=== PATIENT | female | born 1950 | race Caucasian/White ===

== ENCOUNTER → 2019-06-14 15:43 | Outpatient (CLI) | payer MEDICARE, BC, OTHER, SELFPAY ==
--- NOTE | ~2019-06-14 | XR_ITS ---
EXAMINATION: XR knee RT min 4V DATE: 06/14/2019 16:21 INDICATION: Right knee pain. TECHNIQUE: 4 views of right knee were obtained. COMPARISON: None. FINDINGS: There is a total right knee arthroplasty with patellar resurfacing in near-anatomic alignme nt. No fracture. No periprosthetic lucency to suggest loosening or infection. No knee joint effusion. IMPRESSION: 1. Total right knee arthroplasty in near-anatomic alignment. Reviewed, dictated and finalized at location A. [employer]
== END ==
PROVIDERS: Visit Provider Nurse Practitioner Adult Health
DX: M25.561 Pain in right knee (principal)
CPT/HCPCS: 73564

== ENCOUNTER 2019-11-12 13:52 | Inpatient (IN) | payer MEDICARE, OTHER, MEDICAID, SELFPAY ==
--- NOTE | ~2019-11-12 | CT_ITS ---
EXAMINATION: CT abdomen pelvis w con DATE: 11/12/2019 18:14 INDICATION: Abdominal pain. Diarrhea. TECHNIQUE: Computed tomography (CT) of the abdomen and pelvis was performed with 100 mL Omnipaque 350 intravenous contrast. Automated exposure control and iterative reconstruction technique were employe d. The dose-length product was 1204.32 mGy-cm. COMPARISON: CT abdomen and pelvis 04/30/2019 FINDINGS: The visualized portions of the lung bases demonstrate mild atelectasis. No pleural effusion . The heart size is normal. No pericardial effusion. There are calcifications of aortic valve. The li ethel is normal. There are gallstones in the gallbladder, which is normal in size. The spleen, pancreas , and adrenal glands are normal. There is cortical thinning of the kidneys. There is diverticulosis o f the colon without evidence of diverticulitis. There are no dilated loops of bowel. The appendix is normal. There is a 3.5 x 1.7 x 4.8 cm mass abutting the anterior aspect of the aortic bifurcation. Th ere are no pathologically enlarged lymph nodes. There is no free intraperitoneal fluid. There is emmanuel re right hip osteoarthritis. There is moderate lumbar spondylosis. IMPRESSION: 1. New mass at the anterior aspect of the aortic bifurcation, which may be retroperitoneal fibrosis o r lymphoma. Reviewed, dictated and finalized at location A. IMPRESSION: 1. New mass at the anterior aspect of the aortic bifurcation, which may be retr operitoneal fibrosis or lymphoma.
--- NOTE | ~2019-11-12 | XR_ITS ---
XR knee RT min 4V 11/12/2019 16:08 Indication: Right chronic knee pain Procedure: 4 views right knee Comparison: 06/14/2019 Findings: There is a right total knee arthroplasty. Prosthesis appears well seated. The lateral views nonstandard. No significant joint effusion. No acute fracture or traumatic malalignment. Impression: 1: No acute bone or joint abnormality. Reviewed, dictated and finalized at location B. Impression: 1: No acute bone or joint abnormality.
--- NOTE | ~2019-11-12 | US_ITS ---
EXAMINATION: US venous doppler LE RT DATE: 11/12/2019 16:23 INDICATION: Right lower limb pain. TECHNIQUE: Grayscale ultrasound images without and with compression and Doppler ultrasound images of the right lower extremity veins were obtained. COMPARISON: None. FINDINGS: The visualized portions of right common femoral vein, profunda (deep) femoral vein, femoral vein, per [place] veins, posterior tibial veins, and greater saphenous vein outflow are patent. There is thrombus in right popliteal vein. IMPRESSION: 1. Deep vein thrombosis involving right popliteal vein. I called this result to Flores Gan on 11/11 at 16:26. Reviewed, dictated and finalized at location A. IMPRESSION: 1. Deep vein thrombosis involving right popliteal vein. I called this result t o Flores Gan on 11/12/19 at 16:26.
[2019-11-12 13:53] VITALS: BP 132/66; PULSE 66; RESP 20; TEMP 36.8; O2SAT 96
--- NOTE | 2019-11-12 15:45 | ED.LOWEXIN ---
HPI - Extremity Injury (Lower) General Chief Complaint: Extremity Injury, Lower Stated Complaint: R SIDE KNEE PAIN Time Seen by Provider: 11/12/19 15:26 Source: patient Mode of arrival: EMS Limitations: other (Poor historian) History of Present Illness HPI Narrative: Patient presents to the emergency department for acute on chronic right knee pain. Reports she has had problems with his knee for years. Reports is been worse over the last couple weeks. Worse with movement and relieved with rest. Denies any new injury or trauma. Also reports she has been having diarrhea over the last couple of days. Reports intermittent crampy abdominal pain. Reports she has had darker stools for the last couple of months. Has had a colonoscopy and seen a GI doctor in the past. Reports this has been several years ago though. Denies fever, erythema, or edema. Related Data Home Medications Medication Instructions Recorded Confirmed acetaminophen 500 mg PO Q6H PRN 04/30/19 amlodipine [Norvasc] 10 mg PO DAILY 04/30/19 aripiprazole 20 mg PO DAILY 04/30/19 ascorbic acid (vitamin C) mg PO 04/30/19 aspirin DAILY 04/30/19 bismuth subsalicylate 524 mg PO Q1H PRN 04/30/19 [Pepto-Bismol] buspirone 10 mg PO TID 04/30/19 chlorthalidone 25 mg PO DAILY 04/30/19 diclofenac sodium [Voltaren] 2 g TOPICAL QID 04/30/19 divalproex [Depakote ER] 500 mg PO DAILY 04/30/19 divalproex [Depakote ER] 750 mg PO HS 04/30/19 haloperidol 2 mg PO BID 04/30/19 hydrochlorothiazide 12.5 mg PO DAILY 04/30/19 hydrocodone-acetaminophen [[place]] 1 tablet PO Q4H PRN 04/30/19 hydroxyzine HCl 25 mg PO TID PRN 04/30/19 ibuprofen 400 mg PO Q6H PRN 04/30/19 lisinopril 40 mg PO DAILY 04/30/19 lorazepam 0.5 mg PO HS PRN 04/30/19 meloxicam 15 mg PO DAILY 04/30/19 metoprolol tartrate 100 mg PO Q12H 04/30/19 vxoenxiaitlw-lrt-chho-FA-vit K tablet PO 04/30/19 [Adults Multivitamin] omeprazole 20 mg PO DAILY 04/30/19 potassium chloride 10 meq PO DAILY 04/30/19 pravastatin 80 mg PO DAILY 04/30/19 psyllium husk (aspartame) 3 g PO DAILY 04/30/19 [Reguloid (aspartame)] sennosides [senna] 8.6 mg PO BID PRN 04/30/19 sertraline [Zoloft] 200 mg PO DAILY 04/30/19 simethicone 80 mg PO DAILY 04/30/19 trazodone 100 mg PO HS 04/30/19 Allergies Allergy/AdvReac Type Severity Reaction Status Date / Time adhesive tape Allergy Unknown Verified 11/12/19 13:57 latex Allergy Unknown Verified 11/12/19 13:57 quetiapine [From Seroquel] Allergy Unknown Verified 11/12/19 13:57 simvastatin Allergy Unknown Verified 11/12/19 13:57 tizanidine Allergy Unknown Verified 11/12/19 13:57 Review of Systems Review of Systems: Narrative: CONSTITUTIONAL: Denies fever SKIN: Denies rash MUSCULOSKELETAL: Reports joint pain, and myalgia. NEUROLOGIC: Denies numbness All systems reviewed & are unremarkable except as noted in HPI and below PMFSH Past Medical History Medical History (Updated 11/12/19 @ 18:48 by Flores Gan PA-C) COPD (chronic obstructive pulmonary disease) CVA (cerebral vascular accident) Diabetes mellitus Hypertension Obesity Schizophrenia Exam Narrative: Exam Narrative: GENERAL: Well-appearing, obese, and in no acute distress. HEAD: Normocephalic, atraumatic. EYES: EOMI. CHEST: Clear to auscultation. No respiratory distress. No wheezes rales or rhonchi HEART: Regular rate and rhythm. No murmur heard. Normal peripheral pulses. ABDOMEN: Soft, nondistended, normal active bowel sounds. Mild tenderness palpation throughout the lower abdomen, without guarding EXTREMITIES: Normal range of motion. Pain with active ROM of the right knee. No edema or erythema. Normal DP pulses. Normal sensation SKIN: Warm, dry, no rash. NEURO: No focal deficits. Alert and oriented x2. PSYCH: Normal mood and affect RECTAL: Hemoccult positive Course Consultations Consultation #1: Spoke with GI, Dr. Sweeney who will consult Date: 11/12/19 Time: 18:51 Consultation #2:
--- NOTE | 2019-11-12 16:05 | PC.NURSE ---
pt to ultrasound prior to labs being obtained.
[2019-11-12 16:32] LABS: Basophils Percent Auto 0.1 % (0.2-1.2); Hematocrit 25.5 % (37.0-47.0); Hemoglobin 8.5 g/dL (12.0-15.0); Immature Granulocyte Absolute 0.06 K/mm3 (0.00-0.031); Immature Granulocyte Percent A 0.7 % (0-0.5); Lymphocytes Absolute Auto 1.87 K/mm3 (0.9-3.2); Lymphocytes Percent Auto 21.3 % (18.3-44.2); Mean Corpuscular HGB Conc 33.3 g/dl (32-36); Mean Corpuscular Hemoglobin 32.1 pg (26-34); Mean Corpuscular Volume 96.2 fl (80-100); Mean Platelet Volume 9.9 fl (7.4-10.4); Monocytes Absolute Auto 0.8 K/mm3 (0.1-0.6); Monocytes Percent Auto 8.5 % (2.6-8.5); Neutrophils Absolute Auto 6.1 K/mm3 (1.3-6.7); Neutrophils Percent Auto 69.4 % (45.5-73.1); Nucleated Red Blood Cells Perc 0.3 % (0.0-0.2); Platelet Count Result 159 k/mm3 (150-375); Red Blood Count 2.65 M/mm3 (4.2-5.4); White Blood Count 8.8 K/mm3 (4.5-10.0)
[2019-11-12 16:42] LABS: INR 1.1; Partial Thromboplastin Time 22.1 SECONDS (22.3-36.8); Prothrombin Time 13.4 Seconds (11.1-14.7)
[2019-11-12 16:43] LABS: Blood Urea Nitrogen 68 mg/dL (7-17); Calcium 8.8 mg/dL (8.4-10.2); Carbon Dioxide 26 mmol/L (22-30); Chloride 100 mmol/L (98-107); Estimated Glomerular Filt Rate 55; Glucose 112 mg/dL (65-105); Potassium 4.6 mmol/L (3.4-5.0); Sodium 136 mmol/L (137-145)
[2019-11-12 17:30] VITALS: BP 142/77; PULSE 78; RESP 20; TEMP 36.6; O2SAT 99
[2019-11-12] MEDS: SODIUM CHLORIDE 0.9% IV 1,000 ML 999 ML IV CONT (17:45)
[2019-11-12] MEDS: PANTOPRAZOLE SODIUM IV 40 MG VIAL IV PUSH ×2 (18:45→18:46)
[2019-11-12 18:47] VITALS: BP 138/74; PULSE 74; RESP 18; O2SAT 98
[2019-11-12 19:52] VITALS: BP 132/43; PULSE 60; RESP 18; TEMP 36.8; O2SAT 96
[2019-11-12 20:08] LABS: Hematocrit 22.9 % (37.0-47.0); Hemoglobin 7.6 g/dL (12.0-15.0)
[2019-11-12 20:25] VITALS: BP 128/51; PULSE 59; RESP 18; TEMP 36.5; O2SAT 98; BMI 31.3
--- NOTE | 2019-11-12 21:01 | PC.NURSE ---
This patient, Jolie Thompson, was admitted to [facility] Surg Room 314-01. Patient/family oriented to hospital policies and general routines including ID bracelet, bed and alarms, visiting hours, pain management, procedures, bathroom and other care routines, personal items, smoking policy, room service/diet, and visiting hours. Valuables list has been completed. Information on how to activate the Rapid Response Team has been discussed. Patient/Family are encouraged to report perceived risks to care and to ask questions if they do not understand what they are told or what they should do.
[2019-11-12 22:00] VITALS: BP 100/75; PULSE 59; RESP 18; TEMP 36.6; O2SAT 99
[2019-11-12] MEDS: SODIUM CHLORIDE 0.9% IV 1,000 ML 125 ML IV CONT (22:35)
[2019-11-13] VITALS (23 sets, daily range): BP systolic 119–183; BP diastolic 39–73; PULSE 50–76; RESP 16–61; TEMP 36.3–37.1; O2SAT 93–100
[2019-11-13 02:21] LABS: Hematocrit 22.8 % (37.0-47.0); Hemoglobin 7.4 g/dL (12.0-15.0)
[2019-11-13] MEDS: SODIUM CHLORIDE 0.9% IV 1,000 ML 125 ML IV CONT ×2 (05:04→23:47)
[2019-11-13 07:30] LABS: Hematocrit 21.2 % (37.0-47.0)
[2019-11-13 07:34] LABS: Hemoglobin 6.9 g/dL (12.0-15.0)
--- NOTE | 2019-11-13 08:35 | PM.IMHP ---
H&P: HPI History of Present Illness Chief complaint: GI bleed, RLE DVT Narrative: Date of visit 11/12 809. Jolie Thompson is a 69 year old female with hypertension, schizophrenia, bioprosthetic aortic valve and chronic right knee pain status post right total knee who presented to the emergency room with complaints of ongoing knee pain. No recent trauma. She did relate that she had had some loose stools in the had been darker than usual and hemoglobin was decreased to 8.5 with BUN elevated at 68 and guaiac-positive stool. She was admitted for evaluation treatment of the same. She admits to being weak and dizzy but denied any fall or syncope but essentially wheelchair bound anyway. States she is always hungry and denies any abdominal pain, vomiting, dysphagia, or weight loss. On review of her medications she lists diclofenac and meloxicam both as well as Pepto-Bismol tablets. No previous history of peptic disease. Review of Systems Review of Systems: Narrative: General weight has been steady appetite good no change in bowel habits till the present illness Eye no double vision [place] Mouth no pharyngitis laryngitis Pulmonary no shortness breath wheezing or cough CV no chest pain palpitations status post aortic valve replacement GI as per present illness has had colonoscope was for benign polyps in the past last being she thinks 2 years ago at the [facility] has urgency of urination for some time with difficulty controlling Muscle skeletal the right need chronic problem no other significant joint discomfort Integument lots of bruising Neuropsych no seizures no syncope chronic schizophrenia PMFSH Past Medical History Medical History (Updated 11/13/19 @ 08:43 by Ang Kwon MD) COPD (chronic obstructive pulmonary disease) CVA (cerebral vascular accident) Diabetes mellitus Hypertension Obesity Schizophrenia Surgical History Surgical History (Updated 11/13/19 @ 08:43 by Ang Kwon MD) History of aortic valve replacement with bioprosthetic valve History of total knee arthroplasty Family History Family History (Updated 11/13/19 @ 08:44 by Ang Kwon MD) Father , Age 70 with cardiac and multiple other problems that patient cannot elaborate on Heart disease Mother , 71 heart disease Heart disease Other Unknown family medical history Social History Social History (Updated 11/13/19 @ 08:46 by Ang Kwon MD) Social History: Never no children, currently senior living resident due to inability to care for herself due to arthritis and schizophrenia. Had lived in an apartment assisted living until she fell over year ago Smoking packs per day: 1 Smoking cigarettes per day: 20.0 Smoking status: Former smoker Tobacco type: cigarettes Second hand tobacco smoke exposure: No Alcohol intake: former Substance use: never Substance use type: does not use Gender identity (if verbalized by the patient): Female Spiritual care concerns: No Meds Home Medications and Allergies Home Medications Medication Instructions Recorded Confirmed Type aripiprazole 20 mg PO DAILY 04/30/19 11/12/19 History aspirin 81 mg PO DAILY 04/30/19 11/12/19 History diclofenac sodium [Voltaren] 2 g TOPICAL QID 04/30/19 11/12/19 History lisinopril 40 mg PO DAILY 04/30/19 11/12/19 History meloxicam 15 mg PO DAILY 04/30/19 11/12/19 History jwbrlyeiyoyx-byd-ngbw-FA-vit K 1 tablet PO DAILY 04/30/19 11/12/19 History [Adults Multivitamin] pravastatin 80 mg PO DAILY 04/30/19 11/12/19 History sertraline [Zoloft] 200 mg PO DAILY 04/30/19 11/12/19 History bismuth subsalicylate 262 mg PO QID 11/12/19 11/12/19 History [Pepto-Bismol] cholecalciferol (vitamin D3) 1,000 unit PO DAILY 11/12/19 11/13/19 History divalproex [Depakote] 500 mg PO TID 11/12/19 11/12/19 History haloperidol 5 mg PO BID 11/12/19 11/13/19 History hydrochlorothiazide 25 mg PO DAILY 11/12/19 11/12/19 History
[2019-11-13] MEDS: DIVALPROEX SODIUM 250 MG TABEC 500 MG PO ×2 (09:05→17:49)
[2019-11-13] MEDS: SERTRALINE HCL 50 MG TABLET 200 MG PO (09:05)
[2019-11-13] MEDS: MULTIVITAMINS /C LUTEIN (CENTRUM SILVER) TABLET *BKC 1 TAB PO (09:06)
[2019-11-13] MEDS: HALOPERIDOL 5 MG TABLET PO ×2 (09:06→17:50)
[2019-11-13] MEDS: ARIPiprazole 10 MG TABLET 20 MG PO (09:07)
[2019-11-13] MEDS: CHOLECALCIFEROL 1,000 UNIT TABLET 1000 UNITS PO (09:07)
[2019-11-13] MEDS: METOPROLOL TARTRATE 25 MG TABLET PO ×2 (09:08→20:01)
[2019-11-13] MEDS: PANTOPRAZOLE SODIUM IV 40 MG VIAL IV PUSH ×2 (09:10→17:51)
--- NOTE | 2019-11-13 14:32 | PC.NURSE ---
Patient down to GI lab at 1425.
[2019-11-13] MEDS: SODIUM CHLORIDE 0.9% IV 250 ML 30 ML IV CONT (14:45)
[2019-11-13] MEDS: LACTATED RINGERS 1,000 ML 150 ML IV CONT (14:48)
[2019-11-13 14:49] LABS: Glucose Point of Care 79 (65-105)
--- NOTE | 2019-11-13 14:53 | P.PNAN_ITS ---
Anes - Eval Final PreProcedure Day of Procedure 11/13/19 14:53 Patient weight: obese Heart: regular rate and rhythm Lungs: clear to auscultation Airway: Mallampati scale class II Neurological: alert and oriented Last oral intake: >/= 8 hours ASA classification: III Emergent: no Anesthetic plan: proceed Anesthesia type and monitoring: general GIVS and standard monitoring Informed Consent: The patient's anesthetic plan and its attendant risks and b enefits were discussed with the patient/family/POA. Questions were solicited and answers provided to the satisfaction of the patient/family/POA.
--- NOTE | 2019-11-13 15:08 | WPDGICN ---
Assessment and Plan Assessment and plan (1) Melena: Code(s): K92.1 - Melena Status: Acute Assessment and Plan: will proceed with urgent EGD, continue with ppi iv more recommendations after EGD already getting blood transfusion keep hb >7 complicated history because new diagnosis of DVT- if we find ongoing bleeding probably will need ivc filter instead of blood thinners (2) Acute blood loss anemia: Code(s): D62 - Acute posthemorrhagic anemia Status: Acute Assessment and Plan: monitor and transfuse to keep hb>7 (3) Acute GI bleeding: Code(s): K92.2 - Gastrointestinal hemorrhage, unspecified Status: Acute (4) Acute deep vein thrombosis of right popliteal vein: Code(s): I82.431 - Acute embolism and thrombosis of right popliteal vein Status: Acute Assessment and Plan: new diagnosis, possible IVC filter (5) Abdominal mass: Code(s): R19.00 - Intra-abdominal and pelvic swelling, mass and lump, unspecified site Status: Acute Assessment and Plan: new finding- ? lymphoma vs retroperitoneal fibrosis, may need bx- consider oncology consult she says that had colonoscopy 2 years ago get ldh (6) History of total knee arthroplasty: Code(s): Z96.659 - Presence of unspecified artificial knee joint Status: Acute (7) BARRON (acute kidney injury): Code(s): N17.9 - Acute kidney failure, unspecified Status: Acute Assessment and Plan: mild elevated creatinine, improved with fluids GI Consult Note Consult date/time: 11/13/19 15:08 Reason for consult: melena and acute blood loss anemia HPI: Jolie Thompson is a 69 year old female with history of hypertension, schizophrenia, bioprosthetic aortic valve and chronic right knee pain status post right total knee and chronic pain here with new onset of pain in right knee and also diarrhea with dark stool since yesterday consistent with melena, also lightheadedness and feeling weak. Hb on admission 8.5 dropped to 6.9 with elevated BUN (baseline hb 12.5 on April). CT scan also showed new mass at the anterior aspect of the aortic bifurcation, which may be retroperitoneal fibrosis or lymphoma. Doppler ultrasound right leg showed Deep vein thrombosis involving right popliteal vein. She is npo now. Her last colonoscopy about 2 years ago. Review of Systems Constitutional: Constitutional: Reports fatigue and Denies headache(s) Eyes: Eyes: Denies blurry vision ENT: Reports Normal hearing present, Denies headache(s) and Denies neck pain Cardiovascular: Cardiovascular: Denies chest pain, Reports lightheadedness and Denies dyspnea Respiratory: Respiratory: Reports dyspnea on exertion Gastrointestinal: Gastrointestinal: Reports melena Genitourinary: Genitourinary: Denies dysuria Musculoskeletal: Musculoskeletal: Reports arthralgias Integumentary/Breasts: Skin/Breast: Denies dry skin Neurologic: Reports Normal hearing present Psychiatric: Psychiatric: Denies anxiety Endocrine: Endocrine: Denies change in body appearance Hematologic/Lymphatic: Hematologic/Lymphatic: Denies easy bleeding Allergic/Immunologic: Allergic/Immunologic: Denies urticaria PMFSH Past Medical History Medical History (Updated 11/13/19 @ 15:13 by Maynor Bray MD) BARRON (acute kidney injury) COPD (chronic obstructive pulmonary disease) CVA (cerebral vascular accident) Diabetes mellitus Hypertension Melena Obesity Schizophrenia Surgical History Surgical History (Updated 11/13/19 @ 08:43 by Ang Kwon MD) History of aortic valve replacement with bioprosthetic valve History of total knee arthroplasty Family History Family History (Updated 11/13/19 @ 08:44 by Ang Kwon MD) Father , Age 70 with cardiac and multiple other problems that patient cannot elaborate on Heart disease Mother , 71 heart disease Heart disease Other Unknown family medical
[2019-11-13 15:57] LABS: Glucose Point of Care 70 (65-105)
[2019-11-13] MEDS: TUBING, BLOOD PLUM PUMP TUBING 1 EACH XX (17:05)
[2019-11-13 19:31] LABS: Hematocrit 27.8 % (37.0-47.0); Hemoglobin 9.1 g/dL (12.0-15.0)
[2019-11-13 20:24] LABS: Iron 89 ug/dL (37-170)
[2019-11-13 20:33] LABS: Percent Iron Saturation 27 % (20-50)
[2019-11-13 23:56] LABS: Glucose Point of Care 83 (65-105)
[2019-11-14] VITALS (12 sets, daily range): BP systolic 138–151; BP diastolic 53–71; PULSE 47–62; RESP 16–18; TEMP 36.1–36.6; O2SAT 95–99
--- NOTE | 2019-11-14 | ECHO_ITS ---
Patient Info Name: Jolie Thompson Age: 69 years : 1950 Gender: Female Ht: 66 in Wt: 194 lbs BSA: 2.05 m2 HR: 51 bpm BP: 151 / 71 mmHg Heart Rhythm: Sinus Rhythm Technical Quality: Good Exam Date: 11/14/2019 2:23 PM Exam Location: [facility] Exam Room: 314 Patient Status: Inpatient Admit Date: 11/12/2019 Staff Ordering Physician: Ang Kwon MD Comprehensive Ophthalmologist: Liliana Fragoso RDCS Attending Provider: Heather Holland MD Exam Type: CA echo doppler color flow Study Info Complete two-dimensional, color flow and Doppler transthoracic echocardiogram is performed. Summary 1. Normal left ventricular size with moderate concentric hypertrophy. Hyperdynamic left ventricular systolic function with a visual EF of greater than 70% and measured of 72%. Grade 2 diastolic dysfunction is present. 2. Left atrial chamber dimension is moderately enlarged. 3. Right atrial chamber dimension is mildly enlarged. 4. There is mild tricuspid valve regurgitation. 5. Normal appearing bioprosthetic aortic valve prosthesis. Peak velocity 2.9 m/sec, peak gradient 33 mmHg, mean gradient 18 mmHg, aortic valve area 1.2 cm2. 6. Mild pulmonary hypertension, estimated pulmonary arterial systolic pressure is 46 mmHg. 7. Normal sinus rhythm. Left Ventricle Left ventricular chamber dimension is normal. Left ventricular systolic function is normal, estimated at >70%. There is moderately increased left ventricular wall thickness. Left ventricular septal wall motion is normal. The left ventricular diastolic function is grade II diastolic dysfunction. Right Ventricle Right ventricular chamber dimension is normal. Right ventricular systolic function is normal. Left Atria Left atrial chamber dimension is moderately enlarged. Right Atria Right atrial chamber dimension is mildly enlarged. Aortic Valve The porcine aortic valve is trileaflet. There is no sclerosis of the porcine aortic valve leaflets. There is no porcine aortic valve stenosis. There is no regurgitation of the porcine aortic valve. Pulmonic Valve The pulmonic valve is normal. There is no pulmonic valve stenosis. There is no pulmonic regurgitation. Mitral Valve The mitral valve has thickened leaflets. There is no mitral valve stenosis. There is trace mitral valve regurgitation. Tricuspid Valve The tricuspid valve leaflets are normal. There is no significant tricuspid valve stenosis. There is mild tricuspid valve regurgitation. Mild pulmonary hypertension, estimated pulmonary arterial systolic pressure is 46 mmHg. Pericardium/Pleural The pericardium appears normal. There is no pericardial effusion. Inferior Vena Cava Normal inferior vena cava with >50% collapse upon inspiration consistent with Empty right atrial pressure, 10 mmHg. Aorta The aortic root size at the sinus of Valsalva is normal. The prox ascending aorta size is normal. Left Ventricular Outflow Tract Name Value Normal LVOT 2D LVOT Diameter 2.0 cm LVOT Doppler LVOT Peak Gradient 5 mmHg LVOT Mean Gradient 3 mmHg
[2019-11-14 06:43] LABS: Lactate Dehydrogenase 395 U/L (313-618)
--- NOTE | 2019-11-14 07:59 | WPDANESPN ---
Anes - Prog Note Post-Op Date/Time: 11/14/19 07:59 Cardiovascular status: normal Respiratory status: normal Airway patency: baseline Mental status: baseline Post-Op hydration status: normal Vital Signs: Last Vital Signs Temp 36.4 C 11/14/19 06:00 Pulse 60 11/14/19 06:00 Resp 18 11/14/19 06:00 BP 151/71 H 11/14/19 06:00 Pulse Ox 98 11/14/19 06:00 I/O: Intake & Output 11/13/19 11/13/19 11/14/19 15:59 23:59 07:59 Intake Total 1550 590 870 Balance 1550 590 870 Laboratory Tests 11/13/19 19:20 11/12/19 16:27 11/12/19 11/13/19 11/13/19 19:29 14:45 15:56 Hgb Hct POC Capillary Glucose 79 70 Iron TIBC % Saturation Ferritin Lactate Dehydrogenase Vitamin B12 TSH (Reflex) Blood Type A Positive Antibody Screen Negative Crossmatch See Detail 11/13/19 11/13/19 11/13/19 19:20 19:20 19:20 Hgb 9.1 L Hct 27.8 L POC Capillary Glucose Iron 89 TIBC 331 % Saturation 27 Ferritin 55.10 Lactate Dehydrogenase Vitamin B12 668.0 TSH (Reflex) Blood Type Antibody Screen Crossmatch 11/13/19 11/14/19 11/14/19 22:51 06:13 06:13 Hgb Hct POC Capillary Glucose 83 Iron TIBC % Saturation Ferritin Lactate Dehydrogenase 395 Vitamin B12 TSH (Reflex) Pending Blood Type Antibody Screen Crossmatch Post-procedural complaints: none Patient Feedback: Patient satisfied with anesthetic care.
[2019-11-14] MEDS: PANTOPRAZOLE SODIUM IV 40 MG VIAL IV PUSH ×2 (08:27→17:42)
[2019-11-14] MEDS: CHOLECALCIFEROL 1,000 UNIT TABLET 1000 UNITS PO (08:27)
[2019-11-14] MEDS: ARIPiprazole 10 MG TABLET 20 MG PO (08:27)
[2019-11-14] MEDS: HALOPERIDOL 5 MG TABLET PO ×2 (08:28→17:42)
[2019-11-14] MEDS: DIVALPROEX SODIUM 250 MG TABEC 500 MG PO ×3 (08:28→17:42)
[2019-11-14] MEDS: SERTRALINE HCL 50 MG TABLET 200 MG PO (08:33)
[2019-11-14] MEDS: SODIUM CHLORIDE 0.9% IV 1,000 ML 125 ML IV CONT (08:34)
[2019-11-14] MEDS: MULTIVITAMINS /C LUTEIN (CENTRUM SILVER) TABLET *BKC 1 TAB PO (08:36)
[2019-11-14] MEDS: ONDANSETRON INJ 4 MG/2 ML VIAL IV PUSH (09:11)
[2019-11-14 12:02] LABS: Basophils Percent Auto 0.3 % (0.2-1.2); Eosinophils Absolute Auto 0.1 K/mm3 (0-0.3); Hematocrit 26.2 % (37.0-47.0); Hemoglobin 8.6 g/dL (12.0-15.0); Immature Granulocyte Absolute 0.03 K/mm3 (0.00-0.031); Immature Granulocyte Percent A 0.5 % (0-0.5); Lymphocytes Absolute Auto 1.41 K/mm3 (0.9-3.2); Lymphocytes Percent Auto 23.6 % (18.3-44.2); Mean Corpuscular HGB Conc 32.8 g/dl (32-36); Mean Corpuscular Hemoglobin 31.4 pg (26-34); Mean Corpuscular Volume 95.6 fl (80-100); Mean Platelet Volume 10.1 fl (7.4-10.4); Monocytes Absolute Auto 0.8 K/mm3 (0.1-0.6); Monocytes Percent Auto 13.4 % (2.6-8.5); Neutrophils Absolute Auto 3.7 K/mm3 (1.3-6.7); Neutrophils Percent Auto 61.2 % (45.5-73.1); Platelet Count Result 106 k/mm3 (150-375); Red Blood Count 2.74 M/mm3 (4.2-5.4)
[2019-11-14 12:16] LABS: Blood Urea Nitrogen 16 mg/dL (7-17); Calcium 8.3 mg/dL (8.4-10.2); Carbon Dioxide 27 mmol/L (22-30); Chloride 106 mmol/L (98-107); Estimated CRCL calculation 86 ml/min; Estimated Glomerular Filt Rate > 60; Glucose 104 mg/dL (65-105); Potassium 4.2 mmol/L (3.4-5.0); Sodium 139 mmol/L (137-145)
[2019-11-14] MEDS: HEPARIN SODIUM 5,000 UNITS/ML VIAL 5500 UNITS IV PUSH (13:00)
[2019-11-14 13:11] LABS: INR 1.1; Prothrombin Time 13.5 Seconds (11.1-14.7)
[2019-11-14] MEDS: HEPARIN SOD/D5W 100 UNITS/ML 25,000 UNITS/250 ML BAG 13 UNITS IV CONT (13:11)
[2019-11-14 13:12] LABS: Partial Thromboplastin Time 23.8 SECONDS (22.3-36.8)
--- NOTE | 2019-11-14 15:58 | WPDGIPROGNO ---
Progress Note: A&P Assessment and Plan (1) Gastric ulcer: Code(s): K25.9 - Gastric ulcer, unspecified as acute or chronic, without hemorrhage or perforation Status: Acute Assessment and Plan: no high risk features ulcers for rebleeding but need to monitor closely because she was started on heparin gtt given new diagnosis of DVT patient is feeling better avoid nsaid's (discussed with patient) (2) NSAID induced gastritis: Code(s): K29.60 - Other gastritis without bleeding; T39.395A - Adverse effect of other nonsteroidal anti-inflammatory drugs [NSAID], initial encounter Status: Acute Assessment and Plan: probably reason of several ulcers in stomach we can repeat egd in 3-4 months to assess for healing continue with ppi bid (3) Melena: Code(s): K92.1 - Melena Status: Acute (4) Acute blood loss anemia: Code(s): D62 - Acute posthemorrhagic anemia Status: Acute (5) Acute deep vein thrombosis of right popliteal vein: Code(s): I82.431 - Acute embolism and thrombosis of right popliteal vein Status: Acute Subjective Date/time seen: 11/14/19 15:58 Interval history: yesterday EGD showed several gastric ulcers with clean base and no high risk features of bleeding. She is feeling much better today. She says that was taking voltaren and meloxicam daily at home. Tolerating diet, no more bleeding. She was started on heparin gtt Review of Systems Review of Systems: All systems reviewed & are unremarkable except as noted in HPI and below Exam Const: General: no acute distress Other: pale HENMT: General nose exam: Normal nares present Eyes: General: appearance normal, both eyes and all related structures Neck: Neck: no JVD Resp: Auscultation: clear to auscultation bilaterally Cardio: Rate: regular rate Rhythm: regular rhythm GI: Inspection: non-distended GI Palp: Yes Soft to palpation, No Tenderness to palpation present (GI) and No Guarding due to palpation present (GI) Auscultation: normal bowel sounds Skin: General skin exam: pallor Neuro: Speech: normal speech Extrem: Right lower extremity: edema Other: Rt knee scar from previous surgery Psych: Mental Status: mental status grossly normal Objective Data Vital Signs Vital Signs: Vital Signs - 24 hr 11/13/19 16:00 11/13/19 16:10 11/13/19 16:30 Temperature 98.2 F Pulse Rate 56 L 56 L 55 L Respiratory Rate 61 H 61 H 16 Blood Pressure 183/73 H 160/67 H 163/65 H Pulse Oximetry 100 100 97 11/13/19 17:30 11/13/19 20:00 11/13/19 20:01 Temperature 97.6 F Pulse Rate 56 L 58 L 59 L Respiratory Rate 19 Blood Pressure 155/73 H Pulse Oximetry 99 11/13/19 22:00 11/14/19 00:00 11/14/19 04:00 Temperature 97.4 F L Pulse Rate 55 L 60 57 L Respiratory Rate 18 Blood Pressure 146/61 H Pulse Oximetry 95 11/14/19 04:03 11/14/19 06:00 11/14/19 08:00 Temperature 97.6 F Pulse Rate 57 L 60 47 L Respiratory Rate 18 Blood Pressure 138/61 151/71 H Pulse Oximetry 98 11/14/19 08:48 11/14/19 12:00 11/14/19 14:00 Temperature 97.0 F L Pulse Rate 47 L 50 L 53 L Respiratory Rate 18 Blood Pressure 140/53 L Pulse Oximetry 99 Intake/Output Intake/Output: Intake & Output 11/11/19 11/12/19 11/13/19 11/14/19 23:59 23:59 23:59 23:59 Intake Total 1000 3140 1560 Balance 1000 3140 1560 Meds/Results Medications: Active Medications Generic Name Dose Route Start Last Admin Trade Name Freq PRN Reason Stop Dose Admin Hydrocodone Bitart/Acetaminophen 1 tab 11/14/19 04:10 11/14/19 05:03 [place] 5-325 Mg PO 1 tab Q4H PRN Administration Pain Rated 4 or greater Aripiprazole 20 mg 11/13/19 09:00 11/14/19 08:27 Abilify PO 20 mg DAILY MAGUE Administration Divalproex Sodium 500 mg 11/13/19 09:00 11/14/19 13:23 Depakote Ec Tab PO 500 mg TID MAGUE Administration Haloperidol 5 mg 11/13/19 09:00 11/14/19 08:28 Titi Kenny
--- NOTE | 2019-11-14 16:34 | PM.IMPN ---
Progress Note: A&P Assessment and Plan (1) Acute GI bleeding: Code(s): K92.2 - Gastrointestinal hemorrhage, unspecified Status: Acute Assessment and Plan: From upper GI bleed with elevated BUN falling hemoglobin. With two nonsteroidals listed EGD revealed peptic ulcers with no active bleeding or high risk of same (2) Acute blood loss anemia: Code(s): D62 - Acute posthemorrhagic anemia Status: Acute Assessment and Plan: Hemoglobin had dropped below 7 and in April with the above 12. MCV is normal suggesting acute blood loss. iron studies normal and transfused 2 units of packed cells since has dropped rapidly, hgb 8.6 today., follow (3) Acute deep vein thrombosis of right popliteal vein: Code(s): I82.431 - Acute embolism and thrombosis of right popliteal vein Status: Acute Assessment and Plan: Popliteal DVT seen on Doppler. start IV heparin today (4) History of total knee arthroplasty: Code(s): Z96.659 - Presence of unspecified artificial knee joint Status: Acute Assessment and Plan: Knee pain is chronic and no change in x-ray from 6 months ago and exam is benign. (5) History of aortic valve replacement with bioprosthetic valve: Code(s): Z95.3 - Presence of xenogenic heart valve Status: Acute Assessment and Plan: Patient initially told me she was on warfarin but not listed in her medications and her INR is normal and no mechanical valve seen on echo of 2018. Will proceed with repeat echocardiogram since was degree of aortic stenosis at that time (6) Hypertension: Code(s): I10 - Essential (primary) hypertension Status: Acute Assessment and Plan: Blood pressure adequate hold diuretic and HEIDY-inhibitor and continue beta-dorothy and decrease to 12.5 bid with the bradycardia (7) Schizophrenia: Code(s): F20.9 - Schizophrenia, unspecified Status: Acute Assessment and Plan: Continue her antipsychotics and antidepressants (8) Abdominal mass: Code(s): R19.00 - Intra-abdominal and pelvic swelling, mass and lump, unspecified site Status: Acute Assessment and Plan: 3.5 x 4.8 abdominal mass anterior the to the aortic bifurcation not present on CT dated 04/19. Incidental finding. Will need further evaluation and/or follow-up with serial CTs or percutaneous biopsy. Will be complicated with anticoagulation. Subjective Date/time seen: 11/14/19 16:34 Interval history: Date of visit 11/13. yesterday EGD showed several gastric ulcers with clean base and no high risk features of bleeding per GI. . She is feeling much better today. She says that was taking NSAIDS at [place]. . Tolerating diet, no more bleeding. . With DVt will start heparin drip and follow closely Exam Narrative: Exam Narrative: Blood pressure 140/52 pulse is 52 and regular sat 96% on room air afebrile Pupils equal and reactive to light sclera anicteri Neck is supple Lungs clear CV systolic ejection murmur lower left sternal border to the 2nd right intercostal space and to the carotids radiating Abdomen obese soft nontender bowel sounds normal active Extremities without edema dorsalis pedis posterior tibial 1 to 2+ symmetrical, no calf tenderness or edema on R Right knee surgical scar from arthroplasty. No warmth erythema full range of motion but complains of pain with any movement and she cannot actively raise her leg due to pain. No real calf tenderness Integument bruising both arms throughout. No open areas Neuro flat affect cranial nerves 2-12 are intact Bradykinesia Objective Data Vital Signs Vital Signs: Vital Signs - 24 hr 11/13/19 17:30 11/13/19 20:00 11/13/19 20:01 Temperature 36.4 C Pulse Rate 56 L 58 L 59 L Respiratory Rate 19 Blood Pressure 155/73 H Pulse Oximetry 99 11/13/19 22:00 11/14/19 00:00 11/14/19 04:00 Temperature 36.3 C L Pulse Rate 55 L 60 57 L Respiratory Rate 18 [place]oo
[2019-11-14 20:04] LABS: Partial Thromboplastin Time 130.6 SECONDS (22.3-36.8)
[2019-11-14] MEDS: METOPROLOL TARTRATE 12.5 MG TABLET PO (20:21)
[2019-11-15] VITALS (8 sets, daily range): BP systolic 140–164; BP diastolic 52–76; PULSE 50–97; RESP 16–18; TEMP 36.1–36.7; O2SAT 94–98
[2019-11-15 02:20] LABS: Basophils Percent Auto 0.4 % (0.2-1.2); Eosinophils Absolute Auto 0.2 K/mm3 (0-0.3); Eosinophils Percent Auto 3.1 % (0-4.4); Hematocrit 25.1 % (37.0-47.0); Hemoglobin 8.3 g/dL (12.0-15.0); Immature Granulocyte Absolute 0.02 K/mm3 (0.00-0.031); Immature Granulocyte Percent A 0.3 % (0-0.5); Lymphocytes Percent Auto 32.2 % (18.3-44.2); Mean Corpuscular HGB Conc 33.1 g/dl (32-36); Mean Corpuscular Hemoglobin 31.4 pg (26-34); Mean Corpuscular Volume 95.1 fl (80-100); Mean Platelet Volume 10.2 fl (7.4-10.4); Monocytes Absolute Auto 0.9 K/mm3 (0.1-0.6); Monocytes Percent Auto 13.3 % (2.6-8.5); Neutrophils Absolute Auto 3.5 K/mm3 (1.3-6.7); Neutrophils Percent Auto 50.7 % (45.5-73.1); Platelet Count Result 108 k/mm3 (150-375); Red Blood Count 2.64 M/mm3 (4.2-5.4); Red Cell Distribution Width 14.6 % (11.5-14.5); White Blood Count 6.8 K/mm3 (4.5-10.0)
[2019-11-15 02:36] LABS: Blood Urea Nitrogen 9 mg/dL (7-17); Calcium 8.4 mg/dL (8.4-10.2); Carbon Dioxide 28 mmol/L (22-30); Chloride 107 mmol/L (98-107); Estimated CRCL calculation 75 ml/min; Estimated Glomerular Filt Rate > 60; Glucose 96 mg/dL (65-105); Potassium 4.1 mmol/L (3.4-5.0); Sodium 139 mmol/L (137-145)
[2019-11-15 02:39] LABS: Partial Thromboplastin Time 174.9 SECONDS (22.3-36.8)
[2019-11-15] MEDS: MULTIVITAMINS /C LUTEIN (CENTRUM SILVER) TABLET *BKC 1 TAB PO (09:41)
[2019-11-15] MEDS: ARIPiprazole 10 MG TABLET 20 MG PO (09:41)
[2019-11-15] MEDS: HALOPERIDOL 5 MG TABLET PO ×2 (09:41→16:40)
[2019-11-15] MEDS: PANTOPRAZOLE SODIUM IV 40 MG VIAL IV PUSH ×2 (09:41→16:41)
[2019-11-15] MEDS: DIVALPROEX SODIUM 250 MG TABEC 500 MG PO ×3 (09:41→16:40)
[2019-11-15] MEDS: SERTRALINE HCL 50 MG TABLET 200 MG PO (09:41)
[2019-11-15] MEDS: CHOLECALCIFEROL 1,000 UNIT TABLET 1000 UNITS PO (09:41)
[2019-11-15] MEDS: METOPROLOL TARTRATE 12.5 MG TABLET PO ×2 (09:42→20:47)
[2019-11-15] MEDS: HEPARIN SOD/D5W 100 UNITS/ML 25,000 UNITS/250 ML BAG 9 UNITS IV CONT (12:02)
--- NOTE | 2019-11-15 16:12 | WPDGIPROGNO ---
Progress Note: A&P Assessment and Plan (1) Gastric ulcer: Code(s): K25.9 - Gastric ulcer, unspecified as acute or chronic, without hemorrhage or perforation Status: Acute Assessment and Plan: no high risk features ulcers for rebleeding but need to monitor closely because she was started on heparin gtt given new diagnosis of DVT patient is feeling better, hb stable since last blood transfusion and normal BUN now avoid nsaid's (discussed with patient) (2) NSAID induced gastritis: Code(s): K29.60 - Other gastritis without bleeding; T39.395A - Adverse effect of other nonsteroidal anti-inflammatory drugs [NSAID], initial encounter Status: Acute Assessment and Plan: probably reason of several ulcers in stomach we can repeat egd in 3-4 months to assess for healing continue with ppi bid (3) Melena: Code(s): K92.1 - Melena Status: Acute (4) Acute blood loss anemia: Code(s): D62 - Acute posthemorrhagic anemia Status: Acute (5) Acute deep vein thrombosis of right popliteal vein: Code(s): I82.431 - Acute embolism and thrombosis of right popliteal vein Status: Acute Assessment and Plan: on iv heparin by primary team, monitor h/h Subjective Date/time seen: 11/15/19 16:12 Interval history: no bleeding, no pain, denies bleeding. Review of Systems Review of Systems: All systems reviewed & are unremarkable except as noted in HPI and below Exam Const: General: comfortable and no acute distress Other: pale HENMT: General nose exam: Normal nares present Eyes: General: appearance normal, both eyes and all related structures Neck: Neck: no JVD Resp: Auscultation: clear to auscultation bilaterally Cardio: Rate: regular rate Rhythm: regular rhythm GI: Inspection: non-distended GI Palp: Yes Soft to palpation, No Tenderness to palpation present (GI) and No Guarding due to palpation present (GI) Auscultation: normal bowel sounds Skin: General skin exam: pallor Neuro: Speech: normal speech Extrem: Right lower extremity: edema Other: Rt knee scar from previous surgery Psych: Mental Status: mental status grossly normal Affect: normal affect Objective Data Vital Signs Vital Signs: Vital Signs - 24 hr 11/14/19 20:00 11/14/19 20:21 11/14/19 22:00 Temperature 97.9 F Pulse Rate 54 L 62 53 L Respiratory Rate 16 Blood Pressure 149/56 H Pulse Oximetry 95 11/15/19 00:00 11/15/19 04:00 11/15/19 06:00 Temperature 97 F L Pulse Rate 50 L 53 L 60 Respiratory Rate 16 Blood Pressure 152/76 H Pulse Oximetry 94 11/15/19 08:00 11/15/19 09:42 11/15/19 14:00 Temperature 97.4 F L Pulse Rate 53 L 56 L 51 L Respiratory Rate 16 Blood Pressure 140/52 L Pulse Oximetry 98 Intake/Output Intake/Output: Intake & Output 11/12/19 11/13/19 11/14/19 11/15/19 23:59 23:59 23:59 23:59 Intake Total 1000 3140 3050 1045 Balance 1000 3140 3050 1045 Meds/Results Medications: Active Medications Generic Name Dose Route Start Last Admin Trade Name Freq PRN Reason Stop Dose Admin Hydrocodone Bitart/Acetaminophen 1 tab 11/14/19 04:10 11/15/19 09:49 [place] 5-325 Mg PO 1 tab Q4H PRN Administration Pain Rated 4 or greater Aripiprazole 20 mg 11/13/19 09:00 11/15/19 09:41 Abilify PO 20 mg DAILY MAGUE Administration Divalproex Sodium 500 mg 11/13/19 09:00 11/15/19 13:22 Depakote Ec Tab PO 500 mg TID MAGUE Administration Haloperidol 5 mg 11/13/19 09:00 11/15/19 09:41 Haldol Tablet PO 5 mg BID MAGUE Administration Heparin Sodium (Porcine) 5,500 units 11/14/19 12:27 Heparin Sodium IV PUSH PRN PRN aPTT less than 55 seconds Heparin Sodium (Porcine) 3,000 units 11/14/19 12:27 Heparin Sodium IV PUSH PRN PRN aPTT 55 - 70 seconds Heparin Sodium/Dextrose 25,000 units in 250 mls @ 9 mls/hr 11/14/19 12:30 11/15/19 12:02 Heparin Sodium/D5w 100 Units/Ml
[2019-11-15 16:31] LABS: Partial Thromboplastin Time 82.6 SECONDS (22.3-36.8)
--- NOTE | 2019-11-15 16:40 | PM.IMPN ---
Progress Note: A&P Assessment and Plan (1) Acute GI bleeding: Code(s): K92.2 - Gastrointestinal hemorrhage, unspecified Status: Acute Assessment and Plan: From upper GI bleed with elevated BUN falling hemoglobin. With two nonsteroidals listed EGD revealed peptic ulcers with no active bleeding or high risk of same (2) Acute blood loss anemia: Code(s): D62 - Acute posthemorrhagic anemia Status: Acute Assessment and Plan: Hemoglobin had dropped below 7 and in April with the above 12. MCV is normal suggesting acute blood loss. iron studies normal and transfused 2 units of packed cells since has dropped rapidly, hgb 8.3 today., follow (3) Acute deep vein thrombosis of right popliteal vein: Code(s): I82.431 - Acute embolism and thrombosis of right popliteal vein Status: Acute Assessment and Plan: Popliteal DVT seen on Doppler. start IV heparin 11/13 and tolerating so far (4) History of total knee arthroplasty: Code(s): Z96.659 - Presence of unspecified artificial knee joint Status: Acute Assessment and Plan: Knee pain is chronic and no change in x-ray from 6 months ago and exam is benign. (5) History of aortic valve replacement with bioprosthetic valve: Code(s): Z95.3 - Presence of xenogenic heart valve Status: Acute Assessment and Plan: Patient initially told me she was on warfarin but not listed in her medications and her INR is normal and no mechanical valve seen on echo of 2017. repeat echocardiogram normal bioprosthetic aortic valve. EF 70% with grade 2 diastolic dysfunction. [id number] hyper tension pulmonary r[place]ie with the 46 mm pressure estimated (6) Hypertension: Code(s): I10 - Essential (primary) hypertension Status: Acute Assessment and Plan: Blood pressure adequate hold diuretic and HEIDY-inhibitor and continue beta-dorothy and decreased to 12.5 bid with the bradycardia (7) Schizophrenia: Code(s): F20.9 - Schizophrenia, unspecified Status: Acute Assessment and Plan: Continue her antipsychotics and antidepressants (8) Abdominal mass: Code(s): R19.00 - Intra-abdominal and pelvic swelling, mass and lump, unspecified site Status: Acute Assessment and Plan: 3.5 x 4.8 abdominal mass anterior the to the aortic bifurcation not present on CT dated 04/19. Incidental finding. Will need further evaluation and/or follow-up with serial CTs or percutaneous biopsy. Will be complicated with anticoagulation. Subjective Date/time seen: 11/15/19 16:40 Interval history: Date of visit 11/14. EGD 11/12 showed several gastric ulcers with clean base and no high risk features of bleeding per GI. . She is feeling much better each day. She says that was taking NSAIDS at [place]. . Tolerating diet, no more bleeding. . With DVt started heparin drip 11/13 Exam Narrative: Exam Narrative: Blood pressure 140/50 pulse is 50 and regular sat 96% on room air afebrile Pupils equal and reactive to light sclera anicteri Neck is supple Lungs clear CV systolic ejection murmur lower left sternal border to the 2nd right intercostal space and to the carotids radiating Abdomen obese soft nontender bowel sounds normal active Extremities without edema dorsalis pedis posterior tibial 1 to 2+ symmetrical, no calf tenderness or edema on R Right knee surgical scar from arthroplasty. No warmth erythema full range of motion but complains of pain with any movement and she cannot actively raise her leg due to pain. No real calf tenderness Integument bruising both arms throughout. No open areas Neuro flat affect cranial nerves 2-12 are intact Bradykinesia Objective Data Vital Signs Vital Signs: Vital Signs - 24 hr 11/14/19 20:00 11/14/19 20:21 11/14/19 22:00 Temperature 36.6 C Pulse Rate 54 L 62 53 L Respiratory Rate 16 Blood Pressure 149/56 H Pulse Oximetry 95 11/15/19 00:00 11/15/19 04
[2019-11-15 22:57] LABS: Partial Thromboplastin Time 83.5 SECONDS (22.3-36.8)
[2019-11-16 06:00] VITALS: BP 154/71; PULSE 54; RESP 18; TEMP 36.3; O2SAT 96
[2019-11-16 06:17] LABS: Partial Thromboplastin Time 74.6 SECONDS (22.3-36.8)
[2019-11-16 07:52] LABS: Hemoglobin 8.7 g/dL (12.0-15.0); Mean Corpuscular HGB Conc 32.2 g/dl (32-36); Mean Corpuscular Hemoglobin 31.2 pg (26-34); Mean Corpuscular Volume 96.8 fl (80-100); Mean Platelet Volume 9.9 fl (7.4-10.4); Platelet Count Result 125 k/mm3 (150-375); Red Blood Count 2.79 M/mm3 (4.2-5.4); Red Cell Distribution Width 14.5 % (11.5-14.5); White Blood Count 5.9 K/mm3 (4.5-10.0)
[2019-11-16] MEDS: PANTOPRAZOLE SODIUM IV 40 MG VIAL IV PUSH ×2 (10:25→17:32)
[2019-11-16] MEDS: DIVALPROEX SODIUM 250 MG TABEC 500 MG PO ×3 (10:26→17:31)
[2019-11-16] MEDS: SERTRALINE HCL 50 MG TABLET 200 MG PO (10:26)
[2019-11-16] MEDS: ARIPiprazole 10 MG TABLET 20 MG PO (10:26)
[2019-11-16 10:27] VITALS: PULSE 80
[2019-11-16] MEDS: MULTIVITAMINS /C LUTEIN (CENTRUM SILVER) TABLET *BKC 1 TAB PO (10:27)
[2019-11-16] MEDS: HALOPERIDOL 5 MG TABLET PO ×2 (10:27→17:32)
[2019-11-16] MEDS: METOPROLOL TARTRATE 12.5 MG TABLET PO ×2 (10:27→20:37)
[2019-11-16] MEDS: CHOLECALCIFEROL 1,000 UNIT TABLET 1000 UNITS PO (10:29)
--- NOTE | 2019-11-16 15:16 | PM.IMPN ---
Progress Note: A&P Assessment and Plan (1) Acute GI bleeding: Code(s): K92.2 - Gastrointestinal hemorrhage, unspecified Status: Acute Assessment and Plan: From upper GI bleed with elevated BUN falling hemoglobin. With two nonsteroidals listed EGD revealed peptic ulcers with no active bleeding or high risk of same (2) Acute blood loss anemia: Code(s): D62 - Acute posthemorrhagic anemia Status: Acute Assessment and Plan: Hemoglobin had dropped below 7 and in April above 12. MCV is normal suggesting acute blood loss. iron studies normal and transfused 2 units of packed cells since dropped rapidly, hgb 8.7 today., follow (3) Acute deep vein thrombosis of right popliteal vein: Code(s): I82.431 - Acute embolism and thrombosis of right popliteal vein Status: Acute Assessment and Plan: Popliteal DVT seen on Doppler. started IV heparin 11/13 and transition to Eliquis this pm (4) History of total knee arthroplasty: Code(s): Z96.659 - Presence of unspecified artificial knee joint Status: Acute Assessment and Plan: Knee pain is chronic and no change in x-ray from 6 months ago and exam is benign. (5) History of aortic valve replacement with bioprosthetic valve: Code(s): Z95.3 - Presence of xenogenic heart valve Status: Acute Assessment and Plan: Patient initially told me she was on warfarin but not listed in her medications and her INR is normal and no mechanical valve seen on echo of 2018. repeat echocardiogram normal bioprosthetic aortic valve. EF 70% with grade 2 diastolic dysfunction. [id number] hyper tension pulmonary ritchie with the 46 mm pressure estimated (6) Hypertension: Code(s): I10 - Essential (primary) hypertension Status: Acute Assessment and Plan: Blood pressure adequate and rising so will add HEIDY back to betablocker (7) Schizophrenia: Code(s): F20.9 - Schizophrenia, unspecified Status: Acute Assessment and Plan: Continue her antipsychotics and antidepressants (8) Abdominal mass: Code(s): R19.00 - Intra-abdominal and pelvic swelling, mass and lump, unspecified site Status: Acute Assessment and Plan: 3.5 x 4.8 abdominal mass anterior the to the aortic bifurcation not present on CT dated 04/19. Incidental finding. Will need further evaluation and/or follow-up with serial CTs or percutaneous biopsy. Will be complicated with anticoagulation. Subjective Date/time seen: 11/16/19 15:16 Interval history: Date of visit 11/15. EGD 11/12 showed several gastric ulcers with clean base and no high risk features of bleeding per GI. . She is feeling much better each day though nauseated this am after eating. was taking NSAIDS at [place]. . Tolerating diet, no more bleeding. . With DVt started heparin drip 11/13 Exam Narrative: Exam Narrative: Blood pressure 152/72 pulse is 56 and regular sat 96% on room air afebrile Pupils equal and reactive to light sclera anicteri Neck is supple Lungs clear CV systolic ejection murmur lower left sternal border to the 2nd right intercostal space and to the carotids radiating Abdomen obese soft nontender bowel sounds normal active Extremities without edema dorsalis pedis posterior tibial 1 to 2+ symmetrical, no calf tenderness or edema on R Right knee surgical scar from arthroplasty. . No real calf tenderness Integument bruising both arms throughout. No open areas Neuro flat affect cranial nerves 2-12 are intact Bradykinesia Objective Data Vital Signs Vital Signs: Vital Signs - 24 hr 11/15/19 20:47 11/15/19 22:00 11/16/19 06:00 Temperature 36.7 C 36.3 C L Pulse Rate 60 97 54 L Respiratory Rate 18 18 Blood Pressure 164/66 H 154/71 H Pulse Oximetry 95 96 11/16/19 10:27 Temperature Pulse Rate 80 Respiratory Rate Blood Pressure Pulse Oximetry Intake/Output Intake/Output: Intake & Output 11/13/19
[2019-11-16] MEDS: APIXABAN 5 MG TABLET 10 MG PO (17:30)
--- NOTE | 2019-11-16 17:33 | WPDGIPROGNO ---
Progress Note: A&P Assessment and Plan (1) Gastric ulcer: Code(s): K25.9 - Gastric ulcer, unspecified as acute or chronic, without hemorrhage or perforation Status: Acute Assessment and Plan: no high risk features ulcers for rebleeding and she has not had any more melena since started on heparin gtt patient is feeling better, hb stable since last blood transfusion and normal BUN now she should not longer take nsaid's (discussed with patient) (2) NSAID induced gastritis: Code(s): K29.60 - Other gastritis without bleeding; T39.395A - Adverse effect of other nonsteroidal anti-inflammatory drugs [NSAID], initial encounter Status: Acute Assessment and Plan: probably reason of several ulcers in stomach we can repeat egd in 3-4 months to assess for healing continue with ppi bid H pylori was negative (3) Melena: Code(s): K92.1 - Melena Status: Acute (4) Acute blood loss anemia: Code(s): D62 - Acute posthemorrhagic anemia Status: Acute (5) Acute deep vein thrombosis of right popliteal vein: Code(s): I82.431 - Acute embolism and thrombosis of right popliteal vein Status: Acute Assessment and Plan: on iv heparin by primary team, monitor h/h probably tomorrow will start oral anticoagulation Subjective Date/time seen: 11/16/19 17:33 Interval history: no bleeding, no abdominal pain. She is complaining today of leg pain Review of Systems Review of Systems: All systems reviewed & are unremarkable except as noted in HPI and below Exam Const: General: comfortable and no acute distress Other: pale HENMT: General nose exam: Normal nares present Eyes: General: appearance normal, both eyes and all related structures Neck: Neck: no JVD Resp: Auscultation: clear to auscultation bilaterally Cardio: Rate: regular rate Rhythm: regular rhythm GI: Inspection: non-distended GI Palp: Yes Soft to palpation, No Tenderness to palpation present (GI) and No Guarding due to palpation present (GI) Auscultation: normal bowel sounds Skin: General skin exam: pallor Neuro: Speech: normal speech Extrem: Right lower extremity: edema Other: Rt knee scar from previous surgery Psych: Mental Status: mental status grossly normal Affect: normal affect Objective Data Vital Signs Vital Signs: Vital Signs - 24 hr 11/15/19 20:47 11/15/19 22:00 11/16/19 06:00 Temperature 98.1 F 97.3 F L Pulse Rate 60 97 54 L Respiratory Rate 18 18 Blood Pressure 164/66 H 154/71 H Pulse Oximetry 95 96 11/16/19 10:27 Temperature Pulse Rate 80 Respiratory Rate Blood Pressure Pulse Oximetry Intake/Output Intake/Output: Intake & Output 11/13/19 11/14/19 11/15/19 11/16/19 23:59 23:59 23:59 23:59 Intake Total 3140 3050 1535 630 Output Total 500 Balance 3140 3050 1035 630 Meds/Results Medications: Active Medications Generic Name Dose Route Start Last Admin Trade Name Freq PRN Reason Stop Dose Admin Acetaminophen 650 mg 11/16/19 15:07 Tylenol Tablet PO Q6H PRN Mild Pain (1-3) or Fever Hydrocodone Bitart/Acetaminophen 1 tab 11/14/19 04:10 11/15/19 09:49 [place] 5-325 Mg PO 1 tab Q4H PRN Administration Pain Rated 4 or greater Apixaban 10 mg 11/16/19 17:00 Eliquis PO Q12HR MAGUE Aripiprazole 20 mg 11/13/19 09:00 11/16/19 10:26 Abilify PO 20 mg DAILY MAGUE Administration Divalproex Sodium 500 mg 11/13/19 09:00 11/16/19 14:49 Depakote Ec Tab PO 500 mg TID MAGUE Administration Haloperidol 5 mg 11/13/19 09:00 11/16/19 10:27 Haldol Tablet PO 5 mg BID MAGUE Administration Lisinopril 20 mg 11/17/19 09:00 Prinivil PO QAM MAGUE Metoprolol Tartrate 12.5 mg 11/14/19 21:00 11/16/19 10:27 Lopressor PO 12.5 mg Q12HR MAGUE Administration Multivitamins/Minerals 1 tab 11/13/19 09:00 11/16/19 10:27 Centrum Silver PO 1 tab DAILY MAGUE Administration Ondansetro
[2019-11-16] MEDS: lisinopriL 10 MG TABLET PO (17:35)
[2019-11-16 18:34] VITALS: BP 152/68; PULSE 72; RESP 14; TEMP 36.6; O2SAT 97
[2019-11-16 20:37] VITALS: PULSE 60
[2019-11-16 21:53] VITALS: BP 138/65; PULSE 60; RESP 18; TEMP 36.7; O2SAT 98
[2019-11-17 05:52] VITALS: BP 147/68; PULSE 94; RESP 16; TEMP 36.8; O2SAT 94
[2019-11-17 06:39] LABS: Basophils Percent Auto 0.3 % (0.2-1.2); Eosinophils Absolute Auto 0.1 K/mm3 (0-0.3); Eosinophils Percent Auto 1.5 % (0-4.4); Hematocrit 24.3 % (37.0-47.0); Hemoglobin 7.8 g/dL (12.0-15.0); Immature Granulocyte Absolute 0.02 K/mm3 (0.00-0.031); Immature Granulocyte Percent A 0.3 % (0-0.5); Lymphocytes Absolute Auto 1.76 K/mm3 (0.9-3.2); Lymphocytes Percent Auto 30.2 % (18.3-44.2); Mean Corpuscular HGB Conc 32.1 g/dl (32-36); Mean Corpuscular Hemoglobin 30.8 pg (26-34); Mean Platelet Volume 10.2 fl (7.4-10.4); Monocytes Absolute Auto 0.8 K/mm3 (0.1-0.6); Monocytes Percent Auto 14.2 % (2.6-8.5); Neutrophils Absolute Auto 3.1 K/mm3 (1.3-6.7); Neutrophils Percent Auto 53.5 % (45.5-73.1); Platelet Count Result 126 k/mm3 (150-375); Red Blood Count 2.53 M/mm3 (4.2-5.4); Red Cell Distribution Width 14.6 % (11.5-14.5); White Blood Count 5.8 K/mm3 (4.5-10.0)
--- NOTE | 2019-11-17 08:18 | WPDGIPROGNO ---
Progress Note: A&P Additional Plan Patient alert in appears comfortable this morning. Offers no specific complaints. She has seen no recent bleeding. Physical exam reveals her to be alert. Abdomen is soft bowel sounds are present nontender with no hepatosplenomegaly. Extremities with only mild edema in the leg Impression 1. Gastric ulcer. Status post GI bleeding. No longer bleeding at this time. Plan is to continue proton pump inhibitors. Avoid nonsteroidal anti-inflammatory agents. Follow-up EGD in several months is advised as an outpatient. 2. DVT. At this time patient has been restarted on Eliquis anticoagulation. Plan to continue monitor hemoglobin on occasion. Watch for signs of rebleeding. Plan to advance diet discharge when all feel she is stable.. Subjective Date/time seen: 11/17/19 08:18 Objective Data Vital Signs Vital Signs: Vital Signs - 24 hr 11/16/19 10:27 11/16/19 18:34 11/16/19 20:37 Temperature 97.8 F Pulse Rate 80 72 60 Respiratory Rate 14 Blood Pressure 152/68 H Pulse Oximetry 97 11/16/19 21:53 11/17/19 05:52 Temperature 98.0 F 98.2 F Pulse Rate 60 94 Respiratory Rate 18 16 Blood Pressure 138/65 147/68 H Pulse Oximetry 98 94 Intake/Output Intake/Output: Intake & Output 11/14/19 11/15/19 11/16/19 11/17/19 23:59 23:59 23:59 23:59 Intake Total 3050 1535 1760 300 Output Total 500 Balance 3050 1035 1760 300 Meds/Results Medications: Active Medications Generic Name Dose Route Start Last Admin Trade Name Freq PRN Reason Stop Dose Admin Acetaminophen 650 mg 11/16/19 15:07 Tylenol Tablet PO Q6H PRN Mild Pain (1-3) or Fever Hydrocodone Bitart/Acetaminophen 1 tab 11/14/19 04:10 11/15/19 09:49 [place] 5-325 Mg PO 1 tab Q4H PRN Administration Pain Rated 4 or greater Apixaban 10 mg 11/16/19 17:00 11/16/19 17:30 Eliquis PO 10 mg Q12HR MAGUE Administration Aripiprazole 20 mg 11/13/19 09:00 11/16/19 10:26 Abilify PO 20 mg DAILY MAGUE Administration Divalproex Sodium 500 mg 11/13/19 09:00 11/16/19 17:31 Depakote Ec Tab PO 500 mg TID MAGUE Administration Haloperidol 5 mg 11/13/19 09:00 11/16/19 17:32 Haldol Tablet PO 5 mg BID MAGUE Administration Lisinopril 20 mg 11/17/19 09:00 Prinivil PO QAM MAGUE Metoprolol Tartrate 12.5 mg 11/14/19 21:00 11/16/19 20:37 Lopressor PO 12.5 mg Q12HR MAGUE Administration Multivitamins/Minerals 1 tab 11/13/19 09:00 11/16/19 10:27 Centrum Silver PO 1 tab DAILY MAGUE Administration Ondansetron HCl 4 mg 11/13/19 09:44 11/14/19 09:11 Zofran Inj IV PUSH 4 mg Q6H PRN Administration Nausea And Vomiting Pantoprazole Sodium 40 mg 11/13/19 09:00 11/16/19 17:32 Protonix Iv IV PUSH 40 mg BID MAGUE Administration Sertraline HCl 200 mg 11/13/19 09:00 11/16/19 10:26 Zoloft PO 200 mg DAILY MAGUE Administration Vitamin D 1,000 unit 11/13/19 09:00 11/16/19 10:29 Vitamin D PO 1,000 unit DAILY MAGUE Administration Radiology Results: ITS Impressions Knee X-Ray 11/12/19 16:10 Impression: 1: No acute bone or joint abnormality. Venous Doppler Study 11/12/19 16:24 IMPRESSION: 1. Deep vein thrombosis involving right popliteal vein. I called this result to Flores Gan on 11/12/19 at 16:26. Abdomen/Pelvis CT 11/12/19 18:14 IMPRESSION: 1. New mass at the anterior aspect of the aortic bifurcation, which may be retroperitoneal fibrosis or lymphoma. Labs Labs: Laboratory Results - last 24 hr 11/17/19 05:51 WBC 5.8 RBC 2.53 L Hgb 7.8 L Hct 24.3 L MCV 96.0 MCH 30.8 MCHC 32.1 RDW 14.6 H Plt Count 126 L MPV 10.2 Immature Gran % (Auto) 0.3 Neut % (Auto) 53.5 Lymph % (Auto) 30.2 Sutter % (Auto) 14.2 H Eos % (Auto) 1.5 Baso % (Auto) 0.3 Lymph # (Auto) 1.76 [place]utter # (Auto) 0.8 H Eos # (Auto) 0.1 Baso # (Auto) 0.0 Abs Immat Gran (auto) 0.02 Absolute Neuts
[2019-11-17] MEDS: APIXABAN 5 MG TABLET 10 MG PO ×2 (09:13→21:08)
[2019-11-17] MEDS: MULTIVITAMINS /C LUTEIN (CENTRUM SILVER) TABLET *BKC 1 TAB PO (09:13)
[2019-11-17] MEDS: HALOPERIDOL 5 MG TABLET PO ×2 (09:13→18:08)
[2019-11-17] MEDS: PANTOPRAZOLE SODIUM IV 40 MG VIAL IV PUSH ×2 (09:13→18:08)
[2019-11-17] MEDS: SERTRALINE HCL 50 MG TABLET 200 MG PO (09:13)
[2019-11-17] MEDS: DIVALPROEX SODIUM 250 MG TABEC 500 MG PO ×3 (09:13→18:08)
[2019-11-17] MEDS: ARIPiprazole 10 MG TABLET 20 MG PO (09:14)
[2019-11-17] MEDS: CHOLECALCIFEROL 1,000 UNIT TABLET 1000 UNITS PO (09:14)
[2019-11-17] MEDS: lisinopriL 20 MG TABLET PO (09:14)
[2019-11-17 10:38] VITALS: PULSE 56
[2019-11-17] MEDS: METOPROLOL TARTRATE 12.5 MG TABLET PO ×2 (10:38→21:08)
[2019-11-17 14:00] VITALS: BP 136/50; PULSE 53; RESP 16; TEMP 36.8; O2SAT 94
--- NOTE | 2019-11-17 14:22 | PM.IMPN ---
Progress Note: A&P Assessment and Plan (1) Acute GI bleeding: Code(s): K92.2 - Gastrointestinal hemorrhage, unspecified Status: Acute Assessment and Plan: From upper GI bleed with elevated BUN falling hemoglobin. With two nonsteroidals listed EGD revealed peptic ulcers with no active bleeding or high risk of same bid PPI (2) Acute blood loss anemia: Code(s): D62 - Acute posthemorrhagic anemia Status: Acute Assessment and Plan: Hemoglobin had dropped below 7 and in April above 12. MCV is normal suggesting acute blood loss. iron studies normal and transfused 2 units of packed cells since dropped rapidly, hgb 7.8 today., follow (3) Acute deep vein thrombosis of right popliteal vein: Code(s): I82.431 - Acute embolism and thrombosis of right popliteal vein Status: Acute Assessment and Plan: Popliteal DVT seen on Doppler. started IV heparin 11/13 and transition to Eliquis 11/15 pm (4) History of total knee arthroplasty: Code(s): Z96.659 - Presence of unspecified artificial knee joint Status: Acute Assessment and Plan: Knee pain is chronic and no change in x-ray from 6 months ago and exam is benign. (5) History of aortic valve replacement with bioprosthetic valve: Code(s): Z95.3 - Presence of xenogenic heart valve Status: Acute Assessment and Plan: Patient initially told me she was on warfarin but not listed in her medications and her INR is normal and no mechanical valve seen on echo of 2018 repeat echocardiogram normal bioprosthetic aortic valve. EF 70% with grade 2 diastolic dysfunction. Cupv-[id number] hyper tension pulmonary ritchie with the 46 mm pressure estimated (6) Hypertension: Code(s): I10 - Essential (primary) hypertension Status: Acute Assessment and Plan: Blood pressure adequate and rising so will add HEIDY back at 20mg qd to betablocker (7) Schizophrenia: Code(s): F20.9 - Schizophrenia, unspecified Status: Acute Assessment and Plan: Continue her antipsychotics and antidepressants (8) Abdominal mass: Code(s): R19.00 - Intra-abdominal and pelvic swelling, mass and lump, unspecified site Status: Acute Assessment and Plan: 3.5 x 4.8 abdominal mass anterior the to the aortic bifurcation not present on CT dated 04/19. Incidental finding. Will need further evaluation and/or follow-up with serial CTs or percutaneous biopsy. Will be complicated with anticoagulation. Subjective Date/time seen: 11/17/19 14:22 Interval history: Date of visit 11/16. EGD 11/12 showed several gastric ulcers with clean base and no high risk features of bleeding per GI. . She is feeling much better each day and hoping to go home. was taking NSAIDS at [place]. . Tolerating diet, no more bleeding. . With DVt started heparin drip 11/13 and transitioned to apixaban pm 11/15 Exam Narrative: Exam Narrative: Blood pressure 146/78 pulse is 60 and afebrile Pupils equal and reactive to light sclera anicteri Neck is supple Lungs clear CV systolic ejection murmur lower left sternal border to the 2nd right intercostal space and to the carotids radiating Abdomen obese soft nontender bowel sounds normal active Extremities without edema dorsalis pedis posterior tibial 1 to 2+ symmetrical, no calf tenderness or edema on R Right knee surgical scar from arthroplasty. . No real calf tenderness Integument bruising both arms throughout. No open areas Neuro flat affect cranial nerves 2-12 are intact Bradykinesia Objective Data Vital Signs Vital Signs: Vital Signs - 24 hr 11/16/19 18:34 11/16/19 20:37 11/16/19 21:53 Temperature 36.6 C 36.7 C Pulse Rate 72 60 60 Respiratory Rate 14 18 Blood Pressure 152/68 H 138/65 Pulse Oximetry 97 98 11/17/19 05:52 11/17/19 10:38 Temperature 36.8 C Pulse Rate 94 56 L Respiratory Rate 16 Blood Pressure 147/68 H Pulse Oximetry 94 Intake/Output I
[2019-11-17 21:08] VITALS: PULSE 63
[2019-11-17 22:00] VITALS: BP 145/62; PULSE 57; RESP 22; TEMP 36.1; O2SAT 91
[2019-11-18] VITALS (12 sets, daily range): BP systolic 138–158; BP diastolic 51–71; PULSE 47–60; RESP 16–18; TEMP 36.1–36.9; O2SAT 92–98
[2019-11-18 06:31] LABS: Basophils Percent Auto 0.4 % (0.2-1.2); Eosinophils Absolute Auto 0.1 K/mm3 (0-0.3); Eosinophils Percent Auto 2.3 % (0-4.4); Hematocrit 23.9 % (37.0-47.0); Hemoglobin 7.7 g/dL (12.0-15.0); Immature Granulocyte Absolute 0.03 K/mm3 (0.00-0.031); Immature Granulocyte Percent A 0.5 % (0-0.5); Lymphocytes Absolute Auto 1.67 K/mm3 (0.9-3.2); Lymphocytes Percent Auto 29.7 % (18.3-44.2); Mean Corpuscular HGB Conc 32.2 g/dl (32-36); Mean Corpuscular Hemoglobin 30.9 pg (26-34); Mean Platelet Volume 10.2 fl (7.4-10.4); Monocytes Absolute Auto 0.7 K/mm3 (0.1-0.6); Monocytes Percent Auto 12.6 % (2.6-8.5); Neutrophils Absolute Auto 3.1 K/mm3 (1.3-6.7); Neutrophils Percent Auto 54.5 % (45.5-73.1); Platelet Count Result 124 k/mm3 (150-375); Red Blood Count 2.49 M/mm3 (4.2-5.4); Red Cell Distribution Width 14.3 % (11.5-14.5); White Blood Count 5.6 K/mm3 (4.5-10.0)
[2019-11-18 06:47] LABS: Blood Urea Nitrogen 15 mg/dL (7-17); Calcium 8.3 mg/dL (8.4-10.2); Carbon Dioxide 31 mmol/L (22-30); Chloride 103 mmol/L (98-107); Estimated CRCL calculation 60 ml/min; Estimated Glomerular Filt Rate > 60; Glucose 84 mg/dL (65-105); Potassium 3.7 mmol/L (3.4-5.0); Sodium 137 mmol/L (137-145)
[2019-11-18] MEDS: lisinopriL 20 MG TABLET PO (08:40)
[2019-11-18] MEDS: CHOLECALCIFEROL 1,000 UNIT TABLET 1000 UNITS PO (08:40)
[2019-11-18] MEDS: METOPROLOL TARTRATE 12.5 MG TABLET PO ×2 (08:41→20:04)
[2019-11-18] MEDS: MULTIVITAMINS /C LUTEIN (CENTRUM SILVER) TABLET *BKC 1 TAB PO (08:41)
[2019-11-18] MEDS: ARIPiprazole 10 MG TABLET 20 MG PO (08:41)
[2019-11-18] MEDS: HALOPERIDOL 5 MG TABLET PO ×2 (08:41→18:18)
[2019-11-18] MEDS: DIVALPROEX SODIUM 250 MG TABEC 500 MG PO ×3 (08:42→18:17)
[2019-11-18] MEDS: APIXABAN 5 MG TABLET 10 MG PO ×2 (08:42→20:04)
[2019-11-18] MEDS: PANTOPRAZOLE SODIUM IV 40 MG VIAL IV PUSH ×2 (08:42→18:18)
--- NOTE | 2019-11-18 08:42 | WPDGIPROGNO ---
Progress Note: A&P Additional Plan Patient comfortable this morning. She denies abdominal pain. Reports no obvious bleeding. She has now resumed anticoagulation. Physical exam reveals her to be alert comfortable at rest she is anicteric. HEENT exam unremarkable. Lungs are clear. Heart without murmur. Abdomen bowel sounds are present soft nontender. Labs reveal hemoglobin 7.7, this is stable. Impression 1. Gastric ulcer. Status post bleeding. Melena has now resolved. Continue proton pump inhibitors. Avoid nonsteroidal anti-inflammatory agents. 2. DVT. Patient has resumed anticoagulation. Plan is to continue monitor hemoglobin closely as she is anticoagulated. Follow-up CBC on an outpatient basis advised. 3. History of total knee arthroplasty. 4. History of heart valve disease. 5. Schizophrenia. 6. New abdominal mass. At the bifurcation of the aorta. Not evident on CT scan from April 2019. This is may be retroperitoneal. Likely should have follow-up. Follow-up CT scan. Consider biopsying this mass if at all possible. Perhaps this can be done with a CT scan. She will need to hold anticoagulation. Subjective Date/time seen: 11/18/19 08:42 Objective Data Vital Signs Vital Signs: Vital Signs - 24 hr 11/17/19 10:38 11/17/19 14:00 11/17/19 21:08 Temperature 98.2 F Pulse Rate 56 L 53 L 63 Respiratory Rate 16 Blood Pressure 136/50 L Pulse Oximetry 94 11/17/19 22:00 11/18/19 06:00 Temperature 97 F L 97.3 F L Pulse Rate 57 L 54 L Respiratory Rate 22 H 18 Blood Pressure 145/62 H 149/64 H Pulse Oximetry 91 93 Intake/Output Intake/Output: Intake & Output 11/15/19 11/16/19 11/17/19 11/18/19 23:59 23:59 23:59 23:59 Intake Total 1535 1760 1000 100 Output Total 500 Balance 1035 1760 1000 100 Meds/Results Medications: Active Medications Generic Name Dose Route Start Last Admin Trade Name Freq PRN Reason Stop Dose Admin Acetaminophen 650 mg 11/16/19 15:07 Tylenol Tablet PO Q6H PRN Mild Pain (1-3) or Fever Hydrocodone Bitart/Acetaminophen 1 tab 11/14/19 04:10 11/15/19 09:49 [place] 5-325 Mg PO 1 tab Q4H PRN Administration Pain Rated 4 or greater Apixaban 10 mg 11/16/19 17:00 11/17/19 21:08 Eliquis PO 10 mg Q12HR MAGUE Administration Aripiprazole 20 mg 11/13/19 09:00 11/17/19 09:14 Abilify PO 20 mg DAILY MAGUE Administration Divalproex Sodium 500 mg 11/13/19 09:00 11/17/19 18:08 Depakote Ec Tab PO 500 mg TID MAGUE Administration Haloperidol 5 mg 11/13/19 09:00 11/17/19 18:08 Haldol Tablet PO 5 mg BID MAGUE Administration Lisinopril 20 mg 11/17/19 09:00 11/17/19 09:14 Prinivil PO 20 mg QAM MAGUE Administration Metoprolol Tartrate 12.5 mg 11/14/19 21:00 11/17/19 21:08 Lopressor PO 12.5 mg Q12HR MAGUE Administration Multivitamins/Minerals 1 tab 11/13/19 09:00 11/17/19 09:13 Centrum Silver PO 1 tab DAILY MAGUE Administration Ondansetron HCl 4 mg 11/13/19 09:44 11/14/19 09:11 Zofran Inj IV PUSH 4 mg Q6H PRN Administration Nausea And Vomiting Pantoprazole Sodium 40 mg 11/13/19 09:00 11/17/19 18:08 Protonix Iv IV PUSH 40 mg BID MAGUE Administration Sertraline HCl 200 mg 11/13/19 09:00 11/17/19 09:13 Zoloft PO 200 mg DAILY MAGUE Administration Vitamin D 1,000 unit 11/13/19 09:00 11/17/19 09:14 Vitamin D PO 1,000 unit DAILY MAGUE Administration Radiology Results: ITS Impressions Knee X-Ray 11/12/19 16:10 Impression: 1: No acute bone or joint abnormality. Venous Doppler Study 11/12/19 16:24 IMPRESSION: 1. Deep vein thrombosis involving right popliteal vein. I called this result to Flores Gan on 11/12/19 at 16:26. Abdomen/Pelvis CT 11/12/19 18:14 IMPRESSION: 1. New mass at the anterior aspect of the aortic bifurcation, which may be retroperitoneal fibrosis or lymphoma. Labs Labs: Laboratory Resu
[2019-11-18] MEDS: ACETAMINOPHEN 325 MG TABLET 650 MG PO (08:54)
[2019-11-18] MEDS: SODIUM CHLORIDE 0.9% IV 250 ML 30 ML IV CONT (09:09)
[2019-11-18] MEDS: SERTRALINE HCL 50 MG TABLET 200 MG PO (13:11)
--- NOTE | 2019-11-18 16:27 | PM.IMPN ---
Progress Note: A&P Assessment and Plan (1) Acute GI bleeding: Code(s): K92.2 - Gastrointestinal hemorrhage, unspecified Status: Acute Assessment and Plan: From upper GI bleed with elevated BUN falling hemoglobin. With two nonsteroidals listed on home meds, EGD revealed peptic ulcers with no active bleeding or high risk of same bid PPI (2) Acute blood loss anemia: Code(s): D62 - Acute posthemorrhagic anemia Status: Acute Assessment and Plan: Hemoglobin had dropped below 7 and in April above 12. MCV is normal suggesting acute blood loss. iron studies normal and transfused 2 units of packed cells since dropped rapidly, hgb 7.7 today and will give one more unit of Prbcs since NOAC with the ulcers (3) Acute deep vein thrombosis of right popliteal vein: Code(s): I82.431 - Acute embolism and thrombosis of right popliteal vein Status: Acute Assessment and Plan: Popliteal DVT seen on Doppler. started IV heparin 11/13 and transition to Eliquis 11/15 pm (4) History of total knee arthroplasty: Code(s): Z96.659 - Presence of unspecified artificial knee joint Status: Acute Assessment and Plan: Knee pain is chronic and no change in x-ray from 6 months ago and exam is benign. (5) History of aortic valve replacement with bioprosthetic valve: Code(s): Z95.3 - Presence of xenogenic heart valve Status: Acute Assessment and Plan: Patient initially told me she was on warfarin but not listed in her medications and her INR is normal and no mechanical valve seen on echo of 2018 repeat echocardiogram normal bioprosthetic aortic valve. EF 70% with grade 2 diastolic dysfunction. Ukvj-su-[id number] hyper tension pulmonary ritchie with the 46 mm pressure estimated (6) Hypertension: Code(s): I10 - Essential (primary) hypertension Status: Acute Assessment and Plan: Blood pressure adequate and rising so will added HEIDY back initially at 20 mg qd and now 40 qd her usual dose with beta dorothy (7) Schizophrenia: Code(s): F20.9 - Schizophrenia, unspecified Status: Acute Assessment and Plan: Continue her antipsychotics and antidepressants (8) Abdominal mass: Code(s): R19.00 - Intra-abdominal and pelvic swelling, mass and lump, unspecified site Status: Acute Assessment and Plan: 3.5 x 4.8 abdominal mass anterior the to the aortic bifurcation not present on CT dated 04/19. Incidental finding. Will need further evaluation and/or follow-up with serial CTs or percutaneous biopsy. Subjective Date/time seen: 11/18/19 16:27 Interval history: Date of visit 11/17. EGD 11/12 showed several gastric ulcers with clean base and no high risk features of bleeding per GI. . She is feeling much better each day and hoping to go home. was taking NSAIDS at [place]. . Tolerating diet, no more bleeding.noted . With DVt started heparin drip 11/13 and transitioned to apixaban pm 11/15 Exam Narrative: Exam Narrative: Blood pressure 154/72 pulse is 54 and afebrile Pupils equal and reactive to light sclera anicteri Neck is supple Lungs clear CV systolic ejection murmur lower left sternal border to the 2nd right intercostal space and to the carotids radiating Abdomen obese soft nontender bowel sounds normal active Extremities without edema dorsalis pedis posterior tibial 1 to 2+ symmetrical, no calf tenderness or edema on R Right knee surgical scar from arthroplasty. . No real calf tenderness Integument bruising both arms throughout. No open areas Neuro flat affect cranial nerves 2-12 are intact Bradykinesia Objective Data Vital Signs Vital Signs: Vital Signs - 24 hr 11/17/19 21:08 11/17/19 22:00 11/18/19 06:00 Temperature 36.1 C L 36.3 C L Pulse Rate 63 57 L 54 L Respiratory Rate 22 H 18 Blood Pressure 145/62 H 149/64 H Pulse Oximetry 91 93 11/18/19 08:41 11/18/19 12:02 11/18/19 12:09 Temperature 36.1 C
[2019-11-19 04:00] VITALS: BP 169/70; PULSE 77; RESP 18; TEMP 36.2; O2SAT 93
[2019-11-19 06:00] VITALS: TEMP 36.2
[2019-11-19 08:00] LABS: Hematocrit 30.9 % (37.0-47.0); Hemoglobin 10.1 g/dL (12.0-15.0); Mean Corpuscular HGB Conc 32.7 g/dl (32-36); Mean Corpuscular Hemoglobin 30.7 pg (26-34); Mean Corpuscular Volume 93.9 fl (80-100); Mean Platelet Volume 9.7 fl (7.4-10.4); Platelet Count Result 128 k/mm3 (150-375); Red Blood Count 3.29 M/mm3 (4.2-5.4); Red Cell Distribution Width 14.5 % (11.5-14.5); White Blood Count 5.9 K/mm3 (4.5-10.0)
[2019-11-19] MEDS: PANTOPRAZOLE SODIUM IV 40 MG VIAL IV PUSH (08:26)
[2019-11-19] MEDS: ACETAMINOPHEN 325 MG TABLET 650 MG PO (08:26)
[2019-11-19 08:27] VITALS: PULSE 56
[2019-11-19] MEDS: DIVALPROEX SODIUM 250 MG TABEC 500 MG PO ×2 (08:27→13:05)
[2019-11-19] MEDS: lisinopriL 20 MG TABLET 40 MG PO (08:27)
[2019-11-19] MEDS: METOPROLOL TARTRATE 12.5 MG TABLET PO (08:27)
[2019-11-19] MEDS: HALOPERIDOL 5 MG TABLET PO (08:27)
[2019-11-19] MEDS: CHOLECALCIFEROL 1,000 UNIT TABLET 1000 UNITS PO (08:29)
[2019-11-19] MEDS: MULTIVITAMINS /C LUTEIN (CENTRUM SILVER) TABLET *BKC 1 TAB PO (08:29)
[2019-11-19] MEDS: ARIPiprazole 10 MG TABLET 20 MG PO (08:29)
[2019-11-19] MEDS: APIXABAN 5 MG TABLET 10 MG PO (08:29)
[2019-11-19] MEDS: SERTRALINE HCL 50 MG TABLET 200 MG PO (08:29)
--- NOTE | 2019-11-19 10:07 | PCNWS ---
Weekly nutritional screen. Patient is tolerating current diet with adequate intake. No weight loss reported. No nutritional needs at this time.
--- NOTE | 2019-11-19 10:28 | WPDGIPROGNO ---
Progress Note: A&P Assessment and Plan (1) Gastric ulcer: Code(s): K25.9 - Gastric ulcer, unspecified as acute or chronic, without hemorrhage or perforation Status: Acute Assessment and Plan: no high risk features ulcers for rebleeding and she has not had any more melena egd in 3-4 months to assess for healing continue with blood thinner as outpatient and pcp will need to monitor cbc (2) NSAID induced gastritis: Code(s): K29.60 - Other gastritis without bleeding; T39.395A - Adverse effect of other nonsteroidal anti-inflammatory drugs [NSAID], initial encounter Status: Acute Assessment and Plan: probably reason of several ulcers in stomach we can repeat egd in 3-4 months to assess for healing continue with ppi bid H pylori was negative (3) Melena: Code(s): K92.1 - Melena Status: Acute Assessment and Plan: resolved (4) Acute blood loss anemia: Code(s): D62 - Acute posthemorrhagic anemia Status: Acute (5) Acute deep vein thrombosis of right popliteal vein: Code(s): I82.431 - Acute embolism and thrombosis of right popliteal vein Status: Acute Assessment and Plan: on iv heparin by primary team, monitor h/h probably tomorrow will start oral anticoagulation (6) Abdominal mass: Code(s): R19.00 - Intra-abdominal and pelvic swelling, mass and lump, unspecified site Status: Acute Assessment and Plan: will need follow up as outpatient for definitive diagnosis, ? lymphoma Subjective Date/time seen: 11/19/19 10:28 Interval history: no more report of gib, she received another blood transfusion and now hb up to 10 Review of Systems Review of Systems: All systems reviewed & are unremarkable except as noted in HPI and below Exam Const: General: comfortable and no acute distress HENMT: General nose exam: Normal nares present Eyes: General: appearance normal, both eyes and all related structures Neck: Neck: no JVD Resp: Auscultation: clear to auscultation bilaterally Cardio: Rate: regular rate Rhythm: regular rhythm GI: Inspection: non-distended GI Palp: Yes Soft to palpation Auscultation: normal bowel sounds Skin: General skin exam: normal color Neuro: General: gait normal Speech: normal speech Extrem: Other: Rt knee scar Psych: Mental Status: mental status grossly normal Objective Data Vital Signs Vital Signs: Vital Signs - 24 hr 11/18/19 12:02 11/18/19 12:09 11/18/19 12:20 Temperature 96.9 F L 97.0 F L 97.0 F L Pulse Rate 47 L 48 L 49 L Respiratory Rate 16 16 16 Blood Pressure 141/52 H 145/54 H 138/51 L Pulse Oximetry 95 94 94 11/18/19 13:20 11/18/19 14:00 11/18/19 14:20 Temperature 98.1 F 97.6 F 98.4 F Pulse Rate 49 L 54 L 49 L Respiratory Rate 16 16 16 Blood Pressure 158/60 H 155/71 H 146/58 H Pulse Oximetry 95 98 95 11/18/19 15:20 11/18/19 20:00 11/18/19 20:04 Temperature 97.6 F Pulse Rate 54 L 54 L 54 L Respiratory Rate 16 16 Blood Pressure 155/71 H Pulse Oximetry 98 92 11/18/19 22:00 11/19/19 04:00 11/19/19 06:00 Temperature 97.4 F L 97.1 F L 97.1 F L Pulse Rate 60 77 Respiratory Rate 18 18 Blood Pressure 154/60 H 169/70 H Pulse Oximetry 96 93 11/19/19 08:27 Temperature Pulse Rate 56 L Respiratory Rate Blood Pressure Pulse Oximetry Intake/Output Intake/Output: Intake & Output 11/16/19 11/17/19 11/18/19 11/19/19 23:59 23:59 23:59 23:59 Intake Total 1760 1000 1285 100 Balance 1760 1000 1285 100 Meds/Results Medications: Active Medications Generic Name Dose Route Start Last Admin Trade Name Freq PRN Reason Stop Dose Admin Acetaminophen 650 mg 11/16/19 15:07 11/19/19 08:26 Tylenol Tablet PO 650 mg Q6H PRN Administration Mild Pain (1-3) or Fever Hydrocodone Bitart/Acetaminophen 1 tab 11/14/19 04:10 11/15/19 09:49 [place] 5-325 Mg PO 1 tab Q4H PRN Administration Pain Rated 4 or greater Apixaban
--- NOTE | 2019-11-19 12:39 | PCNSR ---
On 11/19/19, the student, Leroy Donis, provided care and completed [facility] documentation on this patient. I have reviewed the student's documentation and agree with the findings.
--- NOTE | 2019-11-19 13:17 | PC.NURSE ---
Report called to Masha SCHWAB at [facility] [place].
--- NOTE | 2019-11-22 13:00 | PM.DS ---
DS: Admitting Diagnosis Admitting Diagnosis Admitting Diagnosis: Acute embolism and thrombosis of right popliteal vein DS: Discharge Diagnosis Discharge Diagnosis (1) Acute GI bleeding: Code(s): K92.2 - Gastrointestinal hemorrhage, unspecified Status: Acute Assessment and Plan: From upper GI bleed with elevated BUN and falling hemoglobin. With two nonsteroidals listed on home meds, EGD revealed peptic ulcers with no active bleeding or high risk of same bid PPI continued on d/c (2) Acute blood loss anemia: Code(s): D62 - Acute posthemorrhagic anemia Status: Acute Assessment and Plan: Hemoglobin had dropped below 7 and in April was above 12. MCV is normal suggesting acute blood loss. iron studies normal and transfused 2 units of packed cells since dropped rapidly, hgb 7.7 11/17 and gave one more unit of Prbcs since treating DVT with NOAC with the ulcers repeat cbd 11/25 (3) Acute deep vein thrombosis of right popliteal vein: Code(s): I82.431 - Acute embolism and thrombosis of right popliteal vein Status: Acute Assessment and Plan: Popliteal DVT seen on Doppler. started IV heparin 11/13 and transition to Eliquis 11/15 pm, 10 bid for 4 more days at d/c followed by 5mg bid (4) History of total knee arthroplasty: Code(s): Z96.659 - Presence of unspecified artificial knee joint Status: Acute Assessment and Plan: Knee pain is chronic and no change in x-ray from 6 months ago and exam is benign. (5) History of aortic valve replacement with bioprosthetic valve: Code(s): Z95.3 - Presence of xenogenic heart valve Status: Acute Assessment and Plan: Patient initially told me she was on warfarin but not listed in her medications and her INR is normal and no mechanical valve seen on echo of 2018 repeat echocardiogram normal bioprosthetic aortic valve. EF 70% with grade 2 diastolic dysfunction. Mvmp-vi-ucvlmmuf hyper tension pulmonary ritchie with the 46 mm pressure estimated (6) Hypertension: Code(s): I10 - Essential (primary) hypertension Status: Acute Assessment and Plan: Blood pressure adequate and rising so will added HEIDY back initially at 20 mg qd and now 40 qd at d/c her usual dose with beta dorothy (7) Schizophrenia: Code(s): F20.9 - Schizophrenia, unspecified Status: Acute Assessment and Plan: Continue her antipsychotics and antidepressants (8) Abdominal mass: Code(s): R19.00 - Intra-abdominal and pelvic swelling, mass and lump, unspecified site Status: Acute Assessment and Plan: 3.5 x 4.8 abdominal mass anterior the to the aortic bifurcation not present on CT dated 04/19. Incidental finding. Will need further evaluation and/or follow-up with serial CTs or percutaneous biopsy. in 1-2 months after dvt rx DS: Summary Hospital Course Hospital Course: 69-year-old hypertensive female admitted with anemia and GI bleed and right leg pain. Found to have right popliteal DVT and EGD revealed gastric ulcers without active bleeding or visible vessels. After transfusion and no evidence of further bleeding patient was started on IV heparin and transition to oral apixaban . Hemoglobin remains stable and she received a total of 3 units of packed cells while here and at discharge hemoglobin was 10.1 she will have a repeat CBC and BMP 11/25. GI will request repeat EGD within the next 8-12 weeks incidental finding was a 3.5 x 4.8 abdominal mass anterior to the aortic bifurcation. This will need serial CT scans and possible percutaneous biopsy in the future. Time Spent with Patient Time attestation: Total time spent providing and/or coordinating discharge services:35 minutes Exam Narrative: Exam Narrative: condition on discharge blood pressure 160/76 pulse 56 saturating 93% on room air afebrile lungs clear CV regular rate rhythm abdomen soft nontender no masses obese extremities
== END 2019-11-19 15:00 | DRG 378 ==
LOC: ANHED 18:50 → ANH3MEDSUR 11-13 09:15
PROVIDERS: Internal Medicine Gastroenterology; Physician Assistant; Admitting Provider Family Medicine; Emergency Provider Emergency Medicine; PCP Family Medicine; Visit Provider Internal Medicine
PROC: 0DJ08ZZ Inspection of Upper Intestinal Tract, Via Natural or Artificial Opening Endoscopic (ICD-10-PCS; CPT 43235; principal; 2019-11-13 14:45)
DX: K92.2 Gastrointestinal hemorrhage, unspecified (principal); I82.431 Acute embolism and thrombosis of right popliteal vein; D62 Acute posthemorrhagic anemia; I10 Essential (primary) hypertension; F20.9 Schizophrenia, unspecified; Z96.659 Presence of unspecified artificial knee joint; K25.9 Gastric ulcer, unspecified as acute or chronic, without hemorrhage or perforation; K29.70 Gastritis, unspecified, without bleeding; T39.395A Adverse effect of other nonsteroidal anti-inflammatory drugs [NSAID], initial encounter; Z95.3 Presence of xenogenic heart valve
CPT/HCPCS: 36415; 36430; 73564; 74177; 80048; 82607; 82728; 83540; 83550; 83615; 84443; 85014; 85018; 85025; 85027; 85610; 85730; 86850; 86900; 86901; 86923; 87081; 88305; 88342; 93306; 93971; 96361; 96374; 99285; A9270; C9113; J1644; J2405; J2704; J7030; J7040; J7050; J7120; P9016; Q9967

== ENCOUNTER 2020-01-02 19:49 | Emergency (ER) | payer MEDICARE, OTHER, MEDICAID, SELFPAY ==
--- NOTE | ~2020-01-02 | CT_ITS ---
EXAMINATION: CT brain wo con DATE: 01/02/2020 20:28 INDICATION: Fall. Altered mental status. TECHNIQUE: Computed tomography (CT) of the head was performed without intravenous contrast. The mA wa s adjusted according to patient size. Iterative reconstruction technique was employed. Exam dose: 60 5.33 mGy-cm total exam DLP. COMPARISON: None FINDINGS: Prominent right vertebral artery and lesser basilar artery calcification. Bilateral carotid siphon internal carotid artery calcifications. There is nonspecific diminished attenuation of the subcortical and periventricular cerebral white mat ter, likely due to chronic small vessel ischemic changes. Left thalamic subacute or chronic lacunar infarct. No intracranial mass lesion or hemorrhage or cerebrovascular accident is noted otherwise. No subdural or epidural hematoma. No fracture or bone destruction of the cranial vault. Included paranasal sinuses are unremarkable other than mild focal soft tissue thickening at the later al wall of the left sphenoid sinus. There are bilateral mastoid effusions, particularly on the left. IMPRESSION: Cerebral atherosclerosis and chronic small vessel ischemic changes of the cerebral white matter Subacute or chronic left thalamic lacunar infarct Reviewed, dictated and finalized at [facility]. Reviewed, dictated and finalized at [facility].
--- NOTE | ~2020-01-02 | CT_ITS ---
EXAMINATION: CT cervical spine wo con DATE: 01/02/2020 20:27 INDICATION: Fall. Neck pain. TECHNIQUE: Computed tomography (CT) of the cervical spine was performed without intravenous contrast. Automated exposure control and iterative reconstruction technique were employed. Exam dose: 490.96 mGy-cm total exam DLP. COMPARISON: None FINDINGS: Bilateral mastoid effusions, particularly extensive on the left. Mild mucoperiosteal thicke yancy along bladder left sphenoid sinus wall. C1 and C2 are normally aligned and the odontoid process is intact. No fracture or dislocation or locked facet or prevertebral soft tissue swelling. There is degenerative disc disease, primarily at C5-6. There are degenerative changes at the apophyse al joints. Uncovertebral joint spurring is noted in the mid and lower cervical spine, particularly at C5-6 Emphysematous changes are noted in the included upper lung zones. IMPRESSION: Degenerative changes of cervical spine; no fracture or dislocation Emphysema Reviewed, dictated and finalized at [facility]. Reviewed, dictated and finalized at [facility].
--- NOTE | ~2020-01-02 | XR_ITS ---
XR knee RT 3V DATE: 01/02/2020 20:50 INDICATION: Fall. Right hip and knee pain TECHNIQUE: 3 views including crosstable lateral COMPARISON: None FINDINGS: Status post right total knee arthroplasty with patellar resurfacing. Diffuse osteopenia. No fracture or dislocation or joint effusion. No periosteal reaction or bone destruction. IMPRESSION: Right total knee arthroplasty Osteopenia No fracture or dislocation or joint effusion Reviewed, dictated and finalized at [facility].
--- NOTE | ~2020-01-02 | XR_ITS ---
XR hip RT 2V w AP pelvis DATE: 01/02/2020 20:50 INDICATION: Fall. Right hip pain. TECHNIQUE: AP pelvis. AP and lateral views of right hip COMPARISON: 11/12/2019 CT abdomen pelvis FINDINGS: The pubic symphysis and sacroiliac joints are intact. No pelvic fracture or bone destructio n is evident. The left hip joint space is relatively preserved. There is severe right hip joint space narrowing and very prominent osteoarthritic spurring of the right hip. No fracture or dislocation of the right hip. IMPRESSION: Severe right hip osteoarthritis Reviewed, dictated and finalized at [facility].
[2020-01-02 19:48] VITALS: BP 156/51; PULSE 55; RESP 19; TEMP 36.8; O2SAT 98
--- NOTE | 2020-01-02 19:53 | ED.FALL ---
HPI - Fall General Chief Complaint: Fall Stated Complaint: fall History of Present Illness HPI Narrative: She had a fall this evening while attemping to transfer from the wheelchair to the bed. She landed on her right side. She has pain in the knee, hip and neck. She believes that she did strike her head as well. No LOC, dizziness, syncope. She is on Eliquis. Related Data Home Medications Medication Instructions Recorded Confirmed Adults Multivitamin 1 tablet PO DAILY 04/30/19 11/12/19 aripiprazole 20 mg PO DAILY 04/30/19 11/12/19 lisinopril 40 mg PO DAILY 04/30/19 11/12/19 pravastatin 80 mg PO DAILY 04/30/19 11/12/19 sertraline [Zoloft] 200 mg PO DAILY 04/30/19 11/12/19 cholecalciferol (vitamin D3) 1,000 unit PO DAILY 11/12/19 11/13/19 divalproex [Depakote] 500 mg PO TID 11/12/19 11/12/19 haloperidol 5 mg PO BID 11/12/19 11/13/19 polyethylene glycol 3350 [Miralax] 17 g PO DAILY 11/12/19 11/12/19 Allergies Allergy/AdvReac Type Severity Reaction Status Date / Time adhesive tape Allergy Unknown Verified 11/13/19 14:35 latex Allergy Unknown Verified 11/13/19 14:35 quetiapine [From Seroquel] Allergy Unknown Verified 11/13/19 14:35 simvastatin Allergy Unknown Verified 11/13/19 14:35 tizanidine Allergy Unknown Verified 11/13/19 14:35 Review of Systems Review of Systems: All systems reviewed & are unremarkable except as noted in HPI and below Constitutional: Constitutional: Denies fever(s) and Denies weakness ENT: Denies dizziness Cardiovascular: Cardiovascular: Denies chest pain Respiratory: Respiratory: Denies dyspnea Gastrointestinal: Gastrointestinal: Denies nausea Musculoskeletal: Musculoskeletal: Denies back pain Neurologic: Denies confusion and Denies weakness [facility] Past Medical History Medical History BARRON (acute kidney injury) COPD (chronic obstructive pulmonary disease) CVA (cerebral vascular accident) Diabetes mellitus Gastric ulcer Hypertension Melena NSAID induced gastritis Obesity Schizophrenia Surgical History Surgical History History of aortic valve replacement with bioprosthetic valve History of total knee arthroplasty Family History Family History Father , Age 70 with cardiac and multiple other problems that patient cannot elaborate on Heart disease Mother , 71 heart disease Heart disease Other Unknown family medical history Social History Social History Social History: Never no children, currently penit[facility]iary resident due to inability to care for herself due to arthritis and schizophrenia. Had lived in an apartment assisted living until she fell over year ago Smoking packs per day: 1 Smoking cigarettes per day: 20.0 Smoking status: Former smoker Tobacco type: cigarettes Second hand tobacco smoke exposure: No Alcohol intake: former Substance use: never Substance use type: does not use Gender identity (if verbalized by the patient): Female Spiritual care concerns: No Exam Const: General: no acute distress and alert Orientation/consciousness: patient oriented x3 HENMT: Head: normal to inspection Eyes: Pupils: Equal, round and reactive pupils present Neck: Neck: normal visual inspection Chest: Chest palpation & inspection: no tenderness Resp: Effort & Inspection: normal respiratory effort Auscultation: clear to auscultation bilaterally Cardio: Rate: regular rate Rhythm: regular rhythm Skin: General skin exam: normal color Rashes: no rashes Wounds: no wounds Neuro: General: patient oriented x3, moves all extremities, no focal motor deficits and CN's II-XI intact bilaterally Speech: normal speech Extrem: Other: Tenderness of right hip and knee without obvious deformity or injury
[2020-01-02 21:00] VITALS: BP 149/55; PULSE 55; RESP 19; O2SAT 98
--- NOTE | 2020-01-02 21:26 | PC.NURSE ---
called [facility] for transport. ETA [phone]
[2020-01-02 22:16] VITALS: BP 164/79; PULSE 59; RESP 98; O2SAT 100
--- NOTE | 2020-01-02 22:43 | PC.NURSE ---
[facility] called with update ETA of midnight
[2020-01-02 23:17] VITALS: BP 185/75; PULSE 66; RESP 18; TEMP 36.3; O2SAT 98
== END 2020-01-02 23:18 ==
PROVIDERS: Emergency Provider Emergency Medicine; PCP Family Medicine
DX: M25.551 Pain in right hip (principal); S09.90XA Unspecified injury of head, initial encounter; J44.9 Chronic obstructive pulmonary disease, unspecified; Z86.73 Personal history of transient ischemic attack (TIA), and cerebral infarction without residual deficits; E11.9 Type 2 diabetes mellitus without complications; I10 Essential (primary) hypertension; F20.9 Schizophrenia, unspecified; E66.9 Obesity, unspecified; Z95.2 Presence of prosthetic heart valve; Z87.891 Personal history of nicotine dependence; Z96.651 Presence of right artificial knee joint; W05.0XXA Fall from non-moving wheelchair, initial encounter
CPT/HCPCS: 70450; 72125; 73502; 73562; 99284; L0140

== ENCOUNTER 2020-02-29 10:54 | Emergency (ER) | payer MEDICARE, OTHER, MEDICAID, SELFPAY ==
--- NOTE | ~2020-02-29 | CT_ITS ---
EXAMINATION: CT brain wo con DATE: 02/29/2020 11:54 INDICATION: Head injury. TECHNIQUE: Computed tomography (CT) of the head was performed without intravenous contrast. The mA wa s adjusted according to patient size. Iterative reconstruction technique was employed. The dose-lengt h product was 605.33 mGy-cm. COMPARISON: Head CT 01/02/2020 FINDINGS: There is an old lacunar infarct in left caudate nucleus. There is an old lacunar infarct in left thalamus. There are scattered areas of low attenuation in the cerebral white matter. There is n o intracranial hemorrhage, acute infarction, or abnormal intracranial mass lesion. The ventricles are normal in size. The orbits are normal. There is mild mucosal thickening in right maxillary sinus. Ag ain seen is a left otomastoid effusion. Again seen is a small right mastoid effusion. IMPRESSION: 1. Old lacunar infarcts in the left caudate nucleus and left thalamus. 2. Stable moderate nonspecific cerebral white matter disease, which likely represents chronic small v essel ischemic disease. Reviewed, dictated and finalized at [facility]. IMPRESSION: 1. Old lacunar infarcts in the left caudate nucleus and left thalamus. 2. Stable moderate nonspecific cerebral white matter disease, which likely repr esents chronic small vessel ischemic disease.
--- NOTE | ~2020-02-29 | XR_ITS ---
EXAMINATION: XR knee RT 3V DATE: 02/29/2020 14:58 INDICATION: Right knee pain and swelling post fall TECHNIQUE: Anteroposterior, oblique and crosstable lateral views of the right knee were obtained COMPARISON: None. FINDINGS: Right total knee arthroplasty with patellar resurfacing which appears well seated in near-anatomic al ignment. No periprosthetic lucency to suggest loosening. No fracture. Minimal right knee joint effusi on. Chronic heterotopic ossicle in the patellar tendon. IMPRESSION: 1. Minimal right knee joint effusion. No evident acute osseous abnormality. Reviewed, dictated and finalized at [facility].
--- NOTE | ~2020-02-29 | CT_ITS ---
EXAMINATION: CT cervical spine wo con DATE: 02/29/2020 11:54 INDICATION: Fall with head injury TECHNIQUE: Computed tomography (CT) of the cervical spine was performed without intravenous contrast. Automated exposure control and iterative reconstruction technique were employed. The dose-length pro duct was 320.43 mGy-cm. COMPARISON: 01/02/2020 FINDINGS: Alignment is normal. Vertebral body heights are normal. No acute fracture. Moderate disc height loss at C5-C6. Mild disc height loss at the remaining cervical levels. There are disc bulges resulting in mild central canal stenosis at C2-C3 through C5-C6. Severe bilateral uncovertebral osteoarthritis and moderate bilateral facet osteoarthritis at C5-C6 resulting in mild bilateral neural foraminal stenos is. Mild to moderate uncovertebral and facet osteoarthritis at several additional levels in the cervi sofi spine with minimal neural foraminal stenosis on the left at C4-C5. Atherosclerotic calcific a cys t at the bilateral carotid bulbs. Left otomastoiditis effusion. Smaller right mastoid effusion. Mild emphysema at the apices of the lungs. IMPRESSION: 1. Mild to moderate cervical spondylosis. No acute osseous abnormality. 2. Left otomastoiditis and smaller right mastoid effusion. 3. Mild emphysema. Reviewed, dictated and finalized at [facility].
--- NOTE | ~2020-02-29 | XR_ITS ---
XR chest 1V DATE: 02/29/2020 12:27 INDICATION: Fall. TECHNIQUE: AP chest COMPARISON: 04/30/2019 AP and lateral chest FINDINGS: Status post sternotomy/coronary artery bypass graft surgery. Heart size appears within norm al range. There is aortic calcification and mild tortuosity. No hilar or mediastinal enlargement. No pulmonary infiltrate or consolidation, pleural effusion or pulmonary vascular congestion or pneumo thorax is detected. Diffuse osteopenia. IMPRESSION: Status post sternotomy/CABG; no active pulmonary disease Reviewed, dictated and finalized at [facility].
--- NOTE | ~2020-02-29 | XR_ITS ---
EXAMINATION: XR hip RT min 3V w AP pelvis DATE: 02/29/2020 12:27 INDICATION: Right hip pain post fall TECHNIQUE: Anteroposterior view of the pelvis and anteroposterior, frog leg and cross-table lateral v iews of the right hip were obtained. COMPARISON: Radiographs dated 01/02/[address] dated 11/12/2019 FINDINGS: Alignment is normal. No fracture. Advanced osteoarthritis at the right hip with joint space narrowing resulting in extensive essentially [id number] apposition with prominent subarticular sclerosis and cystic change and large marginal osteophytes. Mild left hip osteoarthritis. Moderate lumbar spondylo sis. IMPRESSION: 1. Advanced right hip osteoarthritis. No acute osseous abnormality. Reviewed, dictated and finalized at location [facility].
[2020-02-29 11:27] VITALS: BP 165/65; PULSE 48; RESP 14; TEMP 36.1; O2SAT 97
--- NOTE | 2020-02-29 12:09 | ED.GENADULT ---
HPI - General Adult General Chief complaint: Extremity Injury, Lower Stated complaint: FALL Time Seen by Provider: 02/29/20 11:11 Source: patient Mode of arrival: ambulatory Limitations: no limitations History of Present Illness HPI narrative: Patient is a 69-year-old female who presents from custodial for evaluation of right hip pain after rolling out of her bed this morning patient presents from custodial notes pain to the right hip only notes that she may have hit her head denies loss of consciousness patient presents per EMS in no distress has not had anything for pain denies any other complaints and otherwise is in no distress and does not appear to be uncomfortable upon arrival Related Data Home Medications Medication Instructions Recorded Confirmed Adults Multivitamin 1 tablet PO DAILY 04/30/19 11/12/19 aripiprazole 20 mg PO DAILY 04/30/19 11/12/19 lisinopril 40 mg PO DAILY 04/30/19 11/12/19 pravastatin 80 mg PO DAILY 04/30/19 11/12/19 sertraline [Zoloft] 200 mg PO DAILY 04/30/19 11/12/19 cholecalciferol (vitamin D3) 1,000 unit PO DAILY 11/12/19 11/13/19 divalproex [Depakote] 500 mg PO TID 11/12/19 11/12/19 haloperidol 5 mg PO BID 11/12/19 11/13/19 polyethylene glycol 3350 [Miralax] 17 g PO DAILY 11/12/19 11/12/19 Allergies Allergy/AdvReac Type Severity Reaction Status Date / Time adhesive tape Allergy Unknown Verified 11/13/19 14:35 latex Allergy Unknown Verified 11/13/19 14:35 quetiapine [From Seroquel] Allergy Unknown Verified 11/13/19 14:35 simvastatin Allergy Unknown Verified 11/13/19 14:35 tizanidine Allergy Unknown Verified 11/13/19 14:35 Review of Systems Review of Systems: All systems reviewed & are unremarkable except as noted in HPI and below PMFSH Past Medical History Medical History (Updated 02/29/20 @ 15:17 by Michael Olea PA-C) BARRON (acute kidney injury) COPD (chronic obstructive pulmonary disease) CVA (cerebral vascular accident) Diabetes mellitus Gastric ulcer Hypertension Melena NSAID induced gastritis Obesity Schizophrenia Surgical History Surgical History History of aortic valve replacement with bioprosthetic valve History of total knee arthroplasty Family History Family History Father , Age 70 with cardiac and multiple other problems that patient cannot elaborate on Heart disease Mother , 71 heart disease Heart disease Other Unknown family medical history Social History Social History Social History: Never no children, currently custodial resident due to inability to care for herself due to arthritis and schizophrenia. Had lived in an apartment assisted living until she fell over year ago Smoking packs per day: 1 Smoking cigarettes per day: 20.0 Smoking status: Former smoker Tobacco type: cigarettes Second hand tobacco smoke exposure: No Alcohol intake: former Substance use: never Substance use type: does not use Gender identity (if verbalized by the patient): Female Spiritual care concerns: No Exam Narrative: Exam Narrative: GENERAL: Well-appearing, well-nourished, and in no acute distress. HEAD: Normocephalic, atraumatic. EYES: PERRLA and EOMI. ENT: Nares clear, no rhinorrhea or epistaxis. Mucous membranes moist. Oropharynx without tonsillar hypertrophy exudate or other lesions. NECK: Supple. No adenopathy or masses. CHEST: Clear to auscultation. No respiratory distress. No wheezes rales or rhonchi HEART: Regular rate and rhythm. No murmur heard. Normal peripheral pulses. ABDOMEN: Soft, nontender, nondistended EXTREMITIES: Normal range of motion. No edema. Tenderness of the right hip. Midline cervical tenderness no thoracic or lumbar tenderness. SKIN: Warm, dry, no rash. NEURO: No focal deficits. Alert and oriented x3.
[2020-02-29] MEDS: SODIUM CHLORIDE 0.9% IV 500 ML 999 ML IV CONT (12:41)
[2020-02-29 14:05] LABS: Basophils Percent Auto 0.2 % (0.2-1.2); Eosinophils Percent Auto 0.9 % (0-4.4); Hematocrit 36.9 % (37.0-47.0); Hemoglobin 12.5 g/dL (12.0-15.0); Immature Granulocyte Absolute 0.01 K/mm3 (0.00-0.031); Immature Granulocyte Percent A 0.2 % (0-0.5); Immature Platelet Fraction Pct 2.8 % (0.9-11.2); Lymphocytes Absolute Auto 1.12 K/mm3 (0.9-3.2); Lymphocytes Percent Auto 24.9 % (18.3-44.2); Mean Corpuscular HGB Conc 33.9 g/dl (32-36); Mean Corpuscular Hemoglobin 30.8 pg (26-34); Mean Corpuscular Volume 90.9 fl (80-100); Mean Platelet Volume 10.3 fl (7.4-10.4); Monocytes Absolute Auto 0.6 K/mm3 (0.1-0.6); Monocytes Percent Auto 12.4 % (2.6-8.5); Neutrophils Absolute Auto 2.8 K/mm3 (1.3-6.7); Neutrophils Percent Auto 61.4 % (45.5-73.1); Platelet Count Result 105 k/mm3 (150-375); Red Blood Count 4.06 M/mm3 (4.2-5.4); Red Cell Distribution Width 14.8 % (11.5-14.5); White Blood Count 4.5 K/mm3 (4.5-10.0)
[2020-02-29 14:16] LABS: INR 1.3; Prothrombin Time 15.4 Seconds (11.1-14.7)
[2020-02-29 14:17] LABS: Alanine Aminotransferase 12 U/L (4-35); Albumin Level 3.3 g/dL (3.5-5.1); Alkaline Phosphatase 80 U/L (38-126); Anion Gap 4 mmol/L (8-16); Aspartate Amino Transferase 33 U/L (14-36); Bilirubin,Total 0.4 mg/dL (0.2-1.3); Blood Urea Nitrogen 15 mg/dL (7-17); Calcium 8.6 mg/dL (8.4-10.2); Carbon Dioxide 31 mmol/L (22-30); Chloride 103 mmol/L (98-107); Estimated CRCL calculation 73 ml/min; Estimated Glomerular Filt Rate > 60; Glucose 71 mg/dL (65-105); Partial Thromboplastin Time 30.1 SECONDS (22.3-36.8); Potassium 3.7 mmol/L (3.4-5.0); Sodium 138 mmol/L (137-145)
[2020-02-29 14:54] LABS: Add Urine Microscopic? YES; Appearance Urine Clear (Clear); Bacteria Urine Trace /hpf; Bilirubin Urine Negative (Negative); Blood Urine 2+ (Negative); Color Urine Yellow (Yellow); Glucose Urine UA Negative (Negative); Ketones Urine 1+ mg/dL (Negative); Leukocyte Esterase Ur Negative LEU/UL (Negative); Mucus Urine Rare /lpf; Nitrate Urine Negative (Negative); Protein Urine 2+ mg/dL (Negative); RBC Urine 51-75 /hpf (0-2); Specific Grav Ur 1.019 (1.001-1.035); Squamous Epithelial Cell Urine Rare /hpf (Few); Urobilinogen Urine Negative mg/dL (<2.0); WBC Urine 0-3 /hpf
[2020-02-29 17:09] VITALS: BP 133/66; PULSE 50; RESP 18; O2SAT 97
--- NOTE | 2020-02-29 17:11 | PC.NURSE ---
[facility] accepted return to residential
[2020-02-29 18:08] VITALS: BP 135/68; PULSE 47; RESP 14; O2SAT 97
[2020-02-29 19:19] VITALS: BP 146/59; PULSE 48; RESP 16; O2SAT 96
== END 2020-02-29 18:30 ==
PROVIDERS: Emergency Medicine Emergency Medical Services; Emergency Provider Emergency Medicine; PCP Family Medicine
DX: M79.604 Pain in right leg (principal); J44.9 Chronic obstructive pulmonary disease, unspecified; Z86.73 Personal history of transient ischemic attack (TIA), and cerebral infarction without residual deficits; E11.9 Type 2 diabetes mellitus without complications; I10 Essential (primary) hypertension; E66.9 Obesity, unspecified; Z68.29 Body mass index [BMI] 29.0-29.9, adult; F20.9 Schizophrenia, unspecified; Z95.2 Presence of prosthetic heart valve; Z96.659 Presence of unspecified artificial knee joint; Z87.891 Personal history of nicotine dependence
CPT/HCPCS: 36415; 51701; 70450; 71045; 72125; 73502; 73562; 80053; 81001; 85025; 85055; 85610; 85730; 96361; 96365; 99284; J0131; J7040

== ENCOUNTER 2020-04-11 13:11 | Inpatient (IN) | payer MEDICARE, OTHER, MEDICAID, SELFPAY ==
[2020-04-11] VITALS (10 sets, daily range): BP systolic 126–161; BP diastolic 56–76; PULSE 61–112; RESP 13–21; TEMP 35.8–36.4; O2SAT 91–98; BMI 27.8
--- NOTE | ~2020-04-11 | XR_ITS ---
XR chest 1V portable DATE: 04/11/2020 13:58 INDICATION: Cough TECHNIQUE: Portable AP chest on 04/11/2020 at 1349 hours COMPARISON: 02/29/2020 AP chest FINDINGS: Status post sternotomy/coronary artery bypass graft surgery. Heart size is likely within no rmal range considering magnification associated with a . Is aortic calcification. There is mild infiltrate or atelectasis at the left lung base, left lower lobe. The lungs otherwise a ppear clear. Diffuse osteopenia. IMPRESSION: Mild infiltrate or atelectasis at the left lung base, left lower lobe Reviewed, dictated and finalized at location A. NT PARALEGAL IMPRESSION: Mild infiltrate or atelectasis at the left lung base, left lower lo be
--- NOTE | ~2020-04-11 | CT_ITS ---
EXAMINATION: CTA chest PE protocol DATE: 04/11/2020 15:01 INDICATION: Dyspnea. Elevated d-dimer. TECHNIQUE: Computed tomography angiography (CTA) of the chest was performed with 100 mL Omnipaque-350 intravenous contrast timed to evaluate the pulmonary arteries. Coronal maximum intensity projection 3D-reconstructions were created by the technologist. Automated exposure control and iterative reconst ruction technique were employed. Exam dose: 603.95 mGy-cm total exam DLP. COMPARISON: 04/11/2020 portable AP chest FINDINGS: There is optimal contrast opacification of the central and lobar or proximal segmental pulm onary arteries. The peripheral pulmonary arteries are not optimally evaluated due to motion. No centr al pulmonary embolism is evident. Mild emphysematous changes. There is mild bilateral lower lobe dependent atelectasis. No pulmonary in filtrate or consolidation or pulmonary mass lesion is noted otherwise. Status post sternotomy and coronary artery bypass graft surgery. There is atherosclerotic calcification of the thoracic aorta and great vessels. There is mild aneurys m at the posterior thoracic and aortic arch and descending thoracic aorta, measuring up to approximat paula 3.2 cm diameter. No thoracic aortic dissection is evident. Heart size is within normal range. No pericardial or pleural effusion. Multiple small stones are noted in the dependent gallbladder lumen. No gallbladder wall thickening or pericholecystic fluid or fat stranding is noted. No bile duct or pancreatic duct dilatation. No hepa tic mass lesion or pancreatic mass lesion or calcification. Normal splenic size. Normal morphology of the adrenal glands. No suspicious osteolytic or osteoblastic lesions are noted. Diffuse osteopenia. Degenerative changes of the thoracic and lumbar spine. IMPRESSION: No pulmonary embolism is demonstrated Mild emphysema Mild bibasilar dependent lower lobe atelectasis Reviewed, dictated and finalized at Location [facility]. Reviewed, dictated and finalized at location A. 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
--- NOTE | 2020-04-11 13:27 | ECG_ITS ---
Measurements Intervals [place] Rate: 60 P: 14 ND: 109 QRS: 70 QRSD: 130 T: 195 QT: 532 QTc: 533 Interpretive Statements SINUS RHYTHM WITH SHORT ND INTERVAL INTRAVENTRICULAR CONDUCTION DELAY DELAYED PRECORDIAL R/S TRANSITION T WAVE ABNORMALITY IN DIFFUSE LEADS- CONSIDER ISCHEMIA BASELINE ARTIFACT- I, III, AVR, AVL ABNORMAL ECG Electronically Signed On 04-11-2020 13:33:02 [employer]TER by Gerard Ram D.O.
[2020-04-11 13:56] LABS: Eosinophils Percent Auto 0.2 % (0-4.4); Hematocrit 36.9 % (37.0-47.0); Hemoglobin 12.1 g/dL (12.0-15.0); Immature Granulocyte Absolute 0.02 K/mm3 (0.00-0.031); Immature Granulocyte Percent A 0.5 % (0-0.5); Lymphocytes Absolute Auto 1.06 K/mm3 (0.9-3.2); Lymphocytes Percent Auto 24.5 % (18.3-44.2); Mean Corpuscular HGB Conc 32.8 g/dl (32-36); Mean Corpuscular Hemoglobin 30.8 pg (26-34); Mean Corpuscular Volume 93.9 fl (80-100); Mean Platelet Volume 10.4 fl (7.4-10.4); Monocytes Absolute Auto 0.5 K/mm3 (0.1-0.6); Monocytes Percent Auto 11.3 % (2.6-8.5); Neutrophils Absolute Auto 2.8 K/mm3 (1.3-6.7); Neutrophils Percent Auto 63.5 % (45.5-73.1); Platelet Count Result 145 k/mm3 (150-375); Red Blood Count 3.93 M/mm3 (4.2-5.4); Red Cell Distribution Width 14.8 % (11.5-14.5); White Blood Count 4.3 K/mm3 (4.5-10.0)
[2020-04-11 14:05] LABS: INR 1.3; Prothrombin Time 16.7 Seconds (11.1-14.7)
[2020-04-11 14:06] LABS: Partial Thromboplastin Time 30.3 SECONDS (22.3-36.8)
[2020-04-11 14:07] LABS: Anion Gap 1 mmol/L (8-16); Blood Urea Nitrogen 16 mg/dL (7-17); Calcium 8.7 mg/dL (8.4-10.2); Carbon Dioxide 34 mmol/L (22-30); Chloride 106 mmol/L (98-107); Estimated CRCL calculation 67 ml/min; Estimated Glomerular Filt Rate > 60; Glucose 103 mg/dL (65-105); Lactic Acid Reflex 1.1 mmol/L (0.7-2.1); Potassium 3.8 mmol/L (3.4-5.0); Sodium 141 mmol/L (137-145)
[2020-04-11 14:08] LABS: D Dimer 1.05 ug/mL (<0.48)
[2020-04-11 14:42] LABS: Troponin I 0.091 ng/mL (0.000-0.034)
--- NOTE | 2020-04-11 14:56 | ED.SOB ---
HPI - SOB/Dyspnea General Chief Complaint: Shortness of Breath/Dyspnea Stated Complaint: DIFFICULTY BREATHING COVID+ Time Seen by Provider: 04/11/20 13:29 Source: RN notes reviewed History of Present Illness HPI Narrative: Patient presents emergency department from [facility] for shortness of breath. Patient tested positive for COVID-19 2 days ago. She is been having increasing shortness of breath over the past 2 days as well as decreased appetite and weakness. Patient was noted to be hypoxic on room air and started on 2 L nasal cannula. Patient currently denies having any chest pain denies any fevers or chills abdominal pain nausea vomiting or any other symptoms at this time Related Data Home Medications Medication Instructions Recorded Confirmed Adults Multivitamin 1 tablet PO DAILY 04/30/19 11/12/19 lisinopril 40 mg PO DAILY 04/30/19 11/12/19 cholecalciferol (vitamin D3) 1,000 unit PO DAILY 11/12/19 11/13/19 haloperidol 5 mg PO BID 11/12/19 11/13/19 polyethylene glycol 3350 [Miralax] 17 g PO DAILY 11/12/19 11/12/19 acetaminophen-codeine tablet 04/11/20 atorvastatin 04/11/20 famotidine [Pepcid] 20 mg PO BID 04/11/20 valproic acid (as sodium salt) 04/11/20 Allergies Allergy/AdvReac Type Severity Reaction Status Date / Time adhesive tape Allergy Unknown Verified 04/11/20 14:11 latex Allergy Unknown Verified 04/11/20 14:11 quetiapine [From Seroquel] Allergy Unknown Verified 04/11/20 14:11 simvastatin Allergy Unknown Verified 04/11/20 14:11 tizanidine Allergy Unknown Verified 04/11/20 14:11 Review of Systems Review of Systems: Narrative: Gen.: Denies fevers or chills Eyes: Denies eye pain or visual change ENT: Denies congestion Respiratory: See HPI CV: Denies chest pain or palpitations GI: Denies abdominal pain nausea, emesis or diarrhea Musculoskeletal: Denies back pain or muscle pain Neuro: Denies numbness, tingling, reports weakness Skin: Denies rash Except as documented, all other systems reviewed and negative [facility] Past Medical History Medical History (Updated 04/11/20 @ 15:41 by Chepe Douglas DO) BARRON (acute kidney injury) COPD (chronic obstructive pulmonary disease) CVA (cerebral vascular accident) Diabetes mellitus Gastric ulcer Hypertension Melena NSAID induced gastritis Obesity Schizophrenia Surgical History Surgical History History of aortic valve replacement with bioprosthetic valve History of total knee arthroplasty Family History Family History Father , Age 70 with cardiac and multiple other problems that patient cannot elaborate on Heart disease Mother , 71 heart disease Heart disease Other Unknown family medical history Social History Social History Social History: Never no children, currently halfway resident due to inability to care for herself due to arthritis and schizophrenia. Had lived in an apartment assisted living until she fell over year ago Smoking packs per day: 1 Smoking cigarettes per day: 20.0 Smoking status: Former smoker Tobacco type: cigarettes Second hand tobacco smoke exposure: No Alcohol intake: former Substance use: never Substance use type: does not use Gender identity (if verbalized by the patient): Female Spiritual care concerns: No Exam Narrative: Exam Narrative: APPEARANCE: No acute distress, nontoxic, resting in bed EYES: EOMI HEENT: Normocephalic, atraumatic, OMM RESPIRATORY: No respiratory distress fine crackles in bilateral bases no wheezing CARDIOVASCULAR: Regular rate and rhythm without murmurs rubs or gallops. ABDOMINAL: Soft, nontender, nondistended, no rebound or guarding MUSCULOSKELETAl: Moves all extremities. No clubbing, cyanosis or edema. NEURO: Awake and alert. Following commands, speech normal, no focal
[2020-04-11] MEDS: ASPIRIN 81 MG CHEWABLE TABLET 324 MG PO (15:45)
[2020-04-11] MEDS: DEXAMETHASONE SOD PHOS INJ 4 MG/ML VIAL 6 MG IV PUSH (16:10)
[2020-04-11 19:05] LABS: Troponin I 0.105 ng/mL (0.000-0.034)
--- NOTE | 2020-04-11 20:00 | PM.IMHP ---
H&P: HPI History of Present Illness Date/Time: 04/11/20 20:00 Chief complaint: Shortness of breath and lethargy. Narrative: Jolie Thompson is a 69-year-old female with schizophrenia, GERD, peptic ulcer with history of GI bleed, COPD, diabetes, and several other comorbidities who presented to the emergency department earlier today via EMS from a local intermediate for evaluation of lethargy and shortness of breath. She is not the best historian but from what I can gather she tested positive for COVID-19 sometime earlier this week, with symptoms to include generalized malaise, nausea, decreased appetite, and weakness. Today she was apparently ?lethargic? and was complaining of shortness of breath and thus was brought in for evaluation. She was hypoxic in the emergency department and was placed on nasal cannula however that has since been weaned. An EKG was taken and troponins were drawn in the emergency department although the patient had no chest pain whatsoever. Her troponin did come back elevated and her EKG was abnormal, with new and diffuse inverted T-waves. At the time my evaluation she is just tired and has no significant complaints. she does not believe she has had a fever. She denies headache, sinus congestion, otalgia, odynophagia, sinus congestion, chest pain, pleuritic pain, cough, vomiting, and diarrhea. Review of Systems Review of Systems: Narrative: Twelve systems were reviewed with pertinent positives and negatives as per HPI. No abdominal pain or significant GERD symptoms. She denies melena. Except as documented, all other systems were reviewed and are negative. FORMERLY [facility] Past Medical History Medical History (Updated 04/11/20 @ 23:35 by Priscila Pino PA-C) Abdominal mass 3.5 x 4.8 cm abdominal mass noted anterior to the aortic bifurcation on imaging in October 2019. Patient is uncertain whether not she has had follow-up for this or not. Anxiety Aortic valve stenosis Chronic anticoagulation Chronic obstructive pulmonary disease Deep venous thrombosis of right popliteal vein (~10/2019) Diastolic dysfunction Grade 2 diastolic dysfunction noted on echocardiogram in October 2019 with an ejection fraction of 70%. GI bleed (~10/2019) Secondary to peptic ulcers attributed to the patient taking to NSAIDs at the same time. Hypertension NSAID induced gastritis (~10/2019) Osteoarthritis Pulmonary hypertension Mild to moderate pulmonary hypertension noted on prior echocardiogram with an estimated peak RVSP of 46 mmHg. Schizophrenia Type 2 diabetes mellitus Urinary incontinence Surgical History Surgical History History of aortic valve replacement with bioprosthetic valve History of total knee arthroplasty Family History Family History Father , Age 70 with cardiac and multiple other problems that patient cannot elaborate on Heart disease Mother , 71 heart disease Heart disease Other Unknown family medical history Social History Social History (Updated 04/11/20 @ 23:32 by Priscila Pino PA-C) Social History: Never . No children. Currently intermediate resident due to inability to care for herself due to arthritis and schizophrenia. Had lived in an apartment in assisted living until she fell over year ago. Former smoker. Yaniv Hickeyrubysusan is her power of employment attorney. She is listed as a full code. Smoking packs per day: 1 Smoking cigarettes per day: 20.0 Smoking status: Former smoker Tobacco type: cigarettes Second hand tobacco smoke exposure: No Alcohol intake: former Substance use: never Substance use type: does not use Gender identity (if verbalized by the patient): Female Spiritual care concerns: No Meds Home Medications and Allergies Home Medications Medication Instructions Recorded Confirmed Type Adults Multivitamin 1 tablet PO DAILY
--- NOTE | 2020-04-11 21:38 | PC.NURSE ---
Spoke with pt's sister/POA, Celia Pemberton ([phone]). Updated to pt's condition. Clarified with Celia that pt is actually a DNR. Paperwork was [facility] with [facility] from [facility] stating such. Celia states she does not wish to change code status from DNR because she signed it and that is what she wanted. Pt's code status updated to DNR.
[2020-04-11 23:24] LABS: Troponin I 0.079 ng/mL (0.000-0.034)
[2020-04-12] VITALS (16 sets, daily range): BP systolic 107–152; BP diastolic 51–79; PULSE 47–97; RESP 16–20; TEMP 36.2–37; O2SAT 93–100
[2020-04-12] MEDS: FAMOTIDINE 10 MG TABLET PO ×3 (01:10→17:06)
[2020-04-12] MEDS: HALOPERIDOL 5 MG TABLET PO ×3 (01:10→17:06)
[2020-04-12] MEDS: DOCUSATE SODIUM 100 MG CAPSULE PO ×3 (01:10→17:05)
[2020-04-12] MEDS: APIXABAN 5 MG TABLET PO ×3 (01:10→17:05)
[2020-04-12] MEDS: METOPROLOL TARTRATE 12.5 MG TABLET PO ×3 (01:10→20:14)
[2020-04-12 05:54] LABS: Basophils Percent Auto 0.3 % (0.2-1.2); Hematocrit 34.8 % (37.0-47.0); Hemoglobin 11.4 g/dL (12.0-15.0); Immature Granulocyte Absolute 0.01 K/mm3 (0.00-0.031); Immature Granulocyte Percent A 0.3 % (0-0.5); Immature Platelet Fraction Pct 3.1 % (0.9-11.2); Lymphocytes Absolute Auto 0.94 K/mm3 (0.9-3.2); Lymphocytes Percent Auto 26.6 % (18.3-44.2); Mean Corpuscular HGB Conc 32.8 g/dl (32-36); Mean Corpuscular Hemoglobin 30.2 pg (26-34); Mean Corpuscular Volume 92.3 fl (80-100); Mean Platelet Volume 10.3 fl (7.4-10.4); Monocytes Absolute Auto 0.4 K/mm3 (0.1-0.6); Monocytes Percent Auto 10.8 % (2.6-8.5); Neutrophils Absolute Auto 2.2 K/mm3 (1.3-6.7); Platelet Count Result 133 k/mm3 (150-375); Red Blood Count 3.77 M/mm3 (4.2-5.4); Red Cell Distribution Width 14.6 % (11.5-14.5); White Blood Count 3.5 K/mm3 (4.5-10.0)
--- NOTE | 2020-04-12 06:00 | ECHO_ITS ---
Patient Info Name: Jolie Thompson Age: 69 years : 1950 Gender: Female Ht: 64 in Wt: 161 lbs BSA: 1.83 m2 HR: 54 bpm BP: 152 / 79 mmHg Heart Rhythm: Sinus Rhythm Technical Quality: Fair Exam Date: 04/12/2020 9:48 AM Exam Location: [facility] Pulmonary Patient Status: Outpatient Admit Date: 04/11/2020 Staff Ordering Physician: Chepe Douglas DO Electric Blasting Cap Assembler: Lucita Morris RDCS Attending Provider: Chacho Landa MD Referring Physician: Stella GUZMAN; Exam Type: CA echo dop color flow w con Study Info Complete two-dimensional, color flow and Doppler transthoracic echocardiogram is performed. Summary 1. Complete two-dimensional, color flow and Doppler transthoracic echocardiogram is performed. 2. There is moderate concentric increased left ventricular wall thickness. 3. The left ventricular diastolic function is grade I diastolic dysfunction. 4. Overall contractility is normal with ejection fraction visually estimated to be 65%. 5. LV apex appears to be akinetic. 6. Right ventricular chamber dimension is normal. 7. Aortic valve is sclerotic but not stenotic. 8. Compared with examination from October of this year the apex of the LV appears to be akinetic. Left Ventricle Left ventricular chamber dimension is normal. There is moderate concentric increased left ventricular wall thickness. Left ventricular septal wall motion is normal. The left ventricular diastolic function is grade I diastolic dysfunction. Overall contractility is normal with ejection fraction visually estimated to be 65%. LV apex appears to be akinetic. Right Ventricle Right ventricular chamber dimension is normal. Right ventricular systolic function is normal. Left Atria Left atrial chamber dimension is normal. Right Atria Right atrial chamber dimension is normal. Aortic Valve The aortic valve is trileaflet. There is mild aortic valve sclerosis. There is no aortic valve stenosis. There is no aortic valve regurgitation. Aortic valve is sclerotic but not stenotic. Pulmonic Valve The pulmonic valve is normal. There is no pulmonic valve stenosis. There is no pulmonic regurgitation. Mitral Valve The mitral valve has normal leaflets. There is no mitral valve stenosis. There is no mitral valve regurgitation. Tricuspid Valve The tricuspid valve leaflets are normal. There is no significant tricuspid valve stenosis. There is no tricuspid valve regurgitation. No pulmonary hypertension, estimated pulmonary arterial systolic pressure is Empty. Pericardium/Pleural The pericardium appears normal. There is no pericardial effusion. Inferior Vena Cava Normal inferior vena cava with >50% collapse upon inspiration consistent with Empty right atrial pressure, Empty. Aorta The aortic root size at the sinus of Valsalva is normal. The prox ascending aorta size is normal. Left Ventricular Outflow Tract Name Value Normal LVOT 2D LVOT Diameter 1.97 cm LVOT Doppler LVOT Peak Gradient 4 mmHg LVOT Mean Gradient 1 mmHg LVOT VTI
[2020-04-12 06:15] LABS: Anion Gap 4 mmol/L (8-16); Blood Urea Nitrogen 19 mg/dL (7-17); Calcium 8.7 mg/dL (8.4-10.2); Carbon Dioxide 32 mmol/L (22-30); Chloride 105 mmol/L (98-107); Estimated CRCL calculation 109 ml/min; Estimated Glomerular Filt Rate > 60; Glucose 93 mg/dL (65-105); Potassium 3.8 mmol/L (3.4-5.0); Sodium 141 mmol/L (137-145)
[2020-04-12 06:19] LABS: Magnesium 1.9 mg/dL (1.6-2.3)
[2020-04-12 08:14] LABS: Atypical Lymphocytes Present; Burr Cells 1+ (NORMAL); Platelet Estimate Adequate (Adequate)
[2020-04-12] MEDS: MULTIVITAMINS /C LUTEIN (CENTRUM SILVER) TABLET *BKC 1 TAB PO (09:09)
[2020-04-12] MEDS: CHOLECALCIFEROL 1,000 UNITS TABLET 1000 UNITS PO (09:09)
[2020-04-12] MEDS: lisinopriL 20 MG TABLET 40 MG PO (09:09)
[2020-04-12] MEDS: polyethylene glycoL 3350 17 GM POWD.PACK PO (09:09)
[2020-04-12] MEDS: ATORVASTATIN 20 MG TABLET PO (09:10)
--- NOTE | 2020-04-12 11:29 | PM.IMPN ---
Progress Note: A&P Assessment and Plan (1) Acute respiratory failure with hypoxia: Code(s): J96.01 - Acute respiratory failure with hypoxia Status: Acute Assessment and Plan: Will monitor closely (2) COVID-19: Code(s): U07.1 - COVID-19 Status: Acute Assessment and Plan: will monitor oxygen (3) Elevated troponin: Code(s): R77.8 - Other specified abnormalities of plasma proteins Status: Acute Assessment and Plan: Cardio eval (4) Abnormal ECG: Code(s): R94.31 - Abnormal electrocardiogram [ECG] [EKG] Status: Acute Assessment and Plan: cardio eval (5) Hypertension: Code(s): I10 - Essential (primary) hypertension Status: Acute Assessment and Plan: Stable on meds (6) Schizophrenia: Code(s): F20.9 - Schizophrenia, unspecified Status: Acute Assessment and Plan: Stable on meds (7) Chronic anticoagulation: Code(s): Z79.01 - [facility]CI (current) use of anticoagulants Status: Acute Assessment and Plan: Stable on meds Additional Plan The patient has been admitted to the hospitalist service with acute respiratory failure. She reportedly tested positive for COVID-19 earlier this week although chest imaging does not demonstrate any findings of pneumonia. She has since been weaned off of oxygen and is comfortable at the time my evaluation. Will consult cardio for abnormal troponin. Subjective Date/time seen: 04/12/20 11:29 Interval history: Patient was seen during the morning rounds today. No sob or chest pain,.mood stable. Review of Systems Review of Systems: All systems reviewed & are unremarkable except as noted in HPI and below Exam Narrative: Exam Narrative: General: Mildly ill-appearing female supine in bed in no distress. Weight: 73.4 kg. BMI: 27.8. HEENT: Normocephalic, atraumatic. She is wearing corrective lenses. PERRL, EOMI. Sclerae anicteric. Oral mucosa moist. Edentulous. Oropharynx poorly visualized. Neck: Supple. No JVD. Respiratory: Respirations are even and nonlabored. Lungs are clear to auscultation. Cardiovascular: Regular rate and rhythm with S1-S2. Gastrointestinal: Abdomen is soft, nontender, and nondistended with positive bowel sounds. Skin: Warm and dry. Slightly pale. Scattered, old bruises on the lower legs. Surgical scar from prior right knee replacement. Extremities: No cyanosis, clubbing, or significant edema. Radial and pedal pulses intact. Neurological: Alert. Cranial nerves 2-12 are grossly intact. No gross focal deficits to casual conversation. Psychiatric: Poor eye contact and not the greatest historian. Flat mood and affect. Objective Data Vital Signs Vital Signs: Vital Signs - 24 hr 04/11/20 13:21 04/11/20 13:27 04/11/20 15:10 Temperature 36.4 C L Pulse Rate 64 64 61 Respiratory Rate 21 H 18 Blood Pressure 126/64 158/56 H Pulse Oximetry 98 94 04/11/20 15:46 04/11/20 16:03 04/11/20 17:31 Temperature Pulse Rate 63 78 112 H Respiratory Rate 16 18 13 Blood Pressure 129/62 129/72 135/68 Pulse Oximetry 93 96 91 04/11/20 18:01 04/11/20 18:55 04/11/20 20:00 Temperature 35.8 C L Pulse Rate 62 73 68 Respiratory Rate 18 18 Blood Pressure 161/76 H 141/73 H Pulse Oximetry 97 93 04/11/20 22:00 04/12/20 00:00 04/12/20 01:10 Temperature 36.2 C L Pulse Rate 104 H 48 L 97 Respiratory Rate 16 Blood Pressure 107/56 L Pulse Oximetry 96 04/12/20 02:00 04/12/20 04:00 04/12/20 06:00 Temperature 36.2 C L Pulse Rate 47 L 78 55 L Respiratory Rate 16 Blood Pressure 152/79 H Pulse Oximetry 100 04/12/20 08:00 04/12/20 09:10 04/12/20 09:23 Temperature 36.7 C Pulse Rate 54 L 55 L Respiratory Rate 16 Blood Pressure 137/51 L Pulse Oximetry 99 99 Meds/Results Medications: Active Medications Generic Name Dose Route Start Last Admin Trade Name Freq PRN Reason Stop Dose A
[2020-04-12 13:20] LABS: Troponin I 0.085 ng/mL (0.000-0.034)
--- NOTE | 2020-04-12 14:19 | PM.CNCAR ---
Assessment and Plan Additional Plan 69-year-old patient appears to be hospitalized because of avendaño virus. She came in with shortness of breath is no longer coherent as far as her mental status is concerned. For reasons that are not entirely clear troponins were done and an EKG demonstrates impressive symmetrical precordial T-wave inversions. Echocardiogram demonstrates a small region of akinesis at the apex I suppose consistent with an infarction that appears to have happened sometime between October when the previous exam was done and today. Given the fact that she is incoherent is DNR per and is hospitalized with avendaño virus I do not believe I am going to recommend any specific cardiac workup for treatment. She is already on appropriate therapy which includes systemic anticoagulation with apixaban, lisinopril and metoprolol. I have no problem with transferring her to any other floor particularly a given the fact that she is DNR status. Prognosis appears to be poor in my opinion Tenzin Crook MD [facility] History of Present Illness History of Present Illness Consult date/time: 04/12/20 14:19 Reason For Visit: Shortness of breath and lethargy. Narrative: this is a 69-year-old woman that I am seeing at the request of the hospitalist this afternoon because of ECG abnormalities, troponin elevation. The patient is incapable providing any meaningful history to me at this time she is arousable and alert but is incoherent. None of her questions I post to her elicit any meaningful response. According to the records she was sent here from her our residence yesterday because of shortness of breath and weakness. Apparently a couple of days earlier this week she tested positive for the avendaño virus. The patient has a history of aortic valve disease with an aortic valve replacement in the past. I have no records regarding the details of this operation or when it occurred. According to the record while she was being evaluated in the emergency room an electrocardiogram was done which demonstrated impressive deep symmetrical T-wave inversion across the precordium. Her troponin levels are barely out of normal range and are flat without a significant rise or fall. An echocardiogram was requested because of these findings and the study was read a short time ago by myself. She has relatively impressive left ventricular hypertrophy with very good overall systolic contractility. She does have apical akinesis which was not seen on echocardiogram done in October of this year. The region of akinesis is quite small. Overall ejection fraction is still normal. She is incapable of providing any direct history as I mentioned above according to the Orders on the chart she is DNR. in this setting I am asked to see her in consultation. The staff if call me a couple of times today before I saw the patient asking me if she can get transferred to the medical floor. Review of Systems Review of Systems: ROS unobtainable: Yes unobtainable due to mental status ON LICENSE OF [facility] Past Medical History Medical History (Updated 04/11/20 @ 23:35 by Priscila Pino PA-C) Abdominal mass 3.5 x 4.8 cm abdominal mass noted anterior to the aortic bifurcation on imaging in October 2019. Patient is uncertain whether not she has had follow-up for this or not. Anxiety Aortic valve stenosis Chronic anticoagulation Chronic obstructive pulmonary disease Deep venous thrombosis of right popliteal vein (~10/2019) Diastolic dysfunction Grade 2 diastolic dysfunction noted on echocardiogram in October 2019 with an ejection fraction of 70%. GI bleed (~10/2019) Secondary to peptic ulcers attributed to the patient taking to NSAIDs at the same time. Hypertension NSAID induced gastritis (~10/2019) Osteoarthritis Pulmonary hypertension Mild to moderate pulmonary hypertension noted on prior echocardiogram with an estimated peak RVSP of 46 mmHg. Schizophrenia Type 2 diabetes mellitus Urinary incontinence Wen
--- NOTE | 2020-04-12 18:48 | PC.NURSE ---
This patient, Jolie Thompson, was received from IMU on 04/12/20 at 1848. Patient/family oriented to unit policies and routines
--- NOTE | 2020-04-12 19:02 | PC.NURSE ---
This patient, Jolie Thompson, was transferred to [[id number]] on 04/12/20 at 1902. Personal belongings sent with patient. Report given to [ISABELLA Faulkner @ [phone]]. Appropriate documentation sent with patient.
[2020-04-13] VITALS (8 sets, daily range): BP systolic 109–150; BP diastolic 59–89; PULSE 52–65; RESP 16–20; TEMP 36.4–37.1; O2SAT 95–98
[2020-04-13 07:54] LABS: Troponin I 0.074 ng/mL (0.000-0.034)
--- NOTE | 2020-04-13 09:05 | PM.IMPN ---
Progress Note: A&P Assessment and Plan (1) Acute respiratory failure with hypoxia: Code(s): J96.01 - Acute respiratory failure with hypoxia Status: Acute Assessment and Plan: Will monitor closely (2) COVID-19: Code(s): U07.1 - COVID-19 Status: Acute Assessment and Plan: will monitor oxygen (3) Elevated troponin: Code(s): R77.8 - Other specified abnormalities of plasma proteins Status: Acute Assessment and Plan: Cardio eval (4) Abnormal ECG: Code(s): R94.31 - Abnormal electrocardiogram [ECG] [EKG] Status: Acute Assessment and Plan: cardio eval (5) Hypertension: Code(s): I10 - Essential (primary) hypertension Status: Acute Assessment and Plan: Stable on meds (6) Schizophrenia: Code(s): F20.9 - Schizophrenia, unspecified Status: Acute Assessment and Plan: Stable on meds (7) Chronic anticoagulation: Code(s): Z79.01 - longterm (current) use of anticoagulants Status: Acute Assessment and Plan: Stable on meds Additional Plan The patient has been admitted to the hospitalist service with acute respiratory failure. She reportedly tested positive for COVID-19 earlier this week although chest imaging does not demonstrate any findings of pneumonia. She has since been weaned off of oxygen and is comfortable at the time my evaluation. Will consult cardio for abnormal troponin. Troponin trend down, will continue current treatment and monitor. Subjective Date/time seen: 04/13/20 09:05 Interval history: Patient was seen during the morning rounds today. No sob or chest pain,.mood stable. No new complaints. Review of Systems Review of Systems: All systems reviewed & are unremarkable except as noted in HPI and below Exam Narrative: Exam Narrative: General: Mildly ill-appearing female supine in bed in no distress. Weight: 73.4 kg. BMI: 27.8. HEENT: Normocephalic, atraumatic. She is wearing corrective lenses. PERRL, EOMI. Sclerae anicteric. Oral mucosa moist. Edentulous. Oropharynx poorly visualized. Neck: Supple. No JVD. Respiratory: Respirations are even and nonlabored. Lungs are clear to auscultation. Cardiovascular: Regular rate and rhythm with S1-S2. Gastrointestinal: Abdomen is soft, nontender, and nondistended with positive bowel sounds. Skin: Warm and dry. Slightly pale. Scattered, old bruises on the lower legs. Surgical scar from prior right knee replacement. Extremities: No cyanosis, clubbing, or significant edema. Radial and pedal pulses intact. Neurological: Alert. Cranial nerves 2-12 are grossly intact. No gross focal deficits to casual conversation. Psychiatric: Poor eye contact and not the greatest historian. Flat mood and affect. Objective Data Vital Signs Vital Signs: Vital Signs - 24 hr 04/12/20 09:10 04/12/20 09:23 04/12/20 10:00 Temperature Pulse Rate 55 L 56 L Respiratory Rate Blood Pressure Pulse Oximetry 99 04/12/20 11:39 04/12/20 12:00 04/12/20 14:00 Temperature 36.5 C Pulse Rate 60 60 58 L Respiratory Rate 16 16 Blood Pressure 144/63 H Pulse Oximetry 96 96 04/12/20 16:00 04/12/20 18:55 04/12/20 20:00 Temperature 36.9 C 37.0 C 36.4 C L Pulse Rate 55 L 55 L 53 L Respiratory Rate 16 18 20 Blood Pressure 136/60 134/68 127/62 Pulse Oximetry 93 95 96 04/12/20 20:14 04/13/20 00:00 04/13/20 04:00 Temperature 36.8 C 36.7 C Pulse Rate 53 L 52 L 54 L Respiratory Rate 20 20 Blood Pressure 130/89 141/65 H Pulse Oximetry 95 97 04/13/20 08:00 Temperature 36.6 C Pulse Rate 55 L Respiratory Rate 16 Blood Pressure 148/83 H Pulse Oximetry 95 Intake/Output Intake/Output: Intake & Output 04/10/20 04/11/20 04/12/20 04/13/20 23:59 23:59 23:59 23:59 Intake Total 360 100 Balance 360 100 Meds/Results Medications: Active Medications Generic Name Dose Route Start Last Admin Trade Name
[2020-04-13] MEDS: FAMOTIDINE 10 MG TABLET PO ×2 (09:56→17:36)
[2020-04-13] MEDS: CHOLECALCIFEROL 1,000 UNITS TABLET 1000 UNITS PO (09:56)
[2020-04-13] MEDS: ATORVASTATIN 20 MG TABLET PO (09:56)
[2020-04-13] MEDS: DOCUSATE SODIUM 100 MG CAPSULE PO ×2 (09:56→17:36)
[2020-04-13] MEDS: APIXABAN 5 MG TABLET PO ×2 (09:56→17:36)
[2020-04-13] MEDS: HALOPERIDOL 5 MG TABLET PO ×2 (09:58→17:36)
[2020-04-13] MEDS: lisinopriL 20 MG TABLET 40 MG PO (09:58)
[2020-04-13] MEDS: METOPROLOL TARTRATE 12.5 MG TABLET PO ×2 (09:58→21:34)
[2020-04-13] MEDS: MULTIVITAMINS /C LUTEIN (CENTRUM SILVER) TABLET *BKC 1 TAB PO (09:59)
[2020-04-13] MEDS: polyethylene glycoL 3350 17 GM POWD.PACK PO (09:59)
--- NOTE | 2020-04-13 12:05 | PM.PNCARD ---
Progress Note: A&P Additional Plan 69-year-old woman with: Coronavirus and shortness of breath as a result of this ECG and echocardiographic evidence of a apical infarction that occurred sometime between the previous echocardiogram in the summer and the 1 done during this admission. Given her lack of symptoms and DNR status as I mentioned in my initial consult note I do not believe we would recommend specific ischemia workup in this setting. Tenzin Crook MD [facility] Subjective Date/time seen: Date of service: 04/13/20 12:05 Interval history: 69-year-old patient seen yesterday in consultation because of ECG abnormalities, elevated troponin. Echocardiogram demonstrates small apical area of akinesis suggestive of a region of apical infarction since her previous study that was done in October of this year. Patient is hospitalized with avendaño virus had some shortness of breath. No cardiovascular symptoms or complaints. She is DNR status. Note in the hospitalist chart today to consult me about the troponin. Apparently my consult note from yesterday was not seen because this is all addressed in that previous note. As I mentioned a given this situation and with DNR status I do not anticipate conducting an ischemia workup. Again patient is comfortable today and has no cardiovascular complaints Objective Data Vital Signs Vital Signs: Vital Signs - 24 hr 04/12/20 14:00 04/12/20 16:00 04/12/20 18:55 Temperature 36.9 C 37.0 C Pulse Rate 58 L 55 L 55 L Respiratory Rate 16 18 Blood Pressure 136/60 134/68 Pulse Oximetry 93 95 04/12/20 20:00 04/12/20 20:14 04/13/20 00:00 Temperature 36.4 C L 36.8 C Pulse Rate 53 L 53 L 52 L Respiratory Rate 20 20 Blood Pressure 127/62 130/89 Pulse Oximetry 96 95 04/13/20 04:00 04/13/20 08:00 04/13/20 09:58 Temperature 36.7 C 36.6 C Pulse Rate 54 L 55 L 55 L Respiratory Rate 20 16 Blood Pressure 141/65 H 148/83 H Pulse Oximetry 97 95 Intake/Output Intake/Output: Intake & Output 04/10/20 04/11/20 04/12/20 04/13/20 23:59 23:59 23:59 23:59 Intake Total 360 100 Balance 360 100 Meds/Results Medications: Active Medications Generic Name Dose Route Start Last Admin Trade Name Kay PRN Reason Stop Dose Admin Acetaminophen/Codeine Phosphate 1 tab 04/11/20 23:55 04/13/20 06:05 Acetaminophen/Codeine (*Crx) 300/30 Mg Tablet PO Not Given Q8HR [facility] Apixaban 5 mg 04/12/20 00:05 04/13/20 09:56 Apixaban 5 Mg Tablet PO 5 mg BID MAGUE Administration Atorvastatin Calcium 20 mg 04/12/20 09:00 04/13/20 09:56 Atorvastatin 20 Mg Tablet PO 20 mg DAILY MAGUE Administration Docusate Sodium 100 mg 04/12/20 00:05 04/13/20 09:56 Docusate Sodium 100 Mg Capsule PO 100 mg BID MAGUE Administration Famotidine 10 mg 04/12/20 00:05 04/13/20 09:56 Famotidine 10 Mg Tablet PO 10 mg BID MAGUE Administration Haloperidol 5 mg 04/12/20 00:05 04/13/20 09:58 Haloperidol 5 Mg Tablet PO 5 mg BID MAGUE Administration Lisinopril 40 mg 04/12/20 09:00 04/13/20 09:58 Lisinopril 20 Mg Tablet PO 40 mg DAILY MAGUE Administration Metoprolol Tartrate 12.5 mg 04/12/20 00:05 04/13/20 09:58 Metoprolol Tartrate 12.5 Mg Tablet PO 12.5 mg Q12HR MAGUE Administration Multivitamins/Minerals 1 tab 04/12/20 09:00 04/13/20 09:59 Multivitamins /C Lutein (Centrum Silver) Tablet *Bkc PO 1 tab DAILY MAGUE Administration Polyethylene Glycol 17 gm 04/12/20 09:00 04/13/20 09:59 Polyethylene Glycol 3350 17 Gm Powd.Pack PO 17 gm DAILY MAGUE Administration Valproate Sodium 500 mg 04/12/20 00:05 04/13/20 09:59 Valproic Acid Liq 250 Mg/5 Ml Udc PO 500 mg TID MAGUE Administration Vitamin D 1,000 units 04/12/20 09:00 04/13/20 09:56 Cholecalciferol 1,000 Units Tablet PO 1,000 units DAILY MAGUE Administration Radiology Results: ITS Impressions Chest X-Ray 04/11/20 14:07 IMPRESSION: Mild infiltrate or atelec
[2020-04-13] MEDS: ACETAMINOPHEN/CODEINE (*CRX) 300/30 MG TABLET 1 TAB PO ×2 (14:08→21:35)
--- NOTE | 2020-04-13 15:49 | PC.NURSE ---
Jaime took call from lab and reported value to myself and I attempted to call Dr. Crook just to FYI him of value which is trending downward.
[2020-04-14] VITALS (8 sets, daily range): BP systolic 110–133; BP diastolic 54–70; PULSE 52–63; RESP 16–20; TEMP 36.4–37.1; O2SAT 94–100
[2020-04-14 07:04] LABS: Troponin I 0.076 ng/mL (0.000-0.034)
--- NOTE | 2020-04-14 09:20 | PM.PNCARD ---
Progress Note: A&P Additional Plan 69-year-old female with: Echocardiographic and electrocardiographic evidence indicating evidence of an apical myocardial infarction. It is possible that she has subclinical coronary artery disease it is also possible this represents an episode of takotsubo stress cardiomyopathy. In any event because of her lack of symptoms and DNR status as I mentioned in my consult note I do not believe there is any value in proceeding with the coronary evaluation in this setting. That being the case I am going to sign off of her case if my services are needed in that while she is in the hospital please call me back and thank you for the consult. Tenzin Crook MD [facility] Subjective Date/time seen: Date of service: 04/14/20 09:20 Interval history: Follow-up visit in this 69-year-old female with: Hdz virus infection ECG, echocardiographic evidence of apical myocardial infarction which appears to have occurred sometime between October and this admission. Patient seen and examined in room 326. She is comfortable but barely arousable. Offers no cardiovascular complaints. Specifically denies any chest pain Exam Const: General: comfortable and no acute distress Other: Well-developed well-nourished white female with no distress very somnolent arousable but falls back to sleep very quickly HENMT: Mouth: Yes moist mucous membranes Eyes: Sclera: sclerae normal Pupils: Equal, round and reactive pupils present Neck: Neck: supple and no JVD Resp: Effort & Inspection: normal respiratory effort Auscultation: clear to auscultation bilaterally Cardio: Rate: regular rate Rhythm: regular rhythm GI: GI Palp: Yes Soft to palpation Auscultation: normal bowel sounds Skin: General skin exam: normal color Neuro: Cognition (Neuro): abnormal cognition Other: Very lethargic Objective Data Vital Signs Vital Signs: Vital Signs - 24 hr 04/13/20 09:58 04/13/20 12:00 04/13/20 16:00 Temperature 37.1 C 36.4 C Pulse Rate 55 L 65 59 L Respiratory Rate 16 18 Blood Pressure 148/71 H 150/71 H Pulse Oximetry 97 98 04/13/20 20:00 04/13/20 21:34 04/14/20 00:00 Temperature 36.9 C 36.4 C Pulse Rate 62 62 52 L Respiratory Rate 20 16 Blood Pressure 109/59 L 110/67 Pulse Oximetry 97 94 04/14/20 05:00 Temperature 36.6 C Pulse Rate 60 Respiratory Rate 20 Blood Pressure 121/54 L Pulse Oximetry 94 Intake/Output Intake/Output: Intake & Output 04/11/20 04/12/20 04/13/20 04/14/20 23:59 23:59 23:59 23:59 Intake Total 360 1070 400 Balance 360 1070 400 Meds/Results Medications: Active Medications Generic Name Dose Route Start Last Admin Trade Name Kay PRN Reason Stop Dose Admin Acetaminophen/Codeine Phosphate 1 tab 04/11/20 23:55 04/14/20 05:05 Acetaminophen/Codeine (*Crx) 300/30 Mg Tablet PO Not Given Q8HR MAGUE Apixaban 5 mg 04/12/20 00:05 04/13/20 17:36 Apixaban 5 Mg Tablet PO 5 mg BID MAGUE Administration Atorvastatin Calcium 20 mg 04/12/20 09:00 04/13/20 09:56 Atorvastatin 20 Mg Tablet PO 20 mg DAILY MAGUE Administration Docusate Sodium 100 mg 04/12/20 00:05 04/13/20 17:36 Docusate Sodium 100 Mg Capsule PO 100 mg BID MAGUE Administration Famotidine 10 mg 04/12/20 00:05 04/13/20 17:36 Famotidine 10 Mg Tablet PO 10 mg BID MAGUE Administration Haloperidol 5 mg 04/12/20 00:05 04/13/20 17:36 Haloperidol 5 Mg Tablet PO 5 mg BID MAGUE Administration Lisinopril 40 mg 04/12/20 09:00 04/13/20 09:58 Lisinopril 20 Mg Tablet PO 40 mg DAILY MAGUE Administration Metoprolol Tartrate 12.5 mg 04/12/20 00:05 04/13/20 21:34 Metoprolol Tartrate 12.5 Mg Tablet PO 12.5 mg Q12HR MAGUE Administration Multivitamins/Minerals 1 tab 04/12/20 09:00 04/13/20 09:59 Multivitamins /C Lutein (Centrum Silver) Tablet *Bkc PO 1 tab DAILY MAGUE Administration Polyethylene Glycol 17 gm 04/12/20 09:00 04/13/20 09:59 Polye
[2020-04-14] MEDS: lisinopriL 20 MG TABLET 40 MG PO (10:34)
[2020-04-14] MEDS: MULTIVITAMINS /C LUTEIN (CENTRUM SILVER) TABLET *BKC 1 TAB PO (10:34)
[2020-04-14] MEDS: FAMOTIDINE 10 MG TABLET PO ×2 (10:34→17:02)
[2020-04-14] MEDS: HALOPERIDOL 5 MG TABLET PO ×2 (10:34→17:02)
[2020-04-14] MEDS: APIXABAN 5 MG TABLET PO ×2 (10:34→17:02)
[2020-04-14] MEDS: CHOLECALCIFEROL 1,000 UNITS TABLET 1000 UNITS PO (10:35)
[2020-04-14] MEDS: polyethylene glycoL 3350 17 GM POWD.PACK PO (10:35)
[2020-04-14] MEDS: DOCUSATE SODIUM 100 MG CAPSULE PO ×2 (10:35→17:02)
[2020-04-14] MEDS: ATORVASTATIN 20 MG TABLET PO (10:35)
[2020-04-14] MEDS: METOPROLOL TARTRATE 12.5 MG TABLET PO ×2 (11:54→22:19)
[2020-04-14] MEDS: ACETAMINOPHEN/CODEINE (*CRX) 300/30 MG TABLET 1 TAB PO (13:56)
--- NOTE | 2020-04-14 17:30 | PM.IMPN ---
Progress Note: A&P Assessment and Plan (1) Acute respiratory failure with hypoxia: Code(s): J96.01 - Acute respiratory failure with hypoxia Status: Acute Assessment and Plan: Will monitor closely (2) COVID-19: Code(s): U07.1 - COVID-19 Status: Acute Assessment and Plan: will monitor oxygen (3) Elevated troponin: Code(s): R77.8 - Other specified abnormalities of plasma proteins Status: Acute Assessment and Plan: Cardio eval (4) Abnormal ECG: Code(s): R94.31 - Abnormal electrocardiogram [ECG] [EKG] Status: Acute Assessment and Plan: cardio eval (5) Hypertension: Code(s): I10 - Essential (primary) hypertension Status: Acute Assessment and Plan: Stable on meds (6) Schizophrenia: Code(s): F20.9 - Schizophrenia, unspecified Status: Acute Assessment and Plan: Stable on meds (7) Chronic anticoagulation: Code(s): Z79.01 - [facility] (current) use of anticoagulants Status: Acute Assessment and Plan: Stable on meds Subjective Date/time seen: 04/14/20 17:30 Interval history: 69-year-old female with schizophrenia, GERD, peptic ulcer with history of GI bleed, COPD, diabetes, and several other comorbidities who presented to the emergency department earlier today [facility] for evaluation of lethargy and shortness of breath. Seen by cardiology trop slight raise to 0.076 Review of Systems Review of Systems: All systems reviewed & are unremarkable except as noted in HPI and below Exam Narrative: Exam Narrative: General: chronically ill appearing lady Neck: Supple. No JVD. Respiratory: Respirations are even and nonlabored. Cardiovascular: Regular rate and rhythm with S1-S2. Gastrointestinal: Abdomen is soft, nontender, and nondistended with positive bowel sounds. Skin: Surgical scar from prior right knee replacement. Extremities: No cyanosis, clubbing, or significant edema. Radial and pedal pulses intact. Neurological: Alert. Cranial nerves 2-12 are grossly intact. No gross focal deficits to casual conversation. Objective Data Vital Signs Vital Signs: Vital Signs - 24 hr 04/13/20 20:00 04/13/20 21:34 04/14/20 00:00 Temperature 36.9 C 36.4 C Pulse Rate 62 62 52 L Respiratory Rate 20 16 Blood Pressure 109/59 L 110/67 Pulse Oximetry 97 94 04/14/20 05:00 04/14/20 08:00 04/14/20 11:54 Temperature 36.6 C 36.9 C Pulse Rate 60 53 L 53 L Respiratory Rate 20 16 Blood Pressure 121/54 L 132/70 Pulse Oximetry 94 99 04/14/20 12:00 Temperature 37.1 C Pulse Rate 63 Respiratory Rate 16 Blood Pressure 121/57 L Pulse Oximetry 97 Intake/Output Intake/Output: Intake & Output 04/11/20 04/12/20 04/13/20 04/14/20 23:59 23:59 23:59 23:59 Intake Total 360 1070 760 Balance 360 1070 760 Meds/Results Medications: Active Medications Generic Name Dose Route Start Last Admin Trade Name Freq PRN Reason Stop Dose Admin Acetaminophen/Codeine Phosphate 1 tab 04/11/20 23:55 04/14/20 13:56 Acetaminophen/Codeine (*Crx) 300/30 Mg Tablet PO 1 tab Q8HR MAGUE Administration Apixaban 5 mg 04/12/20 00:05 04/14/20 17:02 Apixaban 5 Mg Tablet PO 5 mg BID MAGUE Administration Atorvastatin Calcium 20 mg 04/12/20 09:00 04/14/20 10:35 Atorvastatin 20 Mg Tablet PO 20 mg DAILY MAGUE Administration Docusate Sodium 100 mg 04/12/20 00:05 04/14/20 17:02 Docusate Sodium 100 Mg Capsule PO 100 mg BID MAGUE Administration Famotidine 10 mg 04/12/20 00:05 04/14/20 17:02 Famotidine 10 Mg Tablet PO 10 mg BID MAGUE Administration Haloperidol 5 mg 04/12/20 00:05 04/14/20 17:02 Haloperidol 5 Mg Tablet PO 5 mg BID MAGUE Administration Lisinopril 40 mg 04/12/20 09:00 04/14/20 10:34 Lisinopril 20 Mg Tablet PO 40 mg DAILY MAGEU Administration Metoprolol Tartrate 12.5 mg 04/12/20 00:05 04/14/20 11:54
[2020-04-15] VITALS (9 sets, daily range): BP systolic 121–164; BP diastolic 54–82; PULSE 56–76; RESP 12–20; TEMP 35.8–37.1; O2SAT 95–100
[2020-04-15] MEDS: APIXABAN 5 MG TABLET PO ×2 (08:35→16:35)
[2020-04-15] MEDS: FAMOTIDINE 10 MG TABLET PO ×2 (08:35→16:35)
[2020-04-15] MEDS: ATORVASTATIN 20 MG TABLET PO (08:35)
[2020-04-15] MEDS: HALOPERIDOL 5 MG TABLET PO ×2 (08:35→16:35)
[2020-04-15] MEDS: CHOLECALCIFEROL 1,000 UNITS TABLET 1000 UNITS PO (08:35)
[2020-04-15] MEDS: polyethylene glycoL 3350 17 GM POWD.PACK PO (08:36)
[2020-04-15] MEDS: lisinopriL 20 MG TABLET 40 MG PO (08:36)
[2020-04-15] MEDS: MULTIVITAMINS /C LUTEIN (CENTRUM SILVER) TABLET *BKC 1 TAB PO (08:36)
[2020-04-15] MEDS: METOPROLOL TARTRATE 12.5 MG TABLET PO ×2 (08:36→21:36)
[2020-04-15] MEDS: DOCUSATE SODIUM 100 MG CAPSULE PO ×2 (08:41→16:35)
--- NOTE | 2020-04-15 11:06 | PCSTNOTE ---
Please refer to the Bedside Swallow Evaluation in the EMR. Please note, silent aspiration cannot be ruled out at bedside.
[2020-04-15] MEDS: ACETAMINOPHEN/CODEINE (*CRX) 300/30 MG TABLET 1 TAB PO ×2 (14:20→21:38)
--- NOTE | 2020-04-15 17:58 | PM.IMPN ---
Progress Note: A&P Assessment and Plan (1) Acute respiratory failure with hypoxia: Code(s): J96.01 - Acute respiratory failure with hypoxia Status: Acute Assessment and Plan: Will monitor closely (2) COVID-19: Code(s): U07.1 - COVID-19 Status: Acute Assessment and Plan: will monitor oxygen (3) Elevated troponin: Code(s): R77.8 - Other specified abnormalities of plasma proteins Status: Acute Assessment and Plan: Cardio eval, pt is signed off from cardiology (4) Abnormal ECG: Code(s): R94.31 - Abnormal electrocardiogram [ECG] [EKG] Status: Acute Assessment and Plan: cardio eval (5) Hypertension: Code(s): I10 - Essential (primary) hypertension Status: Acute Assessment and Plan: Stable on meds (6) Schizophrenia: Code(s): F20.9 - Schizophrenia, unspecified Status: Acute Assessment and Plan: Stable on meds (7) Chronic anticoagulation: Code(s): Z79.01 - jail (current) use of anticoagulants Status: Acute Assessment and Plan: Stable on meds Subjective Date/time seen: 04/15/20 17:58 Interval history: 69-year-old female with schizophrenia, GERD, peptic ulcer with history of GI bleed, COPD, diabetes, and several other comorbidities who presented to the emergency department earlier today via EMS from a local assisted for evaluation of lethargy and shortness of breath. Review of Systems Review of Systems: All systems reviewed & are unremarkable except as noted in HPI and below Exam Narrative: Exam Narrative: General: chronically ill appearing lady Neck: Supple. No JVD. Respiratory: Respirations are even and nonlabored. Cardiovascular: Regular rate and rhythm with S1-S2. Gastrointestinal: Abdomen is soft, nontender, and nondistended with positive bowel sounds. Skin: Surgical scar from prior right knee replacement. Extremities: No cyanosis, clubbing, or significant edema. Radial and pedal pulses intact. Neurological: Alert. Cranial nerves 2-12 are grossly intact. No gross focal deficits to casual conversation. Objective Data Vital Signs Vital Signs: Vital Signs - 24 hr 04/14/20 20:00 04/14/20 22:19 04/15/20 00:00 Temperature 36.9 C 36.8 C Pulse Rate 57 L 60 72 Respiratory Rate 20 20 Blood Pressure 123/62 124/54 L Pulse Oximetry 95 100 04/15/20 04:00 04/15/20 08:00 04/15/20 08:36 Temperature 37.1 C 36.6 C Pulse Rate 58 L 67 66 Respiratory Rate 20 12 Blood Pressure 156/69 H 164/78 H Pulse Oximetry 100 100 04/15/20 12:00 04/15/20 16:00 Temperature 35.8 C L 35.9 C L Pulse Rate 61 56 L Respiratory Rate 12 12 Blood Pressure 151/72 H 121/76 Pulse Oximetry 100 99 Intake/Output Intake/Output: Intake & Output 04/12/20 04/13/20 04/14/20 04/15/20 23:59 23:59 23:59 23:59 Intake Total 360 1070 880 890 Balance 360 1070 880 890 Meds/Results Medications: Active Medications Generic Name Dose Route Start Last Admin Trade Name Freq PRN Reason Stop Dose Admin Acetaminophen/Codeine Phosphate 1 tab 04/11/20 23:55 04/15/20 14:20 Acetaminophen/Codeine (*Crx) 300/30 Mg Tablet PO 1 tab Q8HR MAGUE Administration Apixaban 5 mg 04/12/20 00:05 04/15/20 16:35 Apixaban 5 Mg Tablet PO 5 mg BID MAGUE Administration Atorvastatin Calcium 20 mg 04/12/20 09:00 04/15/20 08:35 Atorvastatin 20 Mg Tablet PO 20 mg DAILY MAGUE Administration Docusate Sodium 100 mg 04/12/20 00:05 04/15/20 16:35 Docusate Sodium 100 Mg Capsule PO 100 mg BID MAGUE Administration Famotidine 10 mg 04/12/20 00:05 04/15/20 16:35 Famotidine 10 Mg Tablet PO 10 mg BID MAGUE Administration Haloperidol 5 mg 04/12/20 00:05 04/15/20 16:35 Haloperidol 5 Mg Tablet PO 5 mg BID MAGUE Administration Lisinopril 40 mg 04/12/20 09:00 04/15/20 08:36 Lisinopril 20 Mg Tablet PO 40 mg DAILY MAGUE Administration Metoprolol Tartr
[2020-04-16] VITALS (8 sets, daily range): BP systolic 118–163; BP diastolic 65–76; PULSE 50–65; RESP 16–20; TEMP 36.1–37.1; O2SAT 94–100
[2020-04-16] MEDS: ACETAMINOPHEN/CODEINE (*CRX) 300/30 MG TABLET 1 TAB PO ×3 (06:05→21:32)
[2020-04-16] MEDS: METOPROLOL TARTRATE 12.5 MG TABLET PO ×2 (10:26→21:31)
[2020-04-16] MEDS: DOCUSATE SODIUM 100 MG CAPSULE PO ×2 (10:26→18:42)
[2020-04-16] MEDS: CHOLECALCIFEROL 1,000 UNITS TABLET 1000 UNITS PO (10:26)
[2020-04-16] MEDS: lisinopriL 20 MG TABLET 40 MG PO (10:26)
[2020-04-16] MEDS: FAMOTIDINE 10 MG TABLET PO ×2 (10:27→18:42)
[2020-04-16] MEDS: MULTIVITAMINS /C LUTEIN (CENTRUM SILVER) TABLET *BKC 1 TAB PO (10:27)
[2020-04-16] MEDS: HALOPERIDOL 5 MG TABLET PO ×2 (10:27→18:42)
[2020-04-16] MEDS: ATORVASTATIN 20 MG TABLET PO (10:27)
[2020-04-16] MEDS: APIXABAN 5 MG TABLET PO ×2 (10:27→18:42)
[2020-04-16] MEDS: polyethylene glycoL 3350 17 GM POWD.PACK PO (10:28)
--- NOTE | 2020-04-16 16:12 | PM.DS ---
DS: Admitting Diagnosis Admitting Diagnosis Admitting Diagnosis: SOB and lethargy DS: Discharge Diagnosis Discharge Diagnosis (1) Acute respiratory failure with hypoxia: Code(s): J96.01 - Acute respiratory failure with hypoxia Status: Resolved (2) COVID-19: Code(s): U07.1 - COVID-19 Status: Resolved Assessment and Plan: With oxygen (3) Elevated troponin: Code(s): R77.8 - Other specified abnormalities of plasma proteins Status: Acute Assessment and Plan: Cardio eval, pt is signed off from cardiology (4) Abnormal ECG: Code(s): R94.31 - Abnormal electrocardiogram [ECG] [EKG] Status: Acute Assessment and Plan: cardio eval (5) Hypertension: Code(s): I10 - Essential (primary) hypertension Status: Acute Assessment and Plan: Stable on meds (6) Schizophrenia: Code(s): F20.9 - Schizophrenia, unspecified Status: Acute Assessment and Plan: Stable on meds (7) Chronic anticoagulation: Code(s): Z79.01 - care home (current) use of anticoagulants Status: Acute Assessment and Plan: Stable on meds DS: Summary Hospital Course Hospital Course: Pt admitted for lethargy and weakness. found to have covid pt had troponins were done and an EKG demonstrates impressive symmetrical precordial T-wave inversions. Echocardiogram demonstrates a small region of akinesis at the apex pt evaluated by cardiology and signed off. pt to continue apixaban, lisinopril and metoprolol. Pt discharged when she was stable for respiratory side. Time Spent with Patient Time attestation: Total time spent providing and/or coordinating discharge services:40 minutes on day of discharge Exam Narrative: Exam Narrative: General: chronically ill appearing lady Neck: Supple. No JVD. Respiratory: Respirations are even and nonlabored. Cardiovascular: Regular rate and rhythm with S1-S2. Gastrointestinal: Abdomen is soft, nontender, and nondistended with positive bowel sounds. Skin: Surgical scar from prior right knee replacement. Extremities: No cyanosis, clubbing, or significant edema. Radial and pedal pulses intact. Neurological: Alert. Cranial nerves 2-12 are grossly intact. No gross focal deficits to casual conversation. DS: Data Data Completed and Pending Labs on day of discharge: Preliminary micro results at discharge 04/11/20 13:43 Blood Culture - Preliminary Blood 04/11/20 13:42 Blood Culture - Preliminary Blood Discharge Plan Discharge Attending physician on discharge: Jewels Najera Consulting providers: Tenzin Crook Discharging Clinician: Jewels Najera Anticipated Discharge Date/Time: 04/16/20 16:09 Patient Disposition: NH Group Home/Asst Living Activity: as tolerated Diet: heart healthy Discharge Instructions: social distancing, wear face mask, wash hands, quarantine for 14 days Patient Instructions: Antibiotic Form, Apixaban (By mouth), Pain Management (GEN), COVID-19 (Coronavirus Disease 2019) (GEN), COVID-19 and Chronic Health Conditions (GEN), COVID-19: Slow the Coronavirus Spread (GEN) Stand Alone Forms: General Discharge Information Follow-up/Referrals: Albert Merritt MD [Primary Care Provider] - Discharge Medications: Continued lisinopril 40 mg Tablet 40 mg PO DAILY RF: 0 Adults Multivitamin 18 mg iron-400 mcg-25 mcg Tablet 1 tablet PO DAILY RF: 0 haloperidol 5 mg Tablet 5 mg PO BID RF: 0 polyethylene glycol 3350 [Miralax] 17 gram/dose Powder 17 g PO DAILY RF: 0 cholecalciferol (vitamin D3) 25 mcg (1,000 unit) Tablet 1,000 unit PO DAILY RF: 0 metoprolol tartrate 25 mg tablet 12.5 mg PO Q12HR Qty: 0 RF: 0 atorvastatin 20 mg tablet 20 mg PO DAILY RF: 0 acetaminophen-codeine 300-30 mg tablet 1 tablet PO Q8H RF: 0 famotidine [Pepcid] 20 mg Tablet 10 mg PO BID RF: 0 valproic acid (as
--- NOTE | 2020-04-16 17:59 | PC.NURSE ---
called [facility]. Spoke with Abdullahi and gave report.
[2020-04-17] VITALS: BP 121/65; PULSE 62; RESP 20; TEMP 36.4; O2SAT 96
[2020-04-17 04:00] VITALS: BP 126/50; PULSE 47; RESP 20; TEMP 36.4; O2SAT 96
[2020-04-17 04:54] LABS: Glucose Point of Care 126 (65-105)
[2020-04-17] MEDS: ACETAMINOPHEN/CODEINE (*CRX) 300/30 MG TABLET 1 TAB PO (06:02)
--- NOTE | 2020-04-17 07:35 | PC.NURSE ---
Ambulance her to transport pt to [facility]. [id number]
== END 2020-04-17 07:45 | DRG 177 ==
LOC: ANHED 15:41 → ANHIMU 16:26 → ANH3MEDSUR 04-13 04:58 → ANHIMU 04-21 14:58
PROVIDERS: Internal Medicine; Physician Assistant; Admitting Provider Internal Medicine; Emergency Provider Emergency Medicine; PCP Family Medicine; Visit Provider Family Medicine
DX: U07.1 COVID-19 (principal); J96.01 Acute respiratory failure with hypoxia; R79.89 Other specified abnormal findings of blood chemistry; F20.9 Schizophrenia, unspecified; I10 Essential (primary) hypertension; R94.31 Abnormal electrocardiogram [ECG] [EKG]; J44.9 Chronic obstructive pulmonary disease, unspecified; M19.90 Unspecified osteoarthritis, unspecified site; F41.9 Anxiety disorder, unspecified; K21.9 Gastro-esophageal reflux disease without esophagitis; Z66 Do not resuscitate; Z96.659 Presence of unspecified artificial knee joint; Z79.01 Long term (current) use of anticoagulants; Z86.73 Personal history of transient ischemic attack (TIA), and cerebral infarction without residual deficits; Z95.2 Presence of prosthetic heart valve; Z87.891 Personal history of nicotine dependence; Z86.718 Personal history of other venous thrombosis and embolism; Z87.11 Personal history of peptic ulcer disease
CPT/HCPCS: 36415; 71045; 71275; 80048; 83605; 83735; 84443; 84484; 85025; 85055; 85380; 85610; 85730; 87040; 92610; 93005; 93306; 96374; 99291; A9270; C8929; G0378; J1100; Q9967

== ENCOUNTER 2021-01-30 14:12 | Inpatient (IN) | payer MEDICARE, OTHER, MEDICAID, SELFPAY ==
--- NOTE | ~2021-01-30 | CT_ITS ---
EXAMINATION: CT brain wo con EXAM DATE: 01/30/2021 16:46 INDICATION: Found unresponsive. Altered mental status. TECHNIQUE: Spiral CT of the head was performed without contrast. Axial, coronal and sagittal images were reviewed. The dose-length product (DLP) for this examination was 681.00 mGy-cm. The exposure w as tailored according to patient size, and iterative reconstruction (ASIR) was used as additional dos e reduction technique. Comparison is made to prior examination from 02/28/02/29/2020. FINDINGS: There is no acute intraparenchymal hemorrhage. No evidence of intraparenchymal brain mass lesion. No evidence of acute infarction. Please note that initial head CT has limited sensitivity f or small or acute infarctions. There is left thalamic hypodensity, an old lacunar infarction. Old bi lateral caudate head lacunar infarctions. There is moderate periventricular and subcortical hypodens ity, nonspecific but probably related to small vessel ischemic disease. There is moderate prominenc e of the sulci and ventricles related to cerebral atrophy. There is intracranial carotid arterioscl erosis. There are no extra-axial collections. There is no mass effect or midline shift. The orbits are unremarkable. Soft tissue is unremarkable. Sinuses are well aerated. There is small left masto id effusion. IMPRESSION: 1. No acute intracranial findings. 2. Chronic age related findings. 3. Old small infarctions. Reviewed, dictated and finalized at location A.
--- NOTE | ~2021-01-30 | CT_ITS ---
EXAMINATION: CT abdomen pelvis wo con DATE: 01/31/2021 16:57 INDICATION: Right lower quadrant pain TECHNIQUE: Computed tomography (CT) of the abdomen and pelvis was performed without intravenous contr ast. The dose-length product (DLP) was 900.91 mGy-cm. Automated exposure control and iterative recons truction technique were employed. COMPARISON: 11/12/2019 FINDINGS: Focal airspace opacities are present in the left lower lobe. There are small pleural effusi ons. Cardiomegaly is noted. There are partially imaged changes of prior cardiac surgery. Stones are p resent in the nondistended gallbladder. The liver, spleen, pancreas, and adrenal glands are normal. T he kidneys are unremarkable. There is calcified atherosclerosis of the aorta and many of the other ar teries. The previously described mass at the bifurcation of the aorta is no longer evident. No pathol ogically enlarged abdominal or pelvic lymph nodes are identified. There is no free intraperitoneal ga s or evidence of bowel obstruction. The appendix is normal. There is advanced osteoarthritis of the r ight hip. There is mild lumbar spondylosis. IMPRESSION: 1. No CT correlate for the patient's symptoms. 2. Focal airspace opacities of the left lower lobe, consistent with pneumonia. 3. Cardiomegaly. 4. Cholelithiasis without evidence of cholecystitis. 5. Advanced osteoarthritis of the right hip. Reviewed, dictated and finalized at location A.
--- NOTE | 2021-01-30 14:16 | ECG_ITS ---
Measurements Intervals [place] Rate: 58 P: 32 ND: 140 QRS: 13 QRSD: 114 T: 115 QT: 405 QTc: 401 Interpretive Statements SINUS BRADYCARDIA CONSIDER INFERIOR INFARCT, AGE INDETERMINATE BORDERLINE ST-T WAVE ABNORMALITY- ANTEROLAT/HIGH LAT LEADS ABNORMAL ECG Electronically Signed On 01-30-2021 14:53:22 CDT by Gerard Ram D.O.
[2021-01-30 14:34] VITALS: BP 90/49; PULSE 59; RESP 15; TEMP 36.8; O2SAT 100
[2021-01-30 14:39] LABS: Basophils Percent Auto 0.2 % (0.2-1.2); Eosinophils Percent Auto 0.2 % (0-4.4); Hematocrit 32.5 % (37.0-47.0); Hemoglobin 10.7 g/dL (12.0-15.0); Immature Granulocyte Absolute 0.05 K/mm3 (0.00-0.031); Immature Granulocyte Percent A 0.4 % (0-0.5); Lymphocytes Percent Auto 9.8 % (18.3-44.2); Mean Corpuscular HGB Conc 32.9 g/dl (32-36); Mean Corpuscular Hemoglobin 32.5 pg (26-34); Mean Corpuscular Volume 98.8 fl (80-100); Mean Platelet Volume 9.8 fl (7.4-10.4); Monocytes Absolute Auto 1.3 K/mm3 (0.1-0.6); Monocytes Percent Auto 11.4 % (2.6-8.5); Neutrophils Absolute Auto 8.7 K/mm3 (1.3-6.7); Platelet Count Result 96 k/mm3 (150-375); Red Blood Count 3.29 M/mm3 (4.2-5.4); Red Cell Distribution Width 13.2 % (11.5-14.5); White Blood Count 11.2 K/mm3 (4.5-10.0)
[2021-01-30 14:45] LABS: Add Urine Microscopic? YES; Appearance Urine Cloudy (Clear); Bacteria Urine 2+ /hpf; Bilirubin Urine Negative (Negative); Blood Urine 2+ (Negative); Color Urine Yellow (Yellow); Glucose Urine UA Negative (Negative); Ketones Urine Negative (Negative); Leukocyte Esterase Ur 2+ LEU/UL (Negative); Mucus Urine Rare /lpf; Nitrate Urine Positive (Negative); Protein Urine Negative (Negative); Specific Grav Ur 1.013 (1.001-1.035); Squamous Epithelial Cell Urine Many /hpf (Few); WBC Urine >75 /hpf
[2021-01-30 14:49] LABS: Alanine Aminotransferase 11 U/L (4-35); Albumin Level 3.3 g/dL (3.5-5.1); Alkaline Phosphatase 80 U/L (38-126); Anion Gap 5 mmol/L (8-16); Aspartate Amino Transferase 27 U/L (14-36); Bilirubin,Total 0.7 mg/dL (0.2-1.3); Blood Urea Nitrogen 37 mg/dL (7-17); Calcium 8.9 mg/dL (8.4-10.2); Carbon Dioxide 33 mmol/L (22-30); Chloride 98 mmol/L (98-107); Estimated CRCL calculation 43 ml/min; Estimated Glomerular Filt Rate 41; Glucose 108 mg/dL (65-110); Potassium 4.1 mmol/L (3.4-5.0); Sodium 136 mmol/L (137-145)
--- NOTE | 2021-01-30 15:06 | PC.NURSE ---
Per EMS pt is normally on room air but upon arrival was at 85%, EMS placed pt on 2L and was at 99-100%.
--- NOTE | 2021-01-30 15:19 | PC.NURSE ---
This RN into pts room. Pt is removing wires and her blanket stating i need to get out of here . This RN and tech applied bed alarm. ED charge made aware.
[2021-01-30] MEDS: LACTATED RINGERS 1,000 ML 999 ML IV CONT (15:57)
[2021-01-30 16:00] VITALS: BP 111/51; PULSE 61; RESP 14; O2SAT 100
--- NOTE | 2021-01-30 16:13 | PC.NURSE ---
Called pharmacy and spoke with Hailey, she will send up medication.
[2021-01-30 16:16] LABS: Lactic Acid Reflex 0.9 mmol/L (0.7-2.1)
[2021-01-30] MEDS: PHENYLEPHRINE 1,000 MCG/10 ML SYRINGE 100 MCG IV PUSH (16:26)
--- NOTE | 2021-01-30 16:30 | PM.IMHP ---
H&P: HPI History of Present Illness Date/Time: 01/30/21 16:30 Chief Complaint: Altered mental status. Narrative: This is a 70-year-old female with schizophrenia, diastolic congestive heart failure, COPD, hypertension, and DVT on Eliquis who presented to the emergency department earlier today via EMS from [facility] for evaluation of altered mental status. She is able answer some of my questions however does not remember what happened this morning and thus a majority of the following is obtained via a review of her electronic medical records as well as discussions with staff. It is my understanding that she was briefly unresponsive this afternoon and when she came to it sounds as though she was combative and was ?swinging at? EMS on their arrival. In the emergency department her blood pressures were a bit soft though have improved significantly with rehydration. She was found to have urinary tract infection and she is being admitted in this setting. At the time my evaluation she is alert and oriented x2 which seems to be her baseline and she does complain of dysuria, incontinence, and suprapubic discomfort. She has had mild nausea and loose stools for the past day or so. She does not think that she has had a fever. She denies vomiting. Review of Systems Review of Systems: Twelve systems were reviewed with pertinent positives and negatives as per HPI. Somewhat limited given her confusion for events earlier today. She denies sinus congestion, rhinorrhea, otalgia, or odynophagia. No cough or shortness of breath. Except as documented, all other systems were reviewed and are negative. [facility] Past Medical History Medical History (Updated 01/30/21 @ 20:08 by Priscila Pino PA-C) Abdominal mass 3.5 x 4.8 cm abdominal mass noted anterior to the aortic bifurcation on imaging in October 2019. Patient is uncertain whether not she has had follow-up for this or not. Anxiety Chronic anemia Chronic anticoagulation Chronic obstructive pulmonary disease Deep venous thrombosis of right popliteal vein (~10/2019) Diastolic dysfunction Echocardiogram on 04/12/2020 showed normal LV systolic function with an EF 65% and grade 1 diastolic dysfunction. GI bleed (10/2019) Secondary to peptic ulcers attributed to the patient taking to NSAIDs at the same time. Hypertension NSAID induced gastritis (10/2019) Osteoarthritis Pulmonary hypertension Mild to moderate pulmonary hypertension noted on prior echocardiogram with an estimated peak RVSP of 46 mmHg. Schizophrenia Type 2 diabetes mellitus Diet-controlled. Urinary incontinence Surgical History Surgical History History of aortic valve replacement with bioprosthetic valve History of total knee arthroplasty Family History Family History Father , Age 70 with cardiac and multiple other problems that patient cannot elaborate on Heart disease Mother , 71 heart disease Heart disease Other Unknown family medical history Social History Social History (Updated 01/30/21 @ 20:01 by Priscila Pino PA-C) Social History: Never . No children. Resident at [facility] in [place]. Former smoker. Yaniv Parnell is her power of immigration attorney. Code status: Do not resuscitate. Meds Home Medications and Allergies Home Medications Medication Instructions Recorded Confirmed Type Adults Multivitamin 1 tablet PO DAILY 04/30/19 04/11/20 History lisinopril 40 mg PO DAILY 04/30/19 04/11/20 History cholecalciferol (vitamin D3) 1,000 unit PO DAILY 11/12/19 04/11/20 History haloperidol 5 mg PO BID 11/12/19 04/11/20 History polyethylene glycol 3350 [Miralax] 17 g PO DAILY 11/12/19 04/11/20 History metoprolol tartrate 12.5 mg PO Q12HR #0 tablet 11/19/19 04/11/20 Rx Eliquis 5 mg PO BID 04/11/20 04/11/20 History atorvastatin 20 mg PO DAILY 04/11/20 04/11/20
--- NOTE | 2021-01-30 17:18 | ED.AMS ---
HPI - Altered Mental Status General Chief Complaint: Altered Mental Status Stated Complaint: AMS Time Seen by Provider: 01/30/21 14:41 Source: patient Mode of arrival: EMS Limitations: altered mental status, clinical condition and dementia History of Present Illness HPI narrative: 70-year-old female Arrives from SNF for evaluation of altered mental status Patient cannot contribute any history Indication from the [facility] was that there was a episode of brief unresponsiveness which resolved Here she is oriented x1 which appears to be her approximate baseline She does not complain of any shortness of breath or any GI symptoms, she does indicate some pain across the lower abdomen to ca Related Data Home Medications Medication Instructions Recorded Confirmed Adults Multivitamin 1 tablet PO DAILY 04/30/19 04/11/20 lisinopril 40 mg PO DAILY 04/30/19 04/11/20 cholecalciferol (vitamin D3) 1,000 unit PO DAILY 11/12/19 04/11/20 haloperidol 5 mg PO BID 11/12/19 04/11/20 polyethylene glycol 3350 [Miralax] 17 g PO DAILY 11/12/19 04/11/20 Eliquis 5 mg PO BID 04/11/20 04/11/20 atorvastatin 20 mg PO DAILY 04/11/20 04/11/20 docusate sodium 100 mg PO BID 04/11/20 04/11/20 famotidine [Pepcid] 10 mg PO BID 04/11/20 04/11/20 valproic acid (as sodium salt) 500 mg PO TID 04/11/20 04/11/20 Allergies Allergy/AdvReac Type Severity Reaction Status Date / Time adhesive tape Allergy Unknown Verified 04/11/20 14:11 latex Allergy Unknown Verified 04/11/20 14:11 quetiapine [From Seroquel] Allergy Unknown Verified 04/11/20 14:11 simvastatin Allergy Unknown Verified 04/11/20 14:11 tizanidine Allergy Unknown Verified 04/11/20 14:11 Review of Systems Review of Systems: ROS unobtainable: Yes unobtainable due to medical condition and unobtainable due to mental status Cardiovascular: Cardiovascular: Denies chest pain Respiratory: Respiratory: Denies dyspnea Gastrointestinal: Gastrointestinal: Reports abdominal pain and Denies vomiting Neurologic: Reports weakness PMFSH Past Medical History Medical History (Updated 01/30/21 @ 17:25 by Lauri Garcia MD) Abdominal mass 3.5 x 4.8 cm abdominal mass noted anterior to the aortic bifurcation on imaging in October 2019. Patient is uncertain whether not she has had follow-up for this or not. Anxiety Aortic valve stenosis Chronic anticoagulation Chronic obstructive pulmonary disease Deep venous thrombosis of right popliteal vein (~10/2019) Diastolic dysfunction Grade 2 diastolic dysfunction noted on echocardiogram in October 2019 with an ejection fraction of 70%. GI bleed (~10/2019) Secondary to peptic ulcers attributed to the patient taking to NSAIDs at the same time. Hypertension NSAID induced gastritis (~10/2019) Osteoarthritis Pulmonary hypertension Mild to moderate pulmonary hypertension noted on prior echocardiogram with an estimated peak RVSP of 46 mmHg. Schizophrenia Type 2 diabetes mellitus Urinary incontinence Surgical History Surgical History History of aortic valve replacement with bioprosthetic valve History of total knee arthroplasty Family History Family History Father , Age 70 with cardiac and multiple other problems that patient cannot elaborate on Heart disease Mother , 71 heart disease Heart disease Other Unknown family medical history Social History Social History (Updated 04/11/20 @ 23:32 by Priscila Pino PA-C) Social History: Never . No children. Currently [facility] resident due to inability to care for herself due to arthritis and schizophrenia. Had lived in an apartment in assisted living until she fell over year ago. Former smoker. Yaniv Parnell is her power of employee benefits attorney. She is listed as a full code. Smoking packs per day: 1 Smoking cigarettes per day: 20.0 Smoking status: Former smok
[2021-01-30 18:16] VITALS: BP 137/76; PULSE 58; RESP 18; O2SAT 100
[2021-01-30] MEDS: LACTATED RINGERS 1,000 ML 125 ML IV CONT ×2 (18:41→20:04)
--- NOTE | 2021-01-30 19:45 | ADMGEN ---
This patient, Jolie Thompson, was admitted to Medical Room 246-01. Patient/family oriented to hospital policies and general routines including ID bracelet, bed and alarms, visiting hours, pain management, procedures, bathroom and other care routines, personal items, smoking policy, room service/diet, and visiting hours. Information on how to activate the Rapid Response Team has been discussed. Patient/Family are encouraged to report perceived risks to care and to ask questions if they do not understand what they are told or what they should do.
[2021-01-30] MEDS: HALOPERIDOL LACTATE 5 MG/ML VIAL IV PUSH (19:53)
--- NOTE | 2021-01-30 20:15 | PC.NURSE ---
pt unable to answer any admission questions due to AMS. History obtained from long term records, and previous visits.
[2021-01-30 21:07] VITALS: BP 163/67; PULSE 80; RESP 20; TEMP 36.3; O2SAT 100
[2021-01-31] VITALS (7 sets, daily range): BP systolic 101–151; BP diastolic 50–65; PULSE 51–80; RESP 18–20; TEMP 36.1–36.8; O2SAT 93–95; BMI 28.9
[2021-01-31] MEDS: VALPROIC ACID LIQ 250 MG/5 ML ORAL SOLUTION UDC PO ×4 (00:32→21:13)
[2021-01-31] MEDS: GABAPENTIN 100 MG CAPSULE PO ×3 (00:33→21:13)
[2021-01-31] MEDS: risperiDONE 1 MG TABLET PO ×3 (00:33→21:13)
[2021-01-31] MEDS: FAMOTIDINE 20 MG TABLET PO ×3 (00:33→16:11)
[2021-01-31] MEDS: MELATONIN 5 MG TABLET PO ×2 (00:33→21:13)
[2021-01-31] MEDS: METOPROLOL TARTRATE 12.5 MG TABLET PO ×3 (00:33→21:13)
[2021-01-31] MEDS: APIXABAN 5 MG TABLET PO ×3 (00:33→16:12)
[2021-01-31 05:27] LABS: Hematocrit 29.3 % (37.0-47.0); Hemoglobin 9.8 g/dL (12.0-15.0); Mean Corpuscular HGB Conc 33.4 g/dl (32-36); Mean Corpuscular Hemoglobin 32.1 pg (26-34); Mean Corpuscular Volume 96.1 fl (80-100); Mean Platelet Volume 10.2 fl (7.4-10.4); Platelet Count Result 95 k/mm3 (150-375); Red Blood Count 3.05 M/mm3 (4.2-5.4); Red Cell Distribution Width 13.3 % (11.5-14.5); White Blood Count 9.4 K/mm3 (4.5-10.0)
[2021-01-31 05:43] LABS: Alanine Aminotransferase 11 U/L (4-35); Albumin Level 3.1 g/dL (3.5-5.1); Alkaline Phosphatase 75 U/L (38-126); Anion Gap 6 mmol/L (8-16); Aspartate Amino Transferase 25 U/L (14-36); Bilirubin,Total 0.4 mg/dL (0.2-1.3); Blood Urea Nitrogen 31 mg/dL (7-17); Calcium 8.8 mg/dL (8.4-10.2); Carbon Dioxide 31 mmol/L (22-30); Chloride 101 mmol/L (98-107); Estimated CRCL calculation 50 ml/min; Estimated Glomerular Filt Rate 49; Glucose 103 mg/dL (65-110); Sodium 138 mmol/L (137-145)
--- NOTE | 2021-01-31 08:20 | PM.IMPN ---
Progress Note: A&P Assessment and Plan (1) Sepsis: Code(s): A41.9 - Sepsis, unspecified organism Status: Acute Assessment and Plan: The patient is a 70-year-old female with schizophrenia, diastolic congestive heart failure, COPD, hypertension, and DVT on Eliquis who presented to the emergency department via EMS from her [facility] for evaluation of altered mental status. The patients nurse said she found her diaphoretic, unresponsive, with a low blood pressure 70 systolic and O2 88% on RA. She was placed in bed with feet elevated and 2L via NC and became more responsive. She then became agitated when EMS arrived to take her to the ER which is very unlike her. She was just on Keflex 500 mg TID for COPD exacerbation from 01/11 until just a few days ago. Also, recently her medications changed a few days ago from Haldol 1 mg PO TID to now Risperidone 1 mg BID. At her [place], was found to be combative and EMS was called. Initial labs showed blood pressure low normal at 90/49, heart rate 59, afebrile, normal oxygenation on room air. Initial labs showed leukocytosis at 11,000 with elevated neutrophils at 78%, normocytic anemia with a hemoglobin of 10, thrombopenia at 96,000, creatinine elevated at 1.3, BUN 37. Serum bicarb slightly elevated at 33. Normal LFTs. Urinalysis show signs of UTI with positive nitrites, 2+ leukocyte esterase, greater than 75 WBCs and 2+ bacteria. Patient was admitted to the hospital with sepsis and treatment for UTI with IV antibiotics. Sepsis supported by leukocytosis and hypotension in the setting of urinary tract infection. Blood pressures have improved with IV fluid rehydration. Lactic acid levels within normal limits. Blood and urine cultures pending. Continue monitoring vital signs (2) Urinary tract infection: Code(s): N39.0 - Urinary tract infection, site not specified Status: Acute Assessment and Plan: Empiric ceftriaxone, pending urine culture. (3) Metabolic encephalopathy: Code(s): G93.41 - Metabolic encephalopathy Status: Acute Assessment and Plan: Will continue her home psychiatric medications as prescribed. She did receive Haldol last night with temporary improvement of her combativeness. She began becoming combative again around noon and she was prescribed IV Ativan 0.5 mg and the patient is resting comfortably at this time. Will decrease p.r.n. Ativan to 0.25 mg as needed for agitation. Hopefully metabolic encephalopathy improves with acute sepsis and UTI treatment over the next few days. (4) Acute kidney injury: Code(s): N17.9 - Acute kidney failure, unspecified Status: Acute Assessment and Plan: Patient appears quite dehydrated which is likely the cause of her worsening creatinine though cannot rule out component of ATN from sepsis. Continue IV fluid rehydration overnight with repeat renal function in a.m.. Avoid nephrotoxic agents. (5) Chronic anemia: Code(s): D64.9 - Anemia, unspecified Status: Acute Assessment and Plan: Hemoglobin and hematocrit are stable on review of previous labs. (6) Hypertension: Code(s): I10 - Essential (primary) hypertension Status: Acute Assessment and Plan: Blood pressures have been soft thus antihypertensives are currently on hold. (7) Schizophrenia: Code(s): F20.9 - Schizophrenia, unspecified Status: Acute Assessment and Plan: No acute issues. Continue home medication. (8) Chronic anticoagulation: Code(s): Z79.01 - [facility] (current) use of anticoagulants Statu
[2021-01-31] MEDS: CHOLECALCIFEROL 1,000 UNITS TABLET 1000 UNITS PO (09:06)
[2021-01-31] MEDS: MULTIVITAMINS /C LUTEIN (CENTRUM SILVER) TABLET *BKC 1 TAB PO (09:07)
[2021-01-31] MEDS: DOCUSATE SODIUM 100 MG CAPSULE PO ×2 (09:07→16:11)
[2021-01-31] MEDS: ATORVASTATIN 20 MG TABLET PO (09:07)
[2021-01-31] MEDS: ONDANSETRON INJ 4 MG/2 ML VIAL IV PUSH (12:53)
[2021-01-31] MEDS: LORazepam INJ (*CRX) 2 MG/ML VIAL 0.5 MG IV PUSH (12:53)
[2021-02-01] VITALS (7 sets, daily range): BP systolic 138–158; BP diastolic 47–63; PULSE 56–64; RESP 16–18; TEMP 36.1–37; O2SAT 94–100
[2021-02-01 05:11] LABS: Basophils Percent Auto 0.3 % (0.2-1.2); Eosinophils Absolute Auto 0.1 K/mm3 (0-0.3); Eosinophils Percent Auto 0.7 % (0-4.4); Hematocrit 29.5 % (37.0-47.0); Hemoglobin 9.6 g/dL (12.0-15.0); Immature Granulocyte Absolute 0.01 K/mm3 (0.00-0.031); Immature Granulocyte Percent A 0.1 % (0-0.5); Lymphocytes Absolute Auto 1.71 K/mm3 (0.9-3.2); Lymphocytes Percent Auto 23.9 % (18.3-44.2); Mean Corpuscular HGB Conc 32.5 g/dl (32-36); Mean Corpuscular Volume 98.3 fl (80-100); Mean Platelet Volume 9.9 fl (7.4-10.4); Monocytes Absolute Auto 1.2 K/mm3 (0.1-0.6); Monocytes Percent Auto 16.5 % (2.6-8.5); Neutrophils Absolute Auto 4.2 K/mm3 (1.3-6.7); Neutrophils Percent Auto 58.5 % (45.5-73.1); Platelet Count Result 93 k/mm3 (150-375); Red Cell Distribution Width 13.3 % (11.5-14.5); White Blood Count 7.1 K/mm3 (4.5-10.0)
[2021-02-01 05:39] LABS: Anion Gap 6 mmol/L (8-16); Blood Urea Nitrogen 26 mg/dL (7-17); Calcium 9.1 mg/dL (8.4-10.2); Carbon Dioxide 32 mmol/L (22-30); Chloride 102 mmol/L (98-107); Estimated CRCL calculation 55 ml/min; Estimated Glomerular Filt Rate 55; Glucose 83 mg/dL (65-110); Potassium 4.1 mmol/L (3.4-5.0); Sodium 140 mmol/L (137-145)
[2021-02-01] MEDS: MULTIVITAMINS /C LUTEIN (CENTRUM SILVER) TABLET *BKC 1 TAB PO (09:11)
[2021-02-01] MEDS: VALPROIC ACID LIQ 250 MG/5 ML ORAL SOLUTION UDC PO ×3 (09:11→19:46)
[2021-02-01] MEDS: risperiDONE 1 MG TABLET PO ×2 (09:11→19:44)
[2021-02-01] MEDS: DOCUSATE SODIUM 100 MG CAPSULE PO (09:11)
[2021-02-01] MEDS: ATORVASTATIN 20 MG TABLET PO (09:11)
[2021-02-01] MEDS: FAMOTIDINE 20 MG TABLET PO ×2 (09:11→16:47)
[2021-02-01] MEDS: GABAPENTIN 100 MG CAPSULE PO ×2 (09:11→19:44)
[2021-02-01] MEDS: APIXABAN 5 MG TABLET PO ×2 (09:11→16:44)
[2021-02-01] MEDS: CHOLECALCIFEROL 1,000 UNITS TABLET 1000 UNITS PO (09:11)
[2021-02-01] MEDS: METOPROLOL TARTRATE 12.5 MG TABLET PO ×2 (09:12→19:44)
--- NOTE | 2021-02-01 09:28 | PM.IMPN ---
Progress Note: A&P Assessment and Plan (1) Sepsis: Code(s): A41.9 - Sepsis, unspecified organism Status: Acute Assessment and Plan: The patient is a 70-year-old female with schizophrenia, diastolic congestive heart failure, COPD, hypertension, and DVT on Eliquis who presented to the emergency department via EMS from her [facility] for evaluation of altered mental status. The patients nurse said she found her diaphoretic, unresponsive, with a low blood pressure 70 systolic and O2 88% on RA. She was placed in bed with feet elevated and 2L via NC and became more responsive. She then became agitated when EMS arrived to take her to the ER which is very unlike her. She was just on Keflex 500 mg TID for COPD exacerbation from 01/11 until just a few days ago. Also, recently her medications changed a few days ago from Haldol 1 mg PO TID to now Risperidone 1 mg BID. At her [place], was found to be combative and EMS was called. Initial labs showed blood pressure low normal at 90/49, heart rate 59, afebrile, normal oxygenation on room air. Initial labs showed leukocytosis at 11,000 with elevated neutrophils at 78%, normocytic anemia with a hemoglobin of 10, thrombopenia at 96,000, creatinine elevated at 1.3, BUN 37. Serum bicarb slightly elevated at 33. Normal LFTs. Urinalysis show signs of UTI with positive nitrites, 2+ leukocyte esterase, greater than 75 WBCs and 2+ bacteria. Patient was admitted to the hospital with sepsis and treatment for UTI with IV antibiotics. Sepsis supported by leukocytosis and hypotension in the setting of urinary tract infection and pneumonia found on CT scan. Blood pressures have improved with IV fluid rehydration. Lactic acid levels within normal limits. Blood culture showing no growth at this time UTI with greater than 100,000 E coli. Pending sensitivity reports at this time. Continue monitoring vital signs (2) Pneumonia: Code(s): J18.9 - Pneumonia, unspecified organism Status: Acute Assessment and Plan: Per nursing staff her oxygen was slightly hypoxic when she was unresponsive. CT abdomen was completed yesterday due to abdominal symptoms and found to have left lower lobe pneumonia. I added IV azithromycin today for community-acquired pneumonia. Continue IV Rocephin. She is otherwise resting comfortably 94% on room air. (3) Urinary tract infection: Code(s): N39.0 - Urinary tract infection, site not specified Status: Acute Assessment and Plan: Urine culture showing greater than 100,000 E coli. Empiric ceftriaxone, pending urine sensitivity. (4) Metabolic encephalopathy: Code(s): G93.41 - Metabolic encephalopathy Status: Acute Assessment and Plan: Seems to be back to her baseline at this time. Pleasantly confused. Continue IV antibiotics for underlying infection and cause of metabolic encephalopathy. (5) Acute kidney injury: Code(s): N17.9 - Acute kidney failure, unspecified Status: Acute Assessment and Plan: Patient appears quite dehydrated which is likely the cause of her worsening creatinine though cannot rule out component of ATN from sepsis. Creatinine stable 1.0. Well hydrated at this time. (6) Chronic anemia: Code(s): D64.9 - Anemia, unspecified Status: Acute Assessment and Plan: Hemoglobin and hematocrit are stable on review of previous labs. (7) Hypertension: Code(s): I10 - Essential (primary) hypertension Status: Acute Assessment and Plan: Blood pressures stable 158/63. Will start home medications at this time.
[2021-02-01] MEDS: DICLOFENAC SODIUM 1% 100 GM GEL (*BKC) 1 APPLIC TOPICAL (09:29)
[2021-02-01] MEDS: lisinopriL 20 MG TABLET 40 MG PO (16:44)
[2021-02-01] MEDS: hydrOXYzine HCL 25 MG TABLET PO (19:44)
[2021-02-01] MEDS: ACETAMINOPHEN 325 MG TABLET 650 MG PO (19:44)
[2021-02-01] MEDS: MELATONIN 5 MG TABLET PO (19:44)
[2021-02-02 06:00] VITALS: BP 108/55; PULSE 70; RESP 20; TEMP 36.2; O2SAT 93
[2021-02-02 06:03] LABS: Anion Gap 3 mmol/L (8-16); Blood Urea Nitrogen 23 mg/dL (7-17); Calcium 8.9 mg/dL (8.4-10.2); Carbon Dioxide 34 mmol/L (22-30); Chloride 103 mmol/L (98-107); Estimated CRCL calculation 55 ml/min; Estimated Glomerular Filt Rate 55; Glucose 89 mg/dL (65-110); Magnesium 2.1 mg/dL (1.6-2.3); Potassium 3.8 mmol/L (3.4-5.0); Sodium 140 mmol/L (137-145)
[2021-02-02 08:13] VITALS: PULSE 70
[2021-02-02] MEDS: GABAPENTIN 100 MG CAPSULE PO (08:13)
[2021-02-02] MEDS: FAMOTIDINE 20 MG TABLET PO ×2 (08:13→16:17)
[2021-02-02] MEDS: DICLOFENAC SODIUM 1% 100 GM GEL (*BKC) 1 APPLIC TOPICAL ×2 (08:13→16:17)
[2021-02-02] MEDS: ATORVASTATIN 20 MG TABLET PO (08:13)
[2021-02-02] MEDS: DOCUSATE SODIUM 100 MG CAPSULE PO ×2 (08:13→16:17)
[2021-02-02] MEDS: lisinopriL 20 MG TABLET 40 MG PO (08:13)
[2021-02-02] MEDS: CHOLECALCIFEROL 1,000 UNITS TABLET 1000 UNITS PO (08:13)
[2021-02-02] MEDS: APIXABAN 5 MG TABLET PO ×2 (08:13→16:16)
[2021-02-02] MEDS: METOPROLOL TARTRATE 12.5 MG TABLET PO (08:13)
[2021-02-02] MEDS: risperiDONE 1 MG TABLET PO (08:13)
[2021-02-02] MEDS: MULTIVITAMINS /C LUTEIN (CENTRUM SILVER) TABLET *BKC 1 TAB PO (08:14)
[2021-02-02] MEDS: VALPROIC ACID LIQ 250 MG/5 ML ORAL SOLUTION UDC PO ×3 (09:10→16:16)
--- NOTE | 2021-02-02 10:29 | PM.DS ---
DS: Admitting Diagnosis Discharge Date 02/02/21 Admitting Diagnosis AMS DS: Discharge Diagnosis Discharge Diagnosis (1) Sepsis: Code(s): A41.9 - Sepsis, unspecified organism Status: Acute Assessment and Plan: The patient is a 70-year-old female with schizophrenia, diastolic congestive heart failure, COPD, hypertension, and DVT on Eliquis who presented to the emergency department via EMS from her [facility] for evaluation of altered mental status. The patients nurse said she found her diaphoretic, unresponsive, with a low blood pressure 70 systolic and O2 88% on RA. She was placed in bed with feet elevated and 2L via NC and became more responsive. She then became agitated when EMS arrived to take her to the ER which is very unlike her. She was just on Keflex 500 mg TID for COPD exacerbation from 01/11 until just a few days ago. Also, recently her medications changed a few days ago from Haldol 1 mg PO TID to now Risperidone 1 mg BID. At her [place], was found to be combative and EMS was called. Initial labs showed blood pressure low normal at 90/49, heart rate 59, afebrile, normal oxygenation on room air. Initial labs showed leukocytosis at 11,000 with elevated neutrophils at 78%, normocytic anemia with a hemoglobin of 10, thrombopenia at 96,000, creatinine elevated at 1.3, BUN 37. Serum bicarb slightly elevated at 33. Normal LFTs. Urinalysis show signs of UTI with positive nitrites, 2+ leukocyte esterase, greater than 75 WBCs and 2+ bacteria. Patient was admitted to the hospital with sepsis and treatment for UTI with IV antibiotics. Sepsis supported by leukocytosis and hypotension in the setting of urinary tract infection and pneumonia found on CT scan. Blood pressures have improved with IV fluid rehydration. Lactic acid levels within normal limits. Blood culture showing no growth at this time UTI with greater than 100,000 E coli with sensitivity to IV ceftriaxone. Patient had been complaining of abdominal pains I got a CT abdomen pelvis which showed focal airspace opacity of the left lower lobe consistent with pneumonia. I added IV azithromycin for coverage of community-acquired pneumonia. Patient is back to her baseline at this time, pleasantly confused. Eating drinking without any issues. Labs improving. She is stable for discharge back to her skilled nursing facility to continue oral antibiotics for few more days and probiotics Return to ER warnings given. Follow-up instructions given. The patient understands agrees the plan all questions answered. (2) Pneumonia: Code(s): J18.9 - Pneumonia, unspecified organism Status: Acute Assessment and Plan: (3) Urinary tract infection: Code(s): N39.0 - Urinary tract infection, site not specified Status: Acute Assessment and Plan: (4) Metabolic encephalopathy: Code(s): G93.41 - Metabolic encephalopathy Status: Acute Assessment and Plan: (5) Acute kidney injury: Code(s): N17.9 - Acute kidney failure, unspecified Status: Acute Assessment and Plan: (6) Chronic anemia: Code(s): D64.9 - Anemia, unspecified Status: Acute Assessment and Plan: (7) Hypertension: Code(s): I10 - Essential (primary) hypertension Status: Acute Assessment and Plan: (8) Schizophrenia: Code(s): F20.9 - Schizophrenia, unspecified Status: Acute Assessment and Plan: (9) Chronic anticoagulation: Code(s): Z79.01 - [facility] (current) use of anticoa
[2021-02-02] MEDS: ACETAMINOPHEN/CODEINE (*CRX) 300/30 MG TABLET 2 TAB PO (12:21)
[2021-02-02] MEDS: ACETAMINOPHEN 325 MG TABLET 650 MG PO (16:19)
== END 2021-02-02 16:40 | DRG 871 ==
LOC: ANHED 17:25 → ANH2MED 19:26
PROVIDERS: Physician Assistant; Admitting Provider Family Medicine; Emergency Provider Emergency Medicine; PCP General Practice; Visit Provider Family Medicine
DX: A41.9 Sepsis, unspecified organism (principal); G93.41 Metabolic encephalopathy; J18.9 Pneumonia, unspecified organism; N39.0 Urinary tract infection, site not specified; N17.9 Acute kidney failure, unspecified; I50.30 Unspecified diastolic (congestive) heart failure; J44.0 Chronic obstructive pulmonary disease with (acute) lower respiratory infection; I27.20 Pulmonary hypertension, unspecified; I11.0 Hypertensive heart disease with heart failure; D69.6 Thrombocytopenia, unspecified; E11.9 Type 2 diabetes mellitus without complications; D64.9 Anemia, unspecified; F20.9 Schizophrenia, unspecified; Z66 Do not resuscitate; Z79.01 Long term (current) use of anticoagulants; Z86.718 Personal history of other venous thrombosis and embolism; Z87.891 Personal history of nicotine dependence; Z95.2 Presence of prosthetic heart valve
CPT/HCPCS: 36415; 51701; 70450; 74176; 80048; 80053; 80165; 81001; 83605; 83735; 85025; 85027; 87040; 87077; 87086; 87088; 87186; 93005; 96361; 96365; 96375; 99285; A9270; G0378; J0456; J0696; J1630; J2060; J2370; J2405; J7120

== ENCOUNTER 2024-06-25 09:33 | Inpatient (IN) | payer MEDICARE, OTHER, SELFPAY ==
[2024-06-25] VITALS (71 sets, daily range): BP systolic 81–125; BP diastolic 50–100; PULSE 60–100; RESP 8–31; TEMP 36.4–36.6; O2SAT 89–100
--- NOTE | ~2024-06-25 | XR_ITS ---
EXAMINATION: XR chest 1V portable DATE: 06/25/2024 10:33 INDICATION: Hypoxia. TECHNIQUE: A single frontal view of the chest was obtained. COMPARISON: Chest single view 04/11/2020, CT abdomen and pelvis 01/31/2021 FINDINGS: Domi B-lines are noted, consistent with mild pulmonary edema. No pleural effusion or pneu mothorax. Cardiomegaly is noted. There are changes of aortic valve replacement. IMPRESSION: 1. Mild pulmonary edema. 2. Cardiomegaly. Reviewed, dictated and finalized at location A. ST CONSULTANT
--- NOTE | ~2024-06-25 | XR_ITS ---
Portable chest x-ray Comparison: 06/25/2024 Clinical History: Shortness of breath Findings: Lungs are clear, without focal consolidation or pleural effusion. Cardiomediastinal silho uette is stable. Bones and soft tissues are unremarkable. Impression: Clear lungs. Status post CABG. Reviewed, dictated and finalized at location . 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 Status post CABG.
--- NOTE | 2024-06-25 09:45 | ECG_ITS ---
Test Date: 2024-06-25 10:53:36 Measurements Intervals [place] Rate: 70 P: -22 HI: 131 QRS: 51 QRSD: 113 T: 82 QT: 384 QTc: 416 Interpretive Statements SINUS RHYTHM INTRAVENTRICULAR CONDUCTION DELAY BORDERLINE R WAVE PROGRESSION, ANTERIOR LEADS MINIMAL Q WAVES- INFERIOR LEADS BORDERLINE ST-T WAVE ABNORMALITY- HIGH LATERAL LEADS BASELINE ARTIFACT- I, V1-V6 BORDERLINE ECG No previous ECG available for comparison Electronically Signed On 06-25-2024 10:59:16 ENVIRONMENTAL HEALTH AND SAF[employer]Y LEADER by Gerard Ram D.O.
--- NOTE | 2024-06-25 09:46 | ED_ITS ---
HPI - SOB/Dyspnea General Chief Complaint: Shortness of Breath/Dyspnea <Amy Tamez PA-C - Last Filed: 06/25/24 11:44> Stated Complaint: SOB <Amy Tamez PA-C - Last Filed: 06/25/24 11:44> History of Present Illness HPI Narrative: 73-year-old female with history of hypertension, schizophrenia, diastolic dysfunction, COPD, s/p aortic valve replacement with bioprosthetic valve, DVT on Eliquis presents to the emergency department via EMS from [facility] [place] [facility] for reported lethargy and hypoxia. Per [place] [facility] staff the patient was found to be saturating 70s on room air was placed on 2 L nasal cannula, saturations increased to 95%. EMS provided the patient with Solu-Medrol and DuoNeb prior to arrival. Upon my evaluation patient is satting 95% on 3 L nasal cannula with no increased work of breathing. She is reporting some shortness of breath and cough. Denies chest pain. Unable to provide much further history. Patient does not normally wear O2. <Amy Tamez PA-C - Last Filed: 06/25/24 11:44> Related Data Home Medications: Home Medications ?Medication ?Instructions ?Recorded ?Confirmed ?Last Taken ?Type lisinopril 40 mg tablet 40 mg PO DAILY 04/30/19 06/25/24 11/11/19 08:00 History 40 mg multivit with minerals-iron 18 1 tablet PO DAILY 04/30/19 06/25/24 06/25/24 History mg-folic ac 400 mcg-vit K 25 mcg tablet (Adults Multivitamin) cholecalciferol (vitamin D3) 25 1,000 unit PO DAILY 11/12/19 06/25/24 11/11/19 08:00 History mcg (1,000 unit) tablet 1 tab polyethylene glycol 3350 17 17 g PO DAILY PRN Constipation 11/12/19 06/25/24 11/11/19 20:00 History gram/dose oral powder (Miralax) 1 pk apixaban 5 mg tablet (Eliquis) 5 mg PO BID 04/11/20 06/25/24 06/25/24 History atorvastatin 20 mg tablet 20 mg PO DAILY 04/11/20 06/25/24 06/25/24 History docusate sodium 100 mg tablet 100 mg PO BID 04/11/20 06/25/24 Unknown History famotidine 20 mg tablet (Pepcid) 20 mg PO BID 04/11/20 06/25/24 Unknown History valproic acid (as sodium salt) 250 250 mg PO QID 04/11/20 06/25/24 Unknown History mg/5 mL oral solution acetaminophen 300 mg-codeine 30 mg 2 tablet PO Q6H PRN Pain 01/30/21 06/25/24 Unknown History tablet albuterol sulfate 90 mcg/actuation 2 inh inhalation Q6H PRN Shortness 01/30/21 06/25/24 Unknown History breath activated powder inhaler Of Breath bisacodyl 10 mg rectal suppository 10 mg RECTAL DAILY PRN Constipation 01/30/21 06/25/24 Unknown History diclofenac sodium 1 % topical gel 2 g topical BID 01/30/21 08/23/22 Unknown History furosemide 40 mg tablet 40 mg PO DAILY 01/30/21 06/25/24 06/25/24 History gabapentin 100 mg capsule 100 mg PO BID 01/30/21 06/25/24 Unknown History hydroxyzine HCl 25 mg tablet 25 mg PO Q8H PRN Pain 01/30/21 06/25/24 Unknown History ibuprofen 200 mg tablet 200 mg PO BID PRN Pain 01/30/21 06/25/24 Unknown History magnesium citrate (Citroma oral 300 ml PO DAILY PRN Constipation 01/30/21 06/25/24 Unknown History solution) melatonin 5 mg tablet 5 mg PO HS 01/30/21 06/25/24 Unknown History risperidone 1 mg tablet 1 mg PO TID 01/30/21 06/25/24 06/25/24 History acetaminophen 325 mg capsule 650 mg PO Q6H PRN general 06/25/24 06/25/24 06/24/24 History discomfort baclofen 5 mg tablet 5 mg PO BID 06/25/24 06/25/24 06/25/24 History budesonide-formoterol HFA 160 2 puff inhalation BID 06/25/24 06/25/24 06/25/24 History mcg-4.5 mcg/actuation aerosol inhaler carvedilol 6.25 mg tablet 6.25 mg PO BID 06/25/24 06/25/24 06/25/24 History divalproex 500 mg tablet,extended 500 mg PO BID 06/25/24 06/25/24 06/25/24 History release 24 hr (Depakote ER) escitalopram oxalate 20 mg tablet 20 mg PO DAILY 06/25/24 06/25/24 06/25/24 History hydralazine 10 mg tablet 10 mg PO BID 06/25/24 06/25/24 06/25/24 History hydrocodone 5 mg-acetaminophen 300 1 tablet PO Q8H PRN pain 06/25/24 06/25/24 06/24/24 History mg tablet ipratropium 0.5 mg-albuterol 3 mg 3 ml inhalation BID PRN shortness 06/25/24 06/25/24 06/25/24 History (2.5 mg base)/3 mL nebulization of breath soln ondansetron HCl 4 mg tablet 4 mg PO Q6H PRN nausea and vomiting 06/25/24 06/25/24 Unknown History quetiapine 50 mg tablet,extended 100 mg PO QPM 06/25/24 06/25/24 06/24/24 History release 24 hr spironolactone 25 mg tablet 25 mg PO DAILY 06/25/24 06/25/24 06/25/24 History <Amy Tamez PA-C - Last Filed: 06/25/24 11:44> Allergies/Adverse Reactions: Allergies Allergy/AdvReac Type Severity Reaction Status Date / Time adhesive tape Allergy Unknown Verified 03/22/22 13:19 latex Allergy Unknown Verified 03/22/22 13:19 quetiapine (From Seroquel) Allergy Unknown Verified 03/22/22 13:19 simvastatin Allergy Unknown Verified 03/22/22 13:19 tizanidine Allergy Unknown Verified 03/22/22 13:19 <Amy Tamez PA-C - Last Filed: 06/25/24 11:44> Review of Systems 2 Review of Systems: All systems reviewed & are unremarkable except as noted in HPI and below <Amy Tamez PA-C - Last Filed: 06/25/24 11:44> PMFSH Past Medical History Medical History: Medical History Depression Skin tear Urinary frequency Wears glasses Left knee DJD Chronic anemia Chronic anticoagulation Anxiety Urinary incontinence Diastolic dysfunction Echocardiogram on 04/12/2020 showed normal LV systolic function with an EF 65% and grade 1 diastolic dysfunction. Pulmonary hypertension Mild to moderate pulmonary hypertension noted on prior echocardiogram with an estimated peak RVSP of 46 mmHg. Chronic obstructive pulmonary disease Osteoarthritis Type 2 diabetes mellitus Diet-controlled. Deep venous thrombosis of right popliteal vein (~10/2019) GI bleed (10/2019) Secondary to peptic ulcers attributed to the patient taking to NSAIDs at the same time. NSAID induced gastritis (10/2019) Abdominal mass 3.5 x 4.8 cm abdominal mass noted anterior to the aortic bifurcation on imaging in October 2019. Patient is uncertain whether not she has had follow-up for this or not. Hypertension Schizophrenia <Amy Tamez PA-C - Last Filed: 06/25/24 11:44> Surgical History Surgical History: Surgical History History of total knee arthroplasty History of aortic valve replacement with bioprosthetic valve <Amy Tamez PA-C - Last Filed: 06/25/24 11:44> Family History Family History: Family History Father , Age 70 with cardiac and multiple other problems that patient cannot elaborate on Heart disease Mother , 71 heart disease Heart disease Other Hypertension Throat cancer Unknown family medical history <Amy Tamez PA-C - Last Filed: 06/25/24 11:44> Social History Social History: Social History Social History: Never . No children. Resident at [facility] in [place]. Former smoker. Yaniv Parmjit is her power of patent attorney. Code status: Do not resuscitate. Smoking packs per day: 1 Smoking cigarettes per day: 20.0 Years smoked: 30 Smoking pack-years: 30.00 Smoking status: Former smoker Alcohol intake: unknown Substance use: never Substance use type: does not use Living [place] [facility] Gender identity (if verbalized by the patient): Female Spiritual care concerns: No <Amy Tamez PA-C - Last Filed: 06/25/24 11:44> Exam 2 Narrative: GENERAL: Chronically ill-appearing, NAD HEAD: Normocephalic, atraumatic. EYES: PERRLA ENT: Nares clear, no rhinorrhea or epistaxis. Mucous membranes moist. NECK: Supple. CHEST: Rhonchi with minimal expiratory wheeze in the right upper lung field. Satting 95% on 3 L nasal cannula without increased work of breathing HEART: Regular rate and rhythm. No murmur heard. Normal peripheral pulses. ABDOMEN: Soft, nontender, nondistended, normal active bowel sounds. EXTREMITIES: Edema to bilateral lower extremities SKIN: Warm, dry, no rash. NEURO: No focal deficits. Alert and oriented x3 <Amy Tamez PA-C - Last Filed: 06/25/24 11:44> Course MOUNTAIN SERVICES MANAGER/PA Physician Supervision For this patient encounter, I reviewed the MOUNTAIN SERVICES MANAGER or PA documentation, treatment plan, and medical decision making; and I had [id number] time with this patient. <Zackary Keys MD - Last Filed: 06/25/24 18:20> Vital Signs Vital signs: Vital Signs Temperature 98 F 06/25/24 09:39 Pulse Rate 70 06/25/24 09:39 Respiratory Rate 16 06/25/24 09:39 Blood Pressure 108/50 L 06/25/24 09:39 Pulse Oximetry 95 06/25/24 09:39 Oxygen Delivery Nasal Cannula 06/25/24 09:39 Oxygen Flow Rate 2 06/25/24 09:39 Temperature 97.8 F 06/25/24 10:32 Pulse Rate 71 06/25/24 14:57 Respiratory Rate 20 06/25/24 14:57 Blood Pressure 116/65 06/25/24 14:01 Pulse Oximetry 95 06/25/24 14:50 Oxygen Delivery Nasal Cannula 06/25/24 14:50 Oxygen Flow Rate 3 06/25/24 14:50 Fraction of Inspired Oxygen 32 06/25/24 14:50 <Amy Tamez PA-C - Last Filed: 06/25/24 11:44> Vital Signs Temperature 98 F 06/25/24 09:39 Pulse Rate 70 06/25/24 09:39 Respiratory Rate 16 06/25/24 09:39 Blood Pressure 108/50 L 06/25/24 09:39 Pulse Oximetry 95 06/25/24 09:39 Oxygen Delivery Nasal Cannula 06/25/24 09:39 Oxygen Flow Rate 2 06/25/24 09:39 Temperature 97.8 F 06/25/24 10:32 Pulse Rate 71 06/25/24 14:57 Respiratory Rate 20 06/25/24 14:57 Blood Pressure 116/65 06/25/24 14:01 Pulse Oximetry 95 06/25/24 14:50 Oxygen Delivery Nasal Cannula 06/25/24 14:50 Oxygen Flow Rate 3 06/25/24 14:50 Fraction of Inspired Oxygen 32 06/25/24 14:50 <Zackary Keys MD - Last Filed: 06/25/24 18:20> MDM - SOB/Dyspnea MDM Narrative Medical decision making narrative: 73-year-old female presents to the emergency department from [facility] [place] [facility] for lethargy and hypoxia. Patient found to be in the 70 percentile on room air and was placed on 2 L nasal cannula. Vitals with soft blood pressure, otherwise unremarkable. Patient is afebrile and nontoxic appearing. Exam significant for the above. She has no increased work of breathing upon my evaluation is satting 95% on 3 L nasal cannula. Lung sounds remarkable for expiratory wheezing in the right upper lung field with rhonchi. Will provide DuoNeb, obtain lab work, chest x-ray and re-evaluate. Lab work remarkable for no leukocytosis or anemia. ABG with a pH is 7.399, pCO2 52.3, PO2 67.4, bicarb of 31.6. BNP elevated to 1200. Chest x-ray shows pulmonary edema and cardiomegaly. EKG shows normal sinus rhythm with rate of 70 ppm, normal SC interval, normal QRS duration, normal QTC, Q-waves in lead 3, ST elevations or depressions. Troponin is elevated to 0.039 which is less than her baseline, she denies chest pain, will trend these. Viral swabs negative. Suspect her acute hypoxic respiratory failure secondary to CHF exacerbation with overlying COPD. Patient given 40 mg of Lasix, Solu-Medrol provided in route, 2nd DuoNeb provided in the ED. plan to admit to the hospitalist for further management. Discussed with Dr. Mccormick who agrees to admission. <Amy Tamez PA-C - Last Filed: 06/25/24 11:44> Lab Data Result diagrams: 06/25/24 09:56 06/25/24 09:56 <Amy Tamez PA-C - Last Filed: 06/25/24 11:44> Labs: Lab Results 06/25/24 06/25/24 Range/Units 09:56 10:01 WBC 5.8 (4.5-10.0) K/mm3 RBC 3.90 L (4.2-5.4) M/mm3 Hgb 12.2 (12.0-15.0) g/dL Hct 37.6 (37.0-47.0) % MCV 96.4 (80-100) fl MCH 31.3 (26-34) pg MCHC 32.4 (32-36) g/dl RDW 14.6 H (11.5-14.5) % Plt Count 109 L (150-375) k/mm3 MPV 9.6 (7.4-10.4) fl Immature Gran % (Auto) 0.5 (0-0.5) % Neut % (Auto) 70.3 (45.5-73.1) % Lymph % (Auto) 16.9 L (18.3-44.2) % [place] % (Auto) 11.2 H (2.6-8.5) % Eos % (Auto) 0.9 (0-4.4) % Baso % (Auto) 0.2 (0.2-1.2) % Lymph # (Auto) 0.98 (0.9-3.2) K/mm3 [place] # (Auto) 0.7 H (0.1-0.6) K/mm3 Eos # (Auto) 0.1 (0-0.3) K/mm3 Baso # (Auto) 0.0 (0.0-0.1) K/mm3 Abs Immat Gran (auto) 0.03 (0.00-0.031) K/mm3 Absolute Neuts (auto) 4.1 (1.3-6.7) K/mm3 Absolute Nucleated RBC 0.000 (0.0-0.012) K/mm3 Nucleated RBC % 0.0 (0.0-0.2) % % Immature Plt Fraction 1.6 (0.9-11.2) % PT 17.3 H (11.1-14.7) Seconds INR 1.4 APTT 29.8 (22.3-36.8) Seconds Sodium 135 L (137-145) mmol/L Potassium 4.2 (3.4-5.0) mmol/L Chloride 99 (98-107) mmol/L Carbon Dioxide 33 H (22-30) mmol/L Anion Gap 3 L (4-12) mmol/L BUN 28 H (7-17) mg/dL Creatinine 0.96 (0.7-1.0) mg/dL Estim Creat Clear Calc 58 ml/min Estimated GFR 57 L (59 - ) Glucose 113 H (65-110) mg/dL Calcium 8.2 L (8.4-10.2) mg/dL Magnesium 1.9 (1.6-2.3) mg/dL Total Bilirubin 0.7 (0.2-1.3) mg/dL AST 20 (14-36) U/L ALT 14 (6-35) U/L Alkaline Phosphatase 86 (38-126) U/L Troponin I 0.039 H* (0.000-0.034) ng/mL NT-Pro-B Natriuret Pep 1200 H (19.9-100) pg/mL Total Protein 7.0 (6.3-8.2) g/dL Albumin 3.4 L (3.5-5.1) g/dL Urine Color Yellow (Yellow) Urine Appearance Clear (Clear) Urine pH 5.0 (5.0-9.0) Ur Specific [place] 1.016 (1.001-1.035) Urine Protein Negative (Negative) mg/dL Urine Glucose (UA) Negative (Negative) mg/dL Urine Ketones Negative (Negative) mg/dL Ur Blood (Man) Negative (Negative) Urine Nitrate Positive H (Negative) Urine Bilirubin Negative (Negative) Urine Urobilinogen 0.2 (<2.0) mg/dL Leukocyte Esterase Rfl 1+ H (Negative) AGUILAR/UL Urine RBC 0-2 (0-2) /hpf Urine WBC 6-10 H (0-3) /hpf Ur Squamous Epith Cells None seen (Few) /hpf Urine Bacteria 4+ H /hpf Urine Casts 3-5 Influenza A (RT-PCR) Negative (Negative) Influenza B (RT-PCR) Negative (Negative) RSV (RT-PCR) Negative (Negative) SARS-CoV-2 RNA (RT-PCR) Negative (Negative) <Amy Tamez PA-C - Last Filed: 06/25/24 11:44> Lab Results 06/25/24 06/25/24 Range/Units 09:56 10:01 WBC 5.8 (4.5-10.0) K/mm3 RBC 3.90 L (4.2-5.4) M/mm3 Hgb 12.2 (12.0-15.0) g/dL Hct 37.6 (37.0-47.0) % MCV 96.4 (80-100) fl MCH 31.3 (26-34) pg MCHC 32.4 (32-36) g/dl RDW 14.6 H (11.5-14.5) % Plt Count 109 L (150-375) k/mm3 MPV 9.6 (7.4-10.4) fl Immature Gran % (Auto) 0.5 (0-0.5) % Neut % (Auto) 70.3 (45.5-73.1) % Lymph % (Auto) 16.9 L (18.3-44.2) % [place] % (Auto) 11.2 H (2.6-8.5) % Eos % (Auto) 0.9 (0-4.4) % Baso % (Auto) 0.2 (0.2-1.2) % Lymph # (Auto) 0.98 (0.9-3.2) K/mm3 [place] # (Auto) 0.7 H (0.1-0.6) K/mm3 Eos # (Auto) 0.1 (0-0.3) K/mm3 Baso # (Auto) 0.0 (0.0-0.1) K/mm3 Abs Immat Gran (auto) 0.03 (0.00-0.031) K/mm3 Absolute Neuts (auto) 4.1 (1.3-6.7) K/mm3 Absolute Nucleated RBC 0.000 (0.0-0.012) K/mm3 Nucleated RBC % 0.0 (0.0-0.2) % % Immature Plt Fraction 1.6 (0.9-11.2) % PT 17.3 H (11.1-14.7) Seconds INR 1.4 APTT 29.8 (22.3-36.8) Seconds Sodium 135 L (137-145) mmol/L Potassium 4.2 (3.4-5.0) mmol/L Chloride 99 (98-107) mmol/L Carbon Dioxide 33 H (22-30) mmol/L Anion Gap 3 L (4-12) mmol/L BUN 28 H (7-17) mg/dL Creatinine 0.96 (0.7-1.0) mg/dL Estim Creat Clear Calc 58 ml/min Estimated GFR 57 L (59 - ) Glucose 113 H (65-110) mg/dL Calcium 8.2 L (8.4-10.2) mg/dL Magnesium 1.9 (1.6-2.3) mg/dL Total Bilirubin 0.7 (0.2-1.3) mg/dL AST 20 (14-36) U/L ALT 14 (6-35) U/L Alkaline Phosphatase 86 (38-126) U/L Troponin I 0.039 H* (0.000-0.034) ng/mL NT-Pro-B Natriuret Pep 1200 H (19.9-100) pg/mL Total Protein 7.0 (6.3-8.2) g/dL Albumin 3.4 L (3.5-5.1) g/dL Urine Color Yellow (Yellow) Urine Appearance Clear (Clear) Urine pH 5.0 (5.0-9.0) Ur Specific [place] 1.016 (1.001-1.035) Urine Protein Negative (Negative) mg/dL Urine Glucose (UA) Negative (Negative) mg/dL Urine Ketones Negative (Negative) mg/dL Ur Blood (Man) Negative (Negative) Urine Nitrate Positive H (Negative) Urine Bilirubin Negative (Negative) Urine Urobilinogen 0.2 (<2.0) mg/dL Leukocyte Esterase Rfl 1+ H (Negative) AGUILAR/UL Urine RBC 0-2 (0-2) /hpf Urine WBC 6-10 H (0-3) /hpf Ur Squamous Epith Cells None seen (Few) /hpf Urine Bacteria 4+ H /hpf Urine Casts 3-5 Influenza A (RT-PCR) Negative (Negative) Influenza B (RT-PCR) Negative (Negative) RSV (RT-PCR) Negative (Negative) SARS-CoV-2 RNA (RT-PCR) Negative (Negative) <Zackary Keys MD - Last Filed: 06/25/24 18:20> ABG Data ABG results: 06/25/24 10:15 Puncture Site Right radial ABG pH 7.399 ABG pCO2 52.3 H ABG pO2 67.4 L ABG PO2/FiO2 Ratio 2.11 ABG HCO3 31.6 H ABG O2 Saturation 93.1 L ABG O2 Content 16.8 ABG Base Excess 5.5 A-a Gradient 99.6 Oxyhemoglobin 90.2 Total Hemoglobin 13.2 O2 Delivery Device Nasal cannula O2 Liters/Min 3.0 FiO2 32 <Amy Tamez PA-C - Last Filed: 06/25/24 11:44> 06/25/24 10:15 Puncture Site Right radial ABG pH 7.399 ABG pCO2 52.3 H ABG pO2 67.4 L ABG PO2/FiO2 Ratio 2.11 ABG HCO3 31.6 H ABG O2 Saturation 93.1 L ABG O2 Content 16.8 ABG Base Excess 5.5 A-a Gradient 99.6 Oxyhemoglobin 90.2 Total Hemoglobin 13.2 O2 Delivery Device Nasal cannula O2 Liters/Min 3.0 FiO2 32 <Zackary Keys MD - Last Filed: 06/25/24 18:20> Discharge Plan Discharge Clinical Impression: Acute hypoxic respiratory failure, Acute exacerbation of chronic obstructive pulmonary disease CHF exacerbation Qualifiers: Heart failure type: diastolic Qualified Code(s): I50.33 - Acute on chronic diastolic (congestive) heart failure <Amy Tamez PA-C - Last Filed: 06/25/24 11:44> Patient Disposition: Still a Patient <Amy Tamez PA-C - Last Filed: 06/25/24 11:44> Condition: Stable <Amy Tamez PA-C - Last Filed: 06/25/24 11:44>
[2024-06-25 10:05] LABS: Basophils Percent Auto 0.2 % (0.2-1.2); Eosinophils Absolute Auto 0.1 K/mm3 (0-0.3); Eosinophils Percent Auto 0.9 % (0-4.4); Hematocrit 37.6 % (37.0-47.0); Hemoglobin 12.2 g/dL (12.0-15.0); Immature Granulocyte Absolute 0.03 K/mm3 (0.00-0.031); Immature Granulocyte Percent A 0.5 % (0-0.5); Immature Platelet Fraction Pct 1.6 % (0.9-11.2); Lymphocytes Absolute Auto 0.98 K/mm3 (0.9-3.2); Lymphocytes Percent Auto 16.9 % (18.3-44.2); Mean Corpuscular HGB Conc 32.4 g/dl (32-36); Mean Corpuscular Hemoglobin 31.3 pg (26-34); Mean Corpuscular Volume 96.4 fl (80-100); Mean Platelet Volume 9.6 fl (7.4-10.4); Monocytes Absolute Auto 0.7 K/mm3 (0.1-0.6); Monocytes Percent Auto 11.2 % (2.6-8.5); Neutrophils Absolute Auto 4.1 K/mm3 (1.3-6.7); Neutrophils Percent Auto 70.3 % (45.5-73.1); Platelet Count Result 109 k/mm3 (150-375); Red Cell Distribution Width 14.6 % (11.5-14.5); White Blood Count 5.8 K/mm3 (4.5-10.0)
[2024-06-25 10:14] LABS: Add Urine Microscopic? YES; Appearance Urine Clear (Clear); Bacteria Urine 4+ /hpf; Bilirubin Urine Negative (Negative); Blood Urine Negative (Negative); Color Urine Yellow (Yellow); Glucose Urine UA Negative (Negative); Ketones Urine Negative (Negative); Leukocyte Esterase Ur 1+ LEU/UL (Negative); Nitrate Urine Positive (Negative); Protein Urine Negative (Negative); RBC Urine 0-2 /hpf (0-2); Specific Grav Ur 1.016 (1.001-1.035); Squamous Epithelial Cell Urine None Seen /hpf (Few); Urobilinogen Urine 0.2 mg/dL (<2.0)
[2024-06-25 10:14] LABS: Alanine Aminotransferase 14 U/L (6-35); Albumin Level 3.4 g/dL (3.5-5.1); Alkaline Phosphatase 86 U/L (38-126); Anion Gap 3 mmol/L (4-12); Aspartate Amino Transferase 20 U/L (14-36); Bilirubin,Total 0.7 mg/dL (0.2-1.3); Blood Urea Nitrogen 28 mg/dL (7-17); Calcium 8.2 mg/dL (8.4-10.2); Carbon Dioxide 33 mmol/L (22-30); Chloride 99 mmol/L (98-107); Estimated CRCL calculation 58 ml/min; Estimated Glomerular Filt Rate 57; Glucose 113 mg/dL (65-110); Magnesium 1.9 mg/dL (1.6-2.3); Potassium 4.2 mmol/L (3.4-5.0); Sodium 135 mmol/L (137-145)
[2024-06-25] MEDS: IPRATROPIUM 0.5 MG/ALBUTEROL SULFATE 2.5 MG AMPUL.NEB 3 ML INHALATION ×2 (10:19→14:50)
[2024-06-25 10:20] LABS: INR 1.4; Prothrombin Time 17.3 Seconds (11.1-14.7)
[2024-06-25 10:21] LABS: Partial Thromboplastin Time 29.8 Seconds (22.3-36.8)
[2024-06-25 10:29] LABS: Alveolar/Arterial O2 Gradient 99.6 mmHg; Base Excess ABG 5.5 mEq/l (+/-2.0); Fractional Inspired Oxygen 32 %; HCO3 ABG 31.6 mEq/l (22.0-26.0); Oxygen Content ABG 16.8 %vol (16.0-22.0); Oxygen Saturation ABG 93.1 % (95.0-100.0); Oxyhemoglobin 90.2 % THb (90.0-100.0); PCO2 ABG 52.3 mmHg (35.0-45.0); PO2 ABG 67.4 mmHg (80.0-100.0); PO2 FiO2 Ratio Arterial Blood 2.11 %; Total Hemoglobin 13.2 g/dL (12.0-18.0); pH ABG 7.399 (7.350-7.450)
[2024-06-25 10:30] LABS: Device NASAL CANNULA; Modified Allen's Test Pass; Site Drawn RIGHT RADIAL
[2024-06-25 10:31] LABS: NT Pro B Type Natriuretic Pept 1200 pg/mL (19.9-100); Troponin I 0.039 ng/mL (0.000-0.034)
[2024-06-25 10:39] LABS: Influenza A QL RT-PCR Negative (Negative); Influenza B QL RT-PCR Negative (Negative); RSV RNA, RT-PCR Negative (Negative); SARS-CoV-2 RNA PCR Negative (Negative)
--- OUTSIDE RECORDS SUMMARY | 2024-06-25 11:11 | XMS_ITS | Referral Summary ---
Author Organization [facility] [address] Address [address] [place] [address] Phone Care Team Providers Care Public Stenographer Name Role Phone Jenn Espino MD Primary Care Provider [phone] Allergies Active Allergy Reactions Criticality Noted Date Comments Adhesive Tape-Silicones Unknown 02/09/2019 Quetiapine Unknown 02/09/2019 Simvastatin Unknown 02/09/2019 Tizanidine Unknown 02/09/2019 Medications cyclobenzaprine (FLEXERIL) 10 mg tablet take 1 tablet by oral route 3 times every day 0 0 07/05/2016 Active zolpidem (AMBIEN) 5 mg tablet take 1 Tablet by oral route every day at bedtime 0 0 07/05/2016 Active haloperidol (HALDOL) 2 mg tablet take 1 tablet by oral route 2 times every day 0 0 07/05/2016 Active omeprazole 20 mg tablet,delayed release (DR/EC) take 1 by Oral route once 0 0 07/05/2016 Active sennosides (SENNA) 8.6 mg capsule take 2 capsule by oral route every day at bedtime 0 0 07/05/2016 Active ARIPiprazole (ABILIFY) 20 mg tablet take 1 tablet by oral route every day 0 0 07/05/2016 Active sertraline (ZOLOFT) 100 mg tablet take 1 tablet by oral route every day 0 0 07/05/2016 Active triamterene-hyd roCHLOROthiazid e (MAXZIDE,DYAZID E) 75-50 mg per tablet take 1 tablet by oral route every day 0 0 07/05/2016 Active pravastatin (PRAVACHOL) 80 mg tablet take 1 tablet by oral route every day 0 0 07/05/2016 Active aspirin (ASPIRIN LOW DOSE) 81 mg tablet take 1 tablet by oral route every day 0 0 07/05/2016 Active busPIRone (BUSPAR) 10 mg tablet take 1 tablet by oral route 2 times every day 0 0 07/05/2016 Active methylPREDNISol one (MEDROL, FAZAL,) 4 mg Dosepack Take as directed on package 1 packet 09/29/2018 Active acetaminophen-c odeine (TYLENOL with CODEINE #3) 300-30 mg per tablet Take 1 tablet by mouth every 8 (eight) hours 30 tablet 01/21/2020 Active Active Problems Problem Noted Date Diagnosed Date Bilateral knee pain 07/05/2016 Overview (09/24/2016): Bilateral knee pain Former smoker 07/05/2016 Overview (09/24/2016): Ex smoker Social History Tobacco Use Types Packs/Day Years Used Date Smoking Tobacco: Former Alcohol Use Standard Drinks/Week Comments Not Currently 0 (1 standard drink = 0.6 oz pur e alcohol) Comments No Sex and Gender Information Value Date Recorded Sex Assigned at Not on file Legal Sex Female 11:39 AM RESEARCH HOME ECONOMIST Gender Identity Not on file Sexual Orientation Not on file Last Filed Vital Signs Vital Sign Reading Time Taken Comments Blood Pressure 135/66 04/19/2019 11:15 AM RESEARCH HOME ECONOMIST Pulse 90 04/19/2019 11:15 AM RESEARCH HOME ECONOMIST Temperature 35.9 C (96.6 F) 01/21/2020 11:33 AM CDT Respiratory Rate 21 04/19/2019 11:15 AM RESEARCH HOME ECONOMIST Oxygen Saturation 100% 04/19/2019 11:15 AM RESEARCH HOME ECONOMIST Inhaled Oxygen Concentration - - Weight 99.8 kg (220 lb) 01/21/2020 11:33 AM CDT Height 167.6 cm (5' 6 ) 01/21/2020 11:33 AM CDT Body Mass Index 35.51 01/21/2020 11:33 AM CDT Plan of Treatment Not on file Insurance [facility] Address: ATTN: [facility] [address] [place] [address] MEDICARE FOR LIFE [facility] FOR LIFE MEDICARE Care Teams Public Stenographer Relationship Specialty Start Date End Date Jenn Espino MD [address] [facility] [address] [place] [address] PCP - General 07/30/16
--- OUTSIDE RECORDS SUMMARY | 2024-06-25 11:11 | XMS_ITS | Clinical Summary ---
Author Organization [facility] [address] Address [address] [place] [address] Phone Care Team Providers Care Before And After School Daycare Worker Name Role Phone Jenn Espino MD Primary Care Provider [phone] Allergies Active Allergy Reactions Criticality Noted Date [...] Former smoker 07/05/2016 Overview (09/24/2016): Ex smoker Surgical History Surgery Date Site/Laterality Comments REPLACEMENT TOTAL KNEE Right Medical History Medical History Date Comments Hx Other Medical 08-14-10 Aortic valve replacement.; Comments: [facility] 07/06/2016 - Schizoaffective disorder (CMS/HCC) ([facility]) GERD (gastroesophageal reflux disease) CHF (congestive heart failur e) (CMS/[facility]) ([facility]) Family History Medical History Relation Name Comments Other Other Family history of hypertension and cancer.; Relation Name Status Comments Other Social History Tobacco Use Types Packs/Day Years Used Date Smoking Tobacco: Former Alcohol Use Standard Drinks/Week Comments Not Currently 0 (1 standard drink = 0.6 oz pur e alcohol) Comments No Sex and Gender Information Value Date Recorded Sex Assigned at Not on file Legal Sex Female 11:39 AM CHILD NUTRITION DIRECTOR Gender Identity Not on file Sexual Orientation Not on file Obstetrics History Last Filed Vital Signs Vital Sign Reading Time Taken Comments Blood Pressure 135/66 04/19/2019 11:15 AM CHILD NUTRITION DIRECTOR Pulse 90 04/19/2019 11:15 AM CHILD NUTRITION DIRECTOR Temperature 35.9 C (96.6 F) 01/21/2020 11:33 AM CDT Respiratory Rate 21 04/19/2019 11:15 AM CHILD NUTRITION DIRECTOR Oxygen Saturation 100% 04/19/2019 11:15 AM CHILD NUTRITION DIRECTOR Inhaled Oxygen Concentration - - Weight 99.8 kg (220 lb) 01/21/2020 11:33 AM CDT Height 167.6 cm (5' 6 ) 01/21/2020 11:33 AM CDT Body Mass Index 35.51 01/21/2020 11:33 AM CDT Plan of Treatment Health Maintenance Due Date Last Done Comments Breast Cancer Screening-Mammogram 1952 Colon Cancer Screening-Colonoscopy 1952 Depression Screening 1952 Fall Risk Assessment 1952 Hepatitis C Screening 1952 Osteoporosis Screening-Bone Density Scan 1952 Hepatitis B Screening 1970 Pneumococcal vaccine 65+ (1 of 1 - PCV) 2002 Zoster Vaccine (1 of 2) 2002 Well Visit 65+ 2017 Covid-19 Vaccine (3 - season) 2024, 04/30/2020 Influenza Vaccine (#1) 2024 DTaP/Tdap/Td Vaccine (2 - Td or Tdap) 05/02/202405/2014 Insurance MEDICARE FOR LIFE [facility] FOR LIFE MEDICARE Care Teams Before And After School Daycare Worker Relationship Specialty Start Date End Date Jenn Espino MD [address] [facility] [address] [place] [address] PCP - General 07/30/16
[2024-06-25] MEDS: FUROSEMIDE INJ 40 MG/4 ML VIAL IV PUSH ×2 (11:19→21:17)
[2024-06-25] MEDS: methylPREDNISolone SOD SUCC 125 MG VIAL 60 MG IV PUSH (11:19)
--- NOTE | 2024-06-25 11:33 | PM.IMHP ---
H&P: HPI History of Present Illness Date/Time: 06/25/24 11:33 Chief Complaint: Lethargy, hypoxia Narrative: This is a 73-year-old female with history of hypertension, schizophrenia, diastolic dysfunction, COPD, s/p aortic valve replacement with bioprosthetic valve, DVT on Eliquis presents to the emergency department via EMS from a senior living for reported lethargy and hypoxia. Per senior living staff the patient was found to be saturating 70s on room air was placed on 2 L nasal cannula, saturations increased to 95%. EMS provided the patient with Solu-Medrol and DuoNeb prior to arrival. patient is satting 95% on 3 L nasal cannula with no increased work of breathing. She is reporting some shortness of breath and cough. Denies chest pain. Patient is a poor historian. Patient does not normally wear O2. She is admitted in this setting for further treatment Review of Systems Review of Systems: - CONSTITUTIONAL: Denies weight loss, fever and chills. - HEENT: Denies changes in vision and hearing - RESPIRATORY: Reports SOB and cough. - CV: Denies palpitations and CP. - GI: Denies abdominal pain, nausea, vomiting and diarrhea. - : Denies dysuria and urinary frequency. - MSK: Denies myalgia and joint pain. - SKIN: Denies rash and pruritus. - NEUROLOGICAL: Denies headache and syncope. - PSYCHIATRIC: Denies recent changes in mood. Denies anxiety and depression. [facility] Past Medical History Medical History Depression Skin tear Urinary frequency Wears glasses Left knee DJD Chronic anemia Chronic anticoagulation Anxiety Urinary incontinence Diastolic dysfunction Echocardiogram on 04/12/2020 showed normal LV systolic function with an EF 65% and grade 1 diastolic dysfunction. Pulmonary hypertension Mild to moderate pulmonary hypertension noted on prior echocardiogram with an estimated peak RVSP of 46 mmHg. Chronic obstructive pulmonary disease Osteoarthritis Type 2 diabetes mellitus Diet-controlled. Deep venous thrombosis of right popliteal vein (~10/2019) GI bleed (10/2019) Secondary to peptic ulcers attributed to the patient taking to NSAIDs at the same time. NSAID induced gastritis (10/2019) Abdominal mass 3.5 x 4.8 cm abdominal mass noted anterior to the aortic bifurcation on imaging in October 2019. Patient is uncertain whether not she has had follow-up for this or not. Hypertension Schizophrenia Surgical History Surgical History History of total knee arthroplasty History of aortic valve replacement with bioprosthetic valve Family History Family History Father , Age 70 with cardiac and multiple other problems that patient cannot elaborate on Heart disease Mother , 71 heart disease Heart disease Other Hypertension Throat cancer Unknown family medical history Social History Social History Social History: Never . No children. Resident at [facility] in [place]. Former smoker. Yaniv Hickeyjose luis is her power of litigation attorney. Code status: Do not resuscitate. Smoking packs per day: 1 Smoking cigarettes per day: 20.0 Years smoked: 30 Smoking pack-years: 30.00 Smoking status: Former smoker Alcohol intake: unknown Substance use: never Substance use type: does not use Living arrangements: senior living Gender identity (if verbalized by the patient): Female Spiritual care concerns: No Meds Home Medications and Allergies Home Medications ?Medication ?Instructions ?Recorded ?Confirmed ?Type lisinopril 40 mg tablet 40 mg PO DAILY 04/30/19 06/25/24 History multivit with minerals-iron 18 1 tablet PO DAILY 04/30/19 06/25/24 History mg-folic ac 400 mcg-vit K 25 mcg tablet (Adults Multivitamin) cholecalciferol (vitamin D3) 25 1,000 unit PO DAILY 11/12/19 06/25/24 History mcg (1,000 unit) tablet polyethylene glycol 3350 17 17 g PO DAILY PRN Constipation 11/12/19 06/25/24 History gram/dose oral powder (Miralax) metoprolol tartrate 25 mg tablet 12.5 mg (1/2 x 25 mg) PO Q12HR #0 11/19/19 06/25/24 Rx tabs apixaban 5 mg tablet (Eliquis) 5 mg PO BID 04/11/20 06/25/24 History atorvastatin 20 mg tablet 20 mg PO DAILY 04/11/20 06/25/24 History docusate sodium 100 mg tablet 100 mg PO BID 04/11/20 06/25/24 History famotidine 20 mg tablet (Pepcid) 20 mg PO BID 04/11/20 06/25/24 History valproic acid (as sodium salt) 250 250 mg PO QID 04/11/20 06/25/24 History mg/5 mL oral solution acetaminophen 300 mg-codeine 30 mg 2 tablet PO Q6H PRN Pain 01/30/21 06/25/24 History tablet albuterol sulfate 90 mcg/actuation 2 inh inhalation Q6H PRN Shortness 01/30/21 06/25/24 History breath activated powder inhaler Of Breath bisacodyl 10 mg rectal suppository 10 mg RECTAL DAILY PRN Constipation 01/30/21 06/25/24 History diclofenac sodium 1 % topical gel 2 g topical BID 01/30/21 08/23/22 History furosemide 40 mg tablet 40 mg PO DAILY 01/30/21 06/25/24 History gabapentin 100 mg capsule 100 mg PO BID 01/30/21 06/25/24 History hydroxyzine HCl 25 mg tablet 25 mg PO Q8H PRN Pain 01/30/21 06/25/24 History ibuprofen 200 mg tablet 200 mg PO BID PRN Pain 01/30/21 06/25/24 History magnesium citrate (Citroma oral 300 ml PO DAILY PRN Constipation 01/30/21 06/25/24 History solution) melatonin 5 mg tablet 5 mg PO HS 01/30/21 06/25/24 History risperidone 1 mg tablet 1 mg PO TID 01/30/21 06/25/24 History Saccharomyces boulardii 250 mg 250 mg PO BID #14 caps 02/02/21 06/25/24 Rx capsule (Florastor) azithromycin 250 mg tablet 250 mg PO DAILY 3 days #3 tabs 02/02/21 06/25/24 Rx cefdinir 300 mg capsule 300 mg PO Q12H #3 caps 02/02/21 06/25/24 Rx acetaminophen 325 mg capsule 650 mg PO Q6H PRN general 06/25/24 06/25/24 History discomfort baclofen 5 mg tablet 5 mg PO BID 06/25/24 06/25/24 History budesonide-formoterol HFA 160 2 puff inhalation BID 06/25/24 06/25/24 History mcg-4.5 mcg/actuation aerosol inhaler carvedilol 6.25 mg tablet 6.25 mg PO BID 06/25/24 06/25/24 History divalproex 500 mg tablet,extended 500 mg PO BID 06/25/24 06/25/24 History release 24 hr (Depakote ER) escitalopram oxalate 20 mg tablet 20 mg PO QID 06/25/24 06/25/24 History hydralazine 10 mg tablet 10 mg PO BID 06/25/24 06/25/24 History hydrocodone 5 mg-acetaminophen 300 1 tablet PO Q8H PRN pain 06/25/24 06/25/24 History mg tablet ipratropium 0.5 mg-albuterol 3 mg 3 ml inhalation BID PRN shortness 06/25/24 06/25/24 History (2.5 mg base)/3 mL nebulization of breath soln ondansetron HCl 4 mg tablet 4 mg PO Q6H PRN nausea and vomiting 06/25/24 06/25/24 History quetiapine 50 mg tablet,extended 100 mg PO QPM 06/25/24 06/25/24 History release 24 hr spironolactone 25 mg tablet 25 mg PO QID 06/25/24 06/25/24 History Allergies Allergy/AdvReac Type Severity Reaction Status Date / Time adhesive tape Allergy Unknown Verified 03/22/22 13:19 latex Allergy Unknown Verified 03/22/22 13:19 quetiapine (From Seroquel) Allergy Unknown Verified 03/22/22 13:19 simvastatin Allergy Unknown Verified 03/22/22 13:19 tizanidine Allergy Unknown Verified 03/22/22 13:19 Vital Signs Vital Signs - 24 hr 06/25/24 09:39 06/25/24 09:47 06/25/24 10:04 Temperature 98 F Pulse Rate 70 68 Respiratory Rate 16 19 Blood Pressure 108/50 L 93/65 L Pulse Oximetry 95 95 96 Oxygen Delivery Nasal Cannula Nasal Cannula Oxygen Flow Rate 2 2 Fraction of Inspired Oxygen 06/25/24 10:19 06/25/24 10:19 06/25/24 10:24 Temperature Pulse Rate 66 65 Respiratory Rate 18 18 Blood Pressure Pulse Oximetry 96 Oxygen Delivery Nasal Cannula Oxygen Flow Rate 3 Fraction of Inspired Oxygen 32 06/25/24 10:32 Temperature 97.8 F Pulse Rate 75 Respiratory Rate 15 Blood Pressure 121/100 H Pulse Oximetry 94 Oxygen Delivery Oxygen Flow Rate Fraction of Inspired Oxygen Exam Narrative: GENERAL: Chronically ill-appearing, not in acute distress HEAD: Normocephalic, atraumatic. EYES: PERRLA ENT: Nares clear, no rhinorrhea or epistaxis. Mucous membranes moist. NECK: Supple. CHEST: Coarse breath sounds bilaterally, Rhonchi with minimal expiratory wheeze in the right upper lung field. HEART: Regular rate and rhythm. No murmur heard. Normal peripheral pulses. ABDOMEN: Soft, nontender, nondistended, normal active bowel sounds. EXTREMITIES: Edema to bilateral lower extremities SKIN: Warm, dry, no rash. NEURO: No focal deficits. Alert and oriented x3 H&P: Results Labs Labs: Short CBC 06/25/24 Range/Units 09:56 WBC 5.8 (4.5-10.0) K/mm3 Hgb 12.2 (12.0-15.0) g/dL Hct 37.6 (37.0-47.0) % Plt Count 109 L (150-375) k/mm3 BMP 06/25/24 09:56 Sodium 135 L Potassium 4.2 Chloride 99 Carbon Dioxide 33 H BUN 28 H Creatinine 0.96 Glucose 113 H Calcium 8.2 L Cardiac Enzymes 06/25/24 Range/Units 09:56 Troponin I 0.039 H* (0.000-0.034) ng/mL Liver Function 06/25/24 Range/Units 09:56 Total Bilirubin 0.7 (0.2-1.3) mg/dL AST 20 (14-36) U/L ALT 14 (6-35) U/L Alkaline Phosphatase 86 (38-126) U/L Albumin 3.4 L (3.5-5.1) g/dL Urine 06/25/24 Range/Units 10:01 Urine Color Yellow (Yellow) Urine Appearance Clear (Clear) Urine pH 5.0 (5.0-9.0) Ur Specific [place] 1.016 (1.001-1.035) Urine Protein Negative (Negative) mg/dL Urine Glucose (UA) Negative (Negative) mg/dL Assessment and Plan Assessment and plan (1) Schizophrenia: Code(s): F20.9 - Schizophrenia, unspecified Status: Acute (2) Hypertension: Code(s): I10 - Essential (primary) hypertension Status: Acute (3) CHF exacerbation: Qualifiers: Heart failure type: diastolic Qualified Code(s): I50.33 - Acute on chronic diastolic (congestive) heart failure Code(s): I50.9 - Heart failure, unspecified Status: Acute (4) History of aortic valve replacement with bioprosthetic valve: Code(s): Z95.3 - Presence of xenogenic heart valve Status: Acute (5) Elevated troponin: Code(s): R77.8 - Other specified abnormalities of plasma proteins Status: Acute (6) Chronic anticoagulation: Code(s): Z79.01 - FPC (current) use of anticoagulants Status: Acute (7) Chronic anemia: Code(s): D64.9 - Anemia, unspecified Status: Acute (8) Altered mental status: Code(s): R41.82 - Altered mental status, unspecified Status: Acute (9) Acute respiratory failure with hypoxia: Code(s): J96.01 - Acute respiratory failure with hypoxia Status: Resolved (10) Acute exacerbation of chronic obstructive pulmonary disease: Code(s): J44.1 - Chronic obstructive pulmonary disease with (acute) exacerbation Status: Acute Plan 73-year-old female presents to the emergency department from [facility] for lethargy and hypoxia. Patient found to be in the 70 % on room air and was placed on 2 L nasal cannula. Vitals with soft blood pressure, otherwise unremarkable. Patient is afebrile and nontoxic appearing. She has no increased work of breathing upon my evaluation is satting 95% on 3 L nasal cannula. Lung sounds remarkable for expiratory wheezing in the right upper lung field with rhonchi. Lab work remarkable for no leukocytosis or anemia. ABG with a pH is 7.399, pCO2 52.3, PO2 67.4, bicarb of 31.6. BNP elevated to 1200. Chest x-ray shows pulmonary edema and cardiomegaly. EKG shows normal sinus rhythm with rate of 70 ppm, normal IA interval, normal QRS duration, normal QTC, Q-waves in lead 3, ST elevations or depressions. Troponin is elevated to 0.039 which is less than her baseline, she denies chest pain, will trend these. Viral swabs negative. acute hypoxic resp failure needing oxygen supplementation. acute on chronic chf exacerbation. diastolic. echo with normal EF 65% and grade 1 diastolic dysfunction 04/2020. Recheck echo mild to moderate pulmonary hypertension RVSP 46 mmHg COPD possible COPD exacerbation duoneb. solumedrol elevated troponin: trend. [facility] resident Depression Left knee DJD Chronic anemia Chronic anticoagulation Anxiety Urinary incontinence Diastolic dysfunction Osteoarthritis Type 2 diabetes mellitus Diet-controlled. Deep venous thrombosis of right popliteal vein (~10/2019) GI bleed (10/2019) Secondary to peptic ulcers attributed to the patient taking to NSAIDs at the same time.NSAID induced gastritis (10/2019) Abdominal mass 3.5 x 4.8 cm abdominal mass noted anterior to the aortic bifurcation on imaging in October 2019. Patient is uncertain whether not she has had follow-up for this or not. Hypertension Schizophrenia Hospitalist [facility] Advance Care Plan I have confirmed that the patient's Advanced Care Plan is present, code status is documented, or surrogate decision maker is listed in patient medical record.: Yes Medication Reconciliation I have utilized all available resources to obtain, update and review the patients current medications (includes all prescriptions, OTC, herbals, cannabis, and nutritional supplements).: Yes
--- NOTE | 2024-06-25 13:32 | PC.NURSE ---
Report provided to Regina from [facility]. discussed patient getting admitted into the hospital and treatment plans.
[2024-06-25 13:46] LABS: Troponin I 0.037 ng/mL (0.000-0.034)
[2024-06-25 14:44] LABS: Troponin I 0.034 ng/mL (0.000-0.034)
[2024-06-25] MEDS: methylPREDNISolone SOD SUCC 40 MG VIAL IV PUSH ×2 (14:53→21:17)
--- NOTE | 2024-06-25 19:30 | PC.NURSE ---
patient had an incontinent episode. patient had wounds to sacral area that she stated she's had for some time. ointment placed on wound, and wound charted.
[2024-06-25] MEDS: carvediloL 6.25 MG TABLET PO (21:17)
[2024-06-25] MEDS: BACLOFEN 5 MG TABLET PO (21:17)
[2024-06-25] MEDS: risperiDONE 1 MG TABLET PO (21:17)
[2024-06-25] MEDS: DIVALPROEX SODIUM ER 500 MG TAB.24H PO (21:17)
[2024-06-25] MEDS: QUEtiapine FUMARATE XR 50 MG TAB.ER.24H 100 MG PO (21:17)
[2024-06-25] MEDS: hydrALAZINE 10 MG TABLET PO (21:18)
[2024-06-25] MEDS: APIXABAN 5 MG TABLET PO (21:18)
[2024-06-26] VITALS (20 sets, daily range): BP systolic 91–129; BP diastolic 48–60; PULSE 58–82; RESP 16–20; TEMP 36.6–37; O2SAT 92–96; BMI 35.7; BMI 35.1
--- NOTE | 2024-06-26 | ECHO_ITS ---
Patient Info Name: Jolie Thompson Age: 73 years : 1950 Gender: Female Ht: 67 in Wt: 224 lbs BSA: 2.23 m2 HR: 58 bpm BP: 124 / 51 mmHg Heart Rhythm: Sinus Arrhythmia Technical Quality: Fair Exam Date: 06/26/2024 10:43 AM Exam Location: Echo Lab Patient Status: Inpatient Admit Date: 06/26/2024 Staff Ordering Physician: Dank Coe MD Memory Care Director: Navneet Bravo RDCS Attending Provider: Sheryl Lopez Exam Type: CA echo doppler color flow Study Info Indications - Shortness of breath Complete two-dimensional, color flow and Doppler transthoracic echocardiogram is performed. Summary 1. Complete two-dimensional, color flow and Doppler transthoracic echocardiogram is performed. 2. Technically somewhat challenging exam. 3. Concentric left ventricular hypertrophy with well-preserved systolic function and grade 1 diastolic noncompliance. 4. Sclerotic aortic valve which is not functionally stenotic. 5. Calcified mitral valve annulus. Left Ventricle Left ventricular chamber dimension is normal. Left ventricular systolic function is normal, estimated at 65-70%. There is moderate concentric increased left ventricular wall thickness. The left ventricular diastolic function is grade I diastolic dysfunction. Right Ventricle Right ventricular chamber dimension is normal. Left Atria Left atrial chamber dimension is normal. Right Atria Right atrial chamber dimension is normal. Aortic Valve The aortic valve is trileaflet. There is moderate aortic valve sclerosis. There is no aortic valve stenosis. Pulmonic Valve The pulmonic valve is not well visualized. Mitral Valve The mitral valve has normal leaflets. The mitral valve annulus is mildly calcified. Tricuspid Valve The tricuspid valve leaflets are normal. Pericardium/Pleural The pericardium appears normal. Aorta The aortic root size at the sinus of Valsalva is normal. Left Ventricular Outflow Tract Name Value Normal LVOT 2D LVOT Diameter 2.1 cm LVOT Doppler LVOT Peak Gradient 13 mmHg LVOT Mean Gradient 6 mmHg LVOT VTI 40 cm LVOT VTI/AV VTI Ratio 0.7 LVOT Stroke Volume 142 ml LVOT CO 8.8 l/min LVOT CI 4.0 l/min/m2 Pulmonic Valve Name Value Normal PV Doppler PV Peak Gradient 4 mmHg Mitral Valve Name Value Normal MV Doppler MV Decel Nolan 332 cm/s2 MV PHT 96 ms MV Area (PHT) 2.3 cm2 4.0-5.0 MV Diastolic Function MV E Peak Velocity 110 cm/s MV A Peak Velocity 121 cm/s MV E/A 0.9 MV Decel Time 330 ms MV Annular TDI MV E/e' (Septal) 20.4 <=8.0 MV E/e' (Lateral) 23.2 <=8.0 MV E/e' (Average) 21.8 Tricuspid Valve Name Value Normal TV Regurgitation Doppler TR Peak Velocity 180 cm/s TR Peak Gradient 11 mmHg Aortic Valve Name Value Normal AV Doppler AV Peak Velocity 270 cm/s AV Peak Gradient 29 mmHg AV Mean Gradient 14 mmHg AV VTI 57 cm AV Area (Cont Eq VTI) 2.5 cm2 >=3.0 AV Area (Cont Eq [place]) 2.4 cm2 AV Regurgitation 2D LVOT Area 3.5 cm2 Ventricles Name Value Normal LV Dimensions 2D/MM IVS Diastolic Thickness (2D) 1.4 cm 0.6-1.0 LVID Diastole (2D) 4.8 cm 3.8-5.2 LVIW Diastolic Thickness (2D) 1.3 cm 0.6-0.9 LVID Systole (2D) 3.4 cm 2.2-3.5 LVOT Diameter 2.1 cm LV Mass (2D Cubed) 251.91 g 67.00-162.00 LV Mass Index (2D Cubed) 113 g/m2 43-95 Relative Wall Thickness (2D) 0.53 LV Fractional Shortening/Ejection Fraction 2D/MM LV Fractional Shortening (2D) 30 % 27-45 LV EF (2D Teicholz) 58 % 54-74 LV Diastolic Volume (4C MOD) 123 ml LV EF (4C MOD) 57 % LV Diastolic Volume (2C MOD) 90 ml LV EF (2C MOD) 69 % LV Diastolic Volume (BP MOD) 108 ml 46-106 LV Diastolic Volume Index (BP MOD) 48 ml/m2 29-61 LV Systolic Volume (BP MOD) 39 ml 14-42 LV Systolic Volume Index (BP MOD) 17 ml/m2 8-24 LV EF (BP MOD) 64 % 54-74 LV Diastolic Length (4C) 8.1 cm LV Systolic Length (4C) 7.1 cm LV Stroke Volume (4C MOD) 70 ml Atria Name Value Normal LA Dimensions LA Volume (4C A-L) 50 ml LA Volume (BP A-L) 52 ml RA Dimensions RA Area (4C) 18.7 cm2 <=18.0 Report Signatures
--- NOTE | 2024-06-26 03:27 | ADMGEN ---
This patient, Jolie Thompson, was admitted to IMU Room 206-01. Patient/family oriented to hospital policies and general routines including ID bracelet, bed and alarms, visiting hours, pain management, procedures, bathroom and other care routines, personal items, smoking policy, room service/diet, and visiting hours. Information on how to activate the Rapid Response Team has been discussed. Patient/Family are encouraged to report perceived risks to care and to ask questions if they do not understand what they are told or what they should do.
[2024-06-26] MEDS: methylPREDNISolone SOD SUCC 40 MG VIAL IV PUSH ×2 (06:18→13:49)
[2024-06-26] MEDS: FLUTICASONE/SALMETEROL 115-21 MCG INHALER 1 PUFF 2 PUFF INHALATION ×2 (09:33→20:52)
[2024-06-26] MEDS: IPRATROPIUM 0.5 MG/ALBUTEROL SULFATE 2.5 MG AMPUL.NEB 3 ML INHALATION ×3 (09:33→20:51)
[2024-06-26] MEDS: hydrALAZINE 10 MG TABLET PO ×2 (10:14→19:59)
[2024-06-26] MEDS: MULTIVITAMINS /C LUTEIN (CENTRUM SILVER) TABLET *BKC 1 TAB PO (10:14)
[2024-06-26] MEDS: ESCITALOPRAM OXALATE 10 MG TABLET 20 MG PO (10:14)
[2024-06-26] MEDS: APIXABAN 5 MG TABLET PO ×2 (10:14→19:59)
[2024-06-26] MEDS: BACLOFEN 5 MG TABLET PO ×2 (10:15→19:59)
[2024-06-26] MEDS: carvediloL 6.25 MG TABLET PO ×2 (10:15→20:01)
[2024-06-26] MEDS: risperiDONE 1 MG TABLET PO ×3 (10:15→17:18)
[2024-06-26] MEDS: SPIRONOLACTONE 25 MG TABLET PO (10:16)
[2024-06-26] MEDS: FUROSEMIDE INJ 40 MG/4 ML VIAL IV PUSH ×2 (10:16→20:01)
[2024-06-26] MEDS: DIVALPROEX SODIUM ER 500 MG TAB.24H PO ×2 (10:17→19:59)
[2024-06-26] MEDS: ATORVASTATIN 20 MG TABLET PO (11:58)
[2024-06-26] MEDS: ACETAMINOPHEN 325 MG TABLET 650 MG PO (12:02)
[2024-06-26 13:39] LABS: Hematocrit 36.2 % (37.0-47.0); Mean Corpuscular HGB Conc 33.1 g/dl (32-36); Mean Corpuscular Hemoglobin 31.5 pg (26-34); Mean Platelet Volume 9.8 fl (7.4-10.4); Platelet Count Result 107 k/mm3 (150-375); Red Blood Count 3.81 M/mm3 (4.2-5.4)
--- NOTE | 2024-06-26 13:41 | PC.NURSE ---
Pt transferred to med/surg via bed. Hand off given to ISABELLA Carreon. POA will be notified.
--- NOTE | 2024-06-26 13:52 | PM.IMPN ---
Progress Note: A&P Assessment and Plan (1) Schizophrenia: Code(s): F20.9 - Schizophrenia, unspecified Status: Acute (2) Hypertension: Code(s): I10 - Essential (primary) hypertension Status: Acute (3) CHF exacerbation: Qualifiers: Heart failure type: diastolic Qualified Code(s): I50.33 - Acute on chronic diastolic (congestive) heart failure Code(s): I50.9 - Heart failure, unspecified Status: Acute (4) History of aortic valve replacement with bioprosthetic valve: Code(s): Z95.3 - Presence of xenogenic heart valve Status: Acute (5) Elevated troponin: Code(s): R77.8 - Other specified abnormalities of plasma proteins Status: Acute (6) Chronic anticoagulation: Code(s): Z79.01 - long-term (current) use of anticoagulants Status: Acute (7) Chronic anemia: Code(s): D64.9 - Anemia, unspecified Status: Acute (8) Altered mental status: Code(s): R41.82 - Altered mental status, unspecified Status: Acute (9) Acute respiratory failure with hypoxia: Code(s): J96.01 - Acute respiratory failure with hypoxia Status: Resolved (10) Acute exacerbation of chronic obstructive pulmonary disease: Code(s): J44.1 - Chronic obstructive pulmonary disease with (acute) exacerbation Status: Acute Plan 73-year-old female presents to the emergency department from [facility] for lethargy and hypoxia. Patient found to be in the 70 % on room air and was placed on 2 L nasal cannula. Vitals with soft blood pressure, otherwise unremarkable. Patient is afebrile and nontoxic appearing. She has no increased work of breathing upon my evaluation is satting 95% on 3 L nasal cannula. Lung sounds remarkable for expiratory wheezing in the right upper lung field with rhonchi. Lab work remarkable for no leukocytosis or anemia. ABG with a pH is 7.399, pCO2 52.3, PO2 67.4, bicarb of 31.6. BNP elevated to 1200. Chest x-ray shows pulmonary edema and cardiomegaly. EKG shows normal sinus rhythm with rate of 70 ppm, normal [place] interval, normal QRS duration, normal QTC, Q-waves in lead 3, ST elevations or depressions. Troponin is elevated to 0.039 which is less than her baseline, she denies chest pain, will trend these. Viral swabs negative. acute hypoxic resp failure needing oxygen supplementation. Continue to taper as tolerated acute on chronic chf exacerbation. diastolic. echo with normal EF 65% and grade 1 diastolic dysfunction 04/2020. Recheck echo mild to moderate pulmonary hypertension RVSP 46 mmHg COPD possible COPD exacerbation duoneb. solumedrol. Will switch to oral steroid elevated troponin: trend. And remains flat [place] resident Depression Left knee DJD Chronic anemia Chronic anticoagulation Anxiety Urinary incontinence Diastolic dysfunction Osteoarthritis Type 2 diabetes mellitus Diet-controlled. Deep venous thrombosis of right popliteal vein (~10/2019) GI bleed (10/2019) Secondary to peptic ulcers attributed to the patient taking to NSAIDs at the same time.NSAID induced gastritis (10/2019) Abdominal mass 3.5 x 4.8 cm abdominal mass noted anterior to the aortic bifurcation on imaging in October 2019. Patient is uncertain whether not she has had follow-up for this or not. Hypertension Schizophrenia Subjective Date/time seen: 06/26/24 13:52 Interval history: Feels okay. No new complaints. Shortness of breath has improved. No chest pain. Review of Systems Review of Systems: All systems reviewed & are unremarkable except as noted in HPI and below Exam Narrative: GENERAL: Chronically ill-appearing, not in acute distress HEAD: Normocephalic, atraumatic. EYES: PERRLA ENT: Nares clear, no rhinorrhea or epistaxis. Mucous membranes moist. NECK: Supple. CHEST: Coarse breath sounds bilaterally, no wheezes HEART: Regular rate and rhythm. No murmur heard. Normal peripheral pulses. ABDOMEN: Soft, nontender, nondistended, normal active bowel sounds. EXTREMITIES: Edema to bilateral lower extremities SKIN: Warm, dry, no rash. NEURO: No focal deficits. Alert and oriented x3 Objective Data Vital Signs Vital Signs: Vital Signs - 24 hr 06/25/24 14:01 06/25/24 14:02 06/25/24 14:23 Temperature Pulse Rate 71 Respiratory Rate 15 15 15 Blood Pressure 116/65 Pulse Oximetry 100 Oxygen Delivery Oxygen Flow Rate Fraction of Inspired Oxygen 06/25/24 14:33 06/25/24 14:45 06/25/24 14:46 Temperature Pulse Rate 71 71 72 Respiratory Rate 14 19 15 Blood Pressure 89/63 L Pulse Oximetry 93 94 Oxygen Delivery Oxygen Flow Rate Fraction of Inspired Oxygen 06/25/24 14:50 06/25/24 14:50 06/25/24 14:50 Temperature Pulse Rate 74 71 Respiratory Rate 20 20 Blood Pressure 106/84 Pulse Oximetry 95 98 Oxygen Delivery Nasal Cannula Oxygen Flow Rate 3 Fraction of Inspired Oxygen 32 06/25/24 14:53 06/25/24 14:57 06/25/24 15:00 Temperature Pulse Rate 71 71 Respiratory Rate 20 20 18 Blood Pressure 125/76 Pulse Oximetry 100 94 Oxygen Delivery Oxygen Flow Rate Fraction of Inspired Oxygen 06/25/24 15:02 06/25/24 15:15 06/25/24 15:16 Temperature Pulse Rate 73 Respiratory Rate 8 L 8 L 17 Blood Pressure 81/53 L 96/69 L Pulse Oximetry 96 95 95 Oxygen Delivery Oxygen Flow Rate Fraction of Inspired Oxygen 06/25/24 15:17 06/25/24 15:30 06/25/24 15:31 Temperature Pulse Rate 74 100 96 Respiratory Rate 18 21 H 17 Blood Pressure 109/58 L 112/99 H Pulse Oximetry 95 95 94 Oxygen Delivery Oxygen Flow Rate Fraction of Inspired Oxygen 06/25/24 15:45 06/25/24 15:46 06/25/24 17:10 Temperature Pulse Rate 98 97 Respiratory Rate 12 20 Blood Pressure 100/66 Pulse Oximetry 96 95 94 Oxygen Delivery Oxygen Flow Rate Fraction of Inspired Oxygen 06/25/24 17:15 06/25/24 17:16 06/25/24 17:30 Temperature Pulse Rate Respiratory Rate Blood Pressure 105/66 110/67 Pulse Oximetry 93 92 Oxygen Delivery Oxygen Flow Rate Fraction of Inspired Oxygen 06/25/24 17:32 06/25/24 17:45 06/25/24 17:46 Temperature Pulse Rate Respiratory Rate Blood Pressure 94/83 L Pulse Oximetry 94 97 Oxygen Delivery Oxygen Flow Rate Fraction of Inspired Oxygen 06/25/24 18:30 06/25/24 18:47 06/25/24 19:13 Temperature Pulse Rate 89 Respiratory Rate 19 Blood Pressure Pulse Oximetry 94 94 Oxygen Delivery Oxygen Flow Rate Fraction of Inspired Oxygen 06/25/24 19:18 06/25/24 19:30 06/25/24 19:31 Temperature Pulse Rate 87 86 88 Respiratory Rate 20 17 21 H Blood Pressure 100/63 Pulse Oximetry 91 93 92 Oxygen Delivery Oxygen Flow Rate Fraction of Inspired Oxygen 06/25/24 20:08 06/25/24 20:15 06/25/24 20:16 Temperature Pulse Rate 92 86 86 Respiratory Rate 17 22 H 19 Blood Pressure 100/65 Pulse Oximetry 92 92 92 Oxygen Delivery Oxygen Flow Rate Fraction of Inspired Oxygen 06/25/24 20:36 06/25/24 20:45 06/25/24 20:46 Temperature Pulse Rate 88 89 90 Respiratory Rate 21 H 15 15 Blood Pressure 104/57 L Pulse Oximetry 92 93 92 Oxygen Delivery Oxygen Flow Rate Fraction of Inspired Oxygen 06/25/24 21:02 06/25/24 21:17 06/25/24 21:17 Temperature Pulse Rate 85 91 91 Respiratory Rate 16 17 Blood Pressure Pulse Oximetry 92 Oxygen Delivery Oxygen Flow Rate Fraction of Inspired Oxygen 06/25/24 21:30 06/25/24 21:31 06/25/24 22:01 Temperature Pulse Rate 88 88 91 Respiratory Rate 16 23 H 16 Blood Pressure 107/62 113/72 Pulse Oximetry Oxygen Delivery Oxygen Flow Rate Fraction of Inspired Oxygen 06/25/24 22:02 06/25/24 22:24 06/25/24 22:30 Temperature Pulse Rate 93 91 89 Respiratory Rate 18 21 H 22 H Blood Pressure 100/56 L Pulse Oximetry Oxygen Delivery Oxygen Flow Rate Fraction of Inspired Oxygen 06/25/24 22:31 06/25/24 22:46 06/25/24 23:26 Temperature Pulse Rate 92 92 63 Respiratory Rate 26 H 31 H Blood Pressure Pulse Oximetry 92 Oxygen Delivery Oxygen Flow Rate Fraction of Inspired Oxygen 06/25/24 23:26 06/25/24 23:28 06/26/24 01:35 Temperature 97.6 F 98.1 F Pulse Rate 60 60 Respiratory Rate 18 18 Blood Pressure 84/53 L 91/52 L Pulse Oximetry 93 90 93 Oxygen Delivery Nasal Cannula Oxygen Flow Rate 3 Fraction of Inspired Oxygen 06/26/24 03:15 06/26/24 04:00 06/26/24 04:00 Temperature 97.8 F Pulse Rate 61 58 L Respiratory Rate 18 Blood Pressure 124/51 L Pulse Oximetry 94 94 Oxygen Delivery Nasal Cannula Oxygen Flow Rate 3 Fraction of Inspired Oxygen 06/26/24 06:00 06/26/24 07:56 06/26/24 08:00 Temperature 98.0 F Pulse Rate 61 63 67 Respiratory Rate 16 Blood Pressure 129/60 Pulse Oximetry 94 Oxygen Delivery Oxygen Flow Rate Fraction of Inspired Oxygen 06/26/24 09:36 06/26/24 09:36 06/26/24 09:46 Temperature Pulse Rate 62 62 59 L Respiratory Rate 20 20 20 Blood Pressure Pulse Oximetry 92 Oxygen Delivery Nasal Cannula Oxygen Flow Rate 3 Fraction of Inspired Oxygen 06/26/24 10:00 06/26/24 10:15 06/26/24 12:00 Temperature Pulse Rate 64 66 69 Respiratory Rate Blood Pressure Pulse Oximetry Oxygen Delivery Oxygen Flow Rate Fraction of Inspired Oxygen Intake/Output Intake/Output: Intake & Output 06/23/24 06/24/24 06/25/24 06/26/24 23:59 23:59 23:59 23:59 Intake Total 50 600 Output Total 1400 Balance 50 -800 Meds/Results Medications: Active Medications Generic Name Dose Route Start Last Admin Trade Name Freq PRN Reason Stop Dose Admin Acetaminophen 650 mg 06/25/24 13:22 06/26/24 12:02 Acetaminophen 325 Mg Tablet PO 650 mg Q6H PRN Administration general discomfort Hydrocodone Bitart/Acetaminophen 1 tab 06/25/24 13:22 Hydrocodone/Acetaminophen (*Crx) 5-325 Mg Tablet PO Q8H PRN PAIN RATED 4-6 Albuterol/Ipratropium 3 ml 06/25/24 14:00 06/26/24 09:33 Ipratropium 0.5 Mg/Albuterol Sulfate 2.5 Mg Ampul.Neb 3 Ml INHALATION 3 ml Q6HRT MAGUE Administration Apixaban 5 mg 06/25/24 21:00 06/26/24 10:14 Apixaban 5 Mg Tablet PO 5 mg Q12HR MAGUE Administration Atorvastatin Calcium 20 mg 06/26/24 09:00 06/26/24 11:58 Atorvastatin 20 Mg Tablet PO 20 mg DAILY MAGUE Administration Baclofen 5 mg 06/25/24 21:00 06/26/24 10:15 Baclofen 5 Mg Tablet PO 5 mg Q12HR MAGUE Administration Bisacodyl 10 mg 06/25/24 13:22 Bisacodyl 10 Mg Suppository RECTAL DAILY PRN Constipation Carvedilol 6.25 mg 06/25/24 21:00 06/26/24 10:15 Carvedilol 6.25 Mg Tablet PO 6.25 mg Q12HR MAGUE Administration Divalproex Sodium 500 mg 06/25/24 21:00 06/26/24 10:17 Divalproex Sodium Er 500 Mg Tab.24h PO 500 mg Q12HR MAGUE Administration Escitalopram Oxalate 20 mg 06/26/24 09:00 06/26/24 10:14 Escitalopram Oxalate 10 Mg Tablet PO 20 mg DAILY MAGUE Administration Furosemide 40 mg 06/25/24 21:00 06/26/24 10:16 Furosemide Inj 40 Mg/4 Ml Vial IV PUSH 40 mg Q12HR MAGUE Administration Hydralazine HCl 10 mg 06/25/24 21:00 06/26/24 10:14 Hydralazine 10 Mg Tablet PO 10 mg Q12HR MAGUE Administration Ceftriaxone Sodium 1 gm in 50 mls @ 100 mls/hr 06/26/24 09:00 06/26/24 12:00 Rocephin 1 Gm/Ns 50 Ml IVPB 100 mls/hr Q24H MAGUE Administration Magnesium Citrate 300 ml 06/25/24 13:22 Magnesium Citrate 300 Ml Btl PO DAILY PRN Constipation Methylprednisolone Sodium Succinate 40 mg 06/25/24 14:00 06/26/24 13:49 Methylprednisolone Sod Succ 40 Mg Vial IV PUSH 40 mg Q8HR MAGUE Administration Multivitamins/Minerals 1 tab 06/26/24 09:00 06/26/24 10:14 Multivitamins /C Lutein (Centrum Silver) Tablet *Bkc PO 1 tab DAILY MAGUE Administration Ondansetron HCl 4 mg 06/25/24 13:22 Ondansetron Hcl Odt 4 Mg Tablet PO Q6H PRN nausea and vomiting Perflutren Lipid Microsphere 0 ml 06/25/24 13:22 Perflutren Lipid Microspheres 1.5 Ml Vial Diluted To 10 Ml Total Volume IV PUSH 06/28/24 13:22 ONCE PRN adequate visualization Protocol Polyethylene Glycol 17 gm 06/25/24 13:22 Polyethylene Glycol 3350 17 Gm Powd.Pack PO DAILY PRN Constipation Quetiapine Fumarate 100 mg 06/25/24 18:00 06/25/24 21:17 Quetiapine Fumarate Xr 50 Mg Tab.Er.24h PO 100 mg QPM MAGUE Administration Risperidone 1 mg 06/25/24 17:00 06/26/24 12:02 Risperidone 1 Mg Tablet PO 1 mg TID MAGUE Administration Fluticasone/Salmeterol 2 puff 06/25/24 20:00 06/26/24 09:33 Fluticasone/Salmeterol 115-21 Mcg Inhaler 1 Puff INHALATION 2 puff Q12HRT MGAUE Administration Spironolactone 25 mg 06/26/24 09:00 06/26/24 10:16 Spironolactone 25 Mg Tablet PO 25 mg DAILY MAGUE Administration Radiology Results: ITS Impressions Chest X-Ray 06/25/24 10:34 IMPRESSION: 1. Mild pulmonary edema. 2. Cardiomegaly. Labs Labs: Laboratory Results - last 24 hr 06/25/24 14:16 Troponin I 0.034
[2024-06-26 14:05] LABS: Anion Gap 12 mmol/L (4-12); Blood Urea Nitrogen 44 mg/dL (7-17); Calcium 8.6 mg/dL (8.4-10.2); Carbon Dioxide 29 mmol/L (22-30); Chloride 95 mmol/L (98-107); Estimated CRCL calculation 62 ml/min; Estimated Glomerular Filt Rate > 60; Glucose 268 mg/dL (65-110); Potassium 3.8 mmol/L (3.4-5.0); Sodium 136 mmol/L (137-145)
[2024-06-26] MEDS: HYDROcodone/acetaminophen (*CRX) 5-325 MG TABLET 1 TAB PO (15:23)
[2024-06-26] MEDS: QUEtiapine FUMARATE XR 50 MG TAB.ER.24H 100 MG PO (17:16)
[2024-06-26 17:19] LABS: Glucose Point of Care 190 mg/dl (65-105)
[2024-06-26] MEDS: CEFDINIR 300 MG CAPSULE PO (19:59)
[2024-06-26 20:27] LABS: Glucose Point of Care 300 mg/dl (65-105)
[2024-06-27] VITALS (14 sets, daily range): BP systolic 118–167; BP diastolic 41–55; PULSE 54–70; RESP 16–20; TEMP 36.4–36.7; O2SAT 93–99; BMI 10.0
[2024-06-27 06:24] LABS: Basophils Percent Auto 0.1 % (0.2-1.2); Hematocrit 38.4 % (37.0-47.0); Hemoglobin 12.5 g/dL (12.0-15.0); Immature Granulocyte Absolute 0.06 K/mm3 (0.00-0.031); Immature Granulocyte Percent A 0.6 % (0-0.5); Lymphocytes Absolute Auto 1.11 K/mm3 (0.9-3.2); Lymphocytes Percent Auto 10.9 % (18.3-44.2); Mean Corpuscular HGB Conc 32.6 g/dl (32-36); Mean Corpuscular Hemoglobin 31.2 pg (26-34); Mean Corpuscular Volume 95.8 fl (80-100); Mean Platelet Volume 10.2 fl (7.4-10.4); Monocytes Absolute Auto 1.1 K/mm3 (0.1-0.6); Monocytes Percent Auto 10.4 % (2.6-8.5); Neutrophils Absolute Auto 7.9 K/mm3 (1.3-6.7); Platelet Count Result 123 k/mm3 (150-375); Red Blood Count 4.01 M/mm3 (4.2-5.4); Red Cell Distribution Width 13.8 % (11.5-14.5); White Blood Count 10.2 K/mm3 (4.5-10.0)
[2024-06-27 06:44] LABS: Alanine Aminotransferase 17 U/L (6-35); Albumin Level 3.8 g/dL (3.5-5.1); Alkaline Phosphatase 82 U/L (38-126); Anion Gap 8 mmol/L (4-12); Aspartate Amino Transferase 29 U/L (14-36); Bilirubin,Total 0.4 mg/dL (0.2-1.3); Blood Urea Nitrogen 47 mg/dL (7-17); Calcium 8.9 mg/dL (8.4-10.2); Carbon Dioxide 36 mmol/L (22-30); Chloride 92 mmol/L (98-107); Estimated CRCL calculation 61 ml/min; Estimated Glomerular Filt Rate > 60; Glucose 138 mg/dL (65-110); Magnesium 2.1 mg/dL (1.6-2.3); Potassium 4.2 mmol/L (3.4-5.0); Sodium 136 mmol/L (137-145)
[2024-06-27] MEDS: FUROSEMIDE INJ 40 MG/4 ML VIAL IV PUSH ×2 (08:03→20:01)
[2024-06-27] MEDS: MULTIVITAMINS /C LUTEIN (CENTRUM SILVER) TABLET *BKC 1 TAB PO (08:06)
[2024-06-27] MEDS: SPIRONOLACTONE 25 MG TABLET PO (08:06)
[2024-06-27] MEDS: predniSONE 20 MG TABLET 40 MG PO (08:07)
[2024-06-27] MEDS: hydrALAZINE 10 MG TABLET PO ×2 (08:07→20:03)
[2024-06-27] MEDS: DIVALPROEX SODIUM ER 500 MG TAB.24H PO ×2 (08:07→20:02)
[2024-06-27] MEDS: ATORVASTATIN 20 MG TABLET PO (08:07)
[2024-06-27] MEDS: ESCITALOPRAM OXALATE 10 MG TABLET 20 MG PO (08:07)
[2024-06-27] MEDS: BACLOFEN 5 MG TABLET PO ×2 (08:07→20:03)
[2024-06-27] MEDS: APIXABAN 5 MG TABLET PO ×2 (08:08→20:02)
[2024-06-27] MEDS: risperiDONE 1 MG TABLET PO ×3 (08:08→17:23)
[2024-06-27] MEDS: CEFDINIR 300 MG CAPSULE PO ×2 (08:08→20:02)
[2024-06-27 08:11] LABS: Glucose Point of Care 127 mg/dl (65-105)
[2024-06-27] MEDS: carvediloL 6.25 MG TABLET PO ×2 (08:11→20:03)
[2024-06-27] MEDS: IPRATROPIUM 0.5 MG/ALBUTEROL SULFATE 2.5 MG AMPUL.NEB 3 ML INHALATION ×3 (08:13→20:33)
[2024-06-27] MEDS: FLUTICASONE/SALMETEROL 115-21 MCG INHALER 1 PUFF 2 PUFF INHALATION (08:17)
[2024-06-27] MEDS: ACETAMINOPHEN 325 MG TABLET 650 MG PO (11:55)
[2024-06-27 11:56] LABS: Glucose Point of Care 188 mg/dl (65-105)
[2024-06-27] MEDS: HYDROcodone/acetaminophen (*CRX) 5-325 MG TABLET 1 TAB PO (15:46)
--- NOTE | 2024-06-27 16:41 | P.PNIM_ITS ---
Progress Note: A&P Assessment and Plan (1) Schizophrenia: Code(s): F20.9 - Schizophrenia, unspecified Status: Acute (2) Hypertension: Code(s): I10 - Essential (primary) hypertension Status: Acute (3) CHF exacerbation: Qualifiers: Heart failure type: diastolic Qualified Code(s): I50.33 - Acute on chronic diastolic (congestive) heart failure Code(s): I50.9 - Heart failure, unspecified Status: Acute (4) History of aortic valve replacement with bioprosthetic valve: Code(s): Z95.3 - Presence of xenogenic heart valve Status: Acute (5) Elevated troponin: Code(s): R77.8 - Other specified abnormalities of plasma proteins Status: Acute (6) Chronic anticoagulation: Code(s): Z79.01 - assisted (current) use of anticoagulants Status: Acute (7) Chronic anemia: Code(s): D64.9 - Anemia, unspecified Status: Acute (8) Altered mental status: Code(s): R41.82 - Altered mental status, unspecified Status: Acute (9) Acute respiratory failure with hypoxia: Code(s): J96.01 - Acute respiratory failure with hypoxia Status: Resolved (10) Acute exacerbation of chronic obstructive pulmonary disease: Code(s): J44.1 - Chronic obstructive pulmonary disease with (acute) exacerbation Status: Acute Plan 73-year-old female presents to the emergency department from [facility] for lethargy and hypoxia. Patient found to be in the 70 % on room air and was placed on 2 L nasal cannula. Vitals with soft blood pressure, otherwise unremarkable. Patient is afebrile and nontoxic appearing. She has no increased work of breathing upon my evaluation is satting 95% on 3 L nasal cannula. Lung sounds remarkable for expiratory wheezing in the right upper lung field with rhonchi. Lab work remarkable for no leukocytosis or anemia. ABG with a pH is 7.399, pCO2 52.3, PO2 67.4, bicarb of 31.6. BNP elevated to 1200. Chest x-ray shows pulmonary edema and cardiomegaly. EKG shows normal sinus rhythm with rate of 70 ppm, normal [place] interval, normal QRS duration, normal QTC, Q-waves in lead 3, ST elevations or depressions. Troponin is elevated to 0.039 which is less than her baseline, she denies chest pain, will trend these. Viral swabs negative. acute hypoxic resp failure needing oxygen supplementation. Continue to taper as tolerated acute on chronic chf exacerbation. diastolic. echo with normal EF 65% and grade 1 diastolic dysfunction 04/2020. Recheck echo mild to moderate pulmonary hypertension RVSP 46 mmHg COPD possible COPD exacerbation duoneb. solumedrol. Will switch to oral steroid elevated troponin: trend. And remains flat [place] resident Depression Left knee DJD Chronic anemia Chronic anticoagulation Anxiety Urinary incontinence Diastolic dysfunction Osteoarthritis Type 2 diabetes mellitus Diet-controlled. Deep venous thrombosis of right popliteal vein (~10/2019) GI bleed (10/2019) Secondary to peptic ulcers attributed to the patient taking to NSAIDs at the same time.NSAID induced gastritis (10/2019) Abdominal mass 3.5 x 4.8 cm abdominal mass noted anterior to the aortic bifurcation on imaging in October 2019. Patient is uncertain whether not she has had follow-up for this or not. Hypertension Schizophrenia Feels okay. No new complaints. Shortness of breath has improved. No chest pain. stats want to go home will monitor one or more day possibly discharge patient tomorrow. Subjective Date/time seen: 06/27/24 16:41 Interval history: Feels okay. No new complaints. Shortness of breath has improved. No chest pain. stats want to go home will monitor one or more day possibly discharge patient tomorrow. Review of Systems Review of Systems: - CONSTITUTIONAL: Denies weight loss, fe ethel and chills. - HEENT: Denies changes in vision and he aring - RESPIRATORY: Reports SOB and cough. - CV: Denies palpitations and CP. - GI: Denies abdominal pain, nausea, vom iting and diarrhea. - : Denies dysuria and urinary frequen cy. - MSK: Denies myalgia and joint pain. - SKIN: Denies rash and pruritus. - NEUROLOGICAL: Denies headache and sync ope. - PSYCHIATRIC: Denies recent changes in mood. Denies anxiety and depression. All systems reviewed & are unremarkable except as noted in HPI and below Exam Narrative: Patient is comfortable, NAD morbidly obese HEENT: eyes are clear and none icteric LUNGS: Bilateral fair entry with rhonchi HEART: RR S1S2 ABD: BS+, Soft and nontender Lower extremities: no edema SKIN: nonjaundiced Neuro: grossly intact. Objective Data Vital Signs Vital Signs: Vital Signs - 24 hr 06/26/24 19:58 06/26/24 20:00 06/26/24 20:01 Temperature 37.0 C Pulse Rate 61 82 Respiratory Rate 20 Blood Pressure 129/48 L Pulse Oximetry 94 94 Oxygen Delivery Nasal Cannula Oxygen Flow Rate 3 06/26/24 20:52 06/26/24 20:58 06/26/24 21:02 Temperature Pulse Rate 59 L 61 Respiratory Rate 20 20 Blood Pressure Pulse Oximetry 96 Oxygen Delivery Nasal Cannula Oxygen Flow Rate 3 06/27/24 04:44 06/27/24 08:02 06/27/24 08:08 Temperature 36.5 C 36.4 C Pulse Rate 55 L 54 L Respiratory Rate 20 16 Blood Pressure 167/55 H 122/48 L Pulse Oximetry 99 99 96 Oxygen Delivery Nasal Cannula Oxygen Flow Rate 2 06/27/24 08:11 06/27/24 08:14 06/27/24 08:14 Temperature Pulse Rate 58 L 64 Respiratory Rate 20 Blood Pressure Pulse Oximetry 97 Oxygen Delivery Nasal Cannula Oxygen Flow Rate 2.5 06/27/24 08:24 06/27/24 09:21 06/27/24 13:45 Temperature Pulse Rate 54 L Respiratory Rate 20 Blood Pressure Pulse Oximetry 96 94 Oxygen Delivery Nasal Cannula Room Air Oxygen Flow Rate 1 06/27/24 13:45 06/27/24 13:54 06/27/24 14:00 Temperature 36.7 C Pulse Rate 60 70 60 Respiratory Rate 20 20 18 Blood Pressure 118/52 L Pulse Oximetry 96 Oxygen Delivery Oxygen Flow Rate 06/27/24 15:20 Temperature Pulse Rate Respiratory Rate Blood Pressure Pulse Oximetry Oxygen Delivery Room Air Oxygen Flow Rate Intake/Output Intake/Output: Intake & Output 06/24/24 06/25/24 06/26/24 06/27/24 23:59 23:59 23:59 23:59 Intake Total 50 1320 770 Output Total 1700 1900 Balance 50 -557 -3979 Meds/Results Medications: Active Medications Generic Name Dose Route Start Last Admin Trade Name Freq PRN Reason Stop Dose Admin Acetaminophen 650 mg 06/25/24 13:22 06/27/24 11:55 Acetaminophen 325 Mg Tablet PO 650 mg Q6H PRN Administration general discomfort Hydrocodone Bitart/Acetaminophen 1 tab 06/25/24 13:22 06/27/24 15:46 Hydrocodone/Acetaminophen (*Crx) 5-325 Mg Tablet PO 1 tab Q8H PRN Administration PAIN RATED 4-6 Albuterol/Ipratropium 3 ml 06/25/24 14:00 06/27/24 13:44 Ipratropium 0.5 Mg/Albuterol Sulfate 2.5 Mg Ampul.Neb 3 Ml INHALATION 3 ml Q6HRT MAGUE Administration Apixaban 5 mg 06/25/24 21:00 06/27/24 08:08 Apixaban 5 Mg Tablet PO 5 mg Q12HR MAGUE Administration Atorvastatin Calcium 20 mg 06/26/24 09:00 06/27/24 08:07 Atorvastatin 20 Mg Tablet PO 20 mg DAILY MAGUE Administration Baclofen 5 mg 06/25/24 21:00 06/27/24 08:07 Baclofen 5 Mg Tablet PO 5 mg Q12HR MAGUE Administration Bisacodyl 10 mg 06/25/24 13:22 Bisacodyl 10 Mg Suppository RECTAL DAILY PRN Constipation Carvedilol 6.25 mg 06/25/24 21:00 06/27/24 08:11 Carvedilol 6.25 Mg Tablet PO 6.25 mg Q12HR MAGUE Administration Cefdinir 300 mg 06/26/24 21:00 06/27/24 08:08 Cefdinir 300 Mg Capsule PO 300 mg Q12HR MAGUE Administration Divalproex Sodium 500 mg 06/25/24 21:00 06/27/24 08:07 Divalproex Sodium Er 500 Mg Tab.24h PO 500 mg Q12HR MAGUE Administration Escitalopram Oxalate 20 mg 06/26/24 09:00 06/27/24 08:07 Escitalopram Oxalate 10 Mg Tablet PO 20 mg DAILY MAGUE Administration Furosemide 40 mg 06/25/24 21:00 06/27/24 08:03 Furosemide Inj 40 Mg/4 Ml Vial IV PUSH 40 mg Q12HR MAGUE Administration Hydralazine HCl 10 mg 06/25/24 21:00 06/27/24 08:07 Hydralazine 10 Mg Tablet PO 10 mg Q12HR MAGUE Administration Magnesium Citrate 300 ml 06/25/24 13:22 Magnesium Citrate 300 Ml Btl PO DAILY PRN Constipation Multivitamins/Minerals 1 tab 06/26/24 09:00 06/27/24 08:06 Multivitamins /C Lutein (Centrum Silver) Tablet *Bkc PO 1 tab DAILY MAGUE Administration Ondansetron HCl 4 mg 06/25/24 13:22 Ondansetron Hcl Odt 4 Mg Tablet PO Q6H PRN nausea and vomiting Perflutren Lipid Microsphere 0 ml 06/25/24 13:22 Perflutren Lipid Microspheres 1.5 Ml Vial Diluted To 10 Ml Total Volume IV PUSH 06/28/24 13:22 ONCE PRN adequate visualization Protocol Polyethylene Glycol 17 gm 06/25/24 13:22 Polyethylene Glycol 3350 17 Gm Powd.Pack PO DAILY PRN Constipation Prednisone 40 mg 06/27/24 08:00 06/27/24 08:07 Prednisone 20 Mg Tablet PO 40 mg DAILY@0800 MAGUE Administration Quetiapine Fumarate 100 mg 06/25/24 18:00 06/26/24 17:16 Quetiapine Fumarate Xr 50 Mg Tab.Er.24h PO 100 mg QPM MAGUE Administration Risperidone 1 mg 06/25/24 17:00 06/27/24 12:00 Risperidone 1 Mg Tablet PO 1 mg TID MAGUE Administration Fluticasone/Salmeterol 2 puff 06/25/24 20:00 06/27/24 08:17 Fluticasone/Salmeterol 115-21 Mcg Inhaler 1 Puff INHALATION 2 puff Q12HRT MAGUE Administration Spironolactone 25 mg 06/26/24 09:00 06/27/24 08:06 Spironolactone 25 Mg Tablet PO 25 mg DAILY MAGUE Administration Radiology Results: ITS Impressions Chest X-Ray 06/27/24 06:20 Impression: Clear lungs. Status post CABG. Labs Labs: Laboratory Results - last 24 hr 06/26/24 06/26/24 06/27/24 17:05 20:03 05:30 WBC 10.2 H RBC 4.01 L Hgb 12.5 Hct 38.4 MCV 95.8 MCH 31.2 MCHC 32.6 RDW 13.8 Plt Count 123 L MPV 10.2 Immature Gran % (Auto) 0.6 H Neut % (Auto) 78.0 H Lymph % (Auto) 10.9 L [place] % (Auto) 10.4 H Eos % (Auto) 0.0 Baso % (Auto) 0.1 L Lymph # (Auto) 1.11 [place] # (Auto) 1.1 H Eos # (Auto) 0.0 Baso # (Auto) 0.0 Abs Immat Gran (auto) 0.06 H Absolute Neuts (auto) 7.9 H Absolute Nucleated RBC 0.000 Nucleated RBC % 0.0 Sodium Potassium Chloride Carbon Dioxide Anion Gap BUN Creatinine Estim Creat Clear Calc Estimated GFR Glucose POC Capillary Glucose 190 H 300 H Calcium Magnesium Total Bilirubin AST ALT Alkaline Phosphatase Total Protein Albumin 06/27/24 06/27/24 06/27/24 05:31 08:03 11:51 WBC RBC Hgb Hct MCV MCH MCHC RDW Plt Count MPV Immature Gran % (Auto) Neut % (Auto) Lymph % (Auto) [place] % (Auto) Eos % (Auto) Baso % (Auto) Lymph # (Auto) [place] # (Auto) Eos # (Auto) Baso # (Auto) Abs Immat Gran (auto) Absolute Neuts (auto) Absolute Nucleated RBC Nucleated RBC % Sodium 136 L Potassium 4.2 Chloride 92 L Carbon Dioxide 36 H Anion Gap 8 BUN 47 H Creatinine 0.91 Estim Creat Clear Calc 61 Estimated GFR > 60 Glucose 138 H POC Capillary Glucose 127 H 188 H Calcium 8.9 Magnesium 2.1 Total Bilirubin 0.4 AST 29 ALT 17 Alkaline Phosphatase 82 Total Protein 7.0 Albumin 3.8
[2024-06-27 17:14] LABS: Glucose Point of Care 207 mg/dl (65-105)
[2024-06-27] MEDS: QUEtiapine FUMARATE XR 50 MG TAB.ER.24H 100 MG PO (17:23)
[2024-06-27 20:29] LABS: Glucose Point of Care 237 mg/dl (65-105)
[2024-06-28] VITALS (12 sets, daily range): BP systolic 108–138; BP diastolic 51–55; PULSE 48–66; RESP 17–21; TEMP 36.4–36.8; O2SAT 92–100
[2024-06-28] MEDS: FLUTICASONE/SALMETEROL 115-21 MCG INHALER 1 PUFF 2 PUFF INHALATION (07:38)
[2024-06-28] MEDS: IPRATROPIUM 0.5 MG/ALBUTEROL SULFATE 2.5 MG AMPUL.NEB 3 ML INHALATION ×4 (07:38→22:41)
[2024-06-28 07:59] LABS: Glucose Point of Care 112 mg/dl (65-105)
[2024-06-28] MEDS: FUROSEMIDE INJ 40 MG/4 ML VIAL IV PUSH (08:17)
[2024-06-28] MEDS: DIVALPROEX SODIUM ER 500 MG TAB.24H PO ×2 (08:17→19:50)
[2024-06-28] MEDS: risperiDONE 1 MG TABLET PO ×3 (08:18→17:04)
[2024-06-28] MEDS: MULTIVITAMINS /C LUTEIN (CENTRUM SILVER) TABLET *BKC 1 TAB PO (08:18)
[2024-06-28] MEDS: carvediloL 6.25 MG TABLET PO ×2 (08:18→19:53)
[2024-06-28] MEDS: ATORVASTATIN 20 MG TABLET PO (08:18)
[2024-06-28] MEDS: APIXABAN 5 MG TABLET PO ×2 (08:19→19:50)
[2024-06-28] MEDS: BACLOFEN 5 MG TABLET PO ×2 (08:19→19:50)
[2024-06-28] MEDS: predniSONE 20 MG TABLET 40 MG PO (08:19)
[2024-06-28] MEDS: hydrALAZINE 10 MG TABLET PO ×2 (08:19→19:50)
[2024-06-28] MEDS: ESCITALOPRAM OXALATE 10 MG TABLET 20 MG PO (08:19)
[2024-06-28] MEDS: CEFDINIR 300 MG CAPSULE PO ×2 (08:19→19:50)
[2024-06-28] MEDS: SPIRONOLACTONE 25 MG TABLET PO (08:19)
[2024-06-28 12:09] LABS: Glucose Point of Care 247 mg/dl (65-105)
--- NOTE | 2024-06-28 12:42 | PM.IMPN ---
Progress Note: A&P Assessment and Plan (1) Schizophrenia: Code(s): F20.9 - Schizophrenia, unspecified Status: Acute (2) Hypertension: Code(s): I10 - Essential (primary) hypertension Status: Acute (3) CHF exacerbation: Qualifiers: Heart failure type: diastolic Qualified Code(s): I50.33 - Acute on chronic diastolic (congestive) heart failure Code(s): I50.9 - Heart failure, unspecified Status: Acute (4) History of aortic valve replacement with bioprosthetic valve: Code(s): Z95.3 - Presence of xenogenic heart valve Status: Acute (5) Elevated troponin: Code(s): R77.8 - Other specified abnormalities of plasma proteins Status: Acute (6) Chronic anticoagulation: Code(s): Z79.01 - penitentiary (current) use of anticoagulants Status: Acute (7) Chronic anemia: Code(s): D64.9 - Anemia, unspecified Status: Acute (8) Altered mental status: Code(s): R41.82 - Altered mental status, unspecified Status: Acute (9) Acute respiratory failure with hypoxia: Code(s): J96.01 - Acute respiratory failure with hypoxia Status: Resolved (10) Acute exacerbation of chronic obstructive pulmonary disease: Code(s): J44.1 - Chronic obstructive pulmonary disease with (acute) exacerbation Status: Acute Plan 73-year-old female presents to the emergency department from [facility] for lethargy and hypoxia. Patient found to be in the 70 % on room air and was placed on 2 L nasal cannula. Vitals with soft blood pressure, otherwise unremarkable. Patient is afebrile and nontoxic appearing. She has no increased work of breathing upon my evaluation is satting 95% on 3 L nasal cannula. Lung sounds remarkable for expiratory wheezing in the right upper lung field with rhonchi. Lab work remarkable for no leukocytosis or anemia. ABG with a pH is 7.399, pCO2 52.3, PO2 67.4, bicarb of 31.6. BNP elevated to 1200. Chest x-ray shows pulmonary edema and cardiomegaly. EKG shows normal sinus rhythm with rate of 70 ppm, normal MN interval, normal QRS duration, normal QTC, Q-waves in lead 3, ST elevations or depressions. Troponin is elevated to 0.039 which is less than her baseline, she denies chest pain, will trend these. Viral swabs negative. acute hypoxic resp failure needing oxygen supplementation. Continue to taper as tolerated acute on chronic chf exacerbation. diastolic. echo with normal EF 65% and grade 1 diastolic dysfunction 04/2020. Recheck echo mild to moderate pulmonary hypertension RVSP 46 mmHg COPD possible COPD exacerbation duoneb. solumedrol. Will switch to oral steroid elevated troponin: trend. And remains flat [place] resident Depression Left knee DJD Chronic anemia Chronic anticoagulation Anxiety Urinary incontinence Diastolic dysfunction Osteoarthritis Type 2 diabetes mellitus Diet-controlled. Deep venous thrombosis of right popliteal vein (~10/2019) GI bleed (10/2019) Secondary to peptic ulcers attributed to the patient taking to NSAIDs at the same time.NSAID induced gastritis (10/2019) Abdominal mass 3.5 x 4.8 cm abdominal mass noted anterior to the aortic bifurcation on imaging in October 2019. Patient is uncertain whether not she has had follow-up for this or not. Hypertension Schizophrenia Feels okay. No new complaints. Shortness of breath has improved. No chest pain. stats want to go home, patient is on Lasix IV, will switch over to oral, will monitor one more day possibly discharge patient tomorrow. Subjective Date/time seen: 06/28/24 12:42 Interval history: Feels okay. No new complaints. Shortness of breath has improved. No chest pain. stats want to go home, patient is on Lasix IV, will switch over to oral, will monitor one more day possibly discharge patient tomorrow. Review of Systems Review of Systems: - CONSTITUTIONAL: Denies weight loss, fever and chills. - HEENT: Denies changes in vision and hearing - RESPIRATORY: Reports SOB and cough. - CV: Denies palpitations and CP. - GI: Denies abdominal pain, nausea, vomiting and diarrhea. - : Denies dysuria and urinary frequency. - MSK: Denies myalgia and joint pain. - SKIN: Denies rash and pruritus. - NEUROLOGICAL: Denies headache and syncope. - PSYCHIATRIC: Denies recent changes in mood. Denies anxiety and depression. All systems reviewed & are unremarkable except as noted in HPI and below Exam Narrative: Patient is comfortable, NAD morbidly obese HEENT: eyes are clear and none icteric LUNGS: Bilateral fair entry with rhonchi HEART: RR S1S2 ABD: BS+, Soft and nontender Lower extremities: no edema SKIN: nonjaundiced Neuro: grossly intact. Objective Data Vital Signs Vital Signs: Vital Signs - 24 hr 06/27/24 13:45 06/27/24 13:45 06/27/24 13:54 Temperature Pulse Rate 60 70 Respiratory Rate 20 20 Blood Pressure Pulse Oximetry 94 Oxygen Delivery Room Air Fraction of Inspired Oxygen 06/27/24 14:00 06/27/24 15:20 06/27/24 20:00 Temperature 36.7 C 36.6 C Pulse Rate 60 62 Respiratory Rate 18 20 Blood Pressure 118/52 L 124/41 L Pulse Oximetry 96 93 Oxygen Delivery Room Air Fraction of Inspired Oxygen 06/27/24 20:00 06/27/24 20:03 06/27/24 20:30 Temperature Pulse Rate 58 L Respiratory Rate Blood Pressure Pulse Oximetry 93 Oxygen Delivery Room Air Room Air Fraction of Inspired Oxygen 21 06/27/24 20:30 06/27/24 20:39 06/28/24 06:00 Temperature 36.4 C Pulse Rate 62 60 60 Respiratory Rate 20 20 20 Blood Pressure 138/54 L Pulse Oximetry 93 Oxygen Delivery Fraction of Inspired Oxygen 06/28/24 07:39 06/28/24 08:18 06/28/24 08:19 Temperature Pulse Rate 66 66 Respiratory Rate 20 20 Blood Pressure Pulse Oximetry 93 Oxygen Delivery Room Air Fraction of Inspired Oxygen 2 Intake/Output Intake/Output: Intake & Output 06/25/24 06/26/24 06/27/24 06/28/24 23:59 23:59 23:59 23:59 Intake Total 50 1320 1010 361 Output Total 1700 2200 1300 Balance 10 -316 -9108 -934 Meds/Results Medications: Active Medications Generic Name Dose Route Start Last Admin Trade Name Freq PRN Reason Stop Dose Admin Acetaminophen 650 mg 06/25/24 13:22 06/27/24 11:55 Acetaminophen 325 Mg Tablet PO 650 mg Q6H PRN Administration general discomfort Hydrocodone Bitart/Acetaminophen 1 tab 06/25/24 13:22 06/27/24 15:46 Hydrocodone/Acetaminophen (*Crx) 5-325 Mg Tablet PO 1 tab Q8H PRN Administration PAIN RATED 4-6 Albuterol/Ipratropium 3 ml 06/25/24 14:00 06/28/24 07:38 Ipratropium 0.5 Mg/Albuterol Sulfate 2.5 Mg Ampul.Neb 3 Ml INHALATION 3 ml Q6HRT [facility] Administration Apixaban 5 mg 06/25/24 21:00 06/28/24 08:19 Apixaban 5 Mg Tablet PO 5 mg Q12HR [facility] Administration Atorvastatin Calcium 20 mg 06/26/24 09:00 06/28/24 08:18 Atorvastatin 20 Mg Tablet PO 20 mg DAILY [facility] Administration Baclofen 5 mg 06/25/24 21:00 06/28/24 08:19 Baclofen 5 Mg Tablet PO 5 mg Q12HR [facility] Administration Bisacodyl 10 mg 06/25/24 13:22 Bisacodyl 10 Mg Suppository RECTAL DAILY PRN Constipation Carvedilol 6.25 mg 06/25/24 21:00 06/28/24 08:18 Carvedilol 6.25 Mg Tablet PO 6.25 mg Q12HR [facility] Administration Cefdinir 300 mg 06/26/24 21:00 06/28/24 08:19 Cefdinir 300 Mg Capsule PO 300 mg Q12HR [facility] Administration Divalproex Sodium 500 mg 06/25/24 21:00 06/28/24 08:17 Divalproex Sodium Er 500 Mg Tab.24h PO 500 mg Q12HR [facility] Administration Escitalopram Oxalate 20 mg 06/26/24 09:00 06/28/24 08:19 Escitalopram Oxalate 10 Mg Tablet PO 20 mg DAILY [facility] Administration Furosemide 40 mg 06/29/24 09:00 Furosemide 40 Mg Tablet PO DAILY [facility] Hydralazine HCl 10 mg 06/25/24 21:00 06/28/24 08:19 Hydralazine 10 Mg Tablet PO 10 mg Q12HR [facility] Administration Magnesium Citrate 300 ml 06/25/24 13:22 Magnesium Citrate 300 Ml Btl PO DAILY PRN Constipation Multivitamins/Minerals 1 tab 06/26/24 09:00 06/28/24 08:18 Multivitamins /C Lutein (Centrum Silver) Tablet *Bkc PO 1 tab DAILY [facility] Administration Ondansetron HCl 4 mg 06/25/24 13:22 Ondansetron Hcl Odt 4 Mg Tablet PO Q6H PRN nausea and vomiting Perflutren Lipid Microsphere 0 ml 06/25/24 13:22 Perflutren Lipid Microspheres 1.5 Ml Vial Diluted To 10 Ml Total Volume IV PUSH 06/28/24 13:22 ONCE PRN adequate visualization Protocol Polyethylene Glycol 17 gm 06/25/24 13:22 Polyethylene Glycol 3350 17 Gm Powd.Pack PO DAILY PRN Constipation Prednisone 40 mg 06/27/24 08:00 06/28/24 08:19 Prednisone 20 Mg Tablet PO 40 mg DAILY@0800 [facility] Administration Quetiapine Fumarate 100 mg 06/25/24 18:00 06/27/24 17:23 Quetiapine Fumarate Xr 50 Mg Tab.Er.24h PO 100 mg QPM [facility] Administration Risperidone 1 mg 06/25/24 17:00 06/28/24 12:14 Risperidone 1 Mg Tablet PO 1 mg TID [facility] Administration Fluticasone/Salmeterol 2 puff 06/25/24 20:00 06/28/24 07:38 Fluticasone/Salmeterol 115-21 Mcg Inhaler 1 Puff INHALATION 2 puff Q12HRT [facility] Administration Spironolactone 25 mg 06/26/24 09:00 06/28/24 08:19 Spironolactone 25 Mg Tablet PO 25 mg DAILY [facility] Administration Radiology Results: ITS Impressions Chest X-Ray 06/27/24 06:20 Impression: Clear lungs. Status post CABG. Labs Labs: Laboratory Results - last 24 hr 06/27/24 06/27/24 06/28/24 16:58 20:06 07:48 POC Capillary Glucose 207 H 237 H 112 H 06/28/24 11:57 POC Capillary Glucose 247 H
[2024-06-28] MEDS: QUEtiapine FUMARATE XR 50 MG TAB.ER.24H 100 MG PO (17:07)
[2024-06-28 17:17] LABS: Glucose Point of Care 230 mg/dl (65-105)
[2024-06-28 23:38] LABS: Glucose Point of Care 237 mg/dl (65-105)
[2024-06-29] VITALS (7 sets, daily range): BP systolic 111–143; BP diastolic 56–58; PULSE 51–68; RESP 20; TEMP 36.5; O2SAT 93–96
[2024-06-29] MEDS: HYDROcodone/acetaminophen (*CRX) 5-325 MG TABLET 1 TAB PO (04:23)
[2024-06-29 08:21] LABS: Glucose Point of Care 113 mg/dl (65-105)
[2024-06-29] MEDS: IPRATROPIUM 0.5 MG/ALBUTEROL SULFATE 2.5 MG AMPUL.NEB 3 ML INHALATION ×2 (08:45→14:03)
[2024-06-29] MEDS: FLUTICASONE/SALMETEROL 115-21 MCG INHALER 1 PUFF 2 PUFF INHALATION (08:45)
[2024-06-29] MEDS: predniSONE 20 MG TABLET 40 MG PO (09:05)
[2024-06-29] MEDS: ATORVASTATIN 20 MG TABLET PO (09:06)
[2024-06-29] MEDS: carvediloL 6.25 MG TABLET PO (09:06)
[2024-06-29] MEDS: BACLOFEN 5 MG TABLET PO (09:06)
[2024-06-29] MEDS: APIXABAN 5 MG TABLET PO (09:06)
[2024-06-29] MEDS: risperiDONE 1 MG TABLET PO ×2 (09:09→12:11)
[2024-06-29] MEDS: ESCITALOPRAM OXALATE 10 MG TABLET 20 MG PO (09:09)
[2024-06-29] MEDS: CEFDINIR 300 MG CAPSULE PO (09:09)
[2024-06-29] MEDS: MULTIVITAMINS /C LUTEIN (CENTRUM SILVER) TABLET *BKC 1 TAB PO (09:09)
[2024-06-29] MEDS: DIVALPROEX SODIUM ER 500 MG TAB.24H PO (09:09)
[2024-06-29] MEDS: hydrALAZINE 10 MG TABLET PO (09:09)
[2024-06-29] MEDS: SPIRONOLACTONE 25 MG TABLET PO (09:09)
[2024-06-29] MEDS: FUROSEMIDE 40 MG TABLET PO (09:09)
[2024-06-29 11:33] LABS: Glucose Point of Care 135 mg/dl (65-105)
--- NOTE | 2024-06-29 11:41 | PM.DS ---
DS: Admitting Diagnosis Discharge Date 06/29/2024 Admitting Diagnosis Lethargy, hypoxia DS: Discharge Diagnosis Discharge Diagnosis (1) Schizophrenia: Code(s): F20.9 - Schizophrenia, unspecified Status: Acute (2) Hypertension: Code(s): I10 - Essential (primary) hypertension Status: Acute (3) CHF exacerbation: Qualifiers: Heart failure type: diastolic Qualified Code(s): I50.33 - Acute on chronic diastolic (congestive) heart failure Code(s): I50.9 - Heart failure, unspecified Status: Acute (4) History of aortic valve replacement with bioprosthetic valve: Code(s): Z95.3 - Presence of xenogenic heart valve Status: Acute (5) Elevated troponin: Code(s): R77.8 - Other specified abnormalities of plasma proteins Status: Acute (6) Chronic anticoagulation: 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(s): 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 Status: Acute (7) Chronic anemia: Code(s): D64.9 - Anemia, unspecified Status: Acute (8) Altered mental status: Code(s): R41.82 - Altered mental status, unspecified Status: Acute (9) Acute respiratory failure with hypoxia: Code(s): J96.01 - Acute respiratory failure with hypoxia Status: Resolved (10) Acute exacerbation of chronic obstructive pulmonary disease: Code(s): J44.1 - Chronic obstructive pulmonary disease with (acute) exacerbation Status: Acute DS: Summary Hospital Course Hospital Course: 73 y/o female with was sent to ER from [place] with lethargy and hypoxia upon arrival patient was in 70% RA ABG with a pH is 7.399, pCO2 52.3, PO2 67.4, bicarb of 31.6.and was placed on 2L N/C which did improve patient oxygenation, and patient was more comfortable, patient did not c/o of CP however patient had slight elevated tropes which lower than her baseline. patient is comfortable and stable will discharge today. Time Spent with Patient Time attestation: Total time spent providing and/or coordinating discharge services: Exam Narrative: Patient is comfortable, NAD morbidly obese HEENT: eyes are clear and none icteric LUNGS: Bilateral fair entry with rhonchi HEART: RR S1S2 ABD: BS+, Soft and nontender Lower extremities: no edema SKIN: nonjaundiced Neuro: grossly intact. DS: Data Data Completed and Pending Labs on day of discharge: Labs from last 24 hours 06/29/24 06/29/24 06/28/24 11:29 08:15 19:42 POC Capillary Glucose 135 H 113 H 237 H 06/28/24 06/28/24 17:01 11:57 POC Capillary Glucose 230 H 247 H Preliminary micro results at discharge 06/25/24 11:09 Blood Culture - Preliminary Blood 06/25/24 11:11 Blood Culture - Preliminary Blood Discharge Plan Discharge Attending physician on discharge: Sheryl Lopez Consulting providers: Gerard Ram; Zackary Keys; Dank Coe; Tenzin Corok; Yang Sykes V.; Jose Whyte Discharging Clinician: Heather Holland Patient Disposition: [place] [facility] Activity: as tolerated Diet: heart healthy Discharge Instructions: Patient to follow up with her primary care provider as soon as possible. Patient Instructions: Antibiotic Form, Apixaban (By mouth), Heart Failure (GEN) Patient Language: Malay Stand Alone Forms: General Discharge Information Follow-up/Referrals: Darion,Alejandro [Other] Discharge Medications: New prednisone 10 mg tablet 10 mg PO DAILY Qty: 20 0RF Rx Instructions: 4Tx2d, 3Tx2d 2Tx2d, 1Tx2d Continued spironolactone 25 mg tablet 25 mg PO DAILY baclofen 5 mg tablet 5 mg PO BID carvedilol 6.25 mg tablet 6.25 mg PO BID divalproex [Depakote ER] 500 mg tablet extended release 24 hr 500 mg PO BID escitalopram oxalate 20 mg tablet 20 mg PO DAILY hydralazine 10 mg tablet 10 mg PO BID ipratropium-albuterol 0.5 mg-3 mg(2.5 mg base)/3 mL solution for nebulization 3 ml inhalation BID PRN (Reason: shortness of breath) ondansetron HCl 4 mg tablet 4 mg PO Q6H PRN (Reason: nausea and vomiting) quetiapine 50 mg tablet extended release 24 hr 100 mg PO QPM budesonide-formoterol 160-4.5 mcg/actuation HFA aerosol inhaler 2 puff INHALATION BID acetaminophen 325 mg capsule 650 mg PO Q6H PRN (Reason: general discomfort) Blink Tears 0.25 % drops 2 drp ophthalmic (eye) QID PRN (Reason: dry eyes) Enema 19-7 gram/118 mL enema 118 ml RECTAL DAILY PRN (Reason: constipation) Cold and Hot (m.salic-menthol) 29-7.6 % ointment 1 applic topical TID PRN (Reason: muscle pain) hydrocodone-acetaminophen 5-300 mg tablet 1 tablet PO Q8H PRN (Reason: pain) Qty: 10 0RF lisinopril 40 mg Tablet 40 mg PO DAILY Adults Multivitamin 18 mg iron-400 mcg-25 mcg Tablet 1 tablet PO DAILY polyethylene glycol 3350 [Miralax] 17 gram/dose Powder 17 g PO DAILY PRN (Reason: Constipation) Rx Instructions: GIVE IF NO BM IN 3 DAYS cholecalciferol (vitamin D3) 25 mcg (1,000 unit) Tablet 1,000 unit PO DAILY metoprolol tartrate 25 mg tablet 12.5 mg PO Q12HR Qty: 0 0RF atorvastatin 20 mg tablet 20 mg PO DAILY famotidine [Pepcid] 20 mg Tablet 20 mg PO BID valproic acid (as sodium salt) 250 mg/5 mL solution 250 mg PO QID docusate sodium 100 mg Tablet 100 mg PO BID Eliquis 5 mg tablet 5 mg PO BID furosemide 40 mg tablet 40 mg PO DAILY bisacodyl 10 mg Suppository 10 mg RECTAL DAILY PRN (Reason: Constipation) magnesium citrate [Citroma] Solution 300 ml PO DAILY PRN (Reason: Constipation) hydroxyzine HCl 25 mg tablet 25 mg PO Q8H PRN (Reason: Pain) gabapentin 100 mg Capsule 100 mg PO BID melatonin 5 mg Tablet 5 mg PO HS albuterol sulfate 90 mcg/actuation Aerosol Powdr Breath Activated 2 inh INHALATION Q6H PRN (Reason: Shortness Of Breath) ibuprofen 200 mg Tablet 200 mg PO BID PRN (Reason: Pain) risperidone 1 mg tablet 1 mg PO TID diclofenac sodium 1 % Gel 2 g TOPICAL BID acetaminophen-codeine 300-30 mg tablet 2 tablet PO Q6H PRN (Reason: Pain) azithromycin 250 mg tablet 250 mg PO DAILY 3 Days Qty: 3 0RF Rx Instructions: Start 02/03/21 morning cefdinir 300 mg capsule 300 mg PO Q12H Qty: 3 0RF Rx Instructions: Start 02/03/21 morning Saccharomyces boulardii [Florastor] 250 mg capsule 250 mg PO BID Qty: 14 0RF Date of admission: 06/26/24 10:27 Primary Care Provider: Darion,Alejandro Admitting Provider: Steven Mccormick Attending physician on admission: Heather Holland Condition: Stable
[2024-06-29] MEDS: polyethylene glycoL 3350 17 GM POWD.PACK PO (13:33)
== END 2024-06-29 14:30 | DRG 291 ==
LOC: ANHED 10:56 → ANHIMU 11:38 → ANH2MED 06-27 11:01 → ANHIMU 07-02 13:56
PROVIDERS: Internal Medicine; Nurse Practitioner Adult Health; Admitting Provider Internal Medicine; Emergency Provider Physician Assistant; Visit Provider Family Medicine
DX: I11.0 Hypertensive heart disease with heart failure (principal); I50.33 Acute on chronic diastolic (congestive) heart failure; J96.01 Acute respiratory failure with hypoxia; J44.1 Chronic obstructive pulmonary disease with (acute) exacerbation; F20.9 Schizophrenia, unspecified; R32 Unspecified urinary incontinence; M19.90 Unspecified osteoarthritis, unspecified site; E11.9 Type 2 diabetes mellitus without complications; Z66 Do not resuscitate; Z96.659 Presence of unspecified artificial knee joint; Z79.01 Long term (current) use of anticoagulants; Z95.3 Presence of xenogenic heart valve; Z87.891 Personal history of nicotine dependence; Z86.718 Personal history of other venous thrombosis and embolism
CPT/HCPCS: 36415; 36600; 71045; 80048; 80053; 81001; 82805; 82948; 83735; 83880; 84484; 85018; 85025; 85027; 85055; 85610; 85730; 87040; 87086; 87186; 87637; 93005; 93306; 94640; 96375; 97110; 97161; 97165; 99212; 99285; A9270; G0378; G0463; J0696; J1940; J2919; J7512

== ENCOUNTER 2024-07-12 14:50 | Inpatient (IN) | payer MEDICARE, OTHER, SELFPAY ==
[2024-07-12] VITALS (19 sets, daily range): BP systolic 95–151; BP diastolic 48–83; PULSE 58–70; RESP 14–24; TEMP 36.4; O2SAT 88–100
--- NOTE | ~2024-07-12 | XR_ITS ---
XR chest 1V portable Ordering provider: Pilo Mayorga MD History: 73 years Female with . hypoxia? . Comparison: June 27, 2024 FINDINGS: MEDIASTINUM: The cardiac silhouette is slightly enlarged. Postoperative changes in the mediastinum. LUNGS: No effusions or pneumothorax. Opacification the right lung bases medially. OTHER: No free air under the diaphragm. Degenerative changes of the spine. IMPRESSION: Right basilar atelectasis versus pneumonia. Clinical correlation advised. Reviewed, dictated and finalized at location A.
--- NOTE | ~2024-07-12 | CT_ITS ---
CT brain wo con Ordering provider: Pilo Mayorga MD History: 73 years Female with . ams? . Comparison: January 30, 2021 Technique: CT of the head without contrast. Radiation reduction technique utilized. The dose-length product was 832.33 mGy-cm. FINDINGS: BRAIN PARENCHYMA AND CSF SPACES: Moderate leukoaraiosis and diffuse cortical atrophy. Moderate athero matous disease. No midline shift, mass effect or hemorrhage. The brain parenchyma and CSF spaces are otherwise normal. Empty sella turcica. VISUALIZED PARANASAL SINUSES: Well aerated. MASTOIDS: Left mastoid air cells effusion.. BONES: The bones appear intact. SOFT TISSUES: Visualized nasopharynx is normal. Superficial soft tissues are normal. IMPRESSION: No acute intracranial findings. Reviewed, dictated and finalized at location A.
--- NOTE | 2024-07-12 14:58 | ECG_ITS ---
Test Date: 2024-07-12 15:04:01 Measurements Intervals [place] Rate: 64 P: 39 OR: 150 QRS: 56 QRSD: 106 T: 117 QT: 412 QTc: 426 Interpretive Statements SINUS RHYTHM INTRAVENTRICULAR CONDUCTION DELAY NONSPECIFIC ST AND T-WAVE ABNORMALITY Compared to ECG 06/25/2024 10:53:36 NO SIGNIFICANT CHANGES Electronically Signed On 07-13-2024 16:44:23 CDT by Carlo Sabillon M.D.
[2024-07-12 15:30] LABS: Basophils Percent Auto 0.1 % (0.2-1.2); Eosinophils Percent Auto 0.1 % (0-4.4); Hematocrit 39.7 % (37.0-47.0); Hemoglobin 12.6 g/dL (12.0-15.0); Immature Granulocyte Absolute 0.04 K/mm3 (0.00-0.031); Immature Granulocyte Percent A 0.5 % (0-0.5); Immature Platelet Fraction Pct 1.9 % (0.9-11.2); Lymphocytes Absolute Auto 1.56 K/mm3 (0.9-3.2); Lymphocytes Percent Auto 17.8 % (18.3-44.2); Mean Corpuscular HGB Conc 31.7 g/dl (32-36); Mean Corpuscular Volume 97.8 fl (80-100); Mean Platelet Volume 9.6 fl (7.4-10.4); Monocytes Absolute Auto 1.2 K/mm3 (0.1-0.6); Neutrophils Absolute Auto 5.9 K/mm3 (1.3-6.7); Neutrophils Percent Auto 67.5 % (45.5-73.1); Platelet Count Result 86 k/mm3 (150-375); Red Blood Count 4.06 M/mm3 (4.2-5.4); Red Cell Distribution Width 14.9 % (11.5-14.5); White Blood Count 8.8 K/mm3 (4.5-10.0)
[2024-07-12 15:39] LABS: Alanine Aminotransferase 17 U/L (6-35); Albumin Level 3.4 g/dL (3.5-5.1); Alkaline Phosphatase 83 U/L (38-126); Anion Gap 3 mmol/L (4-12); Aspartate Amino Transferase 19 U/L (14-36); Bilirubin,Total 0.9 mg/dL (0.2-1.3); Blood Urea Nitrogen 22 mg/dL (7-17); Calcium 8.6 mg/dL (8.4-10.2); Carbon Dioxide 38 mmol/L (22-30); Chloride 99 mmol/L (98-107); Estimated CRCL calculation 59 ml/min; Estimated Glomerular Filt Rate 58; Glucose 120 mg/dL (65-110); Sodium 140 mmol/L (137-145)
[2024-07-12 15:51] LABS: INR 1.1; Prothrombin Time 14.8 Seconds (11.1-14.7)
[2024-07-12 15:52] LABS: Partial Thromboplastin Time 27.6 Seconds (22.3-36.8)
[2024-07-12 15:55] LABS: Add Urine Microscopic? YES; Appearance Urine Clear (Clear); Bilirubin Urine Negative (Negative); Blood Urine Negative (Negative); Color Urine Dark Yellow (Yellow); Glucose Urine UA Negative (Negative); Ketones Urine Negative (Negative); Leukocyte Esterase Ur Negative LEU/UL (Negative); Nitrate Urine Negative (Negative); Protein Urine Negative (Negative); Specific Grav Ur 1.026 (1.001-1.035); pH Urine 5.5 (5.0-9.0)
[2024-07-12 16:32] LABS: Platelet Estimate Decreased (Adequate)
--- OUTSIDE RECORDS SUMMARY | 2024-07-12 17:42 | XMS_ITS | Clinical Summary ---
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 Gender Identity Not on file Sexual Orientation Not on file Obstetrics History Last Filed Vital Signs Vital Sign Reading Time Taken Comments Blood Pressure 135/66 04/19/2019 11:15 AM HAND ALTERATIONS TAILOR Pulse 90 04/19/2019 11:15 AM HAND ALTERATIONS TAILOR Temperature 35.9 C (96.6 F) 01/21/2020 11:33 AM CDT Respiratory Rate 21 04/19/2019 11:15 AM HAND ALTERATIONS TAILOR Oxygen Saturation 100% 04/19/2019 11:15 AM HAND ALTERATIONS TAILOR Inhaled Oxygen Concentration - - Weight 99.8 [...] 2002 Well Visit 65+ 2017 Covid-19 Vaccine ( - season) 2024, 04/30/2020 Influenza Vaccine (#1) 2024 DTaP/Tdap/Td Vaccine (2 - Td or Tdap) 05/02/202405/2014 Insurance MEDICARE FOR LIFE [facility] FOR LIFE MEDICARE Care Teams Cylinder Die Machine Helper Relationship Specialty Start Date End Date Jenn Espino MD [address] [facility] [address] [place] [address] [facility] - General 07/30/16
--- OUTSIDE RECORDS SUMMARY | 2024-07-12 17:42 | XMS_ITS | Referral Summary ---
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 Temperature 35.9 C (96.6 F) 01/21/2020 11:33 AM CDT Respiratory Rate 21 04/19/2019 11:15 AM WEAVE DEFECT CHARTING CLERK Oxygen Saturation 100% 04/19/2019 11:15 AM WEAVE DEFECT CHARTING CLERK Inhaled Oxygen Concentration - - Weight 99.8 kg (220 lb) 01/21/2020 11:33 AM CDT Height 167.6 cm (5' 6 ) 01/21/2020 11:33 AM CDT Body Mass Index 35.51 01/21/2020 11:33 AM CDT Plan of Treatment Not on file Insurance [facility] CHOICE MEDICARE FOR LIFE [facility] FOR LIFE MEDICARE [facility] Address: [address] [address] [place] [address] Care Teams Budget Clerk Relationship Specialty Start Date End Date Jenn Espino MD [address] [facility] [address] [place] [address] PCP - General 07/30/16
[2024-07-12 18:26] LABS: Alveolar/Arterial O2 Gradient 35.1 mmHg; Base Excess ABG 8.5 mEq/l (+/-2.0); Fractional Inspired Oxygen 21 %; Methemoglobin ABG 0.2 %THb (0-1.5); Oxygen Content ABG 15.1 %vol (16.0-22.0); Oxygen Saturation ABG 88.7 % (95.0-100.0); PCO2 ABG 50.8 mmHg (35.0-45.0); PO2 ABG 53.8 mmHg (80.0-100.0); PO2 FiO2 Ratio Arterial Blood 2.56 %; Reduced Hemoglobin 13.4 %THb (0-5.0); Total Hemoglobin 12.7 g/dL (12.0-18.0); pH ABG 7.444 (7.350-7.450)
[2024-07-12 18:27] LABS: Device ROOM AIR; Modified Allen's Test Pass; Oxyhemoglobin 84.4 % THb (90.0-100.0); Site Drawn RIGHT RADIAL
[2024-07-12] MEDS: methylPREDNISolone SOD SUCC 40 MG VIAL IV PUSH (18:50)
[2024-07-12] MEDS: MAGNESIUM SULF 2 GM/WATER 50ML 2 GM/50 ML BAG IVPB (18:53)
[2024-07-12] MEDS: ALBUTEROL SULFATE NEB 2.5 MG/3 ML INH 10 MG INHALATION (19:01)
[2024-07-12] MEDS: IPRATROPIUM BR 0.02% INH SOLN 0.5 MG/2.5 ML VIAL 1 MG INHALATION (19:01)
[2024-07-12 20:21] LABS: Influenza A QL RT-PCR Negative (Negative); Influenza B QL RT-PCR Negative (Negative); RSV RNA, RT-PCR Negative (Negative); SARS-CoV-2 RNA PCR Negative (Negative)
--- NOTE | 2024-07-12 21:03 | ED_ITS ---
HPI - Altered Mental Status General Chief Complaint: Altered Mental Status Stated Complaint: low BP & PO Time Seen by Provider: 07/12/24 17:19 History of Present Illness HPI narrative: 73-year-old female with a past medical history including schizophrenia, COPD, anxiety, type 2 diabetes, hypertension. Patient presents to the emergency department via EMS from her senior care facility for concerns of altered mental status and hypoxia. Patient was just discharged from the hospital approximately 2 weeks ago for similar presentation and history. Patient is found to be hypoxic on room air requiring oxygen supplementation. Patient was combative and altered but apparently this seems to be her baseline. She has a history of schizophrenia. Patient when she is awake states that she has some mild shortness of breath but denies any chest pain, nausea, vomiting, abdominal pain, fever, chills. She was brought back in to room 1. For evaluation and resuscitation. Found to be 88% saturating on room air and supplemental oxygen was applied. Related Data Home Medications ?Medication ?Instructions ?Recorded ?Confirmed ?Last Taken ?Type lisinopril 40 mg tablet 40 mg PO DAILY 04/30/19 06/25/24 11/11/19 08:00 History 40 mg multivit with minerals-iron 18 1 tablet PO DAILY 04/30/19 06/25/24 06/25/24 History mg-folic ac 400 mcg-vit K 25 mcg tablet (Adults Multivitamin) cholecalciferol (vitamin D3) 25 1,000 unit PO DAILY 11/12/19 06/25/24 11/11/19 08:00 History mcg (1,000 unit) tablet 1 tab polyethylene glycol 3350 17 17 g PO DAILY PRN Constipation 11/12/19 06/25/24 11/11/19 20:00 History gram/dose oral powder (Miralax) 1 pk apixaban 5 mg tablet (Eliquis) 5 mg PO BID 04/11/20 06/25/24 06/25/24 History atorvastatin 20 mg tablet 20 mg PO DAILY 04/11/20 06/25/24 06/25/24 History docusate sodium 100 mg tablet 100 mg PO BID 04/11/20 06/25/24 Unknown History famotidine 20 mg tablet (Pepcid) 20 mg PO BID 04/11/20 06/25/24 Unknown History valproic acid (as sodium salt) 250 250 mg PO QID 04/11/20 06/25/24 Unknown History mg/5 mL oral solution acetaminophen 300 mg-codeine 30 mg 2 tablet PO Q6H PRN Pain 01/30/21 06/25/24 Unknown History tablet albuterol sulfate 90 mcg/actuation 2 inh inhalation Q6H PRN Shortness 01/30/21 06/25/24 Unknown History breath activated powder inhaler Of Breath bisacodyl 10 mg rectal suppository 10 mg RECTAL DAILY PRN Constipation 01/30/21 06/25/24 Unknown History diclofenac sodium 1 % topical gel 2 g topical BID 01/30/21 06/26/24 Unknown History furosemide 40 mg tablet 40 mg PO DAILY 01/30/21 06/25/24 06/25/24 History gabapentin 100 mg capsule 100 mg PO BID 01/30/21 06/25/24 Unknown History hydroxyzine HCl 25 mg tablet 25 mg PO Q8H PRN Pain 01/30/21 06/25/24 Unknown History ibuprofen 200 mg tablet 200 mg PO BID PRN Pain 01/30/21 06/25/24 Unknown History magnesium citrate (Citroma oral 300 ml PO DAILY PRN Constipation 01/30/21 06/25/24 Unknown History solution) melatonin 5 mg tablet 5 mg PO HS 01/30/21 06/25/24 Unknown History risperidone 1 mg tablet 1 mg PO TID 01/30/21 06/25/24 06/25/24 History acetaminophen 325 mg capsule 650 mg PO Q6H PRN general 06/25/24 06/25/24 06/24/24 History discomfort baclofen 5 mg tablet 5 mg PO BID 06/25/24 06/25/24 06/25/24 History budesonide-formoterol HFA 160 2 puff inhalation BID 06/25/24 06/25/24 06/25/24 History mcg-4.5 mcg/actuation aerosol inhaler carvedilol 6.25 mg tablet 6.25 mg PO BID 06/25/24 06/25/24 06/25/24 History divalproex 500 mg tablet,extended 500 mg PO BID 06/25/24 06/25/24 06/25/24 History release 24 hr (Depakote ER) escitalopram oxalate 20 mg tablet 20 mg PO DAILY 06/25/24 06/25/24 06/25/24 History hydralazine 10 mg tablet 10 mg PO BID 06/25/24 06/25/24 06/25/24 History ipratropium 0.5 mg-albuterol 3 mg 3 ml inhalation BID PRN shortness 06/25/24 06/25/24 06/25/24 History (2.5 mg base)/3 mL nebulization of breath soln ondansetron HCl 4 mg tablet 4 mg PO Q6H PRN nausea and vomiting 06/25/24 06/25/24 Unknown History quetiapine 50 mg tablet,extended 100 mg PO QPM 06/25/24 06/25/24 06/24/24 History release 24 hr spironolactone 25 mg tablet 25 mg PO DAILY 06/25/24 06/25/24 06/25/24 History methyl salicylate-menthol 29 %-7.6 1 applic topical TID PRN muscle 06/26/24 06/26/24 Unknown History % topical ointment (Cold and Hot pain (m.salicylate-menthol)) polyethylene glycol 400 0.25 % eye 2 drp ophthalmic (eye) QID PRN dry 06/26/24 06/26/24 Unknown History drops (Blink Tears) eyes sodium phosphates 19 gram-7 118 ml RECTAL DAILY PRN 06/26/24 06/26/24 Unknown History gram/118 mL enema (Enema) constipation Allergies Allergy/AdvReac Type Severity Reaction Status Date / Time oxycodone Allergy Intermediate Unknown Verified 07/12/24 15:23 adhesive tape Allergy Unknown Verified 07/12/24 15:23 latex Allergy Unknown Verified 07/12/24 15:23 quetiapine (From Seroquel) Allergy Unknown Verified 07/12/24 15:23 simvastatin Allergy Unknown Verified 07/12/24 15:23 tizanidine Allergy Unknown Verified 07/12/24 15:23 Review of Systems 2 Review of Systems: As reviewed above in [facility] Past Medical History Medical History Depression Skin tear Urinary frequency Wears glasses Left knee DJD Chronic anemia Chronic anticoagulation Anxiety Urinary incontinence Diastolic dysfunction Echocardiogram on 04/12/2020 showed normal LV systolic function with an EF 65% and grade 1 diastolic dysfunction. Pulmonary hypertension Mild to moderate pulmonary hypertension noted on prior echocardiogram with an estimated peak RVSP of 46 mmHg. Chronic obstructive pulmonary disease Osteoarthritis Type 2 diabetes mellitus Diet-controlled. Deep venous thrombosis of right popliteal vein (~10/2019) GI bleed (10/2019) Secondary to peptic ulcers attributed to the patient taking to NSAIDs at the same time. NSAID induced gastritis (10/2019) Abdominal mass 3.5 x 4.8 cm abdominal mass noted anterior to the aortic bifurcation on imaging in October 2019. Patient is uncertain whether not she has had follow-up for this or not. Hypertension Schizophrenia Surgical History Surgical History History of total knee arthroplasty History of aortic valve replacement with bioprosthetic valve Family History Family History Father , Age 70 with cardiac and multiple other problems that patient cannot elaborate on Heart disease Hypertension Mother , 71 heart disease Heart disease Hypertension Throat cancer Social History Social History Social History: Never . No children. Resident at [facility] in [place]. Former smoker. 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 Code status: Do not resuscitate. Smoking packs per day: 1 Smoking cigarettes per day: 20.0 Years smoked: 30 Smoking pack-years: 30.00 Smoking status: Former smoker Tobacco type: cigarettes Alcohol intake: never Substance use: never Substance use type: does not use Do You Feel Safe in your Home?: Yes Lack of Transportation: No Lack of Food: Never True Current Housing: I Have Housing Concerned About Future Housing: No Difficulty Paying Gas/Electric Bills: No Difficulty Paying for Meds: No Currently Unemployed: No Education: High School Diploma/GED Difficulty w/ Childcare or Family Care: No Living arrangements: [facility] Gender identity (if verbalized by the patient): Female Spiritual care concerns: No Exam 2 Narrative: GENERAL: Elderly, obese, not in any distress HEAD: [Normocephalic, atraumatic.] EYES: [PERRLA and EOMI.] ENT: Nares clear, no rhinorrhea or epistaxis. Mucous membranes moist. NECK: Supple. CHEST: Coarse breath sounds bilaterally with some scattered wheezing but no signs of tachypnea respiratory distress HEART: [Regular rate and rhythm]. No murmur heard. [Normal peripheral pulses.] ABDOMEN: [Soft, nondistended], [nontender], [No rigidity or guarding] EXTREMITIES: Normal range of motion. [No edema.] SKIN: Warm, dry, no rash. NEURO: [No focal deficits]. Alert and oriented x 3, combative, agitated but not in any distress PSYCH: Agitated and yelling but not in any distress, somewhat combative. Course Vital Signs Vital signs: Vital Signs Temperature 36.4 C 07/12/24 14:58 Pulse Rate 63 07/12/24 14:58 Respiratory Rate 17 07/12/24 14:58 Blood Pressure 95/83 L 07/12/24 14:58 Pulse Oximetry 88 L 07/12/24 14:58 Oxygen Delivery Room Air 07/12/24 14:58 Temperature 36.4 C 07/12/24 14:58 Pulse Rate 65 07/12/24 20:00 Respiratory Rate 20 07/12/24 20:00 Blood Pressure 118/61 07/12/24 18:27 Pulse Oximetry 93 07/12/24 19:01 Oxygen Delivery Room Air 07/12/24 19:01 Oxygen Flow Rate 2 07/12/24 15:16 Fraction of Inspired Oxygen 21 07/12/24 19:01 MDM - Altered Mental Status MDM Narrative Medical decision making narrative: 73-year-old female with history of schizophrenia, COPD, diastolic dysfunction, type 2 diabetes, hypertension. Presents to the ER for evaluation of mental status changes and hypoxia. Found to be 88% on room air, oxygen applied with improvement to 93% on 2 L nasal cannula. Patient does have some scattered wheezing and coarse breath sounds. She is combative and agitated but does not appear off of her baseline schizophrenia. She is able to answer questions appropriately when not combative. Considerations presently are for COPD exacerbation, CO2 retention, hypercapnia, hypoxic respiratory failure, pneumonia, pneumothorax, low suspicion congestive heart failure based on her exam. Workup ordered including CBC, CMP, BNP, chest x-ray, EKG. ABG obtained to assess status at baseline prior to interventions. Patient was given albuterol and Atrovent, steroids and started on antibiotics. CT of the brain was obtained. Workup reveals no leukocytosis or anemia. Platelets with some thrombocytopenia that appears her baseline. VBG shows CO2 retention which appears chronic as she has a compensated pH but she does have hypoxia with a Oxy hemoglobin of 84.4 consistent with her saturating 88% on room air presently. Hypoxic on chronic hypercapnic respiratory failure. Electrolytes show CO2 retention, normal potassium and sodium, normal creatinine, normal glucose. Normal LFTs. Urinalysis without signs of infection. Negative viral swab. Chest x-ray shows right basilar pneumonia versus atelectasis. She is already on antibiotics including Rocephin and azithromycin for COPD exacerbation and this will help cover the pneumonia as well. Patient re-evaluated and doing better. Vital signs appear stable, still requiring oxygen supplementation at this time. She will be admitted to the hospital for evaluation and treatment but her head CT is currently pending. Will discuss the hospitalist upon completion of workup. Spoke to the hospitalist who accepted the patient to a medical-surgical bed at this time, patient stable for admission at this time. Medical Records Attestation: I reviewed the patient's medical records. Lab Data Attestation: I reviewed the patient's lab results. 07/12/24 15:20 07/12/24 15:20 Labs: Lab Results 07/12/24 07/12/24 07/12/24 Range/Units 15:20 18:19 19:42 WBC 8.8 (4.5-10.0) K/mm3 RBC 4.06 L (4.2-5.4) M/mm3 Hgb 12.6 (12.0-15.0) g/dL Hct 39.7 (37.0-47.0) % MCV 97.8 (80-100) fl MCH 31.0 (26-34) pg MCHC 31.7 L (32-36) g/dl RDW 14.9 H (11.5-14.5) % Plt Count 86 L (150-375) k/mm3 MPV 9.6 (7.4-10.4) fl Immature Gran % (Auto) 0.5 (0-0.5) % Neut % (Auto) 67.5 (45.5-73.1) % Lymph % (Auto) 17.8 L (18.3-44.2) % [place] % (Auto) 14.0 H (2.6-8.5) % Eos % (Auto) 0.1 (0-4.4) % Baso % (Auto) 0.1 L (0.2-1.2) % Lymph # (Auto) 1.56 (0.9-3.2) K/mm3 [place] # (Auto) 1.2 H (0.1-0.6) K/mm3 Eos # (Auto) 0.0 (0-0.3) K/mm3 Baso # (Auto) 0.0 (0.0-0.1) K/mm3 Abs Immat Gran (auto) 0.04 H (0.00-0.031) K/mm3 Absolute Neuts (auto) 5.9 (1.3-6.7) K/mm3 Absolute Nucleated RBC 0.000 (0.0-0.012) K/mm3 Band Neutrophils % Not Reportable Nucleated RBC % 0.0 (0.0-0.2) % Platelet Estimate Decreased (Adequate) % Immature Plt Fraction 1.9 (0.9-11.2) % Schistocytes Not Reportable PT 14.8 H (11.1-14.7) Seconds INR 1.1 APTT 27.6 (22.3-36.8) Seconds Methemoglobin 0.2 (0-1.5) %THb Sodium 140 (137-145) mmol/L Potassium 4.0 (3.4-5.0) mmol/L Chloride 99 (98-107) mmol/L Carbon Dioxide 38 H (22-30) mmol/L Anion Gap 3 L (4-12) mmol/L BUN 22 H D (7-17) mg/dL Creatinine 0.95 (0.7-1.0) mg/dL Estim Creat Clear Calc 59 ml/min Estimated GFR 58 L (59 - ) Glucose 120 H (65-110) mg/dL Calcium 8.6 (8.4-10.2) mg/dL Total Bilirubin 0.9 (0.2-1.3) mg/dL AST 19 (14-36) U/L ALT 17 (6-35) U/L Alkaline Phosphatase 83 (38-126) U/L Total Protein 7.0 (6.3-8.2) g/dL Albumin 3.4 L (3.5-5.1) g/dL Urine Color Dark yellow (Yellow) Urine Appearance Clear (Clear) Urine pH 5.5 (5.0-9.0) Ur Specific [place] 1.026 (1.001-1.035) Urine Protein Negative (Negative) mg/dL Urine Glucose (UA) Negative (Negative) mg/dL Urine Ketones Negative (Negative) mg/dL Ur Blood (Man) Negative (Negative) Urine Nitrate Negative (Negative) Urine Bilirubin Negative (Negative) Urine Urobilinogen 1.0 (<2.0) mg/dL Leukocyte Esterase Rfl Negative (Negative) AGUILAR/UL Influenza A (RT-PCR) Negative (Negative) Influenza B (RT-PCR) Negative (Negative) RSV (RT-PCR) Negative (Negative) SARS-CoV-2 RNA (RT-PCR) Negative (Negative) ABG Data ABG results: 07/12/24 18:19 Puncture Site Right radial ABG pH 7.444 ABG pCO2 50.8 H ABG pO2 53.8 L ABG PO2/FiO2 Ratio 2.56 ABG HCO3 34.0 H ABG O2 Saturation 88.7 L ABG O2 Content 15.1 L ABG Base Excess 8.5 A-a Gradient 35.1 Oxyhemoglobin 84.4 L* Carboxyhemoglobin 2.0 Reduced Hemoglobin 13.4 H Total Hemoglobin 12.7 O2 Delivery Device Room air O2 Liters/Min Not Reportable FiO2 21 Attestation: I personally reviewed and interpreted this ABG as follows: Interpretation: Acute hypoxic on chronic hypercapnic respiratory failure with normal pH from compensation from the kidneys. No acidosis. Imaging Data Attestation: I personally reviewed and interpreted this imaging study as follows: My impression: Impressions Chest X-Ray 07/12/24 18:41 IMPRESSION: Right basilar atelectasis versus pneumonia. Clinical correlation advised. Head CT 07/12/24 21:05 IMPRESSION: No acute intracranial findings. Critical Care Time Critical Care Time Critical Care Time: Yes Total Critical Care Time: 35 Discharge Plan Discharge Clinical Impression: Acute hypoxic on chronic hypercapnic respiratory failure, Schizophrenia, Pneumonia, Acute alteration in mental status Patient Disposition: Still a Patient Condition: Stable Patient Language: Uzbek Prescriptions: No Action spironolactone 25 mg tablet 25 mg PO DAILY baclofen 5 mg tablet 5 mg PO BID carvedilol 6.25 mg tablet 6.25 mg PO BID divalproex [Depakote ER] 500 mg tablet extended release 24 hr 500 mg PO BID escitalopram oxalate 20 mg tablet 20 mg PO DAILY hydralazine 10 mg tablet 10 mg PO BID ipratropium-albuterol 0.5 mg-3 mg(2.5 mg base)/3 mL solution for nebulization 3 ml inhalation BID PRN (Reason: shortness of breath) ondansetron HCl 4 mg tablet 4 mg PO Q6H PRN (Reason: nausea and vomiting) quetiapine 50 mg tablet extended release 24 hr 100 mg PO QPM budesonide-formoterol 160-4.5 mcg/actuation HFA aerosol inhaler 2 puff INHALATION BID acetaminophen 325 mg capsule 650 mg PO Q6H PRN (Reason: general discomfort) Blink Tears 0.25 % drops 2 drp ophthalmic (eye) QID PRN (Reason: dry eyes) Enema 19-7 gram/118 mL enema 118 ml RECTAL DAILY PRN (Reason: constipation) Cold and Hot (m.salic-menthol) 29-7.6 % ointment 1 applic topical TID PRN (Reason: muscle pain) prednisone 10 mg tablet 10 mg PO DAILY Qty: 20 0RF Rx Instructions: 4Tx2d, 3Tx2d 2Tx2d, 1Tx2d hydrocodone-acetaminophen 5-300 mg tablet 1 tablet PO Q8H PRN (Reason: pain) Qty: 10 0RF lisinopril 40 mg Tablet 40 mg PO DAILY Adults Multivitamin 18 mg iron-400 mcg-25 mcg Tablet 1 tablet PO DAILY polyethylene glycol 3350 [Miralax] 17 gram/dose Powder 17 g PO DAILY PRN (Reason: Constipation) Rx Instructions: GIVE IF NO BM IN 3 DAYS cholecalciferol (vitamin D3) 25 mcg (1,000 unit) Tablet 1,000 unit PO DAILY metoprolol tartrate 25 mg tablet 12.5 mg PO Q12HR Qty: 0 0RF atorvastatin 20 mg tablet 20 mg PO DAILY famotidine [Pepcid] 20 mg Tablet 20 mg PO BID valproic acid (as sodium salt) 250 mg/5 mL solution 250 mg PO QID docusate sodium 100 mg Tablet 100 mg PO BID Eliquis 5 mg tablet 5 mg PO BID furosemide 40 mg tablet 40 mg PO DAILY bisacodyl 10 mg Suppository 10 mg RECTAL DAILY PRN (Reason: Constipation) magnesium citrate [Citroma] Solution 300 ml PO DAILY PRN (Reason: Constipation) hydroxyzine HCl 25 mg tablet 25 mg PO Q8H PRN (Reason: Pain) gabapentin 100 mg Capsule 100 mg PO BID melatonin 5 mg Tablet 5 mg PO HS albuterol sulfate 90 mcg/actuation Aerosol Powdr Breath Activated 2 inh INHALATION Q6H PRN (Reason: Shortness Of Breath) ibuprofen 200 mg Tablet 200 mg PO BID PRN (Reason: Pain) risperidone 1 mg tablet 1 mg PO TID diclofenac sodium 1 % Gel 2 g TOPICAL BID acetaminophen-codeine 300-30 mg tablet 2 tablet PO Q6H PRN (Reason: Pain) azithromycin 250 mg tablet 250 mg PO DAILY 3 Days Qty: 3 0RF Rx Instructions: Start 02/03/21 morning cefdinir 300 mg capsule 300 mg PO Q12H Qty: 3 0RF Rx Instructions: Start 02/03/21 morning Saccharomyces boulardii [Florastor] 250 mg capsule 250 mg PO BID Qty: 14 0RF Follow-up/Referrals: Darion,Alejandro [Other] Time of Disposition: 22:41
[2024-07-12] MEDS: AZITHROMYCIN 500 MG/NS 250 ML 500 MG/250 ML BAG 250 MG IVPB (22:42)
[2024-07-13] VITALS (12 sets, daily range): BP systolic 92–161; BP diastolic 59–80; PULSE 54–64; RESP 16–18; TEMP 36.4–37.5; O2SAT 92–95; BMI 35.3
--- NOTE | 2024-07-13 00:06 | ADMGEN ---
This patient, Jolie Thompson, was admitted to 3 [facility] Surg Room 307-01. Patient/family oriented to hospital policies and general routines including ID bracelet, bed and alarms, visiting hours, pain management, procedures, bathroom and other care routines, personal items, smoking policy, room service/diet, and visiting hours. Information on how to activate the Rapid Response Team has been discussed. Patient/Family are encouraged to report perceived risks to care and to ask questions if they do not understand what they are told or what they should do.
--- NOTE | 2024-07-13 01:31 | P.HP_ITS ---
H&P: HPI History of Present Illness Date/Time: 07/13/24 01:31 Chief Complaint: Altered mental status and low blood pressure Narrative: 73-year-old female with past medical history of schizophrenia, essential hypertension, diastolic dysfunction, COPD, prior DVT, and dementia who presented to the ER from [facility] via EMS due to low blood pressure and increased confusion. The patient does not wear chronic oxygen but does have 2 L nasal cannula available as needed at the [facility]. The patient was found to be satting 88-89% on room air was placed on 4 L nasal cannula by EMS. When she arrived to our facility she was placed on 2 L nasal cannula satting 92-95%. The patient was reportedly alert orient x2 in the ER. At time my evaluation the patient was oriented to her 1st name and repetitively stated her 1st name but otherwise was answering yes or ouch to questions. The patient was not able to provide any significant meaningful history. She was not noted to be coughing on the time of my exam and did have 2 L nasal cannula in place. She was not in any respiratory distress. She has been afebrile since presentation. Her white count was normal in the ER and her viral PCR panel was negative. Her UA was not suggestive of infection. CT of the head did not demonstrate any acute process. X-ray demonstrated possible right basilar atelectasis versus pneumonia. Exam of the patient was difficult as she would yell out randomly how even at times when staff was not touching the patient. Sews difficult to tell if the patient was having areas of pain or simply vocalizing/acting out. Patient was unable to participate in history taking process and subsequently majority of information was obtained from review of EMS records, ER physician records and past medical records. Review of Systems 2 Review of Systems: Unobtainable due to the patient's history of schizophrenia and chronic memory loss. [facility] [place] Past Medical History Medical History (Updated 07/13/24 @ 06:45 by Christine Napoles DO) Depression Urinary frequency Wears glasses Left knee DJD Chronic anemia Chronic anticoagulation Anxiety Urinary incontinence Diastolic dysfunction Echocardiogram on 04/12/2020 showed normal LV systolic function with an EF 65% and grade 1 diastolic dysfunction. Pulmonary hypertension Mild to moderate pulmonary hypertension noted on prior echocardiogram with an estimated peak RVSP of 46 mmHg. Chronic obstructive pulmonary disease Osteoarthritis Type 2 diabetes mellitus Diet-controlled. Deep venous thrombosis of right popliteal vein (~10/2019) GI bleed (10/2019) Secondary to peptic ulcers attributed to the patient taking to NSAIDs at the same time. NSAID induced gastritis (10/2019) Abdominal mass 3.5 x 4.8 cm abdominal mass noted anterior to the aortic bifurcation on imaging in October 2019. Patient is uncertain whether not she has had follow-up for this or not. Hypertension Schizophrenia Surgical History Surgical History (Updated 07/13/24 @ 06:16 by Christine Napoles DO) Status post total right knee replacement History of aortic valve replacement with bioprosthetic valve Family History Family History Father , Age 70 with cardiac and multiple other problems that patient cannot elaborate on Heart disease Hypertension Mother , 71 heart disease Heart disease Hypertension Throat cancer Social History Social History Social History: Never . No children. Resident at [facility] in [place]. Former smoker. 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 Code status: Do not resuscitate. Smoking packs per day: 1 Smoking cigarettes per day: 20.0 Years smoked: 30 Smoking pack-years: 30.00 Smoking status: Former smoker Tobacco type: cigarettes Alcohol intake: unknown Substance use: unknown Substance use type: does not use Do You Feel Safe in your Home?: Yes Lack of Transportation: No Lack of Food: Never True Current Housing: I Have Housing Concerned About Future Housing: No Difficulty Paying Gas/Electric Bills: No Difficulty Paying for Meds: No Currently Unemployed: No Education: High School Diploma/GED Difficulty w/ Childcare or Family Care: No Living arrangements: fdc Gender identity (if verbalized by the patient): Female Spiritual care concerns: No Meds Home Medications and Allergies Home Medications ?Medication ?Instructions ?Recorded ?Confirmed ?Type lisinopril 40 mg tablet 40 mg PO DAILY 04/30/19 07/13/24 History multivit with minerals-iron 18 1 tablet PO DAILY 04/30/19 07/13/24 History mg-folic ac 400 mcg-vit K 25 mcg tablet (Adults Multivitamin) cholecalciferol (vitamin D3) 25 1,000 unit PO DAILY 11/12/19 07/13/24 History mcg (1,000 unit) tablet polyethylene glycol 3350 17 17 g PO DAILY PRN Constipation 11/12/19 07/13/24 History gram/dose oral powder (Miralax) metoprolol tartrate 25 mg tablet 12.5 mg (1/2 x 25 mg) PO Q12HR #0 11/19/19 07/13/24 Rx tabs apixaban 5 mg tablet (Eliquis) 5 mg PO BID 04/11/20 07/13/24 History atorvastatin 20 mg tablet 20 mg PO DAILY 04/11/20 07/13/24 History docusate sodium 100 mg tablet 100 mg PO BID 04/11/20 07/13/24 History famotidine 20 mg tablet (Pepcid) 20 mg PO BID 04/11/20 07/13/24 History valproic acid (as sodium salt) 250 250 mg PO QID 04/11/20 07/13/24 History mg/5 mL oral solution acetaminophen 300 mg-codeine 30 mg 2 tablet PO Q4H PRN Pain 01/30/21 07/13/24 History tablet albuterol sulfate 90 mcg/actuation 2 inh inhalation Q6H PRN Shortness 01/30/21 07/13/24 History breath activated powder inhaler Of Breath bisacodyl 10 mg rectal suppository 10 mg RECTAL DAILY PRN Constipation 01/30/21 07/13/24 History diclofenac sodium 1 % topical gel 2 g topical BID 01/30/21 07/13/24 History furosemide 40 mg tablet 40 mg PO DAILY 01/30/21 07/13/24 History gabapentin 100 mg capsule 100 mg PO BID 01/30/21 07/13/24 History hydroxyzine HCl 25 mg tablet 25 mg PO Q8H PRN Pain 01/30/21 07/13/24 History ibuprofen 200 mg tablet 200 mg PO BID PRN Pain 01/30/21 07/13/24 History magnesium citrate (Citroma oral 300 ml PO DAILY PRN Constipation 01/30/21 07/13/24 History solution) melatonin 5 mg tablet 5 mg PO HS 01/30/21 07/13/24 History risperidone 1 mg tablet 1 mg PO TID 01/30/21 07/13/24 History Saccharomyces boulardii 250 mg 250 mg PO BID #14 caps 02/02/21 07/13/24 Rx capsule (Florastor) acetaminophen 325 mg capsule 650 mg PO Q6H PRN general 06/25/24 07/13/24 History discomfort baclofen 5 mg tablet 5 mg PO BID 06/25/24 07/13/24 History budesonide-formoterol HFA 160 2 puff inhalation BID 06/25/24 07/13/24 History mcg-4.5 mcg/actuation aerosol inhaler carvedilol 6.25 mg tablet 6.25 mg PO BID 06/25/24 07/13/24 History divalproex 500 mg tablet,extended 500 mg PO BID 06/25/24 07/13/24 History release 24 hr (Depakote ER) escitalopram oxalate 20 mg tablet 20 mg PO DAILY 06/25/24 07/13/24 History hydralazine 10 mg tablet 10 mg PO BID 06/25/24 07/13/24 History ipratropium 0.5 mg-albuterol 3 mg 3 ml inhalation BID PRN shortness 06/25/24 07/13/24 History (2.5 mg base)/3 mL nebulization of breath soln ondansetron HCl 4 mg tablet 4 mg PO Q6H PRN nausea and vomiting 06/25/24 07/13/24 History quetiapine 50 mg tablet,extended 100 mg PO QPM 06/25/24 07/13/24 History release 24 hr spironolactone 25 mg tablet 25 mg PO DAILY 06/25/24 07/13/24 History methyl salicylate-menthol 29 %-7.6 1 applic topical TID PRN muscle 06/26/24 07/13/24 History % topical ointment (Cold and Hot pain (m.salicylate-menthol)) polyethylene glycol 400 0.25 % eye 2 drp ophthalmic (eye) QID PRN dry 06/26/24 07/13/24 History drops (Blink Tears) eyes sodium phosphates 19 gram-7 118 ml RECTAL DAILY PRN 06/26/24 07/13/24 History gram/118 mL enema (Enema) constipation hydrocodone 5 mg-acetaminophen 300 1 tablet PO Q8H PRN pain #10 tabs 06/29/24 07/13/24 Rx mg tablet prednisone 10 mg tablet 10 mg PO DAILY #20 tabs 06/29/24 07/13/24 Rx hydrocodone 5 mg-acetaminophen 325 1 tablet PO Q8H PRN pain 07/13/24 07/13/24 History mg tablet hydroxyzine pamoate 50 mg capsule 50 mg PO BID PRN anxiety 07/13/24 07/13/24 History ipratropium 18 mcg-albuterol 103 2 spray inhalation .q 6 hr PRN 07/13/24 07/13/24 History mcg/actuation aerosol inhaler shortness of breath magnesium hydroxide 400 mg/5 mL 2,400 mg PO DAILY PRN constipation 07/13/24 07/13/24 History oral suspension (Milk of Magnesia) valproic acid 250 mg capsule 250 mg PO TID 07/13/24 07/13/24 History Allergies Allergy/AdvReac Type Severity Reaction Status Date / Time oxycodone Allergy Intermediate Unknown Verified 07/12/24 15:23 adhesive tape Allergy Unknown Verified 07/12/24 15:23 latex Allergy Unknown Verified 07/12/24 15:23 quetiapine (From Seroquel) Allergy Unknown Verified 07/12/24 15:23 simvastatin Allergy Unknown Verified 07/12/24 15:23 tizanidine Allergy Unknown Verified 07/12/24 15:23 Vital Signs Vital Signs - 24 hr 07/12/24 14:58 07/12/24 15:16 07/12/24 15:22 Temperature 97.6 F Pulse Rate 63 63 Respiratory Rate 17 Blood Pressure 95/83 L Pulse Oximetry 88 L 98 Oxygen Delivery Room Air Nasal Cannula Oxygen Flow Rate 2 Fraction of Inspired Oxygen 07/12/24 16:44 07/12/24 17:54 07/12/24 18:27 Temperature Pulse Rate 68 60 Respiratory Rate 19 19 Blood Pressure 144/62 H 151/54 H Pulse Oximetry 98 100 92 Oxygen Delivery Room Air Oxygen Flow Rate Fraction of Inspired Oxygen 07/12/24 18:27 07/12/24 19:01 07/12/24 19:01 Temperature Pulse Rate 61 70 Respiratory Rate 21 H 20 Blood Pressure 118/61 Pulse Oximetry 92 93 Oxygen Delivery Room Air Oxygen Flow Rate Fraction of Inspired Oxygen 21 07/12/24 20:00 07/12/24 21:56 07/12/24 22:00 Temperature Pulse Rate 65 62 60 Respiratory Rate 20 24 H 19 Blood Pressure Pulse Oximetry 94 95 Oxygen Delivery Oxygen Flow Rate Fraction of Inspired Oxygen 07/12/24 22:02 07/12/24 22:15 07/12/24 22:17 Temperature Pulse Rate 60 58 L 59 L Respiratory Rate 15 14 15 Blood Pressure 136/50 L 138/48 L Pulse Oximetry 95 95 96 Oxygen Delivery Oxygen Flow Rate Fraction of Inspired Oxygen 07/12/24 22:30 07/12/24 22:32 07/12/24 22:45 Temperature Pulse Rate 58 L 58 L 58 L Respiratory Rate 15 15 15 Blood Pressure 125/50 L Pulse Oximetry 96 95 96 Oxygen Delivery Oxygen Flow Rate Fraction of Inspired Oxygen 07/12/24 22:46 07/12/24 23:00 07/12/24 23:02 Temperature Pulse Rate 62 61 59 L Respiratory Rate 17 15 15 Blood Pressure 139/56 L 138/49 L Pulse Oximetry 94 96 95 Oxygen Delivery Oxygen Flow Rate Fraction of Inspired Oxygen 07/13/24 00:05 07/13/24 00:10 Temperature 99.5 F Pulse Rate 60 Respiratory Rate 16 Blood Pressure 124/80 Pulse Oximetry 92 92 Oxygen Delivery Nasal Cannula Oxygen Flow Rate 2 Fraction of Inspired Oxygen Exam 2 Narrative: Weight 99.2 kg BMI 35.3 Const: Other: No acute distress, appears stated age, obese HENMT: Other: Upper and lower dentures in place, mucous membranes are dry, no oral pharyngeal erythema Eyes: Other: Pupils are equal and reactive, no scleral icterus, no conjunctival pallor Neck: Other: No JVD, no lymphadenopathy Resp: Other: Crackles at the right base, no increased work of breathing, no wheezing Cardio: Other: 2/6 systolic murmur at the left upper st ernal border, regular rate, regular rhythm, 2+ bilateral radial pedal pulses GI: Other: Obese, soft, positive bowel sounds, variable exam of tenderness patient yells out how when palpating the abdomen but when I go back and re palpate some of areas of the abdomen a 2nd time she does not make a complaint : Other: Incontinent of urine, depends in place Skin: Other: No pallor, non jaundice, no mottling, 3-4 second cap refill Neuro: Other: Alert oriented to 1st name, some component of echolalia, answers all questions yes or ouch, moves all extremities equally, follow simple commands such as opening her mouth and sticking out her tongue but seems to have difficulty following other commands, no localizing neurologic deficits noted but exam limited as discussed Extrem: Other: No clubbing, cyanosis, patient has 1 +pitting edema to the right lower extremity up through the knee and trace edema to the left lower extremity, and she has postoperative changes of prior right knee replacement with with seems to be some mild chronic flexion with loss of extension Psych: Other: Confused, intermittently cooperative, poor judgment and insight H&P: Results Labs Labs: Laboratory Tests 07/12/24 15:20 07/12/24 15:20 07/12/24 07/12/24 07/12/24 15:20 18:19 19:42 WBC 8.8 RBC 4.06 L Hgb 12.6 Hct 39.7 MCV 97.8 MCH 31.0 MCHC 31.7 L RDW 14.9 H Plt Count 86 L MPV 9.6 Immature Gran % (Auto) 0.5 Neut % (Auto) 67.5 Lymph % (Auto) 17.8 L [place] % (Auto) 14.0 H Eos % (Auto) 0.1 Baso % (Auto) 0.1 L Lymph # (Auto) 1.56 [place] # (Auto) 1.2 H Eos # (Auto) 0.0 Baso # (Auto) 0.0 Abs Immat Gran (auto) 0.04 H Absolute Neuts (auto) 5.9 Absolute Nucleated RBC 0.000 Band Neutrophils % Not Reportable Nucleated RBC % 0.0 Platelet Estimate Decreased % Immature Plt Fraction 1.9 Schistocytes Not Reportable PT 14.8 H INR 1.1 APTT 27.6 Puncture Site Right radial ABG pH 7.444 ABG pCO2 50.8 H ABG pO2 53.8 L ABG PO2/FiO2 Ratio 2.56 ABG HCO3 34.0 H ABG O2 Saturation 88.7 L ABG O2 Content 15.1 L ABG Base Excess 8.5 A-a Gradient 35.1 Oxyhemoglobin 84.4 L* Carboxyhemoglobin 2.0 Methemoglobin 0.2 Reduced Hemoglobin 13.4 H Total Hemoglobin 12.7 O2 Delivery Device Room air O2 Liters/Min Not Reportable FiO2 21 Sodium 140 Potassium 4.0 Chloride 99 Carbon Dioxide 38 H Anion Gap 3 L BUN 22 H D Creatinine 0.95 Estim Creat Clear Calc 59 Estimated GFR 58 L Glucose 120 H Calcium 8.6 Total Bilirubin 0.9 AST 19 ALT 17 Alkaline Phosphatase 83 Total Protein 7.0 Albumin 3.4 L Urine Color Dark yellow Urine Appearance Clear Urine pH 5.5 Ur Specific [place] 1.026 Urine Protein Negative Urine Glucose (UA) Negative Urine Ketones Negative Ur Blood (Man) Negative Urine Nitrate Negative Urine Bilirubin Negative Urine Urobilinogen 1.0 Leukocyte Esterase Rfl Negative Influenza A (RT-PCR) Negative Influenza B (RT-PCR) Negative RSV (RT-PCR) Negative SARS-CoV-2 RNA (RT-PCR) Negative Impressions Chest X-Ray 07/12/24 18:41 IMPRESSION: Right basilar atelectasis versus pneumonia. Clinical correlation advised. Head CT 07/12/24 21:05 IMPRESSION: No acute intracranial findings. EKG: Personally reviewed interpreted. Normal sinus rhythm rate 64 QTC 426 nonspecific T-wave abnormality cardiology interpretation pending All imaging and EKGs personally reviewed and interpreted. And unless stated otherwise agree with radiologic and cardiology interpretation. Assessment and Plan Assessment and plan (1) Acute hypoxic on chronic hypercapnic respiratory failure: Code(s): J96.01 - Acute respiratory failure with hypoxia; J96.12 - Chronic respiratory failure with hypercapnia Status: Acute (2) Pneumonia: Qualifiers: Pneumonia type: due to unspecified organism Laterality: right Lung location: lower lobe of lung Qualified Code(s): J18.9 - Pneumonia, unspecified organism Code(s): J18.9 - Pneumonia, unspecified organism Status: Acute (3) Acute alteration in mental status: Code(s): R41.82 - Altered mental status, unspecified Status: Acute Plan Patient has crackles at the right base with imaging suggestive of pneumonia. Patient does not have a white count or fever but given acute hypoxic respiratory failure on chronic hypercapnic failure pneumonia is suspected. Will continue Rocephin and azithromycin was started in the ER. Will check urine Legionella and urine pneumococcal antigen. Will repeat CBC in a.m.. Will monitor for signs of fever. Patient does have history of COPD and has decreased breath sounds in general but no active wheezing. She was started on Solu-Medrol in the ER. Will continue Solu-Medrol 40 mg q.8 hours and will schedule nebulizer treatments q.6 hours. Will continue home beta agonist/steroid inhaler. Will wean oxygen as tolerated. I suspect a component the patient's hypoxic respiratory failures also due to underlying untreated obstructive sleep apnea. The patient does have crowded posterior oropharynx. No documented polysomnogram noted. The patient is not likely to tolerate CPAP therapy given her baseline psychiatric disorder. Will monitor. The patient does have possible increased confusion from baseline but is difficult to tell her true baseline. I was evaluating the patient in the middle of the night which likely skewed the exam somewhat. Patient is on multiple medications that could cause confusion. Will cut back some of the patient's home pain medications and sedating medications and monitor. The patient was reportedly hypotensive at the [facility] but blood pressures are now hypertensive. Will resume patient's home antihypertensive medications. Quality VTE Prophylaxis VTE prophylaxis: pharmacologic ordered (Continue home Eliquis) Hospitalist [facility] Advance Care Plan I have confirmed that the patient's Advanced Care Plan is present, code status is documented, or surrogate decision maker is listed in patient medical record.: Yes Medication Reconciliation I have utilized all available resources to obtain, update and review the patients current medications (includes all prescriptions, OTC, herbals, cannabis, and nutritional supplements).: Yes
--- NOTE | 2024-07-13 07:24 | PM.IMPN ---
Progress Note: A&P Assessment and Plan (1) Acute hypoxic on chronic hypercapnic respiratory failure: Code(s): J96.01 - Acute respiratory failure with hypoxia; J96.12 - Chronic respiratory failure with hypercapnia Status: Acute Assessment and Plan: - SpO2:94% - Oxygen supplementation: Room air - Suspected cause: - VBG: pH:7.444, pCO2:50.8, pO2:53.8, PO2/FiO2 Ratio:2.56, HCO3: 34.0, Oxyhemoglobin:84.4 - EKG: Sinus Rhythm, Rate: 64, VA 150, QT 412, [id number] - Chest XR:Right basilar atelectasis versus pneumonia. Clinical correlation advised. (2) Pneumonia: Qualifiers: Laterality: right Lung location: lower lobe of lung Pneumonia type: due to unspecified organism Qualified Code(s): J18.9 - Pneumonia, unspecified organism Code(s): J18.9 - Pneumonia, unspecified organism Status: Acute Assessment and Plan: CXR: Right basilar atelectasis versus pneumonia. Clinical correlation advised. - started on CAP tx: azithromycin ceftriaxone on 07/12 - Viral PCR: negative for Flu/COVID/RSV - Ordered legionella and pneumococcal - Maintain O2% above 92%, currently on 2L NC - supportive treatment tyl and ibu prn nebs prn tesslon perles prn - trend labs Monitor vital signs, I&Os, neuro status and patient is a fall risk Follow WBC, serum electrolytes, temperature curves and cultures Send sputum cultures Gentle IV fluid resuscitation Ceftriaxone 1 gram IV q24H and Azithromycin 500mg IV q24H (3) Acute alteration in mental status: Code(s): R41.82 - Altered mental status, unspecified Status: Acute Assessment and Plan: Head CT: No acute intracranial findings. CXR: Right basilar atelectasis versus pneumonia. Clinical correlation advised. UA: Unremarkable Viral PCR: Negative for COVID, Flu A/B, RSV WBC: 7.4 07/13: Patient is A&Ox3 and able to follow commands (4) Schizophrenia: Code(s): F20.9 - Schizophrenia, unspecified Status: Acute Assessment and Plan: Continue Quetiapine and Risperidone Time Spent With Patient Time: Subjective Date/time seen: 07/13/24 07:24 Interval history: 73-year-old female with past medical history of schizophrenia, essential hypertension, diastolic dysfunction, COPD, prior DVT, and dementia who presented to the ER from [facility] via EMS due to low blood pressure and increased confusion. 07/13/2024 Patient examined sitting comfortably in chair. Patient denies any shortness of breath, chest pain, nausea/vomiting, or abdominal pain at this time. She does endorse a slight cough but with no production of sputum. She is currently on room air. She does not appear to be in respiratory distress or have an increased work of breathing. Afebrile with WBC wnl. Review of Systems Review of Systems: All systems reviewed & are unremarkable except as noted in HPI and below Constitutional: Constitutional: Reports no additional constitutional complaints Eyes: Eyes: Reports no additional eye complaints Cardiovascular: Cardiovascular: Reports no additional cardiovascular complaints Respiratory: Respiratory: Reports no additional respiratory complaints and Reports cough Gastrointestinal: Gastrointestinal: Reports no additional gastrointestinal complaints Musculoskeletal: Musculoskeletal: Reports no additional musculoskeletal complaints Neurologic: Reports as per HPI Psychiatric: Psychiatric: Reports as per HPI Exam Narrative: Weight 99.2 kg BMI 35.3 Const: Other: No acute distress, appears stated age, obese HENMT: Other: Upper and lower dentures in place, mucous membranes are dry, no oral pharyngeal erythema Eyes: Other: Pupils are equal and reactive, no scleral icterus, no conjunctival pallor Neck: Other: No JVD, no lymphadenopathy Resp: Other: Crackles at the right base, no increased work of breathing, no wheezing Cardio: Other: 2/6 systolic murmur at the left upper sternal border, regular rate, regular rhythm, 2+ bilateral radial pedal pulses GI: Other: Obese, soft, positive bowel sounds, no abdominal tenderness upon palpitation, guarding, or rebound tenderness : Other: Incontinent of urine, depends in place Skin: Other: No pallor, non jaundice, no mottling, 3-4 second cap refill Neuro: Other: Alert oriented to 1st name, location and time. Extrem: Other: No clubbing, cyanosis, patient has 1 +pitting edema to the right lower extremity up through the knee and trace edema to the left lower extremity, and she has postoperative changes of prior right knee replacement with with seems to be some mild chronic flexion with loss of extension Psych: Mental Status: mental status grossly normal Affect: normal affect Objective Data Vital Signs Vital Signs: Vital Signs - 24 hr 07/12/24 14:58 07/12/24 15:16 07/12/24 15:22 Temperature 97.6 F Pulse Rate 63 63 Respiratory Rate 17 Blood Pressure 95/83 L Pulse Oximetry 88 L 98 Oxygen Delivery Room Air Nasal Cannula Oxygen Flow Rate 2 Fraction of Inspired Oxygen 07/12/24 16:44 07/12/24 17:54 07/12/24 18:27 Temperature Pulse Rate 68 60 Respiratory Rate 19 19 Blood Pressure 144/62 H 151/54 H Pulse Oximetry 98 100 92 Oxygen Delivery Room Air Oxygen Flow Rate Fraction of Inspired Oxygen 07/12/24 18:27 07/12/24 19:01 07/12/24 19:01 Temperature Pulse Rate 61 70 Respiratory Rate 21 H 20 Blood Pressure 118/61 Pulse Oximetry 92 93 Oxygen Delivery Room Air Oxygen Flow Rate Fraction of Inspired Oxygen 21 07/12/24 20:00 07/12/24 21:56 07/12/24 22:00 Temperature Pulse Rate 65 62 60 Respiratory Rate 20 24 H 19 Blood Pressure Pulse Oximetry 94 95 Oxygen Delivery Oxygen Flow Rate Fraction of Inspired Oxygen 07/12/24 22:02 07/12/24 22:15 07/12/24 22:17 Temperature Pulse Rate 60 58 L 59 L Respiratory Rate 15 14 15 Blood Pressure 136/50 L 138/48 L Pulse Oximetry 95 95 96 Oxygen Delivery Oxygen Flow Rate Fraction of Inspired Oxygen 07/12/24 22:30 07/12/24 22:32 07/12/24 22:45 Temperature Pulse Rate 58 L 58 L 58 L Respiratory Rate 15 15 15 Blood Pressure 125/50 L Pulse Oximetry 96 95 96 Oxygen Delivery Oxygen Flow Rate Fraction of Inspired Oxygen 07/12/24 22:46 07/12/24 23:00 07/12/24 23:02 Temperature Pulse Rate 62 61 59 L Respiratory Rate 17 15 15 Blood Pressure 139/56 L 138/49 L Pulse Oximetry 94 96 95 Oxygen Delivery Oxygen Flow Rate Fraction of Inspired Oxygen 07/13/24 00:05 07/13/24 00:10 07/13/24 05:41 Temperature 99.5 F 98.1 F Pulse Rate 60 64 Respiratory Rate 16 16 Blood Pressure 124/80 161/75 H Pulse Oximetry 92 92 95 Oxygen Delivery Nasal Cannula Oxygen Flow Rate 2 Fraction of Inspired Oxygen Intake/Output Intake/Output: Intake & Output 03/1107/11/24 07/12/24 07/13/24 23:59 23:59 23:59 23:59 Intake Total 350 500 Output Total 100 Balance 250 500 Meds/Results Medications: Active Medications Generic Name Dose Route Start Last Admin Trade Name Freq PRN Reason Stop Dose Admin Acetaminophen 650 mg 07/12/24 22:19 Acetaminophen 325 Mg Tablet PO Q4H PRN Mild Pain (1-3) or Fever Hydrocodone Bitart/Acetaminophen 1 tab 07/13/24 06:14 Hydrocodone/Acetaminophen (*Crx) 5-325 Mg Tablet PO Q8H PRN pain 4-10 Albuterol/Ipratropium 3 ml 07/13/24 08:00 Ipratropium 0.5 Mg/Albuterol Sulfate 2.5 Mg Ampul.Neb 3 Ml INHALATION Q6HRT [facility] Apixaban 5 mg 07/13/24 09:00 Apixaban 5 Mg Tablet PO Q12HR [facility] Atorvastatin Calcium 20 mg 07/13/24 09:00 Atorvastatin 20 Mg Tablet PO DAILY [facility] Baclofen 5 mg 07/13/24 09:00 Baclofen 5 Mg Tablet PO BID [facility] Bisacodyl 10 mg 07/13/24 06:14 Bisacodyl 10 Mg Suppository RECTAL DAILY PRN Constipation Carvedilol 6.25 mg 07/13/24 09:00 Carvedilol 6.25 Mg Tablet PO Q12HR [facility] Divalproex Sodium 500 mg 07/13/24 09:00 Divalproex Sodium Er 500 Mg Tab.24h PO Q12HR [facility] Docusate Sodium 100 mg 07/13/24 09:00 Docusate Sodium 100 Mg Capsule PO Q12HR [facility] Escitalopram Oxalate 20 mg 07/13/24 09:00 Escitalopram Oxalate 10 Mg Tablet PO DAILY [facility] Famotidine 20 mg 07/13/24 09:00 Famotidine 20 Mg Tablet PO Q12HR [facility] Gabapentin 100 mg 07/13/24 09:00 Gabapentin 100 Mg Capsule PO BID [facility] Hydralazine HCl 10 mg 07/13/24 09:00 Hydralazine 10 Mg Tablet PO Q12HR [facility] Hydroxyzine Pamoate 50 mg 07/13/24 06:43 Hydroxyzine Pamoate 25 Mg Capsule PO BID PRN anxiety Ceftriaxone Sodium 1 gm in 50 mls @ 100 mls/hr 07/13/24 22:00 Rocephin 1 Gm/Ns 50 Ml IVPB Q24H [facility] Azithromycin 500 mg in 250 mls @ 250 mls/hr 07/13/24 23:00 Zithromax IVPB Q24H [facility] Lisinopril 40 mg 07/13/24 09:00 Lisinopril 20 Mg Tablet PO DAILY [facility] Melatonin 5 mg 07/13/24 21:00 Melatonin 5 Mg Tablet PO HS [facility] Methylprednisolone Sodium Succinate 40 mg 07/13/24 07:00 Methylprednisolone Sod Succ 40 Mg Vial IV PUSH Q6HR [facility] Metoprolol Tartrate 12.5 mg 07/13/24 09:00 Metoprolol Tartrate 12.5 Mg Tablet PO Q12HR [facility] Multivitamins/Minerals 1 tab 07/13/24 09:00 Multivitamins /C Lutein (Centrum Silver) Tablet *Bkc PO DAILY [facility] Polyethylene Glycol 17 gm 07/13/24 06:14 Polyethylene Glycol 3350 17 Gm Powd.Pack PO DAILY PRN Constipation Quetiapine Fumarate 100 mg 07/13/24 18:00 Quetiapine Fumarate Xr 50 Mg Tab.Er.24h PO QPM [facility] Risperidone 1 mg 07/13/24 09:00 Risperidone 1 Mg Tablet PO TID [facility] Fluticasone/Salmeterol 2 puff 07/13/24 08:00 Fluticasone/Salmeterol 115-21 Mcg Inhaler 1 Puff INHALATION Q12HRT [facility] Spironolactone 25 mg 07/13/24 09:00 Spironolactone 25 Mg Tablet PO DAILY [facility] Valproic Acid 250 mg 07/13/24 09:00 Valproic Acid 250 Mg Capsule PO TID [facility] Vitamin D 1,000 units 07/13/24 09:00 Cholecalciferol 1,000 Units Tablet PO DAILY [facility] Radiology Results: ITS Impressions Chest X-Ray 07/12/24 18:41 IMPRESSION: Right basilar atelectasis versus pneumonia. Clinical correlation advised. Head CT 07/12/24 21:05 IMPRESSION: No acute intracranial findings. Labs Labs: Laboratory Results - last 24 hr 07/12/24 07/12/24 07/12/24 15:20 18:19 19:42 WBC 8.8 RBC 4.06 L Hgb 12.6 Hct 39.7 MCV 97.8 MCH 31.0 MCHC 31.7 L RDW 14.9 H Plt Count 86 L MPV 9.6 Immature Gran % (Auto) 0.5 Neut % (Auto) 67.5 Lymph % (Auto) 17.8 L Pepin % (Auto) 14.0 H Eos % (Auto) 0.1 Baso % (Auto) 0.1 L Lymph # (Auto) 1.56 Pepin # (Auto) 1.2 H Eos # (Auto) 0.0 Baso # (Auto) 0.0 Abs Immat Gran (auto) 0.04 H Absolute Neuts (auto) 5.9 Absolute Nucleated RBC 0.000 Band Neutrophils % Not Reportable Nucleated RBC % 0.0 Platelet Estimate Decreased % Immature Plt Fraction 1.9 Schistocytes Not Reportable PT 14.8 H INR 1.1 APTT 27.6 Puncture Site Right radial ABG pH 7.444 ABG pCO2 50.8 H ABG pO2 53.8 L ABG PO2/FiO2 Ratio 2.56 ABG HCO3 34.0 H ABG O2 Saturation 88.7 L ABG O2 Content 15.1 L ABG Base Excess 8.5 A-a Gradient 35.1 Oxyhemoglobin 84.4 L* Carboxyhemoglobin 2.0 Methemoglobin 0.2 Reduced Hemoglobin 13.4 H Total Hemoglobin 12.7 O2 Delivery Device Room air O2 Liters/Min Not Reportable FiO2 21 Sodium 140 Potassium 4.0 Chloride 99 Carbon Dioxide 38 H Anion Gap 3 L BUN 22 H D Creatinine 0.95 Estim Creat Clear Calc 59 Estimated GFR 58 L Glucose 120 H Calcium 8.6 Total Bilirubin 0.9 AST 19 ALT 17 Alkaline Phosphatase 83 Total Protein 7.0 Albumin 3.4 L Urine Color Dark yellow Urine Appearance Clear Urine pH 5.5 Ur Specific [place] 1.026 Urine Protein Negative Urine Glucose (UA) Negative Urine Ketones Negative Ur Blood (Man) Negative Urine Nitrate Negative Urine Bilirubin Negative Urine Urobilinogen 1.0 Leukocyte Esterase Rfl Negative Influenza A (RT-PCR) Negative Influenza B (RT-PCR) Negative RSV (RT-PCR) Negative SARS-CoV-2 RNA (RT-PCR) Negative Quality VTE Prophylaxis VTE prophylaxis: pharmacologic ordered (Continue home Eliquis) Hospitalist MIPS Advance Care Plan I have confirmed that the patient's Advanced Care Plan is present, code status is documented, or surrogate decision maker is listed in patient medical record.: Yes Medication Reconciliation I have utilized all available resources to obtain, update and review the patients current medications (includes all prescriptions, OTC, herbals, cannabis, and nutritional supplements).: Yes
[2024-07-13 08:16] LABS: Hematocrit 36.9 % (37.0-47.0); Hemoglobin 11.9 g/dL (12.0-15.0); Immature Platelet Fraction Pct 3.3 % (0.9-11.2); Mean Corpuscular HGB Conc 32.2 g/dl (32-36); Mean Corpuscular Hemoglobin 31.3 pg (26-34); Mean Corpuscular Volume 97.1 fl (80-100); Mean Platelet Volume 10.2 fl (7.4-10.4); Red Cell Distribution Width 14.2 % (11.5-14.5); White Blood Count 7.4 K/mm3 (4.5-10.0)
[2024-07-13 08:22] LABS: Anion Gap 6 mmol/L (4-12); Blood Urea Nitrogen 23 mg/dL (7-17); Calcium 8.8 mg/dL (8.4-10.2); Carbon Dioxide 34 mmol/L (22-30); Chloride 100 mmol/L (98-107); Estimated CRCL calculation 70 ml/min; Estimated Glomerular Filt Rate > 60; Glucose 145 mg/dL (65-110); Potassium 4.3 mmol/L (3.4-5.0); Sodium 140 mmol/L (137-145)
[2024-07-13 08:31] LABS: Platelet Count Result 75 k/mm3 (150-375)
[2024-07-13] MEDS: FAMOTIDINE 20 MG TABLET PO ×2 (10:25→20:52)
[2024-07-13] MEDS: METOPROLOL TARTRATE 12.5 MG TABLET PO ×2 (10:25→20:49)
[2024-07-13] MEDS: hydrALAZINE 10 MG TABLET PO ×2 (10:25→20:52)
[2024-07-13] MEDS: SPIRONOLACTONE 25 MG TABLET PO (10:26)
[2024-07-13] MEDS: ATORVASTATIN 20 MG TABLET PO (10:26)
[2024-07-13] MEDS: risperiDONE 1 MG TABLET PO ×2 (10:26→16:44)
[2024-07-13] MEDS: carvediloL 6.25 MG TABLET PO ×2 (10:26→20:52)
[2024-07-13] MEDS: lisinopriL 20 MG TABLET 40 MG PO (10:27)
[2024-07-13] MEDS: GABAPENTIN 100 MG CAPSULE PO ×2 (10:27→16:43)
[2024-07-13] MEDS: MULTIVITAMINS /C LUTEIN (CENTRUM SILVER) TABLET *BKC 1 TAB PO (10:27)
[2024-07-13] MEDS: APIXABAN 5 MG TABLET PO ×2 (10:27→20:52)
[2024-07-13] MEDS: BACLOFEN 5 MG TABLET PO ×2 (10:27→16:44)
[2024-07-13] MEDS: CHOLECALCIFEROL 1,000 UNITS TABLET 1000 UNITS PO (10:27)
[2024-07-13] MEDS: DOCUSATE SODIUM 100 MG CAPSULE PO ×2 (10:27→20:49)
[2024-07-13] MEDS: ESCITALOPRAM OXALATE 10 MG TABLET 20 MG PO (10:27)
[2024-07-13] MEDS: methylPREDNISolone SOD SUCC 40 MG VIAL IV PUSH ×3 (10:30→23:42)
[2024-07-13] MEDS: VALPROIC ACID 250 MG CAPSULE PO ×2 (10:31→16:43)
[2024-07-13] MEDS: DIVALPROEX SODIUM ER 500 MG TAB.24H PO ×2 (10:31→20:52)
[2024-07-13] MEDS: QUEtiapine FUMARATE XR 50 MG TAB.ER.24H 100 MG PO (17:51)
[2024-07-13] MEDS: MELATONIN 5 MG TABLET PO (20:53)
[2024-07-13] MEDS: IPRATROPIUM 0.5 MG/ALBUTEROL SULFATE 2.5 MG AMPUL.NEB 3 ML INHALATION (21:17)
[2024-07-13] MEDS: FLUTICASONE/SALMETEROL 115-21 MCG INHALER 1 PUFF 2 PUFF INHALATION (21:18)
[2024-07-14] VITALS (10 sets, daily range): BP systolic 108–153; BP diastolic 55–76; PULSE 56–92; RESP 18; TEMP 36.8; O2SAT 93–96
[2024-07-14] MEDS: AZITHROMYCIN 500 MG/NS 250 ML 500 MG/250 ML BAG 250 MG IVPB (00:22)
[2024-07-14] MEDS: IPRATROPIUM 0.5 MG/ALBUTEROL SULFATE 2.5 MG AMPUL.NEB 3 ML INHALATION ×2 (01:52→09:26)
[2024-07-14] MEDS: methylPREDNISolone SOD SUCC 40 MG VIAL IV PUSH ×2 (07:03→11:39)
--- NOTE | 2024-07-14 07:32 | P.PNIM_ITS ---
Progress Note: A&P Assessment and Plan (1) Acute hypoxic on chronic hypercapnic respiratory failure: Code(s): J96.01 - Acute respiratory failure with hypoxia; J96.12 - Chronic respiratory failure with hypercapnia Status: Acute Assessment and Plan: - SpO2:94% - Oxygen supplementation: Room air - Suspected cause: - VBG: pH:7.444, pCO2:50.8, pO2:53.8, PO2/FiO2 Ratio:2.56, HCO3: 34.0, Oxyhemoglobin:84.4 - EKG: Sinus Rhythm, Rate: 64, DE 150, QT 412, [id number] - Chest XR:Right basilar atelectasis versus pneumonia. Clinical correlation advised. (2) Pneumonia: Qualifiers: Laterality: right Lung location: lower lobe of lung Pneumonia type: due to unspecified organism Qualified Code(s): J18.9 - Pneumonia, unspecified organism Code(s): J18.9 - Pneumonia, unspecified organism Status: Acute Assessment and Plan: CXR: Right basilar atelectasis versus pneumonia. Clinical correlation advised. - started on CAP tx: azithromycin ceftriaxone on 07/12 - Viral PCR: negative for Flu/COVID/RSV - Ordered legionella and pneumococcal - Maintain O2% above 92%, currently on 2L NC - supportive treatment tyl and ibu prn nebs prn tesslon perles prn - trend labs Monitor vital signs, I&Os, neuro status and patient is a fall risk Follow WBC, serum electrolytes, temperature curves and cultures Send sputum cultures Gentle IV fluid resuscitation Ceftriaxone 1 gram IV q24H and Azithromycin 500mg IV q24H (3) Acute alteration in mental status: Code(s): R41.82 - Altered mental status, unspecified Status: Acute Assessment and Plan: Head CT: No acute intracranial findings. CXR: Right basilar atelectasis versus pneumonia. Clinical correlation advised. UA: Unremarkable Viral PCR: Negative for COVID, Flu A/B, RSV WBC: 7.4 07/13: Patient is A&Ox3 and able to follow commands (4) Schizophrenia: Code(s): F20.9 - Schizophrenia, unspecified Status: Acute Assessment and Plan: Continue Quetiapine and Risperidone Subjective Date/time seen: 07/14/24 07:32 Interval history: 73-year-old female with past medical history of schizophrenia, essential hypertension, diastolic dysfunction, COPD, prior DVT, and dementia who presented to the ER from [facility] via EMS due to low blood pressure and increased confusion. 07/13/2024 Review of Systems Review of Systems: Unobtainable due to the patient's history of schizophrenia and chronic memory loss. All systems reviewed & are unremarkable except as noted in HPI and below Constitutional: Constitutional: Reports no additional constitutional com plaints Eyes: Eyes: Reports no additional eye complaints Cardiovascular: Cardiovascular: Reports no additional cardiovascular complaints Respiratory: Respiratory: Reports no additional respiratory complaints and Reports cough Gastrointestinal: Gastrointestinal: Reports no additional gastrointestinal complaints Musculoskeletal: Musculoskeletal: Reports no additional musculoskeletal complaints Neurologic: Reports as per HPI Psychiatric: Psychiatric: Reports as per HPI Exam Narrative: Weight 99.2 kg BMI 35.3 Const: Other: No acute distress, appears stated age, obese HENMT: Other: Upper and lower dentures in place, mucous membranes are dry, no oral pharyngeal erythema Eyes: Other: Pupils are equal and reactive, no scleral icterus, no conjunctival pallor Neck: Other: No JVD, no lymphadenopathy Resp: Other: Crackles at the right base, no increased work of breathing, no wheezing Cardio: Other: 2/6 systolic murmur at the left upper st ernal border, regular rate, regular rhythm, 2+ bilateral radial pedal pulses GI: Other: Obese, soft, positive bowel sounds, no abdominal tenderness upon palpitation, guarding, or rebound tenderness : Other: Incontinent of urine, depends in place Skin: Other: No pallor, non jaundice, no mottling, 3-4 second cap refill Neuro: Other: Alert oriented to 1st name, location and time. Extrem: Other: No clubbing, cyanosis, patient has 1 +pitting edema to the right lower extremity up through the knee and trace edema to the left lower extremity, and she has postoperative changes of prior right knee replacement with with seems to be some mild chronic flexion with loss of extension Psych: Mental Status: mental status grossly normal Affect: normal affect Other: Confused, intermittently cooperative, poor judgment and insight Objective Data Vital Signs Vital Signs: Vital Signs - 24 hr 07/13/24 10:25 07/13/24 10:25 07/13/24 10:26 Temperature Pulse Rate 62 62 Respiratory Rate Blood Pressure Pulse Oximetry 94 Oxygen Delivery Room Air Oxygen Flow Rate Fraction of Inspired Oxygen 07/13/24 14:00 07/13/24 20:00 07/13/24 20:49 Temperature 97.6 F Pulse Rate 57 L 56 L Respiratory Rate 18 Blood Pressure 92/65 L Pulse Oximetry 93 95 Oxygen Delivery Nasal Cannula Oxygen Flow Rate 2 Fraction of Inspired Oxygen 2 07/13/24 20:52 07/13/24 21:17 07/13/24 21:17 Temperature Pulse Rate 55 L 54 L Respiratory Rate 18 Blood Pressure Pulse Oximetry 92 Oxygen Delivery Nasal Cannula Oxygen Flow Rate 2 Fraction of Inspired Oxygen 07/13/24 21:22 07/13/24 22:00 07/14/24 01:53 Temperature 98.8 F Pulse Rate 60 59 L 58 L Respiratory Rate 18 18 18 Blood Pressure 101/59 L Pulse Oximetry 95 Oxygen Delivery Oxygen Flow Rate Fraction of Inspired Oxygen 07/14/24 02:06 07/14/24 06:00 Temperature 98.2 F Pulse Rate 62 58 L Respiratory Rate 18 18 Blood Pressure 108/55 L Pulse Oximetry 96 Oxygen Delivery Oxygen Flow Rate Fraction of Inspired Oxygen Intake/Output Intake/Output: Intake & Output 07/11/24 07/12/24 07/13/24 07/14/24 23:59 23:59 23:59 23:59 Intake Total 350 1220 50 Output Total 100 Balance 250 1220 50 Meds/Results Medications: Active Medications Generic Name Dose Route Start Last Admin Trade Name Freq PRN Reason Stop Dose Admin Acetaminophen 650 mg 07/12/24 22:19 Acetaminophen 325 Mg Tablet PO Q4H PRN Mild Pain (1-3) or Fever Hydrocodone Bitart/Acetaminophen 1 tab 07/13/24 06:14 Hydrocodone/Acetaminophen (*Crx) 5-325 Mg Tablet PO Q8H PRN pain 4-10 Albuterol/Ipratropium 3 ml 07/13/24 08:00 07/14/24 01:52 Ipratropium 0.5 Mg/Albuterol Sulfate 2.5 Mg Ampul.Neb 3 Ml INHALATION 3 ml Q6HRT [facility] Administration Apixaban 5 mg 07/13/24 09:00 07/13/24 20:52 Apixaban 5 Mg Tablet PO 5 mg Q12HR [facility] Administration Atorvastatin Calcium 20 mg 07/13/24 09:00 07/13/24 10:26 Atorvastatin 20 Mg Tablet PO 20 mg DAILY [facility] Administration Baclofen 5 mg 07/13/24 09:00 07/13/24 16:44 Baclofen 5 Mg Tablet PO 5 mg BID [facility] Administration Bisacodyl 10 mg 07/13/24 06:14 Bisacodyl 10 Mg Suppository RECTAL DAILY PRN Constipation Carvedilol 6.25 mg 07/13/24 09:00 07/13/24 20:52 Carvedilol 6.25 Mg Tablet PO 6.25 mg Q12HR [facility] Administration Divalproex Sodium 500 mg 07/13/24 09:00 07/13/24 20:52 Divalproex Sodium Er 500 Mg Tab.24h PO 500 mg Q12HR [facility] Administration Docusate Sodium 100 mg 07/13/24 09:00 07/13/24 20:49 Docusate Sodium 100 Mg Capsule PO 100 mg Q12HR [facility] Administration Escitalopram Oxalate 20 mg 07/13/24 09:00 07/13/24 10:27 Escitalopram Oxalate 10 Mg Tablet PO 20 mg DAILY [facility] Administration Famotidine 20 mg 07/13/24 09:00 07/13/24 20:52 Famotidine 20 Mg Tablet PO 20 mg Q12HR [facility] Administration Gabapentin 100 mg 07/13/24 09:00 07/13/24 16:43 Gabapentin 100 Mg Capsule PO 100 mg BID [facility] Administration Hydralazine HCl 10 mg 07/13/24 09:00 07/13/24 20:52 Hydralazine 10 Mg Tablet PO 10 mg Q12HR [facility] Administration Hydroxyzine Pamoate 50 mg 07/13/24 06:43 Hydroxyzine Pamoate 25 Mg Capsule PO BID PRN anxiety Ceftriaxone Sodium 1 gm in 50 mls @ 100 mls/hr 07/13/24 22:00 07/14/24 00:12 Rocephin 1 Gm/Ns 50 Ml IVPB Infused Q24H [facility] Infusion Azithromycin 500 mg in 250 mls @ 250 mls/hr 07/13/24 23:00 07/14/24 00:22 Zithromax IVPB 250 mls/hr Q24H [facility] Administration Lisinopril 40 mg 07/13/24 09:00 07/13/24 10:27 Lisinopril 20 Mg Tablet PO 40 mg DAILY [facility] Administration Melatonin 5 mg 07/13/24 21:00 07/13/24 20:53 Melatonin 5 Mg Tablet PO 5 mg HS [facility] Administration Methylprednisolone Sodium Succinate 40 mg 07/13/24 07:00 07/14/24 07:03 Methylprednisolone Sod Succ 40 Mg Vial IV PUSH 40 mg Q6HR [facility] Administration Metoprolol Tartrate 12.5 mg 07/13/24 09:00 07/13/24 20:49 Metoprolol Tartrate 12.5 Mg Tablet PO 12.5 mg Q12HR [facility] Administration Multivitamins/Minerals 1 tab 07/13/24 09:00 07/13/24 10:27 Multivitamins /C Lutein (Centrum Silver) Tablet *Bkc PO 1 tab DAILY [facility] Administration Polyethylene Glycol 17 gm 07/13/24 06:14 Polyethylene Glycol 3350 17 Gm Powd.Pack PO DAILY PRN Constipation Quetiapine Fumarate 100 mg 07/13/24 18:00 07/13/24 17:51 Quetiapine Fumarate Xr 50 Mg Tab.Er.24h PO 100 mg QPM [facility] Administration Risperidone 1 mg 07/13/24 09:00 07/13/24 16:44 Risperidone 1 Mg Tablet PO 1 mg TID [facility] Administration Fluticasone/Salmeterol 2 puff 07/13/24 08:00 07/13/24 21:18 Fluticasone/Salmeterol 115-21 Mcg Inhaler 1 Puff INHALATION 2 puff Q12HRT [facility] Administration Spironolactone 25 mg 07/13/24 09:00 07/13/24 10:26 Spironolactone 25 Mg Tablet PO 25 mg DAILY [facility] Administration Valproic Acid 250 mg 07/13/24 09:00 07/13/24 16:43 Valproic Acid 250 Mg Capsule PO 250 mg TID [facility] Administration Vitamin D 1,000 units 07/13/24 09:00 07/13/24 10:27 Cholecalciferol 1,000 Units Tablet PO 1,000 units DAILY [facility] Administration Radiology Results: ITS Impressions Chest X-Ray 07/12/24 18:41 IMPRESSION: Right basilar atelectasis versus pneumonia. Clinical correlation advised. Head CT 07/12/24 21:05 IMPRESSION: No acute intracranial findings. Labs Labs: Laboratory Results - last 24 hr 07/13/24 07:46 WBC 7.4 RBC 3.80 L Hgb 11.9 L Hct 36.9 L MCV 97.1 MCH 31.3 MCHC 32.2 RDW 14.2 Plt Count 75 L MPV 10.2 % Immature Plt Fraction 3.3 Sodium 140 Potassium 4.3 Chloride 100 Carbon Dioxide 34 H Anion Gap 6 BUN 23 H Creatinine 0.76 Estim Creat Clear Calc 70 Estimated GFR > 60 Glucose 145 H Calcium 8.8 Quality VTE Prophylaxis VTE prophylaxis: pharmacologic ordered (Continue home Eliquis)
[2024-07-14 08:12] LABS: Basophils Percent Auto 0.2 % (0.2-1.2); Hematocrit 36.9 % (37.0-47.0); Hemoglobin 11.9 g/dL (12.0-15.0); Immature Granulocyte Absolute 0.02 K/mm3 (0.00-0.031); Immature Granulocyte Percent A 0.3 % (0-0.5); Immature Platelet Fraction Pct 3.5 % (0.9-11.2); Mean Corpuscular HGB Conc 32.2 g/dl (32-36); Mean Corpuscular Volume 96.1 fl (80-100); Mean Platelet Volume 9.7 fl (7.4-10.4); Monocytes Absolute Auto 0.2 K/mm3 (0.1-0.6); Monocytes Percent Auto 2.3 % (2.6-8.5); Neutrophils Absolute Auto 5.9 K/mm3 (1.3-6.7); Neutrophils Percent Auto 88.2 % (45.5-73.1); Platelet Count Result 86 k/mm3 (150-375); Red Blood Count 3.84 M/mm3 (4.2-5.4); White Blood Count 6.6 K/mm3 (4.5-10.0)
[2024-07-14 08:24] LABS: Alanine Aminotransferase 18 U/L (6-35); Albumin Level 3.4 g/dL (3.5-5.1); Alkaline Phosphatase 69 U/L (38-126); Anion Gap 6 mmol/L (4-12); Aspartate Amino Transferase 20 U/L (14-36); Bilirubin,Total 0.4 mg/dL (0.2-1.3); Blood Urea Nitrogen 31 mg/dL (7-17); Calcium 8.6 mg/dL (8.4-10.2); Carbon Dioxide 31 mmol/L (22-30); Chloride 100 mmol/L (98-107); Estimated CRCL calculation 79 ml/min; Estimated Glomerular Filt Rate > 60; Glucose 190 mg/dL (65-110); Potassium 4.6 mmol/L (3.4-5.0); Sodium 137 mmol/L (137-145)
[2024-07-14] MEDS: MULTIVITAMINS /C LUTEIN (CENTRUM SILVER) TABLET *BKC 1 TAB PO (09:12)
[2024-07-14] MEDS: APIXABAN 5 MG TABLET PO (09:13)
[2024-07-14] MEDS: lisinopriL 20 MG TABLET 40 MG PO (09:16)
[2024-07-14] MEDS: METOPROLOL TARTRATE 12.5 MG TABLET PO (09:16)
[2024-07-14] MEDS: BACLOFEN 5 MG TABLET PO (09:17)
[2024-07-14] MEDS: CHOLECALCIFEROL 1,000 UNITS TABLET 1000 UNITS PO (09:17)
[2024-07-14] MEDS: VALPROIC ACID 250 MG CAPSULE PO ×2 (09:17→12:36)
[2024-07-14] MEDS: hydrALAZINE 10 MG TABLET PO (09:17)
[2024-07-14] MEDS: ATORVASTATIN 20 MG TABLET PO (09:17)
[2024-07-14] MEDS: GABAPENTIN 100 MG CAPSULE PO (09:18)
[2024-07-14] MEDS: DIVALPROEX SODIUM ER 500 MG TAB.24H PO (09:18)
[2024-07-14] MEDS: ESCITALOPRAM OXALATE 10 MG TABLET 20 MG PO (09:18)
[2024-07-14] MEDS: DOCUSATE SODIUM 100 MG CAPSULE PO (09:19)
[2024-07-14] MEDS: SPIRONOLACTONE 25 MG TABLET PO (09:19)
[2024-07-14] MEDS: carvediloL 6.25 MG TABLET PO (09:19)
[2024-07-14] MEDS: FAMOTIDINE 20 MG TABLET PO (09:19)
[2024-07-14] MEDS: risperiDONE 1 MG TABLET PO ×2 (09:19→12:35)
[2024-07-14] MEDS: FLUTICASONE/SALMETEROL 115-21 MCG INHALER 1 PUFF 2 PUFF INHALATION (09:27)
--- NOTE | 2024-07-14 10:30 | PM.DS ---
DS: Admitting Diagnosis Discharge Date 07/14/2024 Admitting Diagnosis Altered mental status DS: Summary Hospital Course Hospital Course: 73-year-old female with past medical history of schizophrenia, essential hypertension, diastolic dysfunction, COPD, prior DVT, and dementia who presented to the ER from [facility] via EMS due to low blood pressure and increased confusion. The patient does not wear chronic oxygen but does have 2 L nasal cannula available as needed at the [place] [facility]. The patient was found to be satting 88-89% on room air was placed on 4 L nasal cannula by EMS. When she arrived to our facility she was placed on 2 L nasal cannula satting 92-95%. The patient was reportedly alert orient x2 in the ER. At time my evaluation the patient was oriented to her 1st name and repetitively stated her 1st name but otherwise was answering yes or ouch to questions. The patient was not able to provide any significant meaningful history. She was not noted to be coughing on the time of my exam and did have 2 L nasal cannula in place. She was not in any respiratory distress. She has been afebrile since presentation. Her white count was normal in the ER and her viral PCR panel was negative. Her UA was not suggestive of infection. CT of the head did not demonstrate any acute process. X-ray demonstrated possible right basilar atelectasis versus pneumonia. Exam of the patient was difficult as she would yell out randomly how even at times when staff was not touching the patient. Sews difficult to tell if the patient was having areas of pain or simply vocalizing/acting out. Patient was unable to participate in history taking process and subsequently majority of information was obtained from review of EMS records, ER physician records and past medical records. Upon examination on 07/13/24 patient was A&Ox4 and compliant. Exam was performed and patient was very pleasant. She was not on O2 supplementation upon exam either and had an O2% of 95%. At this time, she denied any shortness of breath, chest pain, abdominal pain, or urinary/bowel changes. This persisted until the AM of 07/14/2024 to where she expressed great desire in being discharged back to her nursing care facility. Upon exam again, the patient did not appear to be in respiratory distress, had an O2% of 97% on RA, denied any coughing, sputum production, or chest pain. Upon exam she did not have any adventitious lung sounds and has maintained a WBC wnl. As patient is able to intake PO meds, it was determined that patient is stable for discharge with continued antibiotic treatment upon discharge with inclusion of Doxycycline instead of Azithromycin and Augmentin. Patient is amenable to this plan. Status at Discharge Overall status at discharge: patient is back to baseline Time Spent with Patient Time attestation: Total time spent providing and/or coordinating discharge services: 45 Exam Narrative: Gen - well appearing female in no acute respiratory distress who is nontoxic-appearing lying semi recumbent in bed HEENT - normocephalic. Atraumatic. Pupils equal round and reactive. Extraocular motions intact. Sclera clear and anicteric. Nares patent. Oropharynx was clear. No oral lesions. Upper and lower dentures in place, mucous membranes are dry, no oral pharyngeal erythema Neck - neck was supple. No dominant adenopathy, thyromegaly or masses. 2+ carotid upstrokes without bruits. Chest - lungs are clear to auscultation bilaterally. No wheezes or crackles. Breast exam was deferred. CV - 2/6 systolic murmur at the left upper sternal border, regular rate, regular rhythm, 2+ bilateral radial pedal pulses Abd - abdomen was soft. Nontender. Nondistended. Positive bowel sounds. No organomegaly or masses. Ext - no clubbing, cyanosis or edema. 2+ DP pulses bilaterally. Neuro - patient is alert and oriented x4. Strength is 5/5 in both upper and lower extremities. Cranial nerves 2-12 are intact. Speech is clear. Psych - normal mood and affect. Patient is pleasant and cooperative. Skin - warm and dry. No rashes noted. DS: Data Data Completed and Pending Labs on day of discharge: Labs from last 24 hours 07/14/24 07/13/24 08:01 16:53 WBC 6.6 RBC 3.84 L Hgb 11.9 L Hct 36.9 L MCV 96.1 MCH 31.0 MCHC 32.2 RDW 14.0 Plt Count 86 L MPV 9.7 Immature Gran % (Auto) 0.3 Neut % (Auto) 88.2 H Lymph % (Auto) 9.0 L Glenn % (Auto) 2.3 L Eos % (Auto) 0.0 Baso % (Auto) 0.2 Lymph # (Auto) 0.60 L Glenn # (Auto) 0.2 Eos # (Auto) 0.0 Baso # (Auto) 0.0 Abs Immat Gran (auto) 0.02 Absolute Neuts (auto) 5.9 Absolute Nucleated RBC 0.000 Nucleated RBC % 0.0 % Immature Plt Fraction 3.5 Sodium 137 Potassium 4.6 Chloride 100 Carbon Dioxide 31 H Anion Gap 6 BUN 31 H Creatinine 0.67 L Estim Creat Clear Calc 79 Estimated GFR > 60 Glucose 190 H Calcium 8.6 Total Bilirubin 0.4 AST 20 ALT 18 Alkaline Phosphatase 69 Total Protein 7.0 Albumin 3.4 L Ur L.pneumophila Ag Pending Urine Pneumococcal Ag Pending Discharge Plan Discharge Attending physician on discharge: Bin Mayer Discharging Clinician: Bin Mayer Anticipated Discharge Date/Time: 07/14/24 10:15 Patient Disposition: [facility] Senior Care/Asst Living Activity: as tolerated Diet: as tolerated Discharge Instructions: You will be given a prescription for Doxycycline and Amoxicillin/Clavulanate. Take these directed for the entire course even if feeling better. Eat well balanced meals and stay hydrated Keep active, but do not over do it If you notice that you are short of breath sit down and take a break Check your SPO2 periodically, if it is low cough and rest, check again in about 15 minutes, if you remain low, you should come back to the hospital If you should experience any chest pain, shortness of breath, temps >100.4 or any other worrisome symptoms please follow up with your PCP come back to the hospital Follow up with your primary within 1 week It has been a pleasure taking care of you thank you for using our services Patient Instructions: Antibiotic Form Patient Language: Tongan Stand Alone Forms: General Discharge Information Follow-up/Referrals: Darion,Alejandro [Other] Discharge Medications: New amoxicillin-pot clavulanate 875-125 mg tablet 1 tablet PO Q12H 4 Days Qty: 8 0RF doxycycline hyclate 100 mg capsule 100 mg PO BID 4 Days Qty: 8 0RF Continued spironolactone 25 mg tablet 25 mg PO DAILY baclofen 5 mg tablet 5 mg PO BID carvedilol 6.25 mg tablet 6.25 mg PO BID divalproex [Depakote ER] 500 mg tablet extended release 24 hr 500 mg PO BID escitalopram oxalate 20 mg tablet 20 mg PO DAILY hydralazine 10 mg tablet 10 mg PO BID ipratropium-albuterol 0.5 mg-3 mg(2.5 mg base)/3 mL solution for nebulization 3 ml inhalation BID PRN (Reason: shortness of breath) ondansetron HCl 4 mg tablet 4 mg PO Q6H PRN (Reason: nausea and vomiting) quetiapine 50 mg tablet extended release 24 hr 100 mg PO QPM budesonide-formoterol 160-4.5 mcg/actuation HFA aerosol inhaler 2 puff INHALATION BID acetaminophen 325 mg capsule 650 mg PO Q6H PRN (Reason: general discomfort) Blink Tears 0.25 % drops 2 drp ophthalmic (eye) QID PRN (Reason: dry eyes) Enema 19-7 gram/118 mL enema 118 ml RECTAL DAILY PRN (Reason: constipation) Cold and Hot (m.salic-menthol) 29-7.6 % ointment 1 applic topical TID PRN (Reason: muscle pain) prednisone 10 mg tablet 10 mg PO DAILY Qty: 20 0RF Rx Instructions: 4Tx2d, 3Tx2d 2Tx2d, 1Tx2d lisinopril 40 mg Tablet 40 mg PO DAILY Adults Multivitamin 18 mg iron-400 mcg-25 mcg Tablet 1 tablet PO DAILY polyethylene glycol 3350 [Miralax] 17 gram/dose Powder 17 g PO DAILY PRN (Reason: Constipation) Rx Instructions: GIVE IF NO BM IN 3 DAYS cholecalciferol (vitamin D3) 25 mcg (1,000 unit) Tablet 1,000 unit PO DAILY metoprolol tartrate 25 mg tablet 12.5 mg PO Q12HR Qty: 0 0RF atorvastatin 20 mg tablet 20 mg PO DAILY famotidine [Pepcid] 20 mg Tablet 20 mg PO BID docusate sodium 100 mg Tablet 100 mg PO BID Eliquis 5 mg tablet 5 mg PO BID furosemide 40 mg tablet 40 mg PO DAILY bisacodyl 10 mg Suppository 10 mg RECTAL DAILY PRN (Reason: Constipation) magnesium citrate [Citroma] Solution 300 ml PO DAILY PRN (Reason: Constipation) gabapentin 100 mg Capsule 100 mg PO BID melatonin 5 mg Tablet 5 mg PO HS albuterol sulfate 90 mcg/actuation Aerosol Powdr Breath Activated 2 inh INHALATION Q6H PRN (Reason: Shortness Of Breath) ibuprofen 200 mg Tablet 200 mg PO BID PRN (Reason: Pain) risperidone 1 mg tablet 1 mg PO TID diclofenac sodium 1 % Gel 2 g TOPICAL BID acetaminophen-codeine 300-30 mg tablet 2 tablet PO Q4H PRN (Reason: Pain) Saccharomyces boulardii [Florastor] 250 mg capsule 250 mg PO BID Qty: 14 0RF hydrocodone-acetaminophen 5-325 mg tablet 1 tablet PO Q8H PRN (Reason: pain) hydroxyzine pamoate 50 mg capsule 50 mg PO BID PRN (Reason: anxiety) magnesium hydroxide [Milk of Magnesia] 400 mg/5 mL suspension 2,400 mg PO DAILY PRN (Reason: constipation) valproic acid 250 mg capsule 250 mg PO TID Discontinued hydrocodone-acetaminophen 5-300 mg tablet 1 tablet PO Q8H PRN (Reason: pain) Qty: 10 0RF valproic acid (as sodium salt) 250 mg/5 mL solution 250 mg PO QID hydroxyzine HCl 25 mg tablet 25 mg PO Q8H PRN (Reason: Pain) ipratropium-albuterol 18-103 mcg/actuation aerosol 2 spray inhalation .q 6 hr PRN (Reason: shortness of breath) Date of admission: 07/13/24 07:41 Primary Care Provider: Darion,Alejandro Admitting Provider: Christine Napoles Attending physician on admission: Bin Mayer Condition: Stable Hospitalist MIPS Heart Failure (Exclusion) Patient has history of Heart Transplant or Left Ventricular Assistive Device?: No IF YES, STOP HERE Heart Failure (Qualifier) Patient has current or prior documentation of LVEF less than or equal to 40%, or mod/servere depressed LVSF?: No IF NO, STOP HERE
[2024-07-14] MEDS: ACETAMINOPHEN 325 MG TABLET 650 MG PO (12:37)
[2024-07-18 18:23] LABS: Pneumococcal Antigen Urine NOT DETECTED
== END 2024-07-14 13:00 | DRG 193 ==
LOC: ANHED 22:41 → ANH3MEDSUR 23:18
PROVIDERS: Admitting Provider Internal Medicine; Emergency Provider Student in an Organized Health Care Education/Training Program; Visit Provider Physician Assistant
DX: J18.9 Pneumonia, unspecified organism (principal); J96.21 Acute and chronic respiratory failure with hypoxia; J96.22 Acute and chronic respiratory failure with hypercapnia; J44.1 Chronic obstructive pulmonary disease with (acute) exacerbation; J44.0 Chronic obstructive pulmonary disease with (acute) lower respiratory infection; F20.9 Schizophrenia, unspecified; E11.9 Type 2 diabetes mellitus without complications; I10 Essential (primary) hypertension; F03.90 Unspecified dementia, unspecified severity, without behavioral disturbance, psychotic disturbance, mood disturbance, and anxiety; D64.9 Anemia, unspecified; R32 Unspecified urinary incontinence; F41.9 Anxiety disorder, unspecified; F32.A Depression, unspecified; M19.90 Unspecified osteoarthritis, unspecified site; G47.33 Obstructive sleep apnea (adult) (pediatric); Z79.01 Long term (current) use of anticoagulants; Z86.718 Personal history of other venous thrombosis and embolism; Z96.651 Presence of right artificial knee joint; Z95.2 Presence of prosthetic heart valve; Z87.891 Personal history of nicotine dependence
CPT/HCPCS: 36415; 36600; 70450; 71045; 80048; 80053; 81001; 82375; 82805; 83050; 85018; 85025; 85027; 85055; 85610; 85730; 87449; 87637; 87899; 93005; 94640; 96361; 96365; 96366; 96367; 96375; 99285; A9270; G0378; J0456; J0696; J2919; J3475

== ENCOUNTER 2024-07-26 11:40 | Emergency (ER) | payer MEDICARE, OTHER, SELFPAY ==
[2024-07-26] VITALS (16 sets, daily range): BP systolic 99–150; BP diastolic 45–77; PULSE 66–77; RESP 14–25; O2SAT 95–98
--- NOTE | ~2024-07-26 | XR_ITS ---
EXAMINATION: XR chest 2V DATE: 07/26/2024 13:00 INDICATION: Cough. TECHNIQUE: Frontal and lateral views of the chest were obtained. COMPARISON: Chest single view 07/12/2024, 06/27/2024, CT abdomen and pelvis 01/31/2021 FINDINGS: There are interstitial opacities in the mid and lower lung zones, consistent with mild pulm onary edema. No pleural effusion or pneumothorax. Cardiomegaly is noted. Median sternotomy wires and mediastinal surgical clips are seen, likely from prior coronary artery bypass grafting. IMPRESSION: 1. Mild pulmonary edema. 2. Cardiomegaly. Reviewed, dictated and finalized at location A.
--- NOTE | ~2024-07-26 | CT_ITS ---
EXAMINATION: CT brain wo con DATE: 07/26/2024 12:49 INDICATION: Altered mental status. TECHNIQUE: Computed tomography (CT) of the head was performed without intravenous contrast. The mA wa s adjusted according to patient size. Iterative reconstruction technique was employed. The dose-lengt h product was 983.67 mGy-cm. COMPARISON: Head CT 07/12/2024 FINDINGS: There is an old infarct in the left thalamus. There is an old infarct in the left basal susan glia. There is an old infarct involving the right basal ganglia and anterior limb right internal caps ule. There are scattered areas of low attenuation in the cerebral white matter. There is no intracran ial hemorrhage, acute infarction, or abnormal intracranial mass lesion. The ventricles are normal in size. There are small bilateral mastoid effusions. The paranasal sinuses are clear. The orbits are no rmal. IMPRESSION: 1. 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 2. Mild nonspecific cerebral white matter disease, which likely represents chronic small vessel ische jacque disease. Reviewed, dictated and finalized at location A. IMPRESSION: 1. 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 2. Mild nonspecific cerebral white matter disease, which likely represents piece maker letitia small vessel ischemic disease.
--- NOTE | 2024-07-26 12:27 | ECG_ITS ---
Test Date: 2024-07-26 14:28:29 Measurements Intervals [place] Rate: 70 P: 18 OR: 146 QRS: 54 QRSD: 106 T: 104 QT: 393 QTc: 426 Interpretive Statements SINUS RHYTHM NONSPECIFIC T-WAVE ABNORMALITY Compared to ECG 07/12/2024 15:04:01 Intraventricular conduction delay no longer present T-wave abnormality still present Electronically Signed On 07-26-2024 14:45:02 CDT by Harjit Perez M.D.
--- NOTE | 2024-07-26 12:37 | ED_ITS ---
HPI - SOB/Dyspnea General Chief Complaint: Shortness of Breath/Dyspnea Stated Complaint: cough/congestion Time Seen by Provider: 07/26/24 12:03 History of Present Illness HPI Narrative: 73-year-old female presenting from [facility] for concerns of mental status changes. Patient has a history of schizophrenia, hypertension, diastolic dysfunction, COPD, dementia. She wears oxygen as needed the facility. Today facility found her very somnolent and minimally responsive. The knows that she was hypoxic at 87% on room air. On review of the EMR she does have as needed oxygen at the facility but this was not administered. EMS provider nasal cannula with improvement to 96%. Patient is arousable to physical and verbal stimuli but very confused, not alert oriented. She repeats answers to previous questions and falls asleep very quickly when not verbally or physically stimulated. She is difficult to get a story from given her level of schizophrenia at baseline on review of the EMR she has had similar events most recently several weeks ago and admitted for hypoxic respiratory failure and mental status changes. Discharged on the of this month. Related Data Home Medications ?Medication ?Instructions ?Recorded ?Confirmed ?Last Taken ?Type lisinopril 40 mg tablet 40 mg PO DAILY 04/30/19 07/13/24 11/11/19 08:00 History 40 mg multivit with minerals-iron 18 1 tablet PO DAILY 04/30/19 07/13/24 06/25/24 History mg-folic ac 400 mcg-vit K 25 mcg tablet (Adults Multivitamin) cholecalciferol (vitamin D3) 25 1,000 unit PO DAILY 11/12/19 07/13/24 11/11/19 08:00 History mcg (1,000 unit) tablet 1 tab polyethylene glycol 3350 17 17 g PO DAILY PRN Constipation 11/12/19 07/13/24 11/11/19 20:00 History gram/dose oral powder (Miralax) 1 pk apixaban 5 mg tablet (Eliquis) 5 mg PO BID 04/11/20 07/13/24 06/25/24 History atorvastatin 20 mg tablet 20 mg PO DAILY 04/11/20 07/13/24 06/25/24 History docusate sodium 100 mg tablet 100 mg PO BID 04/11/20 07/13/24 Unknown History famotidine 20 mg tablet (Pepcid) 20 mg PO BID 04/11/20 07/13/24 Unknown History acetaminophen 300 mg-codeine 30 mg 2 tablet PO Q4H PRN Pain 01/30/21 07/13/24 Unknown History tablet albuterol sulfate 90 mcg/actuation 2 inh inhalation Q6H PRN Shortness 01/30/21 07/13/24 Unknown History breath activated powder inhaler Of Breath bisacodyl 10 mg rectal suppository 10 mg RECTAL DAILY PRN Constipation 01/30/21 07/13/24 Unknown History diclofenac sodium 1 % topical gel 2 g topical BID 01/30/21 07/13/24 Unknown History furosemide 40 mg tablet 40 mg PO DAILY 01/30/21 07/13/24 06/25/24 History gabapentin 100 mg capsule 100 mg PO BID 01/30/21 07/13/24 Unknown History ibuprofen 200 mg tablet 200 mg PO BID PRN Pain 01/30/21 07/13/24 Unknown History magnesium citrate (Citroma oral 300 ml PO DAILY PRN Constipation 01/30/21 07/13/24 Unknown History solution) melatonin 5 mg tablet 5 mg PO HS 01/30/21 07/13/24 Unknown History risperidone 1 mg tablet 1 mg PO TID 01/30/21 07/13/24 06/25/24 History acetaminophen 325 mg capsule 650 mg PO Q6H PRN general 06/25/24 07/13/24 06/24/24 History discomfort baclofen 5 mg tablet 5 mg PO BID 06/25/24 07/13/24 06/25/24 History budesonide-formoterol HFA 160 2 puff inhalation BID 06/25/24 07/13/24 06/25/24 History mcg-4.5 mcg/actuation aerosol inhaler carvedilol 6.25 mg tablet 6.25 mg PO BID 06/25/24 07/13/24 06/25/24 History divalproex 500 mg tablet,extended 500 mg PO BID 06/25/24 07/13/24 06/25/24 History release 24 hr (Depakote ER) escitalopram oxalate 20 mg tablet 20 mg PO DAILY 06/25/24 07/13/24 06/25/24 History hydralazine 10 mg tablet 10 mg PO BID 06/25/24 07/13/24 06/25/24 History ipratropium 0.5 mg-albuterol 3 mg 3 ml inhalation BID PRN shortness 06/25/24 07/13/24 06/25/24 History (2.5 mg base)/3 mL nebulization of breath soln ondansetron HCl 4 mg tablet 4 mg PO Q6H PRN nausea and vomiting 06/25/24 07/13/24 Unknown History quetiapine 50 mg tablet,extended 100 mg PO QPM 06/25/24 07/13/24 06/24/24 History release 24 hr spironolactone 25 mg tablet 25 mg PO DAILY 06/25/24 07/13/24 06/25/24 History methyl salicylate-menthol 29 %-7.6 1 applic topical TID PRN muscle 06/26/24 07/13/24 Unknown History % topical ointment (Cold and Hot pain (m.salicylate-menthol)) polyethylene glycol 400 0.25 % eye 2 drp ophthalmic (eye) QID PRN dry 06/26/24 07/13/24 Unknown History drops (Blink Tears) eyes sodium phosphates 19 gram-7 118 ml RECTAL DAILY PRN 06/26/24 07/13/24 Unknown History gram/118 mL enema (Enema) constipation hydrocodone 5 mg-acetaminophen 325 1 tablet PO Q8H PRN pain 07/13/24 07/13/24 Unknown History mg tablet hydroxyzine pamoate 50 mg capsule 50 mg PO BID PRN anxiety 07/13/24 07/13/24 Unknown History magnesium hydroxide 400 mg/5 mL 2,400 mg PO DAILY PRN constipation 07/13/24 07/13/24 Unknown History oral suspension (Milk of Magnesia) valproic acid 250 mg capsule 250 mg PO TID 07/13/24 07/13/24 Unknown History Allergies Allergy/AdvReac Type Severity Reaction Status Date / Time oxycodone Allergy Intermediate Unknown Verified 07/12/24 15:23 adhesive tape Allergy Unknown Verified 07/12/24 15:23 latex Allergy Unknown Verified 07/12/24 15:23 quetiapine (From Seroquel) Allergy Unknown Verified 07/12/24 15:23 simvastatin Allergy Unknown Verified 07/12/24 15:23 tizanidine Allergy Unknown Verified 07/12/24 15:23 Review of Systems 2 Review of Systems: As reviewed above in [facility] Past Medical History Medical History Depression Urinary frequency Wears glasses Left knee DJD Chronic anemia Chronic anticoagulation Anxiety Urinary incontinence Diastolic dysfunction Echocardiogram on 04/12/2020 showed normal LV systolic function with an EF 65% and grade 1 diastolic dysfunction. Pulmonary hypertension Mild to moderate pulmonary hypertension noted on prior echocardiogram with an estimated peak RVSP of 46 mmHg. Chronic obstructive pulmonary disease Osteoarthritis Type 2 diabetes mellitus Diet-controlled. Deep venous thrombosis of right popliteal vein (~10/2019) GI bleed (10/2019) Secondary to peptic ulcers attributed to the patient taking to NSAIDs at the same time. NSAID induced gastritis (10/2019) Abdominal mass 3.5 x 4.8 cm abdominal mass noted anterior to the aortic bifurcation on imaging in October 2019. Patient is uncertain whether not she has had follow-up for this or not. Hypertension Schizophrenia Surgical History Surgical History Status post total right knee replacement History of aortic valve replacement with bioprosthetic valve Family History Family History Father , Age 70 with cardiac and multiple other problems that patient cannot elaborate on Heart disease Hypertension Mother , 71 heart disease Heart disease Hypertension Throat cancer Social History Social History Social History: Never . No children. Resident at [facility] in [place]. Former smoker. Yaniv Parnell is her power of mergers and acquisitions attorney. Code status: Do not resuscitate. Smoking packs per day: 1 Smoking cigarettes per day: 20.0 Years smoked: 30 Smoking pack-years: 30.00 Smoking status: Former smoker Tobacco type: cigarettes Alcohol intake: unknown Substance use: unknown Substance use type: does not use Do You Feel Safe in your Home?: Yes Lack of Transportation: No Lack of Food: Never True Current Housing: I Have Housing Concerned About Future Housing: No Difficulty Paying Gas/Electric Bills: No Difficulty Paying for Meds: No Currently Unemployed: No Education: High School Diploma/GED Difficulty w/ Childcare or Family Care: No Living arrangements: fpc Gender identity (if verbalized by the patient): Female Spiritual care concerns: No Exam 2 Narrative: GENERAL: Elderly, ill-appearing, sonorous respirations but arousable to verbal and physical stimuli, combative when awake. HEAD: [Normocephalic, atraumatic.] EYES: [PERRLA and EOMI.] ENT: Nares clear, no rhinorrhea or epistaxis. Mucous membranes moist. NECK: Supple. CHEST: Coarse bilateral breath sounds, audible respirations when sleeping, mild tachypnea but no signs of severe respiratory distress or retractions, no abdominal breathing. HEART: [Regular rate and rhythm]. No murmur heard. [Normal peripheral pulses.] ABDOMEN: Protuberant but soft and nondistended from baseline, [nontender], [No rigidity or guarding] EXTREMITIES: Normal range of motion. [No edema.] SKIN: Warm, dry, no rash. NEURO: Somnolent but arousable to verbal and physical stimuli. Not alert or oriented, agitated when stimulated PSYCH: Easily agitated Course Vital Signs Vital signs: Vital Signs Pulse Rate 73 07/26/24 11:54 Respiratory Rate 22 H 07/26/24 11:54 Blood Pressure 150/63 H 07/26/24 11:54 Pulse Oximetry 95 07/26/24 11:54 Oxygen Delivery Room Air 07/26/24 11:54 Pulse Rate 73 07/26/24 11:54 Respiratory Rate 22 H 07/26/24 11:54 Blood Pressure 150/63 H 07/26/24 11:54 Pulse Oximetry 95 07/26/24 11:54 Oxygen Delivery Room Air 07/26/24 11:54 MDM - SOB/Dyspnea MDM Narrative Medical decision making narrative: 73-year-old female with history of schizophrenia, COPD, diastolic dysfunction, type 2 diabetes, hypertension, oxygen requirements as needed. She was found to be hypoxic 87% at the nursing facility and minimally responsive. EMS provider oxygen and try to wake her out. She is combative when awoke and but easily falls asleep without any persistent stimulation with sonorous respirations. She does sound congested with coarse breath sounds on auscultation. When aroused she is agitated and combative but then quickly falls back asleep. No signs of focal deficits as she is able to move both arms and legs, no facial asymmetry. She is confused but with a history of schizophrenia and on review of the EMR poor historian at baseline. No signs of visible trauma. Vital signs show some tachypnea but no tachycardia, hypoxia or significant blood pressure concerns. She does have a history of CO2 retention which could be causing hypercapnia causing her mental status changes or the could be another process here such as sepsis from recent pneumonia when she was discharged home on doxycycline and Augmentin. Urinary tract infection, acute exacerbation of schizophrenia, intracranial pathology such as acute stroke less likely but still possible. A broad workup was ordered with septic activation given her appearance however she appears euvolemic and actually has coarse breath sounds with diastolic dysfunction so she will not get the full 30 cc/kg bolus and start 1 L of fluid was administered. Vancomycin cefepime given empirically while workup is underway. Laboratory studies ordered, ABG obtained, CT that and chest x-ray with EKG ordered. Laboratory studies do not support infectious pathology, no signs of pneumonia on the x-ray, urinalysis without infection. Antibiotics were discontinued. Patient was re-evaluated frequently and improved back to baseline mentation, she does have episodes of agitation combativeness but this is well documented in likely a exacerbation of her schizophrenia. ABG shows hypoxia on room air for which oxygen supplementation was provided, slight hypercapnia but normal pH. Will consult hospitalist for recommendations regarding admission. Spoke to the hospitalist team who recommended that patient does not need admission to the hospital given that she is at her baseline mentation now and needs her home oxygen and possibly even CPAP at night. We did contact the nursing facility and they do have abilities to place the patient on CPAP q.h.s. and also do have oxygen that patient is supposed to be on as needed but we recommended turning her to 2 L around the clock. These recommendations were ordered and signed and she can be safely discharged back to her facility given that she has an unremarkable workup and back to her baseline mentation now with likely explanation being that she needs baseline oxygen and CPAP as needed. Medical Records Attestation: I reviewed the patient's medical records. Lab Data Attestation: I reviewed the patient's lab results. 07/26/24 13:23 07/26/24 13:23 Labs: Lab Results 07/26/24 07/26/24 07/26/24 Range/Units 12:34 13:03 13:23 WBC 11.5 H (4.5-10.0) K/mm3 RBC 4.15 L (4.2-5.4) M/mm3 Hgb 13.2 (12.0-15.0) g/dL Hct 40.3 (37.0-47.0) % MCV 97.1 (80-100) fl MCH 31.8 (26-34) pg MCHC 32.8 (32-36) g/dl RDW 14.6 H (11.5-14.5) % Plt Count 101 L (150-375) k/mm3 MPV 9.7 (7.4-10.4) fl Immature Gran % (Auto) 1.0 H (0-0.5) % Neut % (Auto) 77.6 H (45.5-73.1) % Lymph % (Auto) 10.2 L (18.3-44.2) % [place] % (Auto) 10.9 H (2.6-8.5) % Eos % (Auto) 0.1 (0-4.4) % Baso % (Auto) 0.2 (0.2-1.2) % Lymph # (Auto) 1.17 (0.9-3.2) K/mm3 [place] # (Auto) 1.3 H (0.1-0.6) K/mm3 Eos # (Auto) 0.0 (0-0.3) K/mm3 Baso # (Auto) 0.0 (0.0-0.1) K/mm3 Abs Immat Gran (auto) 0.11 H (0.00-0.031) K/mm3 Absolute Neuts (auto) 9.0 H (1.3-6.7) K/mm3 Absolute Nucleated RBC 0.000 (0.0-0.012) K/mm3 Nucleated RBC % 0.0 (0.0-0.2) % PT 13.4 (11.1-14.7) Seconds INR 1.0 APTT 25.3 (22.3-36.8) Seconds Methemoglobin 0.2 (0-1.5) %THb Sodium 136 L (137-145) mmol/L Potassium 4.1 (3.4-5.0) mmol/L Chloride 95 L (98-107) mmol/L Carbon Dioxide 36 H (22-30) mmol/L Anion Gap 5 (4-12) mmol/L BUN 18 H D (7-17) mg/dL Creatinine 0.82 (0.7-1.0) mg/dL Estim Creat Clear Calc 67 ml/min Estimated GFR > 60 (59 - ) Glucose 149 H (65-110) mg/dL Lactic Acid 1.4 (0.7-2.0) mmol/L Calcium 8.8 (8.4-10.2) mg/dL Total Bilirubin 0.7 (0.2-1.3) mg/dL AST 23 (14-36) U/L ALT 19 (6-35) U/L Alkaline Phosphatase 86 (38-126) U/L Troponin I 0.030 (0.000-0.034) ng/mL C-Reactive Protein 6.3 H (<1.0) mg/dL Total Protein 7.0 (6.3-8.2) g/dL Albumin 3.8 (3.5-5.1) g/dL Urine Color Yellow (Yellow) Urine Appearance Clear (Clear) Urine pH 7.5 (5.0-9.0) Ur Specific [place] 1.021 (1.001-1.035) Urine Protein Trace (Negative) mg/dL Urine Glucose (UA) Negative (Negative) mg/dL Urine Ketones Negative (Negative) mg/dL Ur Blood (Man) Negative (Negative) Urine Nitrate Negative (Negative) Urine Bilirubin Negative (Negative) Urine Urobilinogen 1.0 (<2.0) mg/dL Leukocyte Esterase Rfl Negative (Negative) AGUILAR/UL Urine RBC 0-2 (0-2) /hpf Urine WBC 0-5 (0-3) /hpf Ur Squamous Epith Cells None seen (Few) /hpf Urine Bacteria None seen /hpf Urine Casts 0-2 Nasal MRSA (PCR) (NOT DETECTE) Influenza A (RT-PCR) Negative (Negative) Influenza B (RT-PCR) Negative (Negative) SARS-CoV-2 RNA (RT-PCR) Negative (Negative) 07/26/24 Range/Units 14:39 WBC (4.5-10.0) K/mm3 RBC (4.2-5.4) M/mm3 Hgb (12.0-15.0) g/dL Hct (37.0-47.0) % MCV (80-100) fl MCH (26-34) pg MCHC (32-36) g/dl RDW (11.5-14.5) % Plt Count (150-375) k/mm3 MPV (7.4-10.4) fl Immature Gran % (Auto) (0-0.5) % Neut % (Auto) (45.5-73.1) % Lymph % (Auto) (18.3-44.2) % [place] % (Auto) (2.6-8.5) % Eos % (Auto) (0-4.4) % Baso % (Auto) (0.2-1.2) % Lymph # (Auto) (0.9-3.2) K/mm3 [place] # (Auto) (0.1-0.6) K/mm3 Eos # (Auto) (0-0.3) K/mm3 Baso # (Auto) (0.0-0.1) K/mm3 Abs Immat Gran (auto) (0.00-0.031) K/mm3 Absolute Neuts (auto) (1.3-6.7) K/mm3 Absolute Nucleated RBC (0.0-0.012) K/mm3 Nucleated RBC % (0.0-0.2) % PT (11.1-14.7) Seconds INR APTT (22.3-36.8) Seconds Methemoglobin (0-1.5) %THb Sodium (137-145) mmol/L Potassium (3.4-5.0) mmol/L Chloride (98-107) mmol/L Carbon Dioxide (22-30) mmol/L Anion Gap (4-12) mmol/L BUN (7-17) mg/dL Creatinine (0.7-1.0) mg/dL Estim Creat Clear Calc ml/min Estimated GFR (59 - ) Glucose (65-110) mg/dL Lactic Acid (0.7-2.0) mmol/L Calcium (8.4-10.2) mg/dL Total Bilirubin (0.2-1.3) mg/dL AST (14-36) U/L ALT (6-35) U/L Alkaline Phosphatase (38-126) U/L Troponin I (0.000-0.034) ng/mL C-Reactive Protein (<1.0) mg/dL Total Protein (6.3-8.2) g/dL Albumin (3.5-5.1) g/dL Urine Color (Yellow) Urine Appearance (Clear) Urine pH (5.0-9.0) Ur Specific [place] (1.001-1.035) Urine Protein (Negative) mg/dL Urine Glucose (UA) (Negative) mg/dL Urine Ketones (Negative) mg/dL Ur Blood (Man) (Negative) Urine Nitrate (Negative) Urine Bilirubin (Negative) Urine Urobilinogen (<2.0) mg/dL Leukocyte Esterase Rfl (Negative) AGUILAR/UL Urine RBC (0-2) /hpf Urine WBC (0-3) /hpf Ur Squamous Epith Cells (Few) /hpf Urine Bacteria /hpf Urine Casts Nasal MRSA (PCR) Not detected (NOT DETECTE) Influenza A (RT-PCR) (Negative) Influenza B (RT-PCR) (Negative) SARS-CoV-2 RNA (RT-PCR) (Negative) ABG Data ABG results: 07/26/24 13:03 Puncture Site Left radial ABG pH 7.422 ABG pCO2 54.5 H ABG pO2 53.2 L ABG PO2/FiO2 Ratio 2.53 ABG HCO3 34.7 H ABG O2 Saturation 87.6 L* ABG O2 Content 16.0 ABG Base Excess 8.5 A-a Gradient 31.3 Oxyhemoglobin 84.3 L* Carboxyhemoglobin 2.3 H Reduced Hemoglobin 13.2 H Total Hemoglobin 13.5 O2 Delivery Device Room air O2 Liters/Min Not Reportable FiO2 21 Attestation: I personally reviewed and interpreted this ABG as follows: Interpretation: Hypoxia on room air otherwise unremarkable, slight hypercapnia but chronic Imaging Data Attestation: I personally reviewed and interpreted this imaging study as follows: My impression: Impressions Head CT 07/26/24 12:57 IMPRESSION: 1. 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 2. Mild nonspecific cerebral white matter disease, which likely represents chronic small vessel ischemic disease. Chest X-Ray 07/26/24 13:20 IMPRESSION: 1. Mild pulmonary edema. 2. Cardiomegaly. Discharge Plan Discharge Clinical Impression: Hypoxemia requiring supplemental oxygen, Schizophrenia, Mental status change resolved Patient Disposition: NH Usp/Asst Living Condition: Stable Instructions: Antibiotic Form Additional Instructions: You need baseline oxygen and we recommend 2 L around the clock. CPAP was ordered at night. Follow-up with regular doctor. Return with any new concerns. Patient Language: Greek Prescriptions: No Action spironolactone 25 mg tablet 25 mg PO DAILY baclofen 5 mg tablet 5 mg PO BID carvedilol 6.25 mg tablet 6.25 mg PO BID divalproex [Depakote ER] 500 mg tablet extended release 24 hr 500 mg PO BID escitalopram oxalate 20 mg tablet 20 mg PO DAILY hydralazine 10 mg tablet 10 mg PO BID ipratropium-albuterol 0.5 mg-3 mg(2.5 mg base)/3 mL solution for nebulization 3 ml inhalation BID PRN (Reason: shortness of breath) ondansetron HCl 4 mg tablet 4 mg PO Q6H PRN (Reason: nausea and vomiting) quetiapine 50 mg tablet extended release 24 hr 100 mg PO QPM budesonide-formoterol 160-4.5 mcg/actuation HFA aerosol inhaler 2 puff INHALATION BID acetaminophen 325 mg capsule 650 mg PO Q6H PRN (Reason: general discomfort) Blink Tears 0.25 % drops 2 drp ophthalmic (eye) QID PRN (Reason: dry eyes) Enema 19-7 gram/118 mL enema 118 ml RECTAL DAILY PRN (Reason: constipation) Cold and Hot (m.salic-menthol) 29-7.6 % ointment 1 applic topical TID PRN (Reason: muscle pain) prednisone 10 mg tablet 10 mg PO DAILY Qty: 20 0RF Rx Instructions: 4Tx2d, 3Tx2d 2Tx2d, 1Tx2d lisinopril 40 mg Tablet 40 mg PO DAILY Adults Multivitamin 18 mg iron-400 mcg-25 mcg Tablet 1 tablet PO DAILY polyethylene glycol 3350 [Miralax] 17 gram/dose Powder 17 g PO DAILY PRN (Reason: Constipation) Rx Instructions: GIVE IF NO BM IN 3 DAYS cholecalciferol (vitamin D3) 25 mcg (1,000 unit) Tablet 1,000 unit PO DAILY metoprolol tartrate 25 mg tablet 12.5 mg PO Q12HR Qty: 0 0RF atorvastatin 20 mg tablet 20 mg PO DAILY famotidine [Pepcid] 20 mg Tablet 20 mg PO BID docusate sodium 100 mg Tablet 100 mg PO BID Eliquis 5 mg tablet 5 mg PO BID furosemide 40 mg tablet 40 mg PO DAILY bisacodyl 10 mg Suppository 10 mg RECTAL DAILY PRN (Reason: Constipation) magnesium citrate [Citroma] Solution 300 ml PO DAILY PRN (Reason: Constipation) gabapentin 100 mg Capsule 100 mg PO BID melatonin 5 mg Tablet 5 mg PO HS albuterol sulfate 90 mcg/actuation Aerosol Powdr Breath Activated 2 inh INHALATION Q6H PRN (Reason: Shortness Of Breath) ibuprofen 200 mg Tablet 200 mg PO BID PRN (Reason: Pain) risperidone 1 mg tablet 1 mg PO TID diclofenac sodium 1 % Gel 2 g TOPICAL BID acetaminophen-codeine 300-30 mg tablet 2 tablet PO Q4H PRN (Reason: Pain) Saccharomyces boulardii [Florastor] 250 mg capsule 250 mg PO BID Qty: 14 0RF hydrocodone-acetaminophen 5-325 mg tablet 1 tablet PO Q8H PRN (Reason: pain) hydroxyzine pamoate 50 mg capsule 50 mg PO BID PRN (Reason: anxiety) magnesium hydroxide [Milk of Magnesia] 400 mg/5 mL suspension 2,400 mg PO DAILY PRN (Reason: constipation) valproic acid 250 mg capsule 250 mg PO TID doxycycline hyclate 100 mg capsule 100 mg PO BID 4 Days Qty: 8 0RF amoxicillin-pot clavulanate 875-125 mg tablet 1 tablet PO Q12H 4 Days Qty: 8 0RF Follow-up/Referrals: Darion,Alejandro [Other] Stand Alone Forms: [facility] Discharge Time of Disposition: 16:51
[2024-07-26 12:57] LABS: Add Urine Microscopic? YES; Appearance Urine Clear (Clear); Bacteria Urine None Seen /hpf; Bilirubin Urine Negative (Negative); Blood Urine Negative (Negative); Color Urine Yellow (Yellow); Glucose Urine UA Negative (Negative); Ketones Urine Negative (Negative); Leukocyte Esterase Ur Negative LEU/UL (Negative); Nitrate Urine Negative (Negative); Non Pathogenic Casts 0-2; Protein Urine Trace mg/dL (Negative); RBC Urine 0-2 /hpf (0-2); Specific Grav Ur 1.021 (1.001-1.035); Squamous Epithelial Cell Urine None Seen /hpf (Few); WBC Urine 0-5 /hpf (0-3); pH Urine 7.5 (5.0-9.0)
--- OUTSIDE RECORDS SUMMARY | 2024-07-26 13:06 | XMS_ITS | Referral Summary ---
Author Organization [facility] [address] Address [address] [place] [address] Phone Care Team Providers Care Debarker Operator Name Role Phone Jenn Espino MD Primary Care Provider [phone] Allergies Active Allergy Reactions Criticality Noted Date [...] on file Legal Sex Female 11:39 AM SNACK STEWARDESS Gender Identity Not on file Sexual Orientation Not on file Last Filed Vital Signs Vital Sign Reading Time Taken Comments Blood Pressure 135/66 04/19/2019 11:15 AM SNACK STEWARDESS Pulse 90 04/19/2019 11:15 AM SNACK STEWARDESS Temperature 35.9 C (96.6 F) 01/21/2020 11:33 AM CDT Respiratory Rate 21 04/19/2019 11:15 AM SNACK STEWARDESS Oxygen Saturation 100% 04/19/2019 11:15 AM SNACK STEWARDESS Inhaled Oxygen Concentration - - Weight 99.8 kg (220 lb) 01/21/2020 11:33 AM CDT Height 167.6 cm (5' 6 ) 01/21/2020 11:33 AM CDT Body Mass Index 35.51 01/21/2020 11:33 AM CDT Plan of Treatment Not on file Insurance [facility] CHOICE MEDICARE FOR LIFE [facility] FOR LIFE MEDICARE [facility] Address: [address] [address] [place] [address] Care Teams Debarker Operator Relationship Specialty Start Date End Date Jenn Espino MD [address] [facility] [address] [place] [address] PCP - General 07/30/16
--- OUTSIDE RECORDS SUMMARY | 2024-07-26 13:06 | XMS_ITS | Clinical Summary ---
Author Organization [facility] [address] Address [address] [place] [address] Phone Care Team Providers Care Beverage Inspection Machine Tender Name Role Phone Jenn Espino MD Primary Care Provider [phone] Allergies Active Allergy Reactions Criticality Noted Date [...] on file Legal Sex Female 11:39 AM BINGO FLOATER Gender Identity Not on file Sexual Orientation Not on file Obstetrics History Last Filed Vital Signs Vital Sign Reading Time Taken Comments Blood Pressure 135/66 04/19/2019 11:15 AM BINGO FLOATER Pulse 90 04/19/2019 11:15 AM BINGO FLOATER Temperature 35.9 C (96.6 F) 01/21/2020 11:33 AM CDT Respiratory Rate 21 04/19/2019 11:15 AM BINGO FLOATER Oxygen Saturation 100% 04/19/2019 11:15 AM BINGO FLOATER Inhaled Oxygen Concentration - - Weight 99.8 [...] or Tdap) 05/02/202405/2014 Insurance MEDICARE FOR LIFE [facility] FOR LIFE MEDICARE Care Teams Beverage Inspection Machine Tender Relationship Specialty Start Date End Date Jenn Espino MD [address] [facility] [address] [place] [address] [facility] - General 07/30/16
[2024-07-26 13:11] LABS: Alveolar/Arterial O2 Gradient 31.3 mmHg; Base Excess ABG 8.5 mEq/l (+/-2.0); Carboxyhemoglobin 2.3 % THb (0-2.0); Fractional Inspired Oxygen 21 %; HCO3 ABG 34.7 mEq/l (22.0-26.0); Methemoglobin ABG 0.2 %THb (0-1.5); PCO2 ABG 54.5 mmHg (35.0-45.0); PO2 ABG 53.2 mmHg (80.0-100.0); PO2 FiO2 Ratio Arterial Blood 2.53 %; Reduced Hemoglobin 13.2 %THb (0-5.0); Total Hemoglobin 13.5 g/dL (12.0-18.0); pH ABG 7.422 (7.350-7.450)
[2024-07-26 13:15] LABS: Oxygen Saturation ABG 87.6 % (95.0-100.0); Oxyhemoglobin 84.3 % THb (90.0-100.0)
[2024-07-26 13:16] LABS: Device ROOM AIR; Modified Allen's Test Pass; Site Drawn LEFT RADIAL
[2024-07-26 13:20] LABS: Influenza A QL RT-PCR Negative (Negative); Influenza B QL RT-PCR Negative (Negative); SARS-CoV-2 RNA PCR Negative (Negative)
--- NOTE | 2024-07-26 13:20 | PCRCNOTE ---
Patient not in room. ABG done late.
[2024-07-26 13:32] LABS: Basophils Percent Auto 0.2 % (0.2-1.2); Eosinophils Percent Auto 0.1 % (0-4.4); Hematocrit 40.3 % (37.0-47.0); Hemoglobin 13.2 g/dL (12.0-15.0); Immature Granulocyte Absolute 0.11 K/mm3 (0.00-0.031); Lymphocytes Absolute Auto 1.17 K/mm3 (0.9-3.2); Lymphocytes Percent Auto 10.2 % (18.3-44.2); Mean Corpuscular HGB Conc 32.8 g/dl (32-36); Mean Corpuscular Hemoglobin 31.8 pg (26-34); Mean Corpuscular Volume 97.1 fl (80-100); Mean Platelet Volume 9.7 fl (7.4-10.4); Monocytes Absolute Auto 1.3 K/mm3 (0.1-0.6); Monocytes Percent Auto 10.9 % (2.6-8.5); Neutrophils Percent Auto 77.6 % (45.5-73.1); Platelet Count Result 101 k/mm3 (150-375); Red Blood Count 4.15 M/mm3 (4.2-5.4); Red Cell Distribution Width 14.6 % (11.5-14.5); White Blood Count 11.5 K/mm3 (4.5-10.0)
[2024-07-26 13:42] LABS: Lactic Acid Reflex 1.4 mmol/L (0.7-2.0)
[2024-07-26 13:44] LABS: Alanine Aminotransferase 19 U/L (6-35); Albumin Level 3.8 g/dL (3.5-5.1); Alkaline Phosphatase 86 U/L (38-126); Anion Gap 5 mmol/L (4-12); Aspartate Amino Transferase 23 U/L (14-36); Bilirubin,Total 0.7 mg/dL (0.2-1.3); Blood Urea Nitrogen 18 mg/dL (7-17); CRP 6.3 mg/dL (<1.0); Calcium 8.8 mg/dL (8.4-10.2); Carbon Dioxide 36 mmol/L (22-30); Chloride 95 mmol/L (98-107); Estimated CRCL calculation 67 ml/min; Estimated Glomerular Filt Rate > 60; Glucose 149 mg/dL (65-110); Potassium 4.1 mmol/L (3.4-5.0); Sodium 136 mmol/L (137-145)
[2024-07-26 13:46] LABS: Partial Thromboplastin Time 25.3 Seconds (22.3-36.8); Prothrombin Time 13.4 Seconds (11.1-14.7)
[2024-07-26] MEDS: LACTATED RINGERS 1,000 ML 999 ML IV CONT (14:16)
[2024-07-26] MEDS: CEFEPIME 2 GM/NS 50 ML 2 GM/50 ML BAG IVPB (14:18)
--- NOTE | 2024-07-26 14:33 | PC.NURSE ---
Pt was demanding that RN take her outside to smoke a cigarette. RN informed pt this is a non-smoking campus, and that she is requiring oxygen, so smoking is contraindicated. RN asked pt if she feels she would benefit from a nicotine pt patch. This angered pt, continued yelling at RN stating that she doesn't trust me, that I am a witch, and told me not to come back to her room. Pt stated she wanted to speak to the doctor. RN informed pt I am needing to obtain the ordered EKG. Pt initially refused and told RN that her heart is fine, that she does not need the EKG. After explaining the need to check, pt then agreed to have RN complete it, pt stated hurry up and get it done and don't come back. aware. came to bedside to speak with pt as well, confirmed with pt that she cannot go outside to smoke a cigarette. Call light in reach.
[2024-07-26 15:54] LABS: MRSA (PCR) NOT DETECTED (NOT DETECTE)
--- NOTE | 2024-07-26 18:05 | PC.NURSE ---
Smita Carrizales called to inform them EMS was leaving with pt.
== END 2024-07-26 18:05 ==
PROVIDERS: Emergency Provider Student in an Organized Health Care Education/Training Program
DX: R09.02 Hypoxemia (principal); F20.9 Schizophrenia, unspecified; Z20.822 Contact with and (suspected) exposure to COVID-19; D64.9 Anemia, unspecified; I11.9 Hypertensive heart disease without heart failure; E11.9 Type 2 diabetes mellitus without complications; I27.20 Pulmonary hypertension, unspecified; J44.9 Chronic obstructive pulmonary disease, unspecified; M17.12 Unilateral primary osteoarthritis, left knee; F32.A Depression, unspecified; F41.9 Anxiety disorder, unspecified; Z66 Do not resuscitate; Z96.651 Presence of right artificial knee joint; Z95.2 Presence of prosthetic heart valve; Z86.718 Personal history of other venous thrombosis and embolism; Z87.891 Personal history of nicotine dependence; Z79.01 Long term (current) use of anticoagulants; Z79.899 Other long term (current) drug therapy; R90.82 White matter disease, unspecified; J81.1 Chronic pulmonary edema; I51.7 Cardiomegaly
CPT/HCPCS: 36415; 36600; 70450; 71046; 80053; 81001; 82375; 82805; 83050; 83605; 84484; 85018; 85025; 85610; 85730; 86140; 87040; 87181; 87636; 87641; 93005; 96365; 96366; 96367; 99284; J0692; J7120

== ENCOUNTER 2024-07-27 13:36 | Inpatient (IN) | payer MEDICARE, OTHER, SELFPAY ==
[2024-07-27] VITALS (7 sets, daily range): BP systolic 97–141; BP diastolic 58–93; PULSE 77–94; RESP 20–22; TEMP 35.8–37.2; O2SAT 95–98; BMI 38.7
--- NOTE | ~2024-07-27 | XR_ITS ---
CHEST RADIOGRAPH CLINICAL HISTORY: Crackles . COMPARISON: 07/26/2024 TECHNIQUE: Single portable view of the chest. FINDINGS Sternal wires and mediastinal clips are identified, the wires are midline and intact. The remainder of the cardiomediastinal silhouette is otherwise unremarkable. Blunting of the right costophrenic sulcus is identified suggesting a small right-sided pleural effusi on. The remainder of the lungs are clear. IMPRESSION: Small right-sided pleural effusion without focal infiltrate. Reviewed, dictated and finalized at location A.
--- NOTE | ~2024-07-27 | CT_ITS ---
Clinical Indication: Bacteremia CT Scan of the Chest, Abdomen, and Pelvis with Contrast: Technique: Contiguous sections were acquired throughout the chest, abdomen, and pelvis after intraven ous administration of 100 cc of Omnipaque 350. Dose reduction technique was used on this scan by yarely reilly automated exposure control and iterative reconstruction technique. The dose-length product (DL P) was 1737.47 mGy-cm. Comparison: 01/31/2021 Findings: There is no evidence of any significant mediastinal, hilar or axillary lymphadenopathy. The mediastin al soft tissues appear normal. There is no evidence of pleural or pericardial effusion. Probable mild emphysema. There is mild bibasilar atelectatic change. The liver, spleen, pancreas, adrenals and kidneys are within normal limits. Cholelithiasis noted. The re are atherosclerotic calcifications of the aorta. No lymphadenopathy. No bowel obstruction or bowel wall thickening. There is no evidence to suggest acute appendicitis. Urinary bladder is unremarkable. No pelvic mass seen. No ascites. There is mild L5 compression fractu re, new from prior exam. Impression: No acute abnormality seen. Cholelithiasis. Mild L5 compression fracture, new from prior exam. Reviewed, dictated and finalized at location . Impression: No acute abnormality seen. Cholelithiasis. Mild L5 compression fracture, new from prior exam.
--- NOTE | ~2024-07-27 | CT_ITS ---
History: Worsening mental status PROCEDURE: CT head without contrast. COMPARISON: 07/26/2024 TECHNIQUE: Axial imaging of the head performed from the skull base to the vertex without IV contrast. Sagittal a nd coronal reformations obtained. DLP: 832 mGy-cm FINDINGS: The ventricles are enlarged. The dilatation of the ventricles is proportional to the degree of sulcal prominence, not uncommon in the senescent brain. Decreased attenuation is identified within the periventricular white matter, likely secondary to micr ovascular ischemic disease, in a patient of this age. Multiple prior cerebral infarctions are redemonstrated, within the bilateral basal ganglia, the anter ior limb of the right internal capsule, and the left thalamus. There is no mass, mass effect or midline shift. There is no abnormal extra-axial fluid collection or intracranial hemorrhage. Visualized paranasal sinuses are clear. The mastoid air cells are well aerated. No acute displaced fractures within the overlying cranium. Impression: No acute intracranial hemorrhage or suspicious mass effect. Reviewed, dictated and finalized at location A. Impression: No acute intracranial hemorrhage or suspicious mass effect.
--- NOTE | ~2024-07-27 | XR_ITS ---
XR abdomen/kub 1V 07/30/2024 13:53 INDICATION: Constipation TECHNIQUE: KUB COMPARISON: None FINDINGS: Bowel gas pattern is normal. Moderate colonic fecal loading. There is no evidence of free a ir, mass, organomegaly, ascites or obstruction. No abnormal calculi are seen. There is severe osteoa rthritis of the right hip with remodeling of the acetabulum and femoral head. There is lower lumbar s pondylosis. IMPRESSION: 1: No acute abdominal abnormality identified. Reviewed, dictated and finalized at location A.
--- OUTSIDE RECORDS SUMMARY | 2024-07-27 13:51 | XMS_ITS | Referral Summary ---
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 Gender Identity Not on file Sexual Orientation Not on file Last Filed Vital Signs Vital Sign Reading Time Taken Comments Blood Pressure 135/66 04/19/2019 11:15 AM PONY WORKER Pulse 90 04/19/2019 11:15 AM PONY WORKER Temperature 35.9 C (96.6 F) 01/21/2020 11:33 AM CDT Respiratory Rate 21 04/19/2019 11:15 AM PONY WORKER Oxygen Saturation 100% 04/19/2019 11:15 AM PONY WORKER Inhaled Oxygen Concentration - - Weight 99.8 kg (220 lb) 01/21/2020 11:33 AM CDT Height 167.6 cm (5' 6 ) 01/21/2020 11:33 AM CDT Body Mass Index 35.51 01/21/2020 11:33 AM CDT Plan of Treatment Not on file Insurance [facility] CHOICE MEDICARE FOR LIFE [facility] FOR LIFE MEDICARE [facility] Address: [address] [address] [place] [address] Care Teams Pot Fireman Relationship Specialty Start Date End Date Jenn Espino MD [address] [facility] [address] [place] [address] PCP - General 07/30/16
--- OUTSIDE RECORDS SUMMARY | 2024-07-27 13:51 | XMS_ITS | Clinical Summary ---
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 Gender Identity Not on file Sexual Orientation Not on file Obstetrics History Last Filed Vital Signs Vital Sign Reading Time Taken Comments Blood Pressure 135/66 04/19/2019 11:15 AM QUALITY INSPECTOR Pulse 90 04/19/2019 11:15 AM QUALITY INSPECTOR Temperature 35.9 C (96.6 F) 01/21/2020 11:33 AM CDT Respiratory Rate 21 04/19/2019 11:15 AM QUALITY INSPECTOR Oxygen Saturation 100% 04/19/2019 11:15 AM QUALITY INSPECTOR Inhaled Oxygen Concentration - - Weight 99.8 [...] or Tdap) 05/02/202405/2014 Insurance MEDICARE FOR LIFE [facility] FOR LIFE MEDICARE Care Teams Pct Relationship Specialty Start Date End Date Jenn Espino MD [address] [facility] [address] [place] [address] [facility] - General 07/30/16
--- NOTE | 2024-07-27 13:53 | ED.RECABL ---
HPI - Recheck/Abnormal Lab/Rx General Chief Complaint: Recheck/Abnormal Lab/Rx Stated Complaint: ABN LAB Time Seen by Provider: 07/27/24 13:37 History of Present Illness HPI narrative: 73-year-old female with history of schizophrenia, COPD, hypertension, diastolic dysfunction, dementia. Presents to the ED for repeat evaluation after being discharged yesterday. She had blood cultures drawn the ED which returned positive for Gram-positive cocci in clusters in the anaerobic bottle. She patient has no complaints. She is doing well on her home oxygen dose that was prescribed yesterday. Patient denies any symptoms at this time, EMS brings the patient from local facility. Related Data Home Medications ?Medication ?Instructions ?Recorded ?Confirmed ?Last Taken ?Type lisinopril 40 mg tablet 40 mg PO DAILY 04/30/19 07/27/24 11/11/19 08:00 History 40 mg multivit with minerals-iron 18 1 tablet PO DAILY 04/30/19 07/27/24 06/25/24 History mg-folic ac 400 mcg-vit K 25 mcg tablet (Adults Multivitamin) cholecalciferol (vitamin D3) 25 1,000 unit PO DAILY 11/12/19 07/27/24 11/11/19 08:00 History mcg (1,000 unit) tablet 1 tab polyethylene glycol 3350 17 17 g PO DAILY PRN Constipation 11/12/19 07/27/24 11/11/19 20:00 History gram/dose oral powder (Miralax) 1 pk apixaban 5 mg tablet (Eliquis) 5 mg PO BID 04/11/20 07/27/24 06/25/24 History atorvastatin 20 mg tablet 20 mg PO DAILY 04/11/20 07/27/24 06/25/24 History docusate sodium 100 mg tablet 100 mg PO BID 04/11/20 07/27/24 Unknown History famotidine 20 mg tablet (Pepcid) 20 mg PO BID 04/11/20 07/27/24 Unknown History acetaminophen 300 mg-codeine 30 mg 2 tablet PO Q4H PRN Pain 01/30/21 07/27/24 07/27/24 History tablet albuterol sulfate 90 mcg/actuation 2 inh inhalation Q6H PRN Shortness 01/30/21 07/27/24 07/27/24 History breath activated powder inhaler Of Breath bisacodyl 10 mg rectal suppository 10 mg RECTAL DAILY PRN Constipation 01/30/21 07/27/24 Unknown History diclofenac sodium 1 % topical gel 2 g topical BID 01/30/21 07/27/24 Unknown History furosemide 40 mg tablet 40 mg PO DAILY 01/30/21 07/27/24 06/25/24 History gabapentin 100 mg capsule 100 mg PO BID 01/30/21 07/27/24 Unknown History ibuprofen 200 mg tablet 200 mg PO BID PRN Pain 01/30/21 07/13/24 Unknown History magnesium citrate (Citroma oral 300 ml PO DAILY PRN Constipation 01/30/21 07/27/24 Unknown History solution) melatonin 5 mg tablet 5 mg PO HS 01/30/21 07/27/24 Unknown History risperidone 1 mg tablet 1 mg PO TID 01/30/21 07/27/24 06/25/24 History acetaminophen 325 mg capsule 650 mg PO Q6H PRN general 06/25/24 07/27/24 07/27/24 History discomfort baclofen 5 mg tablet 5 mg PO BID 06/25/24 07/27/24 06/25/24 History budesonide-formoterol HFA 160 2 puff inhalation BID 06/25/24 07/27/24 06/25/24 History mcg-4.5 mcg/actuation aerosol inhaler carvedilol 6.25 mg tablet 6.25 mg PO BID 06/25/24 07/27/24 06/25/24 History divalproex 500 mg tablet,extended 500 mg PO BID 06/25/24 07/27/24 06/25/24 History release 24 hr (Depakote ER) escitalopram oxalate 20 mg tablet 20 mg PO DAILY 06/25/24 07/27/24 06/25/24 History hydralazine 10 mg tablet 10 mg PO BID 06/25/24 07/27/24 06/25/24 History ipratropium 0.5 mg-albuterol 3 mg 3 ml inhalation BID PRN shortness 06/25/24 07/13/24 06/25/24 History (2.5 mg base)/3 mL nebulization of breath soln ondansetron HCl 4 mg tablet 4 mg PO Q6H PRN nausea and vomiting 06/25/24 07/13/24 Unknown History quetiapine 50 mg tablet,extended 100 mg PO QPM 06/25/24 07/27/24 06/24/24 History release 24 hr spironolactone 25 mg tablet 25 mg PO DAILY 06/25/24 07/27/24 06/25/24 History methyl salicylate-menthol 29 %-7.6 1 applic topical TID PRN muscle 06/26/24 07/13/24 Unknown History % topical ointment (Cold and Hot pain (m.salicylate-menthol)) polyethylene glycol 400 0.25 % eye 2 drp ophthalmic (eye) QID PRN dry 06/26/24 07/13/24 Unknown History drops (Blink Tears) eyes sodium phosphates 19 gram-7 118 ml RECTAL DAILY PRN 06/26/24 07/13/24 Unknown History gram/118 mL enema (Enema) constipation hydrocodone 5 mg-acetaminophen 325 1 tablet PO Q8H PRN pain 07/13/24 07/13/24 Unknown History mg tablet hydroxyzine pamoate 50 mg capsule 50 mg PO BID PRN anxiety 07/13/24 07/13/24 Unknown History magnesium hydroxide 400 mg/5 mL 2,400 mg PO DAILY PRN constipation 07/13/24 07/27/24 Unknown History oral suspension (Milk of Magnesia) valproic acid 250 mg capsule 250 mg PO TID 07/13/24 07/27/24 Unknown History Allergies Allergy/AdvReac Type Severity Reaction Status Date / Time oxycodone Allergy Intermediate Unknown Verified 07/12/24 15:23 adhesive tape Allergy Unknown Verified 07/12/24 15:23 latex Allergy Unknown Verified 07/12/24 15:23 quetiapine (From Seroquel) Allergy Unknown Verified 07/12/24 15:23 simvastatin Allergy Unknown Verified 07/12/24 15:23 tizanidine Allergy Unknown Verified 07/12/24 15:23 Review of Systems Review of Systems: As reviewed above [facility] Past Medical History Medical History (Updated 07/27/24 @ 21:33 by Pilo Mayorga MD) Depression Wears glasses Chronic anemia Chronic anticoagulation Anxiety Diastolic dysfunction Echocardiogram on 04/12/2020 showed normal LV systolic function with an EF 65% and grade 1 diastolic dysfunction. Pulmonary hypertension Mild to moderate pulmonary hypertension noted on prior echocardiogram with an estimated peak RVSP of 46 mmHg. Chronic obstructive pulmonary disease Osteoarthritis Type 2 diabetes mellitus Diet-controlled. Deep venous thrombosis of right popliteal vein (10/2019) GI bleed (10/2019) Secondary to peptic ulcers attributed to the patient taking to NSAIDs at the same time. NSAID induced gastritis (10/2019) Abdominal mass 3.5 x 4.8 cm abdominal mass noted anterior to the aortic bifurcation on imaging in October 2019. Patient is uncertain whether not she has had follow-up for this or not. Hypertension Schizophrenia Surgical History Surgical History (Updated 07/27/24 @ 14:27 by Priscila Pino PA-C) History of arthroplasty of right knee History of aortic valve replacement with bioprosthetic valve Family History Family History Father , Age 70 with cardiac and multiple other problems that patient cannot elaborate on Heart disease Hypertension Mother , 71 heart disease Heart disease Hypertension Throat cancer Social History Social History (Updated 07/27/24 @ 14:27 by Priscila Pino PA-C) Social History: Healthcare power of research attorney: Yaniv Parnell. Code status: Do not resuscitate. Smoking packs per day: 1 Smoking cigarettes per day: 20.0 Years smoked: 30 Smoking pack-years: 30.00 Smoking status: Former smoker Alcohol intake: unknown Substance use: unknown Substance use type: does not use Do You Feel Safe in your Home?: Yes Lack of Transportation: No Lack of Food: Never True Current Housing: I Have Housing Concerned About Future Housing: No Difficulty Paying Gas/Electric Bills: No Difficulty Paying for Meds: No Currently Unemployed: No Education: High School Diploma/GED Difficulty w/ Childcare or Family Care: No Living arrangements: alf Additional living arrangements comments: Never . She has no children. Resident at [facility]. Spiritual care concerns: No Exam Narrative: GENERAL: Elderly, not in any acute distress, easily agitated HEAD: [Normocephalic, atraumatic.] EYES: [PERRLA and EOMI.] ENT: Nares clear, no rhinorrhea or epistaxis. Mucous membranes moist. NECK: Supple. CHEST: Clear breath sounds bilaterally, no tachypnea HEART: [Regular rate and rhythm]. No murmur heard. [Normal peripheral pulses.] ABDOMEN: Protuberant but soft and nondistended from baseline, [nontender], [No rigidity or guarding] EXTREMITIES: Normal range of motion. [No edema.] SKIN: Warm, dry, no rash. NEURO: Moving all extremities, awake alert oriented PSYCH: Easily agitated Course Vital Signs Vital signs: Vital Signs Temperature 37.2 C 07/27/24 13:40 Pulse Rate 94 07/27/24 13:40 Blood Pressure 138/93 H 07/27/24 13:40 Pulse Oximetry 95 07/27/24 13:40 Oxygen Delivery Room Air 07/27/24 13:40 Temperature 35.8 C L 07/27/24 19:50 Pulse Rate 77 07/27/24 19:50 Respiratory Rate 20 07/27/24 19:50 Blood Pressure 117/58 L 07/27/24 19:50 Pulse Oximetry 96 07/27/24 19:50 Oxygen Delivery Nasal Cannula 07/27/24 18:56 Oxygen Flow Rate 2 07/27/24 18:56 MDM - Recheck/Abnormal Lab/Rx MDM Narrative Medical decision making narrative: 73-year-old female who is here yesterday for evaluation of mental status changes and discharged home back to her facility on new oxygen regimen including 24 hour 2 L nasal cannula and CPAP at night. Patient presents to the emergency department for positive blood cultures that were obtained yesterday. Patient has no symptoms at this time, denies any complaints. Patient is acting appropriately at her baseline mentation. She has a strong history of schizophrenia, dementia, COPD, diastolic dysfunction, type 2 diabetes and oxygen requirements. She is saturating 95% on her 2 L nasal cannula, afebrile no tachycardia, normal blood pressure. Will obtain repeat blood work and start her on vancomycin for coverage of Gram-positive bacteria from her blood cultures yesterday. Patient will be admitted for further delineation of source as she had an unremarkable workup yesterday including negative urinalysis, negative chest x-ray, no significant lab derangements. Medical Records Attestation: I reviewed the patient's medical records. Lab Data Attestation: I reviewed the patient's lab results. 07/27/24 14:00 07/27/24 14:00 Labs: Lab Results 07/27/24 Range/Units 14:00 WBC 8.6 (4.5-10.0) K/mm3 RBC 3.57 L (4.2-5.4) M/mm3 Hgb 11.2 L (12.0-15.0) g/dL Hct 34.5 L (37.0-47.0) % MCV 96.6 (80-100) fl MCH 31.4 (26-34) pg MCHC 32.5 (32-36) g/dl RDW 14.6 H (11.5-14.5) % Plt Count 103 L (150-375) k/mm3 MPV 9.8 (7.4-10.4) fl Immature Gran % (Auto) 0.9 H (0-0.5) % Neut % (Auto) 66.9 (45.5-73.1) % Lymph % (Auto) 16.1 L (18.3-44.2) % Hodgeman % (Auto) 15.6 H (2.6-8.5) % Eos % (Auto) 0.3 (0-4.4) % Baso % (Auto) 0.2 (0.2-1.2) % Lymph # (Auto) 1.38 (0.9-3.2) K/mm3 Hodgeman # (Auto) 1.3 H (0.1-0.6) K/mm3 Eos # (Auto) 0.0 (0-0.3) K/mm3 Baso # (Auto) 0.0 (0.0-0.1) K/mm3 Abs Immat Gran (auto) 0.08 H (0.00-0.031) K/mm3 Absolute Neuts (auto) 5.7 (1.3-6.7) K/mm3 Absolute Nucleated RBC 0.000 (0.0-0.012) K/mm3 Nucleated RBC % 0.0 (0.0-0.2) % Sodium 136 L (137-145) mmol/L Potassium 4.2 (3.4-5.0) mmol/L Chloride 98 (98-107) mmol/L Carbon Dioxide 30 (22-30) mmol/L Anion Gap 8 (4-12) mmol/L BUN 15 (7-17) mg/dL Creatinine 0.64 L (0.7-1.0) mg/dL Estim Creat Clear Calc 86 ml/min Estimated GFR > 60 (59 - ) Glucose 155 H (65-110) mg/dL Lactic Acid 1.5 (0.7-2.0) mmol/L Calcium 8.7 (8.4-10.2) mg/dL Total Bilirubin 0.5 (0.2-1.3) mg/dL AST 23 (14-36) U/L ALT 20 (6-35) U/L Alkaline Phosphatase 78 (38-126) U/L Total Protein 6.0 L (6.3-8.2) g/dL Albumin 3.5 (3.5-5.1) g/dL Discharge Plan Discharge Clinical Impression: Positive blood culture Patient Disposition: Still a Patient Condition: Stable
[2024-07-27 14:07] LABS: Basophils Percent Auto 0.2 % (0.2-1.2); Eosinophils Percent Auto 0.3 % (0-4.4); Hematocrit 34.5 % (37.0-47.0); Hemoglobin 11.2 g/dL (12.0-15.0); Immature Granulocyte Absolute 0.08 K/mm3 (0.00-0.031); Immature Granulocyte Percent A 0.9 % (0-0.5); Lymphocytes Absolute Auto 1.38 K/mm3 (0.9-3.2); Lymphocytes Percent Auto 16.1 % (18.3-44.2); Mean Corpuscular HGB Conc 32.5 g/dl (32-36); Mean Corpuscular Hemoglobin 31.4 pg (26-34); Mean Corpuscular Volume 96.6 fl (80-100); Mean Platelet Volume 9.8 fl (7.4-10.4); Monocytes Absolute Auto 1.3 K/mm3 (0.1-0.6); Monocytes Percent Auto 15.6 % (2.6-8.5); Neutrophils Absolute Auto 5.7 K/mm3 (1.3-6.7); Neutrophils Percent Auto 66.9 % (45.5-73.1); Platelet Count Result 103 k/mm3 (150-375); Red Blood Count 3.57 M/mm3 (4.2-5.4); Red Cell Distribution Width 14.6 % (11.5-14.5); White Blood Count 8.6 K/mm3 (4.5-10.0)
[2024-07-27 14:18] LABS: Alanine Aminotransferase 20 U/L (6-35); Albumin Level 3.5 g/dL (3.5-5.1); Alkaline Phosphatase 78 U/L (38-126); Anion Gap 8 mmol/L (4-12); Aspartate Amino Transferase 23 U/L (14-36); Bilirubin,Total 0.5 mg/dL (0.2-1.3); Blood Urea Nitrogen 15 mg/dL (7-17); Calcium 8.7 mg/dL (8.4-10.2); Carbon Dioxide 30 mmol/L (22-30); Chloride 98 mmol/L (98-107); Estimated CRCL calculation 86 ml/min; Estimated Glomerular Filt Rate > 60; Glucose 155 mg/dL (65-110); Lactic Acid Reflex 1.5 mmol/L (0.7-2.0); Potassium 4.2 mmol/L (3.4-5.0); Sodium 136 mmol/L (137-145)
--- NOTE | 2024-07-27 14:25 | P.HP_ITS ---
H&P: HPI History of Present Illness Date/Time: 07/27/24 14:25 Chief Complaint: Positive blood culture. Narrative: This is a 73-year-old female with history of schizophrenia, diastolic congestive heart failure, hypertension, chronic obstructive pulmonary disease, and deep venous thrombosis on apixaban who presented to the emergency department earlier today via EMS from [facility] with reports of a positive blood culture. She was seen in the emergency department yesterday for reports of altered mental status, had a negative workup, and was discharged back to her nursing facility. One set of blood cultures obtained yesterday is growing Gram-positive cocci in pairs however it is unclear whether this is in the aerobic or anaerobic bottle; the report comments that the bacteria were from the aerobic bottle only but in a separate paragraph it states they were isolated from the anaerobic bottle only. There have been difficulties getting in touch with the microbiology lab for clarification and because of this she is being admitted, pending identification and sensitivities. At the time of my evaluation she is alert and oriented and she has no complaints. She denies headache, neck ache, cold and flu symptoms, abdominal pain, nausea, vomiting, diarrhea, and dysuria. She is afebrile with stable blood pressures. Labs were pretty unremarkable and are consistent with her baseline. Review of Systems Review of Systems: 12 systems were reviewed and are negativ e except for as per HPI. [facility] Past Medical History Medical History (Updated 07/27/24 @ 22:02 by Priscila Pino PA-C) Depression Wears glasses Chronic anemia Chronic anticoagulation Anxiety Diastolic dysfunction Echocardiogram on 04/12/2020 showed normal LV systolic function with an EF 65% and grade 1 diastolic dysfunction. Pulmonary hypertension Mild to moderate pulmonary hypertension noted on prior echocardiogram with an estimated peak RVSP of 46 mmHg. Chronic obstructive pulmonary disease Osteoarthritis Type 2 diabetes mellitus Diet-controlled. Deep venous thrombosis of right popliteal vein (10/2019) GI bleed (10/2019) Secondary to peptic ulcers attributed to the patient taking to NSAIDs at the same time. NSAID induced gastritis (10/2019) Abdominal mass 3.5 x 4.8 cm abdominal mass noted anterior to the aortic bifurcation on imaging in October 2019. Patient is uncertain whether not she has had follow-up for this or not. Hypertension Schizophrenia Surgical History Surgical History History of arthroplasty of right knee History of aortic valve replacement with bioprosthetic valve Family History Family History Father , Age 70 with cardiac and multiple other problems that patient cannot elaborate on Heart disease Hypertension Mother , 71 heart disease Heart disease Hypertension Throat cancer Social History Social History Social History: Healthcare power of claim attorney: Yaniv Parnell. Code status: Do not resuscitate. Smoking packs per day: 1 Smoking cigarettes per day: 20.0 Years smoked: 30 Smoking pack-years: 30.00 Smoking status: Former smoker Alcohol intake: unknown Substance use: unknown Substance use type: does not use Do You Feel Safe in your Home?: Yes Lack of Transportation: No Lack of Food: Never True Current Housing: I Have Housing Concerned About Future Housing: No Difficulty Paying Gas/Electric Bills: No Difficulty Paying for Meds: No Currently Unemployed: No Education: High School Diploma/GED Difficulty w/ Childcare or Family Care: No Living arrangements: longterm Additional living arrangements comments: Never . She has no children. Resident at [facility]. Spiritual care concerns: No Meds Home Medications and Allergies Home Medications ?Medication ?Instructions ?Recorded ?Confirmed ?Type lisinopril 40 mg tablet 40 mg PO DAILY 04/30/19 07/27/24 History multivit with minerals-iron 18 1 tablet PO DAILY 04/30/19 07/27/24 History mg-folic ac 400 mcg-vit K 25 mcg tablet (Adults Multivitamin) cholecalciferol (vitamin D3) 25 1,000 unit PO DAILY 11/12/19 07/27/24 History mcg (1,000 unit) tablet polyethylene glycol 3350 17 17 g PO DAILY PRN Constipation 11/12/19 07/27/24 History gram/dose oral powder (Miralax) metoprolol tartrate 25 mg tablet 12.5 mg (1/2 x 25 mg) PO Q12HR #0 11/19/19 07/27/24 Rx tabs apixaban 5 mg tablet (Eliquis) 5 mg PO BID 04/11/20 07/27/24 History atorvastatin 20 mg tablet 20 mg PO DAILY 04/11/20 07/27/24 History docusate sodium 100 mg tablet 100 mg PO BID 04/11/20 07/27/24 History famotidine 20 mg tablet (Pepcid) 20 mg PO BID 04/11/20 07/27/24 History acetaminophen 300 mg-codeine 30 mg 2 tablet PO Q4H PRN Pain 01/30/21 07/27/24 History tablet albuterol sulfate 90 mcg/actuation 2 inh inhalation Q6H PRN Shortness 01/30/21 07/27/24 History breath activated powder inhaler Of Breath bisacodyl 10 mg rectal suppository 10 mg RECTAL DAILY PRN Constipation 01/30/21 07/27/24 History diclofenac sodium 1 % topical gel 2 g topical BID 01/30/21 07/27/24 History furosemide 40 mg tablet 40 mg PO DAILY 01/30/21 07/27/24 History gabapentin 100 mg capsule 100 mg PO BID 01/30/21 07/27/24 History ibuprofen 200 mg tablet 200 mg PO BID PRN Pain 01/30/21 07/13/24 History magnesium citrate (Citroma oral 300 ml PO DAILY PRN Constipation 01/30/21 07/27/24 History solution) melatonin 5 mg tablet 5 mg PO HS 01/30/21 07/27/24 History risperidone 1 mg tablet 1 mg PO TID 01/30/21 07/27/24 History Saccharomyces boulardii 250 mg 250 mg PO BID #14 caps 02/02/21 07/13/24 Rx capsule (Florastor) acetaminophen 325 mg capsule 650 mg PO Q6H PRN general 06/25/24 07/27/24 History discomfort baclofen 5 mg tablet 5 mg PO BID 06/25/24 07/27/24 History budesonide-formoterol HFA 160 2 puff inhalation BID 06/25/24 07/27/24 History mcg-4.5 mcg/actuation aerosol inhaler carvedilol 6.25 mg tablet 6.25 mg PO BID 06/25/24 07/27/24 History divalproex 500 mg tablet,extended 500 mg PO BID 06/25/24 07/27/24 History release 24 hr (Depakote ER) escitalopram oxalate 20 mg tablet 20 mg PO DAILY 06/25/24 07/27/24 History hydralazine 10 mg tablet 10 mg PO BID 06/25/24 07/27/24 History ipratropium 0.5 mg-albuterol 3 mg 3 ml inhalation BID PRN shortness 06/25/24 07/13/24 History (2.5 mg base)/3 mL nebulization of breath soln ondansetron HCl 4 mg tablet 4 mg PO Q6H PRN nausea and vomiting 06/25/24 07/13/24 History quetiapine 50 mg tablet,extended 100 mg PO QPM 06/25/24 07/27/24 History release 24 hr spironolactone 25 mg tablet 25 mg PO DAILY 06/25/24 07/27/24 History methyl salicylate-menthol 29 %-7.6 1 applic topical TID PRN muscle 06/26/24 07/13/24 History % topical ointment (Cold and Hot pain (m.salicylate-menthol)) polyethylene glycol 400 0.25 % eye 2 drp ophthalmic (eye) QID PRN dry 06/26/24 07/13/24 History drops (Blink Tears) eyes sodium phosphates 19 gram-7 118 ml RECTAL DAILY PRN 06/26/24 07/13/24 History gram/118 mL enema (Enema) constipation prednisone 10 mg tablet 10 mg PO DAILY #20 tabs 06/29/24 07/27/24 Rx hydrocodone 5 mg-acetaminophen 325 1 tablet PO Q8H PRN pain 07/13/24 07/13/24 History mg tablet hydroxyzine pamoate 50 mg capsule 50 mg PO BID PRN anxiety 07/13/24 07/13/24 History magnesium hydroxide 400 mg/5 mL 2,400 mg PO DAILY PRN constipation 07/13/24 07/27/24 History oral suspension (Milk of Magnesia) valproic acid 250 mg capsule 250 mg PO TID 07/13/24 07/27/24 History amoxicillin 875 mg-potassium 1 tablet PO Q12H 4 days #8 tabs 07/14/24 Rx clavulanate 125 mg tablet doxycycline hyclate 100 mg capsule 100 mg PO BID 4 days #8 caps 07/14/24 07/27/24 Rx Allergies Allergy/AdvReac Type Severity Reaction Status Date / Time oxycodone Allergy Intermediate Unknown Verified 07/12/24 15:23 adhesive tape Allergy Unknown Verified 07/12/24 15:23 latex Allergy Unknown Verified 07/12/24 15:23 quetiapine (From Seroquel) Allergy Unknown Verified 07/12/24 15:23 simvastatin Allergy Unknown Verified 07/12/24 15:23 tizanidine Allergy Unknown Verified 07/12/24 15:23 Vital Signs Vital Signs - 24 hr 07/27/24 13:40 Temperature 99 F Pulse Rate 94 Blood Pressure 138/93 H Pulse Oximetry 95 Oxygen Delivery Room Air Exam Narrative: General: Chronically ill-appearing female supine in bed in no distress. Weight: 109 kg. BMI: 38.8. HEENT: PERRL, EOMI. Sclerae anicteric. Oral mucosa is dry. Edentulous. Neck: Supple. Exam limited due to neck circumference. Respiratory: Respirations are nonlabored and lungs are clear to auscultation bilaterally. Cardiovascular: Regular rate and rhythm with S1-S2. Systolic murmur at the right upper sternal border. Gastrointestinal: Abdomen is soft, obese, and nondistended with positive bowel sounds. Skin: Warm and dry. Scattered bruising on the hands. Chronic skin changes of the lower legs. Extremities: No cyanosis or clubbing. Chronic, pitting edema of the lower limbs. She would not allow me to remove her socks for examination. Neurological: Alert to name and date of . She is aware that she is in the hospital. Cannot provide me with the current year or president. Cranial nerves 2-12 are grossly intact. No gross focal deficits casual conversation. Psychiatric: Pleasant and cooperative. Mild cognitive impairment. H&P: Results Labs Labs: Short CBC 07/27/24 Range/Units 14:00 WBC 8.6 (4.5-10.0) K/mm3 Hgb 11.2 L (12.0-15.0) g/dL Hct 34.5 L (37.0-47.0) % Plt Count 103 L (150-375) k/mm3 BMP 07/27/24 14:00 Sodium 136 L Potassium 4.2 Chloride 98 Carbon Dioxide 30 BUN 15 Creatinine 0.64 L Glucose 155 H Calcium 8.7 Liver Function 07/27/24 Range/Units 14:00 Total Bilirubin 0.5 (0.2-1.3) mg/dL AST 23 (14-36) U/L ALT 20 (6-35) U/L Alkaline Phosphatase 78 (38-126) U/L Albumin 3.5 (3.5-5.1) g/dL Assessment and Plan Assessment and plan (1) Positive blood culture: Code(s): R78.81 - Bacteremia Status: Acute (2) Diastolic dysfunction: Code(s): I51.89 - Other ill-defined heart diseases Status: Acute (3) Hypertension: Code(s): I10 - Essential (primary) hypertension Status: Acute (4) Chronic anticoagulation: Code(s): Z79.01 - oil heaterman (current) use of anticoagulants Status: Acute (5) Chronic anemia: Code(s): D64.9 - Anemia, unspecified Status: Acute (6) Type 2 diabetes mellitus: Code(s): E11.9 - Type 2 diabetes mellitus without complications Status: Acute (7) Psychiatric illness: Code(s): F99 - Mental disorder, not otherwise specified Status: Acute Plan The patient presented to the emergency department for evaluation of a positive blood culture as detailed in HPI. Labs, imaging, EKG, and all reports were personally reviewed. She was seen in the ED yesterday and workup at that time was really unremarkable for infection. One bottle in 1 set of blood cultures have come back growing Gram-positive cocci in pairs. There is a discrepancy in the report and it is unclear whether not the bacteria were in the a aerobic or anaerobic bottle. She received a dose of vancomycin 1250 mg IV in the ED pending identification sensitivities. She has pitting edema of the lower extremities and chest x-ray yesterday showed mild pulmonary edema and she will be given a dose of IV furosemide this evening. Random glucose was 227 and hemoglobin A1c has been ordered. Her diabetes is reportedly diet controlled. Initiate sliding scale insulin, Accu-Cheks, and hypoglycemic protocol. Anemia stable on review of previous labs. No acute issues with regards to her psychiatric conditions. Her home medications will be reviewed and resumed as appropriate. Findings and treatment plan were discussed with the patient. Questions were solicited and answered to satisfaction. The patient's medical management will be taken over by the hospitalist team in a.m. Quality VTE Prophylaxis VTE prophylaxis: pharmacologic ordered (on apixaban) The patient has been admitted under observation status. Hospitalist MIPS Advance Care Plan I have confirmed that the patient's Advanced Care Plan is present, code status is documented, or surrogate decision maker is listed in patient medical record.: Yes Medication Reconciliation I have utilized all available resources to obtain, update and review the patients current medications (includes all prescriptions, OTC, herbals, cannabis, and nutritional supplements).: Yes
[2024-07-27] MEDS: VANCOMYCIN 1,250 MG/NS 250 ML 1,250 MG/250 ML BAG 166.67 MG IVPB ×2 (15:03→16:41)
[2024-07-27] MEDS: ACETAMINOPHEN 325 MG TABLET 650 MG PO (16:18)
[2024-07-27 20:43] LABS: Glucose Point of Care 227 mg/dl (65-105)
[2024-07-27 20:59] LABS: MRSA (PCR) NOT DETECTED (NOT DETECTE)
[2024-07-27] MEDS: FUROSEMIDE INJ 40 MG/4 ML VIAL IV PUSH (22:53)
[2024-07-28] MEDS: VANCOMYCIN 1,500 MG/NS 500 ML 1,500 MG/500 ML BAG 250 MG IVPB (02:23)
[2024-07-28 02:38] LABS: Hematocrit 32.2 % (37.0-47.0); Hemoglobin 10.6 g/dL (12.0-15.0); Mean Corpuscular HGB Conc 32.9 g/dl (32-36); Mean Corpuscular Hemoglobin 31.6 pg (26-34); Mean Corpuscular Volume 96.1 fl (80-100); Mean Platelet Volume 9.6 fl (7.4-10.4); Platelet Count Result 105 k/mm3 (150-375); Red Blood Count 3.35 M/mm3 (4.2-5.4); Red Cell Distribution Width 14.6 % (11.5-14.5); White Blood Count 6.6 K/mm3 (4.5-10.0)
[2024-07-28 02:57] LABS: Anion Gap 5 mmol/L (4-12); Blood Urea Nitrogen 12 mg/dL (7-17); Calcium 8.3 mg/dL (8.4-10.2); Carbon Dioxide 33 mmol/L (22-30); Chloride 96 mmol/L (98-107); Estimated CRCL calculation 100 ml/min; Estimated Glomerular Filt Rate > 60; Glucose 135 mg/dL (65-110); Magnesium 1.9 mg/dL (1.6-2.3); Potassium 3.8 mmol/L (3.4-5.0); Sodium 134 mmol/L (137-145)
[2024-07-28 04:45] VITALS: BP 142/66; PULSE 75; RESP 20; TEMP 36.3; O2SAT 99
[2024-07-28 07:45] LABS: Glucose Point of Care 146 mg/dl (65-105)
[2024-07-28 09:07] LABS: Hemoglobin A1C 7.1 % (<5.7)
[2024-07-28] MEDS: METOPROLOL TARTRATE 12.5 MG TABLET PO (10:25)
[2024-07-28] MEDS: APIXABAN 5 MG TABLET PO ×2 (10:25→17:52)
[2024-07-28] MEDS: FUROSEMIDE 40 MG TABLET PO (10:25)
[2024-07-28] MEDS: lisinopriL 20 MG TABLET 40 MG PO (10:25)
[2024-07-28] MEDS: VALPROIC ACID 250 MG CAPSULE PO ×3 (10:25→17:53)
[2024-07-28] MEDS: DIVALPROEX SODIUM ER 500 MG TAB.24H PO ×2 (10:26→17:53)
[2024-07-28] MEDS: carvediloL 6.25 MG TABLET PO ×2 (10:26→17:52)
[2024-07-28] MEDS: CHOLECALCIFEROL 1,000 UNITS TABLET 1000 UNITS PO (10:26)
[2024-07-28] MEDS: DOCUSATE SODIUM 100 MG CAPSULE PO ×2 (10:26→17:52)
[2024-07-28] MEDS: hydrALAZINE 10 MG TABLET PO ×2 (10:26→17:52)
[2024-07-28] MEDS: MULTIVITAMINS /C LUTEIN (CENTRUM SILVER) TABLET *BKC 1 TAB PO (10:26)
[2024-07-28] MEDS: risperiDONE 1 MG TABLET PO ×3 (10:26→17:52)
[2024-07-28] MEDS: BACLOFEN 5 MG TABLET PO ×2 (10:27→17:53)
[2024-07-28] MEDS: GABAPENTIN 100 MG CAPSULE PO ×2 (10:27→17:53)
[2024-07-28] MEDS: ESCITALOPRAM OXALATE 10 MG TABLET 20 MG PO (10:27)
[2024-07-28] MEDS: ATORVASTATIN 20 MG TABLET PO (10:27)
[2024-07-28] MEDS: FAMOTIDINE 20 MG TABLET PO ×2 (10:27→20:52)
[2024-07-28] MEDS: DICLOFENAC SODIUM 1% 100 GM GEL (*BKC) 1 APPLIC TOPICAL ×2 (10:27→17:53)
[2024-07-28] MEDS: SPIRONOLACTONE 25 MG TABLET PO (10:27)
[2024-07-28 11:33] LABS: Glucose Point of Care 173 mg/dl (65-105)
--- NOTE | 2024-07-28 12:32 | P.PNIM_ITS ---
Progress Note: A&P Assessment and Plan (1) Positive blood culture: Code(s): R78.81 - Bacteremia Status: Acute Assessment and Plan: * 07/26 two blood culture sets grew Enterococcus faecium. * 07/28 Blood cultures pending. * Antibiotic switched to Daptomycin 750 mg q 24. (2) Diastolic dysfunction: Code(s): I51.89 - Other ill-defined heart diseases Status: Acute Assessment and Plan: * Carvedilol 6.25 mg PO BID. * Hydralazine 10 mg PO BID. * Furosemide 40 mg PO daily. (3) Hypertension: Code(s): I10 - Essential (primary) hypertension Status: Acute Assessment and Plan: * Blood pressure 142/66. * Carvedilol 6.25 mg PO BID. * Hydralazine 10 mg PO BID. 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 (5) Chronic anemia: Code(s): D64.9 - Anemia, unspecified Status: Acute Assessment and Plan: * H&H 10.6/32.2 * Trend CBC. (6) Type 2 diabetes mellitus: Code(s): E11.9 - Type 2 diabetes mellitus without complications Status: Acute Assessment and Plan: * Diabetes was reported diet controlled. * HgbA1C 7.1% * Initiate sliding scale insulin, Accu-Cheks, and hypoglycemic protocol. (7) Psychiatric illness: Code(s): F99 - Mental disorder, not otherwise specified Status: Acute Assessment and Plan: * Escitalopram 20 mg PO daily. * Quetiapine Fumarate XR 100 mg PO qpm. * Risperidone 1 mg PO TID. Subjective Date/time seen: 07/28/24 12:32 Interval history: Patient sitting up in bed. Patient denies chest pain, palpitations, headache, dizziness, nausea, or vomiting. Patient reports pain in her feet is an 8 , frequent, and aching. Review of Systems Review of Systems: All systems reviewed & are unremarkable except as noted in HPI and below Exam Const: General: no acute distress and uncomfortable Resp: Effort & Inspection: normal respiratory effort Auscultation: clear to auscultation bilaterally Cardio: Rate: regular rate Rhythm: regular rhythm GI: GI Palp: Yes Soft to palpation Auscultation: normal bowel sounds Neuro: Speech: normal speech Extrem: General: pedal edema bilaterally 1+ Psych: Affect: normal affect Other: A&Ox2. Mild cognitive impairment. Objective Data Vital Signs Vital Signs: Vital Signs - 24 hr 07/27/24 13:40 07/27/24 13:45 07/27/24 13:47 Temperature 99 F Pulse Rate 94 Respiratory Rate Blood Pressure 138/93 H 138/93 H 137/58 L Pulse Oximetry 95 Oxygen Delivery Room Air Oxygen Flow Rate 07/27/24 14:31 07/27/24 15:36 07/27/24 18:56 Temperature 97.4 F L Pulse Rate 82 Respiratory Rate 22 H Blood Pressure 97/78 L 141/62 H Pulse Oximetry 98 95 Oxygen Delivery Nasal Cannula Oxygen Flow Rate 2 07/27/24 19:50 07/28/24 04:45 Temperature 96.4 F L 97.4 F L Pulse Rate 77 75 Respiratory Rate 20 20 Blood Pressure 117/58 L 142/66 H Pulse Oximetry 96 99 Oxygen Delivery Oxygen Flow Rate Intake/Output Intake/Output: Intake & Output 07/25/24 07/26/24 07/27/24 07/28/24 23:59 23:59 23:59 23:59 Intake Total 480 530 Output Total 150 1550 Balance 330 -1020 Meds/Results Medications: Active Medications Generic Name Dose Route Start Last Admin Trade Name Freq PRN Reason Stop Dose Admin Acetaminophen 650 mg 07/27/24 14:25 07/27/24 16:18 Acetaminophen 325 Mg Tablet PO 650 mg Q4H PRN Administration Mild Pain (1-3) or Fever Albuterol 2 puff 07/28/24 08:44 Albuterol Sulfate (*Sp) Aerosol 1 Puff INHALATION Q6HRT PRN Shortness Of Breath Apixaban 5 mg 07/28/24 09:00 07/28/24 10:25 Apixaban 5 Mg Tablet PO 5 mg BID MAGUE Administration Atorvastatin Calcium 20 mg 07/28/24 09:00 07/28/24 10:27 Atorvastatin 20 Mg Tablet PO 20 mg DAILY MAGUE Administration Baclofen 5 mg 07/28/24 09:00 07/28/24 10:27 Baclofen 5 Mg Tablet PO 5 mg BID MAGUE Administration Bisacodyl 10 mg 07/28/24 08:44 Bisacodyl 10 Mg Suppository RECTAL DAILY PRN Constipation Carvedilol 6.25 mg 07/28/24 09:00 07/28/24 10:26 Carvedilol 6.25 Mg Tablet PO 6.25 mg BID MAGUE Administration Dextrose 12.5 gm 07/27/24 22:08 Dextrose 50% 25 Gm/50 Ml Syringe IV PUSH PRN PRN Hypoglycemia Protocol Diclofenac Sodium 1 applic 07/28/24 09:00 07/28/24 10:27 Diclofenac Sodium 1% 100 Gm Gel (*Bk) TOPICAL 1 applic BID MAGUE Administration Divalproex Sodium 500 mg 07/28/24 09:00 07/28/24 10:26 Divalproex Sodium Er 500 Mg Tab.24h PO 500 mg BID MAGUE Administration Docusate Sodium 100 mg 07/28/24 09:00 07/28/24 10:26 Docusate Sodium 100 Mg Capsule PO 100 mg BID MAGUE Administration Escitalopram Oxalate 20 mg 07/28/24 09:00 07/28/24 10:27 Escitalopram Oxalate 10 Mg Tablet PO 20 mg DAILY MAGUE Administration Famotidine 20 mg 07/28/24 09:00 07/28/24 10:27 Famotidine 20 Mg Tablet PO 20 mg Q12HR MAGUE Administration Furosemide 40 mg 07/28/24 09:00 07/28/24 10:25 Furosemide 40 Mg Tablet PO 40 mg DAILY MAGUE Administration Gabapentin 100 mg 07/28/24 09:00 07/28/24 10:27 Gabapentin 100 Mg Capsule PO 100 mg BID MAGUE Administration Glucagon 1 mg 07/27/24 22:08 Glucagon For Inj 1 Mg Vial IM PRN PRN Hypoglycemia Protocol Glucose 15 gm 07/27/24 22:08 Glucose Oral Gel 15 Gm Of Glucse In 37.5 Gm Tube PO PRN PRN Hypoglycemia Protocol Hydralazine HCl 10 mg 07/28/24 09:00 07/28/24 10:26 Hydralazine 10 Mg Tablet PO 10 mg BID MAGUE Administration Vancomycin HCl 1,500 mg in 500 mls @ 250 mls/hr 07/28/24 03:00 07/28/24 02:23 Vancomycin 1,500 Mg/Ns 500 Ml IVPB 250 mls/hr Q12H MAGUE Administration Dextrose 1,000 mls @ 100 mls/hr 07/27/24 22:08 Dextrose 5% 1,000 Ml IVPB PRN PRN Hypoglycemia Protocol Insulin Aspart 3 - 6 units 07/28/24 08:00 07/28/24 10:28 Insulin Aspart (*Bkc) 100 Units/Ml SUB-Q Not Given TIDWM [facility] Protocol Insulin Aspart 1 - 3 units 07/28/24 21:00 Insulin Aspart (*Bkc) 100 Units/Ml SUB-Q HS [facility] Protocol Lisinopril 40 mg 07/28/24 09:00 07/28/24 10:25 Lisinopril 20 Mg Tablet PO 40 mg DAILY MAGUE Administration Magnesium Citrate 300 ml 07/28/24 08:44 Magnesium Citrate 300 Ml Btl PO DAILY PRN Constipation Magnesium Hydroxide 30 ml 07/28/24 08:44 Magnesium Hydroxide Susp 30 Ml Udc PO DAILY PRN constipation Melatonin 5 mg 07/28/24 21:00 Melatonin 5 Mg Tablet PO HS [facility] Metoprolol Tartrate 12.5 mg 07/28/24 09:00 07/28/24 10:25 Metoprolol Tartrate 12.5 Mg Tablet PO 12.5 mg Q12HR MAGUE Administration Miscellaneous Information 0 each 07/28/24 00:01 For The Bowel Regimen- Please Clarify Use 1st, 2nd, 3rd Or Dc Duplicates Thanks XX 08/27/24 00:00 CLARIFY MAGUE Multivitamins/Minerals 1 tab 07/28/24 09:00 07/28/24 10:26 Multivitamins /C Lutein (Centrum Silver) Tablet *Bkc PO 1 tab DAILY MAGUE Administration Polyethylene Glycol 17 gm 07/28/24 08:44 Polyethylene Glycol 3350 17 Gm Powd.Pack PO DAILY PRN Constipation Quetiapine Fumarate 100 mg 07/28/24 18:00 Quetiapine Fumarate Xr 50 Mg Tab.Er.24h PO QPM MAGUE Risperidone 1 mg 07/28/24 09:00 07/28/24 10:26 Risperidone 1 Mg Tablet PO 1 mg TID MAGUE Administration Fluticasone/Salmeterol 2 puff 07/28/24 08:00 Fluticasone/Salmeterol 115-21 Mcg Inhaler 1 Puff INHALATION Q12HRT MAGUE Spironolactone 25 mg 07/28/24 09:00 07/28/24 10:27 Spironolactone 25 Mg Tablet PO 25 mg DAILY MAGUE Administration Valproic Acid 250 mg 07/28/24 09:00 07/28/24 10:25 Valproic Acid 250 Mg Capsule PO 250 mg TID MAGUE Administration Vitamin D 1,000 units 07/28/24 09:00 07/28/24 10:26 Cholecalciferol 1,000 Units Tablet PO 1,000 units DAILY MAGUE Administration Labs Labs: Laboratory Results - last 24 hr 07/27/24 07/27/24 07/27/24 14:00 19:41 19:54 WBC 8.6 RBC 3.57 L Hgb 11.2 L Hct 34.5 L MCV 96.6 MCH 31.4 MCHC 32.5 RDW 14.6 H Plt Count 103 L MPV 9.8 Immature Gran % (Auto) 0.9 H Neut % (Auto) 66.9 Lymph % (Auto) 16.1 L Patrick % (Auto) 15.6 H Eos % (Auto) 0.3 Baso % (Auto) 0.2 Lymph # (Auto) 1.38 Patrick # (Auto) 1.3 H Eos # (Auto) 0.0 Baso # (Auto) 0.0 Abs Immat Gran (auto) 0.08 H Absolute Neuts (auto) 5.7 Absolute Nucleated RBC 0.000 Nucleated RBC % 0.0 Sodium 136 L Potassium 4.2 Chloride 98 Carbon Dioxide 30 Anion Gap 8 BUN 15 Creatinine 0.64 L Estim Creat Clear Calc 86 Estimated GFR > 60 Glucose 155 H POC Capillary Glucose 227 H Hemoglobin A1c Lactic Acid 1.5 Calcium 8.7 Magnesium Total Bilirubin 0.5 AST 23 ALT 20 Alkaline Phosphatase 78 Total Protein 6.0 L Albumin 3.5 Nasal MRSA (PCR) Not detected 07/28/24 07/28/24 07/28/24 02:32 07:41 11:30 WBC 6.6 RBC 3.35 L Hgb 10.6 L Hct 32.2 L MCV 96.1 MCH 31.6 MCHC 32.9 RDW 14.6 H Plt Count 105 L MPV 9.6 Immature Gran % (Auto) Neut % (Auto) Lymph % (Auto) Patrick % (Auto) Eos % (Auto) Baso % (Auto) Lymph # (Auto) Patrick # (Auto) Eos # (Auto) Baso # (Auto) Abs Immat Gran (auto) Absolute Neuts (auto) Absolute Nucleated RBC Nucleated RBC % Sodium 134 L Potassium 3.8 Chloride 96 L Carbon Dioxide 33 H Anion Gap 5 BUN 12 Creatinine 0.54 L Estim Creat Clear Calc 100 Estimated GFR > 60 Glucose 135 H POC Capillary Glucose 146 H 173 H Hemoglobin A1c 7.1 H Lactic Acid Calcium 8.3 L Magnesium 1.9 Total Bilirubin AST ALT Alkaline Phosphatase Total Protein Albumin Nasal MRSA (PCR) Quality VTE Prophylaxis VTE prophylaxis: pharmacologic ordered (on apixaban)
[2024-07-28] MEDS: ACETAMINOPHEN 325 MG TABLET 650 MG PO (12:39)
[2024-07-28 14:00] VITALS: BP 100/72; PULSE 65; RESP 16; TEMP 36.1; O2SAT 99
[2024-07-28 16:39] LABS: Glucose Point of Care 125 mg/dl (65-105)
[2024-07-28] MEDS: QUEtiapine FUMARATE XR 50 MG TAB.ER.24H 100 MG PO (17:52)
[2024-07-28] MEDS: DAPTOmycin 750 MG in SODIUM CHLORIDE 0.9% IV 50 ML 100 MG IVPB (17:54)
[2024-07-28 20:45] VITALS: BP 92/50; PULSE 61; RESP 16; TEMP 36.3; O2SAT 97
[2024-07-28 20:56] VITALS: PULSE 61
[2024-07-28 20:58] LABS: Glucose Point of Care 173 mg/dl (65-105)
[2024-07-28] MEDS: FLUTICASONE/SALMETEROL 115-21 MCG INHALER 1 PUFF 2 PUFF INHALATION ×2 (21:07→21:08)
[2024-07-28 22:35] VITALS: BP 98/66
[2024-07-29 05:33] VITALS: BP 101/78; PULSE 56; RESP 16; TEMP 36.1; O2SAT 98
[2024-07-29 06:49] LABS: Hematocrit 32.6 % (37.0-47.0); Hemoglobin 10.2 g/dL (12.0-15.0); Mean Corpuscular HGB Conc 31.3 g/dl (32-36); Mean Corpuscular Volume 99.1 fl (80-100); Mean Platelet Volume 9.7 fl (7.4-10.4); Platelet Count Result 101 k/mm3 (150-375); Red Blood Count 3.29 M/mm3 (4.2-5.4); Red Cell Distribution Width 14.6 % (11.5-14.5); White Blood Count 7.1 K/mm3 (4.5-10.0)
[2024-07-29 07:02] LABS: Alanine Aminotransferase 21 U/L (6-35); Alkaline Phosphatase 62 U/L (38-126); Anion Gap 4 mmol/L (4-12); Aspartate Amino Transferase 21 U/L (14-36); Bilirubin,Total 0.4 mg/dL (0.2-1.3); Blood Urea Nitrogen 18 mg/dL (7-17); Calcium 8.2 mg/dL (8.4-10.2); Carbon Dioxide 33 mmol/L (22-30); Chloride 97 mmol/L (98-107); Creatine Kinase < 20 U/L (30-135); Estimated CRCL calculation 64 ml/min; Estimated Glomerular Filt Rate > 60; Glucose 169 mg/dL (65-110); Potassium 4.1 mmol/L (3.4-5.0); Sodium 134 mmol/L (137-145)
[2024-07-29 07:04] VITALS: O2SAT 95
[2024-07-29 08:00] VITALS: PULSE 56; RESP 16; O2SAT 97
[2024-07-29 08:45] LABS: Glucose Point of Care 152 mg/dl (65-105)
[2024-07-29] MEDS: FAMOTIDINE 20 MG TABLET PO ×2 (08:56→21:33)
[2024-07-29] MEDS: risperiDONE 1 MG TABLET PO ×3 (08:56→16:31)
[2024-07-29] MEDS: BACLOFEN 5 MG TABLET PO ×2 (08:57→16:31)
[2024-07-29] MEDS: SPIRONOLACTONE 25 MG TABLET PO (08:57)
[2024-07-29] MEDS: MULTIVITAMINS /C LUTEIN (CENTRUM SILVER) TABLET *BKC 1 TAB PO (08:57)
[2024-07-29] MEDS: GABAPENTIN 100 MG CAPSULE PO ×2 (08:57→16:31)
[2024-07-29] MEDS: DOCUSATE SODIUM 100 MG CAPSULE PO ×2 (08:57→16:31)
[2024-07-29] MEDS: APIXABAN 5 MG TABLET PO ×2 (08:57→16:31)
[2024-07-29] MEDS: CHOLECALCIFEROL 1,000 UNITS TABLET 1000 UNITS PO (08:57)
[2024-07-29] MEDS: VALPROIC ACID 250 MG CAPSULE PO ×3 (08:57→16:31)
[2024-07-29] MEDS: hydrALAZINE 10 MG TABLET PO ×2 (08:57→16:34)
[2024-07-29] MEDS: FUROSEMIDE 40 MG TABLET PO (08:57)
[2024-07-29] MEDS: ESCITALOPRAM OXALATE 10 MG TABLET 20 MG PO (08:57)
[2024-07-29] MEDS: DICLOFENAC SODIUM 1% 100 GM GEL (*BKC) 1 APPLIC TOPICAL ×2 (09:01→16:31)
[2024-07-29] MEDS: DIVALPROEX SODIUM ER 500 MG TAB.24H PO ×2 (09:01→16:31)
[2024-07-29] MEDS: FLUTICASONE/SALMETEROL 115-21 MCG INHALER 1 PUFF 2 PUFF INHALATION (09:22)
[2024-07-29 09:25] VITALS: O2SAT 97
[2024-07-29 11:42] LABS: Glucose Point of Care 110 mg/dl (65-105)
--- NOTE | 2024-07-29 11:56 | P.PNIM_ITS ---
Progress Note: A&P Assessment and Plan (1) Positive blood culture: Code(s): R78.81 - Bacteremia Status: Acute Assessment and Plan: * / blood culture sets grew Enterococcus faecium 1 bottle and Vanco Res Enter ococcus Faecium in 1 bottle. * / Blood cultures 1 bottle grew gram + cocci in clusters. * Antibiotic switched to Daptomycin 750 mg q 24. (2) Diastolic dysfunction: Code(s): I51.89 - Other ill-defined heart diseases Status: Acute Assessment and Plan: * Carvedilol 6.25 mg PO BID. * Hydralazine 10 mg PO BID. * Furosemide 40 mg PO daily. (3) Hypertension: Code(s): I10 - Essential (primary) hypertension Status: Acute Assessment and Plan: * Blood pressure 101/78. Hold AM blood pressure medications. * Carvedilol 6.25 mg PO BID. * Hydralazine 10 mg PO BID. 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 (5) Chronic anemia: Code(s): D64.9 - Anemia, unspecified Status: Acute Assessment and Plan: * H&H 10.2/32.6. * Trend CBC. (6) Type 2 diabetes mellitus: Code(s): E11.9 - Type 2 diabetes mellitus without complications Status: Acute Assessment and Plan: * Diabetes was reported diet controlled. * HgbA1C 7.1% * Initiate sliding scale insulin, Accu-Checks, and hypoglycemic protocol. (7) Psychiatric illness: Code(s): F99 - Mental disorder, not otherwise specified Status: Acute Assessment and Plan: * Escitalopram 20 mg PO daily. * Quetiapine Fumarate XR 100 mg PO qpm. * Risperidone 1 mg PO TID. (8) Back pain: Code(s): M54.9 - Dorsalgia, unspecified Status: Acute Assessment and Plan: * Acetaminophen 650 mg PO q6 PRN. Subjective Date/time seen: 07/29/24 11:56 Interval history: Patient sitting up in bed eating lunch. Patient denies chest pain, palpitations, headache, dizziness, nausea, or vomiting. Patient reports back pain that is a 4 , frequent, and aching. Review of Systems Review of Systems: All systems reviewed & are unremarkable except as noted in HPI and below Exam Const: General: no acute distress and uncomfortable Resp: Effort & Inspection: normal respiratory effort Auscultation: clear to auscultation bilaterally Cardio: Rate: regular rate Rhythm: regular rhythm GI: GI Palp: Yes Soft to palpation Auscultation: normal bowel sounds Neuro: Speech: normal speech Extrem: General: pedal edema bilaterally 1+ Psych: Affect: normal affect Other: A&Ox2. Mild cognitive impairment. Objective Data Vital Signs Vital Signs: Vital Signs - 24 hr 07/28/24 14:00 07/28/24 20:45 07/28/24 20:56 Temperature 97.0 F L 97.4 F L Pulse Rate 65 61 61 Respiratory Rate 16 16 Blood Pressure 100/72 92/50 L Pulse Oximetry 99 97 Oxygen Delivery 07/28/24 22:35 07/29/24 05:33 07/29/24 07:04 Temperature 97.0 F L Pulse Rate 56 L Respiratory Rate 16 Blood Pressure 98/66 L 101/78 Pulse Oximetry 98 95 Oxygen Delivery Room Air 07/29/24 08:00 07/29/24 09:25 Temperature Pulse Rate 56 L Respiratory Rate 16 Blood Pressure Pulse Oximetry 97 97 Oxygen Delivery Room Air Room Air Intake/Output Intake/Output: Intake & Output 07/26/24 07/27/24 07/28/24 07/29/24 23:59 23:59 23:59 23:59 Intake Total 480 2250 480 Output Total 150 2150 200 Balance 330 100 280 Meds/Results Medications: Active Medications Generic Name Dose Route Start Last Admin Trade Name Freq PRN Reason Stop Dose Admin Acetaminophen 650 mg 07/27/24 14:25 07/28/24 12:39 Acetaminophen 325 Mg Tablet PO 650 mg Q4H PRN Administration Mild Pain (1-3) or Fever Albuterol 2 puff 07/28/24 08:44 Albuterol Sulfate (*Sp) Aerosol 1 Puff INHALATION Q6HRT PRN Shortness Of Breath Apixaban 5 mg 07/28/24 09:00 07/29/24 08:57 Apixaban 5 Mg Tablet PO 5 mg BID MAGUE Administration Atorvastatin Calcium 20 mg 07/28/24 09:00 07/28/24 10:27 Atorvastatin 20 Mg Tablet PO 20 mg DAILY MAGUE Administration Baclofen 5 mg 07/28/24 09:00 07/29/24 08:57 Baclofen 5 Mg Tablet PO 5 mg BID MAGUE Administration Bisacodyl 10 mg 07/28/24 08:44 Bisacodyl 10 Mg Suppository RECTAL DAILY PRN Constipation Carvedilol 6.25 mg 07/28/24 09:00 07/28/24 17:52 Carvedilol 6.25 Mg Tablet PO 6.25 mg BID MAGUE Administration Dextrose 12.5 gm 07/27/24 22:08 Dextrose 50% 25 Gm/50 Ml Syringe IV PUSH PRN PRN Hypoglycemia Protocol Diclofenac Sodium 1 applic 07/28/24 09:00 07/29/24 09:01 Diclofenac Sodium 1% 100 Gm Gel (*Bkc) TOPICAL 1 applic BID MAGUE Administration Divalproex Sodium 500 mg 07/28/24 09:00 07/29/24 09:01 Divalproex Sodium Er 500 Mg Tab.24h PO 500 mg BID MAGUE Administration Docusate Sodium 100 mg 07/28/24 09:00 07/29/24 08:57 Docusate Sodium 100 Mg Capsule PO 100 mg BID MAGUE Administration Escitalopram Oxalate 20 mg 07/28/24 09:00 07/29/24 08:57 Escitalopram Oxalate 10 Mg Tablet PO 20 mg DAILY MAGUE Administration Famotidine 20 mg 07/28/24 09:00 07/29/24 08:56 Famotidine 20 Mg Tablet PO 20 mg Q12HR MAGUE Administration Furosemide 40 mg 07/28/24 09:00 07/29/24 08:57 Furosemide 40 Mg Tablet PO 40 mg DAILY MAGUE Administration Gabapentin 100 mg 07/28/24 09:00 07/29/24 08:57 Gabapentin 100 Mg Capsule PO 100 mg BID MAGUE Administration Glucagon 1 mg 07/27/24 22:08 Glucagon For Inj 1 Mg Vial IM PRN PRN Hypoglycemia Protocol Glucose 15 gm 07/27/24 22:08 Glucose Oral Gel 15 Gm Of Glucse In 37.5 Gm Tube PO PRN PRN Hypoglycemia Protocol Hydralazine HCl 10 mg 07/28/24 09:00 07/29/24 08:57 Hydralazine 10 Mg Tablet PO 10 mg BID MAGUE Administration Dextrose 1,000 mls @ 100 mls/hr 07/27/24 22:08 Dextrose 5% 1,000 Ml IVPB PRN PRN Hypoglycemia Protocol Daptomycin 750 mg/ Sodium 50 mls @ 100 mls/hr 07/28/24 18:00 07/28/24 17:54 Chloride IVPB 100 mls/hr Q24H MAGUE Administration Insulin Aspart 3 - 6 units 07/28/24 08:00 07/29/24 09:00 Insulin Aspart (*Bkc) 100 Units/Ml SUB-Q Not Given TIDWM [facility] Protocol Insulin Aspart 1 - 3 units 07/28/24 21:00 07/28/24 20:56 Insulin Aspart (*Bkc) 100 Units/Ml SUB-Q Not Given HS [facility] Protocol Lisinopril 40 mg 07/28/24 09:00 07/28/24 10:25 Lisinopril 20 Mg Tablet PO 40 mg DAILY MAGUE Administration Magnesium Citrate 300 ml 07/28/24 08:44 Magnesium Citrate 300 Ml Btl PO DAILY PRN Constipation Magnesium Hydroxide 30 ml 07/28/24 08:44 Magnesium Hydroxide Susp 30 Ml Udc PO DAILY PRN constipation Melatonin 5 mg 07/28/24 21:00 07/28/24 21:00 Melatonin 5 Mg Tablet PO Not Given HS [facility] Metoprolol Tartrate 12.5 mg 07/28/24 09:00 07/28/24 20:56 Metoprolol Tartrate 12.5 Mg Tablet PO Not Given Q12HR [facility] Miscellaneous Information 0 each 07/28/24 00:01 For The Bowel Regimen- Please Clarify Use 1st, 2nd, 3rd Or Dc Duplicates Thanks XX 08/27/24 00:00 CLARIFY [facility] Multivitamins/Minerals 1 tab 07/28/24 09:00 07/29/24 08:57 Multivitamins /C Lutein (Centrum Silver) Tablet *Bkc PO 1 tab DAILY MAGUE Administration Polyethylene Glycol 17 gm 07/28/24 08:44 Polyethylene Glycol 3350 17 Gm Powd.Pack PO DAILY PRN Constipation Quetiapine Fumarate 100 mg 07/28/24 18:00 07/28/24 17:52 Quetiapine Fumarate Xr 50 Mg Tab.Er.24h PO 100 mg QPM MAGUE Administration Risperidone 1 mg 07/28/24 09:00 07/29/24 08:56 Risperidone 1 Mg Tablet PO 1 mg TID MAGUE Administration Fluticasone/Salmeterol 2 puff 07/28/24 08:00 07/29/24 09:22 Fluticasone/Salmeterol 115-21 Mcg Inhaler 1 Puff INHALATION 2 puff Q12HRT MAGUE Administration Spironolactone 25 mg 07/28/24 09:00 07/29/24 08:57 Spironolactone 25 Mg Tablet PO 25 mg DAILY MAGUE Administration Valproic Acid 250 mg 07/28/24 09:00 07/29/24 08:57 Valproic Acid 250 Mg Capsule PO 250 mg TID MAGUE Administration Vitamin D 1,000 units 07/28/24 09:00 07/29/24 08:57 Cholecalciferol 1,000 Units Tablet PO 1,000 units DAILY MAGUE Administration Labs Labs: Laboratory Results - last 24 hr 07/28/24 07/28/24 07/29/24 16:30 20:37 06:41 WBC 7.1 RBC 3.29 L Hgb 10.2 L Hct 32.6 L MCV 99.1 MCH 31.0 MCHC 31.3 L RDW 14.6 H Plt Count 101 L MPV 9.7 Sodium 134 L Potassium 4.1 Chloride 97 L Carbon Dioxide 33 H Anion Gap 4 BUN 18 H Creatinine 0.84 Estim Creat Clear Calc 64 Estimated GFR > 60 Glucose 169 H POC Capillary Glucose 125 H 173 H Calcium 8.2 L Total Bilirubin 0.4 AST 21 ALT 21 Alkaline Phosphatase 62 Total Creatine Kinase < 20 L Total Protein 6.0 L Albumin 3.0 L 07/29/24 07/29/24 08:01 11:36 WBC RBC Hgb Hct MCV MCH MCHC RDW Plt Count MPV Sodium Potassium Chloride Carbon Dioxide Anion Gap BUN Creatinine Estim Creat Clear Calc Estimated GFR Glucose POC Capillary Glucose 152 H 110 H Calcium Total Bilirubin AST ALT Alkaline Phosphatase Total Creatine Kinase Total Protein Albumin Quality VTE Prophylaxis VTE prophylaxis: pharmacologic ordered (on apixaban)
[2024-07-29] MEDS: polyethylene glycoL 3350 17 GM POWD.PACK PO (13:30)
[2024-07-29] MEDS: ACETAMINOPHEN 325 MG TABLET 650 MG PO (13:31)
[2024-07-29] MEDS: carvediloL 6.25 MG TABLET PO ×2 (13:31→16:31)
[2024-07-29] MEDS: METOPROLOL TARTRATE 12.5 MG TABLET PO (13:32)
[2024-07-29 14:00] VITALS: BP 100/62; PULSE 71; RESP 17; TEMP 36.4; O2SAT 95
[2024-07-29 16:34] LABS: Glucose Point of Care 180 mg/dl (65-105)
[2024-07-29] MEDS: DAPTOmycin 750 MG in SODIUM CHLORIDE 0.9% IV 50 ML 100 MG IVPB (18:16)
[2024-07-29] MEDS: QUEtiapine FUMARATE XR 50 MG TAB.ER.24H 100 MG PO (18:16)
[2024-07-29] MEDS: MELATONIN 5 MG TABLET PO (21:33)
[2024-07-29 22:00] VITALS: BP 99/85; PULSE 67; RESP 16; TEMP 36.7; O2SAT 97
[2024-07-29 22:26] LABS: Glucose Point of Care 156 mg/dl (65-105)
[2024-07-30 06:00] VITALS: BP 157/62; PULSE 67; RESP 18; TEMP 36.4; O2SAT 99
[2024-07-30 06:29] LABS: Hematocrit 35.8 % (37.0-47.0); Hemoglobin 11.4 g/dL (12.0-15.0); Mean Corpuscular HGB Conc 31.8 g/dl (32-36); Mean Corpuscular Hemoglobin 31.1 pg (26-34); Mean Corpuscular Volume 97.5 fl (80-100); Mean Platelet Volume 9.1 fl (7.4-10.4); Platelet Count Result 104 k/mm3 (150-375); Red Blood Count 3.67 M/mm3 (4.2-5.4); Red Cell Distribution Width 14.7 % (11.5-14.5); White Blood Count 5.2 K/mm3 (4.5-10.0)
[2024-07-30 06:46] LABS: Alanine Aminotransferase 24 U/L (6-35); Albumin Level 3.4 g/dL (3.5-5.1); Alkaline Phosphatase 78 U/L (38-126); Anion Gap 4 mmol/L (4-12); Aspartate Amino Transferase 21 U/L (14-36); Bilirubin,Total 0.4 mg/dL (0.2-1.3); Blood Urea Nitrogen 19 mg/dL (7-17); Carbon Dioxide 37 mmol/L (22-30); Chloride 97 mmol/L (98-107); Estimated CRCL calculation 63 ml/min; Estimated Glomerular Filt Rate > 60; Glucose 128 mg/dL (65-110); Magnesium 1.9 mg/dL (1.6-2.3); Potassium 4.3 mmol/L (3.4-5.0); Sodium 138 mmol/L (137-145)
[2024-07-30 07:36] VITALS: PULSE 67; RESP 16; O2SAT 97
[2024-07-30 08:24] LABS: Glucose Point of Care 114 mg/dl (65-105)
[2024-07-30] MEDS: FUROSEMIDE 40 MG TABLET PO (08:26)
[2024-07-30] MEDS: METOPROLOL TARTRATE 12.5 MG TABLET PO (08:26)
[2024-07-30] MEDS: CHOLECALCIFEROL 1,000 UNITS TABLET 1000 UNITS PO (08:26)
[2024-07-30] MEDS: hydrALAZINE 10 MG TABLET PO ×2 (08:26→16:57)
[2024-07-30] MEDS: SPIRONOLACTONE 25 MG TABLET PO (08:26)
[2024-07-30] MEDS: DOCUSATE SODIUM 100 MG CAPSULE PO ×2 (08:26→16:57)
[2024-07-30] MEDS: APIXABAN 5 MG TABLET PO ×2 (08:26→16:57)
[2024-07-30] MEDS: carvediloL 6.25 MG TABLET PO ×2 (08:26→16:57)
[2024-07-30] MEDS: VALPROIC ACID 250 MG CAPSULE PO ×3 (08:26→16:57)
[2024-07-30] MEDS: risperiDONE 1 MG TABLET PO ×3 (08:26→16:56)
[2024-07-30] MEDS: FAMOTIDINE 20 MG TABLET PO (08:26)
[2024-07-30] MEDS: DIVALPROEX SODIUM ER 500 MG TAB.24H PO ×2 (08:27→16:58)
[2024-07-30] MEDS: MULTIVITAMINS /C LUTEIN (CENTRUM SILVER) TABLET *BKC 1 TAB PO (08:30)
[2024-07-30] MEDS: GABAPENTIN 100 MG CAPSULE PO ×2 (08:30→16:57)
[2024-07-30] MEDS: BACLOFEN 5 MG TABLET PO ×2 (08:31→16:57)
[2024-07-30] MEDS: DICLOFENAC SODIUM 1% 100 GM GEL (*BKC) 1 APPLIC TOPICAL ×2 (08:32→16:57)
[2024-07-30] MEDS: ESCITALOPRAM OXALATE 10 MG TABLET 20 MG PO (08:35)
[2024-07-30] MEDS: FLUTICASONE/SALMETEROL 115-21 MCG INHALER 1 PUFF 2 PUFF INHALATION (08:41)
--- NOTE | 2024-07-30 11:34 | P.PNIM_ITS ---
Progress Note: A&P Assessment and Plan (1) Positive blood culture: Code(s): R78.81 - Bacteremia Status: Acute Assessment and Plan: * 3/27 blood culture sets grew Enterococcus faecium 1 bottle and Vanco Res Enter ococcus Faecium in 1 bottle. * 3/29 Blood cultures 1 bottle grew gram + cocci in clusters. * Antibiotic switched to Daptomycin 750 mg q 24. * Abdomen chest pelvis CT ordered with contrast. * Repeat blood cultures in the AM. * CRP, ESR, procalcitonin, and urine culture ordered. * Chest X-ray:IMPRESSION: 1. Mild pulmonary edema. 2. Cardiomegaly. * Abdomen KUB: FINDINGS: Bowel gas pattern is normal. Moderate colonic fecal loading. There is no evidence of free air, mass, organomegaly, ascites or obstruction. No abnormal calculi are seen. There is severe osteoarthritis of the right hip with remodeling of the acetabulum and femoral head. There is lower lumbar spondylosis. IMPRESSION: 1: No acute abdominal abnormality identified (2) Diastolic dysfunction: Code(s): I51.89 - Other ill-defined heart diseases Status: Acute Assessment and Plan: * Carvedilol 6.25 mg PO BID. * Hydralazine 10 mg PO BID. * Furosemide 40 mg PO daily. (3) Hypertension: Code(s): I10 - Essential (primary) hypertension Status: Acute Assessment and Plan: * Blood pressure 148/68. * Carvedilol 6.25 mg PO BID. * Hydralazine 10 mg PO BID. (4) Chronic anticoagulation: Code(s): Z79.01 - long term acute care registered nurse (current) use of anticoagulants Status: Acute Assessment and Plan: * Apixaban 5 mg PO BID. (5) Chronic anemia: Code(s): D64.9 - Anemia, unspecified Status: Acute Assessment and Plan: * H&H 11.4/35.8. * Trend CBC. (6) Type 2 diabetes mellitus: Code(s): E11.9 - Type 2 diabetes mellitus without complications Status: Acute Assessment and Plan: * Diabetes was reported diet controlled. * HgbA1C 7.1% * Initiate sliding scale insulin, Accu-Checks, and hypoglycemic protocol. (7) Psychiatric illness: Code(s): F99 - Mental disorder, not otherwise specified Status: Acute Assessment and Plan: * Escitalopram 20 mg PO daily. * Quetiapine Fumarate XR 100 mg PO qpm. * Risperidone 1 mg PO TID. (8) Back pain: Code(s): M54.9 - Dorsalgia, unspecified Status: Acute Assessment and Plan: * Acetaminophen 650 mg PO q6 PRN. Subjective Date/time seen: 07/30/24 11:34 Interval history: Patient lying in bed. Patient denies chest pain, palpitations, headache, dizziness, nausea, or vomiting. Patient reports not feeling well. Review of Systems Review of Systems: All systems reviewed & are unremarkable except as noted in HPI and below Exam Const: General: comfortable and no acute distress Resp: Effort & Inspection: normal respiratory effort Auscultation: diminished lung sounds Cardio: Rate: regular rate Rhythm: regular rhythm GI: GI Palp: Yes Soft to palpation Auscultation: normal bowel sounds Other: slightly tender to palpation. Extrem: General: pedal edema bilaterally 1+ Psych: Other: A&Ox2. Mild cognitive impairment. Objective Data Vital Signs Vital Signs: Vital Signs - 24 hr 07/29/24 14:00 07/29/24 20:00 07/29/24 22:00 Temperature 97.6 F 98.1 F Pulse Rate 71 67 Respiratory Rate 17 16 Blood Pressure 100/62 99/85 L Pulse Oximetry 95 97 Oxygen Delivery Room Air 07/30/24 06:00 07/30/24 07:36 Temperature 97.6 F Pulse Rate 67 67 Respiratory Rate 18 16 Blood Pressure 157/62 H Pulse Oximetry 99 97 Oxygen Delivery Room Air Intake/Output Intake/Output: Intake & Output 07/27/24 07/28/24 07/29/24 07/30/24 23:59 23:59 23:59 23:59 Intake Total 480 2300 840 240 Output Total 150 2150 1950 800 Balance 330 150 1110 -560 Meds/Results Medications: Active Medications Generic Name Dose Route Start Last Admin Trade Name Freq PRN Reason Stop Dose Admin Acetaminophen 650 mg 07/27/24 14:25 07/29/24 13:31 Acetaminophen 325 Mg Tablet PO 650 mg Q4H PRN Administration Mild Pain (1-3) or Fever Albuterol 2 puff 07/28/24 08:44 Albuterol Sulfate (*Sp) Aerosol 1 Puff INHALATION Q6HRT PRN Shortness Of Breath Apixaban 5 mg 07/28/24 09:00 07/30/24 08:26 Apixaban 5 Mg Tablet PO 5 mg BID MAGUE Administration Atorvastatin Calcium 20 mg 07/28/24 09:00 07/28/24 10:27 Atorvastatin 20 Mg Tablet PO 20 mg DAILY MAGUE Administration Baclofen 5 mg 07/28/24 09:00 07/30/24 08:31 Baclofen 5 Mg Tablet PO 5 mg BID MAGUE Administration Bisacodyl 10 mg 07/28/24 08:44 Bisacodyl 10 Mg Suppository RECTAL DAILY PRN Constipation Carvedilol 6.25 mg 07/28/24 09:00 07/30/24 08:26 Carvedilol 6.25 Mg Tablet PO 6.25 mg BID MAGUE Administration Dextrose 12.5 gm 07/27/24 22:08 Dextrose 50% 25 Gm/50 Ml Syringe IV PUSH PRN PRN Hypoglycemia Protocol Diclofenac Sodium 1 applic 07/28/24 09:00 07/30/24 08:32 Diclofenac Sodium 1% 100 Gm Gel (*Bkc) TOPICAL 1 applic BID MAGUE Administration Divalproex Sodium 500 mg 07/28/24 09:00 07/30/24 08:27 Divalproex Sodium Er 500 Mg Tab.24h PO 500 mg BID MAGUE Administration Docusate Sodium 100 mg 07/28/24 09:00 07/30/24 08:26 Docusate Sodium 100 Mg Capsule PO 100 mg BID MAGUE Administration Escitalopram Oxalate 20 mg 07/28/24 09:00 07/30/24 08:35 Escitalopram Oxalate 10 Mg Tablet PO 20 mg DAILY MAGUE Administration Famotidine 20 mg 07/28/24 09:00 07/30/24 08:26 Famotidine 20 Mg Tablet PO 20 mg Q12HR MAGUE Administration Furosemide 40 mg 07/28/24 09:00 07/30/24 08:26 Furosemide 40 Mg Tablet PO 40 mg DAILY MAGUE Administration Gabapentin 100 mg 07/28/24 09:00 07/30/24 08:30 Gabapentin 100 Mg Capsule PO 100 mg BID MAGUE Administration Glucagon 1 mg 07/27/24 22:08 Glucagon For Inj 1 Mg Vial IM PRN PRN Hypoglycemia Protocol Glucose 15 gm 07/27/24 22:08 Glucose Oral Gel 15 Gm Of Glucse In 37.5 Gm Tube PO PRN PRN Hypoglycemia Protocol Hydralazine HCl 10 mg 07/28/24 09:00 07/30/24 08:26 Hydralazine 10 Mg Tablet PO 10 mg BID MAGUE Administration Dextrose 1,000 mls @ 100 mls/hr 07/27/24 22:08 Dextrose 5% 1,000 Ml IVPB PRN PRN Hypoglycemia Protocol Daptomycin 750 mg/ Sodium 50 mls @ 100 mls/hr 07/28/24 18:00 07/29/24 18:16 Chloride IVPB 100 mls/hr Q24H MAGUE Administration Insulin Aspart 3 - 6 units 07/28/24 08:00 07/30/24 08:31 Insulin Aspart (*Bkc) 100 Units/Ml SUB-Q Not Given TIDWM [facility] Protocol Insulin Aspart 1 - 3 units 07/28/24 21:00 07/29/24 21:39 Insulin Aspart (*Bkc) 100 Units/Ml SUB-Q Not Given HS [facility] Protocol Lisinopril 40 mg 07/28/24 09:00 07/29/24 13:32 Lisinopril 20 Mg Tablet PO Not Given DAILY MAGUE Magnesium Citrate 300 ml 07/28/24 08:44 Magnesium Citrate 300 Ml Btl PO DAILY PRN Constipation Magnesium Hydroxide 30 ml 07/28/24 08:44 Magnesium Hydroxide Susp 30 Ml Udc PO DAILY PRN constipation Melatonin 5 mg 07/28/24 21:00 07/29/24 21:33 Melatonin 5 Mg Tablet PO 5 mg HS MAGUE Administration Metoprolol Tartrate 12.5 mg 07/28/24 09:00 07/30/24 08:26 Metoprolol Tartrate 12.5 Mg Tablet PO 12.5 mg Q12HR MAGUE Administration Miscellaneous Information 0 each 07/28/24 00:01 07/29/24 21:42 For The Bowel Regimen- Please Clarify Use 1st, 2nd, 3rd Or Dc Duplicates Thanks XX 08/27/24 00:00 Not Given CLARIFY MAGUE Multivitamins/Minerals 1 tab 07/28/24 09:00 07/30/24 08:30 Multivitamins /C Lutein (Centrum Silver) Tablet *Bkc PO 1 tab DAILY MAGUE Administration Polyethylene Glycol 17 gm 07/28/24 08:44 07/29/24 13:30 Polyethylene Glycol 3350 17 Gm Powd.Pack PO 17 gm DAILY PRN Administration Constipation Quetiapine Fumarate 100 mg 07/28/24 18:00 07/29/24 18:16 Quetiapine Fumarate Xr 50 Mg Tab.Er.24h PO 100 mg QPM MAGUE Administration Risperidone 1 mg 07/28/24 09:00 07/30/24 08:26 Risperidone 1 Mg Tablet PO 1 mg TID MAGUE Administration Fluticasone/Salmeterol 2 puff 07/28/24 08:00 07/30/24 08:41 Fluticasone/Salmeterol 115-21 Mcg Inhaler 1 Puff INHALATION 2 puff Q12HRT MAGUE Administration Spironolactone 25 mg 07/28/24 09:00 07/30/24 08:26 Spironolactone 25 Mg Tablet PO 25 mg DAILY MAGUE Administration Valproic Acid 250 mg 07/28/24 09:00 07/30/24 08:26 Valproic Acid 250 Mg Capsule PO 250 mg TID MAGUE Administration Vitamin D 1,000 units 07/28/24 09:00 07/30/24 08:26 Cholecalciferol 1,000 Units Tablet PO 1,000 units DAILY MAGUE Administration Labs Labs: Laboratory Results - last 24 hr 07/29/24 07/29/24 07/29/24 11:36 16:31 21:36 WBC RBC Hgb Hct MCV MCH MCHC RDW Plt Count MPV Sodium Potassium Chloride Carbon Dioxide Anion Gap BUN Creatinine Estim Creat Clear Calc Estimated GFR Glucose POC Capillary Glucose 110 H 180 H 156 H Calcium Magnesium Total Bilirubin AST ALT Alkaline Phosphatase Total Protein Albumin 07/30/24 07/30/24 06:19 08:11 WBC 5.2 RBC 3.67 L Hgb 11.4 L Hct 35.8 L MCV 97.5 MCH 31.1 MCHC 31.8 L RDW 14.7 H Plt Count 104 L MPV 9.1 Sodium 138 Potassium 4.3 Chloride 97 L Carbon Dioxide 37 H Anion Gap 4 BUN 19 H Creatinine 0.86 Estim Creat Clear Calc 63 Estimated GFR > 60 Glucose 128 H POC Capillary Glucose 114 H Calcium 9.0 Magnesium 1.9 Total Bilirubin 0.4 AST 21 ALT 24 Alkaline Phosphatase 78 Total Protein 7.0 Albumin 3.4 L Quality VTE Prophylaxis VTE prophylaxis: pharmacologic ordered (on apixaban)
[2024-07-30 11:57] LABS: Glucose Point of Care 314 mg/dl (65-105)
[2024-07-30] MEDS: INSULIN ASPART (*BKC) 100 UNITS/ML SUB-Q (12:43)
[2024-07-30 14:00] VITALS: BP 148/68; PULSE 83; RESP 18; TEMP 36.8; O2SAT 94
[2024-07-30 16:33] LABS: Glucose Point of Care 101 mg/dl (65-105)
[2024-07-30 16:57] LABS: CRP 4.8 mg/dL (<1.0)
[2024-07-30] MEDS: QUEtiapine FUMARATE XR 50 MG TAB.ER.24H 100 MG PO (16:57)
[2024-07-30 17:10] LABS: Erythrocyte Sedimentation Rate 85 mm/hr (0-20)
[2024-07-30 17:24] LABS: Procalcitonin 0.1 ng/mL
[2024-07-30] MEDS: DAPTOmycin 750 MG in SODIUM CHLORIDE 0.9% IV 50 ML 100 MG IVPB (18:24)
[2024-07-30 20:48] LABS: Glucose Point of Care 146 mg/dl (65-105)
[2024-07-30 21:56] VITALS: BP 113/46; PULSE 68; RESP 20; TEMP 36.6; O2SAT 94
[2024-07-30 22:21] LABS: Alveolar/Arterial O2 Gradient 43.1 mmHg; Base Excess ABG 8.3 mEq/l (+/-2.0); Carboxyhemoglobin 0.9 % THb (0-2.0); Fractional Inspired Oxygen 21 %; HCO3 ABG 31.8 mEq/l (22.0-26.0); Methemoglobin ABG 0.1 %THb (0-1.5); Oxygen Content ABG 14.6 %vol (16.0-22.0); Oxygen Saturation ABG 93.1 % (95.0-100.0); Oxyhemoglobin 90.1 % THb (90.0-100.0); PCO2 ABG 39.7 mmHg (35.0-45.0); PO2 ABG 59.1 mmHg (80.0-100.0); PO2 FiO2 Ratio Arterial Blood 2.81 %; Reduced Hemoglobin 8.9 %THb (0-5.0); Total Hemoglobin 11.5 g/dL (12.0-18.0)
[2024-07-30 22:22] LABS: Device ROOM AIR; Modified Allen's Test Pass; Site Drawn RIGHT RADIAL; pH ABG 7.521 (7.350-7.450)
[2024-07-31 06:00] VITALS: BP 120/53; PULSE 63; RESP 20; TEMP 36.6; O2SAT 95
[2024-07-31 06:04] LABS: Hemoglobin 10.8 g/dL (12.0-15.0); Mean Corpuscular HGB Conc 32.7 g/dl (32-36); Mean Corpuscular Hemoglobin 31.7 pg (26-34); Mean Corpuscular Volume 96.8 fl (80-100); Mean Platelet Volume 9.1 fl (7.4-10.4); Platelet Count Result 113 k/mm3 (150-375); Red Blood Count 3.41 M/mm3 (4.2-5.4); Red Cell Distribution Width 15.4 % (11.5-14.5); White Blood Count 5.9 K/mm3 (4.5-10.0)
[2024-07-31 06:22] LABS: Alanine Aminotransferase 23 U/L (6-35); Albumin Level 3.2 g/dL (3.5-5.1); Alkaline Phosphatase 73 U/L (38-126); Anion Gap 4 mmol/L (4-12); Aspartate Amino Transferase 26 U/L (14-36); Bilirubin,Total 0.6 mg/dL (0.2-1.3); Blood Urea Nitrogen 26 mg/dL (7-17); Calcium 8.7 mg/dL (8.4-10.2); Carbon Dioxide 37 mmol/L (22-30); Chloride 95 mmol/L (98-107); Estimated CRCL calculation 44 ml/min; Estimated Glomerular Filt Rate 43; Glucose 117 mg/dL (65-110); Magnesium 1.9 mg/dL (1.6-2.3); Sodium 136 mmol/L (137-145)
[2024-07-31 08:10] LABS: Glucose Point of Care 110 mg/dl (65-105)
[2024-07-31] MEDS: FLUTICASONE/SALMETEROL 115-21 MCG INHALER 1 PUFF 2 PUFF INHALATION ×2 (08:43→21:49)
[2024-07-31 08:46] VITALS: PULSE 73; RESP 20; O2SAT 92
[2024-07-31] MEDS: DIVALPROEX SODIUM ER 500 MG TAB.24H PO ×2 (08:49→17:50)
[2024-07-31] MEDS: BACLOFEN 5 MG TABLET PO ×2 (08:49→17:50)
[2024-07-31] MEDS: SPIRONOLACTONE 25 MG TABLET PO (08:50)
[2024-07-31] MEDS: MULTIVITAMINS /C LUTEIN (CENTRUM SILVER) TABLET *BKC 1 TAB PO (08:50)
[2024-07-31] MEDS: VALPROIC ACID 250 MG CAPSULE PO ×3 (08:50→17:49)
[2024-07-31] MEDS: FUROSEMIDE 40 MG TABLET PO (08:50)
[2024-07-31] MEDS: GABAPENTIN 100 MG CAPSULE PO ×2 (08:50→17:49)
[2024-07-31] MEDS: carvediloL 6.25 MG TABLET PO ×2 (08:50→17:49)
[2024-07-31] MEDS: CHOLECALCIFEROL 1,000 UNITS TABLET 1000 UNITS PO (08:50)
[2024-07-31] MEDS: FAMOTIDINE 20 MG TABLET PO ×2 (08:50→21:36)
[2024-07-31] MEDS: ESCITALOPRAM OXALATE 10 MG TABLET 20 MG PO (08:50)
[2024-07-31] MEDS: hydrALAZINE 10 MG TABLET PO ×2 (08:50→17:49)
[2024-07-31] MEDS: APIXABAN 5 MG TABLET PO ×2 (08:50→17:50)
[2024-07-31] MEDS: DOCUSATE SODIUM 100 MG CAPSULE PO ×2 (08:51→17:49)
[2024-07-31] MEDS: DICLOFENAC SODIUM 1% 100 GM GEL (*BKC) 1 APPLIC TOPICAL ×2 (08:51→17:50)
[2024-07-31] MEDS: METOPROLOL TARTRATE 12.5 MG TABLET PO ×2 (08:53→21:36)
[2024-07-31] MEDS: risperiDONE 1 MG TABLET PO ×3 (08:54→17:49)
[2024-07-31 11:37] LABS: Glucose Point of Care 165 mg/dl (65-105)
--- NOTE | 2024-07-31 12:13 | P.PNIM_ITS ---
Progress Note: A&P Assessment and Plan (1) Positive blood culture: Code(s): R78.81 - Bacteremia Status: Acute Assessment and Plan: * 3/ blood culture sets grew Enterococcus faecium 1 bottle and Vanco Res Enter ococcus Faecium in 1 bottle. * 3/29 Blood cultures grew Enterococcus faecium. * Antibiotic switched to Daptomycin 750 mg q 24. * Abdomen chest pelvis CT ordered with contrast showed: Impression: No acute abnormality seen. Cholelithiasis. Mild L5 compression fracture, new from prior exam. * Repeated blood cultures today. * CRP, ESR, procalcitonin, and urine culture ordered. * Chest X-ray:IMPRESSION: 1. Mild pulmonary edema. 2. Cardiomegaly. * Abdomen KUB: FINDINGS: Bowel gas pattern is normal. Moderate colonic fecal loading. There is no evidence of free air, mass, organomegaly, ascites or obstruction. No abnormal calculi are seen. There is severe osteoarthritis of the right hip with remodeling of the acetabulum and femoral head. There is lower lumbar spondylosis. IMPRESSION: 1: No acute abdominal abnormality identified (2) Diastolic dysfunction: Code(s): I51.89 - Other ill-defined heart diseases Status: Acute Assessment and Plan: * Carvedilol 6.25 mg PO BID. * Hydralazine 10 mg PO BID. * Furosemide 40 mg PO daily. (3) Hypertension: Code(s): I10 - Essential (primary) hypertension Status: Acute Assessment and Plan: * Blood pressure 111/65. * Carvedilol 6.25 mg PO BID. * Hydralazine 10 mg PO BID. (4) Chronic anticoagulation: Code(s): Z79.01 - detention (current) use of anticoagulants Status: Acute Assessment and Plan: * Apixaban 5 mg PO BID. (5) Chronic anemia: Code(s): D64.9 - Anemia, unspecified Status: Acute Assessment and Plan: * H&H 10.8/33.0. * Trend CBC. (6) Type 2 diabetes mellitus: Code(s): E11.9 - Type 2 diabetes mellitus without complications Status: Acute Assessment and Plan: * Diabetes was reported diet controlled. * HgbA1C 7.1% * Initiate sliding scale insulin, Accu-Checks, and hypoglycemic protocol. (7) Psychiatric illness: Code(s): F99 - Mental disorder, not otherwise specified Status: Acute Assessment and Plan: * Escitalopram 20 mg PO daily. * Quetiapine Fumarate XR 100 mg PO qpm. * Risperidone 1 mg PO TID. (8) Back pain: Code(s): M54.9 - Dorsalgia, unspecified Status: Acute Assessment and Plan: * Acetaminophen 650 mg PO q6 PRN. Subjective Date/time seen: 07/31/24 12:13 Interval history: Patient denies chest pain, palpitations, headache, dizziness, nausea, or vomiting. Review of Systems Review of Systems: All systems reviewed & are unremarkable except as noted in HPI and below Exam Const: General: comfortable and no acute distress Resp: Effort & Inspection: normal respiratory effort Auscultation: diminished lung sounds Cardio: Rate: regular rate Rhythm: regular rhythm GI: GI Palp: Yes Soft to palpation Auscultation: normal bowel sounds Neuro: Speech: normal speech Extrem: General: pedal edema bilaterally 1+ Psych: Other: A&Ox2. Mild cognitive impairment. Objective Data Vital Signs Vital Signs: Vital Signs - 24 hr 07/30/24 14:00 07/30/24 20:00 07/30/24 21:56 Temperature 98.2 F 97.8 F Pulse Rate 83 68 Respiratory Rate 18 20 Blood Pressure 148/68 H 113/46 L Pulse Oximetry 94 94 Oxygen Delivery Room Air 07/31/24 06:00 07/31/24 08:00 07/31/24 08:46 Temperature 97.9 F Pulse Rate 63 Respiratory Rate 20 Blood Pressure 120/53 L Pulse Oximetry 95 92 Oxygen Delivery Room Air Room Air 07/31/24 08:46 Temperature Pulse Rate 73 Respiratory Rate 20 Blood Pressure Pulse Oximetry Oxygen Delivery Intake/Output Intake/Output: Intake & Output 07/28/24 07/29/24 07/30/24 07/31/24 23:59 23:59 23:59 23:59 Intake Total 2300 890 670 320 Output Total 2150 1950 1300 Balance 150 -1060 -630 320 Meds/Results Medications: Active Medications Generic Name Dose Route Start Last Admin Trade Name Freq PRN Reason Stop Dose Admin Acetaminophen 650 mg 07/27/24 14:25 07/29/24 13:31 Acetaminophen 325 Mg Tablet PO 650 mg Q4H PRN Administration Mild Pain (1-3) or Fever Albuterol 2 puff 07/28/24 08:44 Albuterol Sulfate (*Sp) Aerosol 1 Puff INHALATION Q6HRT PRN Shortness Of Breath Apixaban 5 mg 07/28/24 09:00 07/31/24 08:50 Apixaban 5 Mg Tablet PO 5 mg BID MAGUE Administration Atorvastatin Calcium 20 mg 07/28/24 09:00 07/28/24 10:27 Atorvastatin 20 Mg Tablet PO 20 mg DAILY MAGUE Administration Baclofen 5 mg 07/28/24 09:00 07/31/24 08:49 Baclofen 5 Mg Tablet PO 5 mg BID MAGUE Administration Bisacodyl 10 mg 07/28/24 08:44 Bisacodyl 10 Mg Suppository RECTAL DAILY PRN Constipation Carvedilol 6.25 mg 07/28/24 09:00 07/31/24 08:50 Carvedilol 6.25 Mg Tablet PO 6.25 mg BID MAGUE Administration Dextrose 12.5 gm 07/27/24 22:08 Dextrose 50% 25 Gm/50 Ml Syringe IV PUSH PRN PRN Hypoglycemia Protocol Diclofenac Sodium 1 applic 07/28/24 09:00 07/31/24 08:51 Diclofenac Sodium 1% 100 Gm Gel (*Bkc) TOPICAL 1 applic BID MAGUE Administration Divalproex Sodium 500 mg 07/28/24 09:00 07/31/24 08:49 Divalproex Sodium Er 500 Mg Tab.24h PO 500 mg BID MAGUE Administration Docusate Sodium 100 mg 07/28/24 09:00 07/31/24 08:51 Docusate Sodium 100 Mg Capsule PO 100 mg BID MAGUE Administration Escitalopram Oxalate 20 mg 07/28/24 09:00 07/31/24 08:50 Escitalopram Oxalate 10 Mg Tablet PO 20 mg DAILY MAGUE Administration Famotidine 20 mg 07/28/24 09:00 07/31/24 08:50 Famotidine 20 Mg Tablet PO 20 mg Q12HR MAGUE Administration Furosemide 40 mg 07/28/24 09:00 07/31/24 08:50 Furosemide 40 Mg Tablet PO 40 mg DAILY MAGUE Administration Gabapentin 100 mg 07/28/24 09:00 07/31/24 08:50 Gabapentin 100 Mg Capsule PO 100 mg BID MAGUE Administration Glucagon 1 mg 07/27/24 22:08 Glucagon For Inj 1 Mg Vial IM PRN PRN Hypoglycemia Protocol Glucose 15 gm 07/27/24 22:08 Glucose Oral Gel 15 Gm Of Glucse In 37.5 Gm Tube PO PRN PRN Hypoglycemia Protocol Hydralazine HCl 10 mg 07/28/24 09:00 07/31/24 08:50 Hydralazine 10 Mg Tablet PO 10 mg BID MAGUE Administration Dextrose 1,000 mls @ 100 mls/hr 07/27/24 22:08 Dextrose 5% 1,000 Ml IVPB PRN PRN Hypoglycemia Protocol Daptomycin 750 mg/ Sodium 50 mls @ 100 mls/hr 07/28/24 18:00 07/30/24 18:24 Chloride IVPB 100 mls/hr Q24H MAGUE Administration Insulin Aspart 3 - 6 units 07/28/24 08:00 07/31/24 11:39 Insulin Aspart (*Bkc) 100 Units/Ml SUB-Q Not Given TIDWM [facility] Protocol Insulin Aspart 1 - 3 units 07/28/24 21:00 07/30/24 21:01 Insulin Aspart (*Bkc) 100 Units/Ml SUB-Q Not Given HS [facility] Protocol Lisinopril 40 mg 07/28/24 09:00 07/29/24 13:32 Lisinopril 20 Mg Tablet PO Not Given DAILY MAGUE Magnesium Citrate 300 ml 07/28/24 08:44 Magnesium Citrate 300 Ml Btl PO DAILY PRN Constipation Magnesium Hydroxide 30 ml 07/28/24 08:44 Magnesium Hydroxide Susp 30 Ml Udc PO DAILY PRN constipation Melatonin 5 mg 07/28/24 21:00 07/30/24 21:01 Melatonin 5 Mg Tablet PO Not Given HS MAGUE Metoprolol Tartrate 12.5 mg 07/28/24 09:00 07/31/24 08:53 Metoprolol Tartrate 12.5 Mg Tablet PO 12.5 mg Q12HR MAGUE Administration Miscellaneous Information 0 each 07/28/24 00:01 07/31/24 05:50 For The Bowel Regimen- Please Clarify Use 1st, 2nd, 3rd Or Dc Duplicates Thanks XX 08/27/24 00:00 Not Given CLARIFY MAGUE Multivitamins/Minerals 1 tab 07/28/24 09:00 07/31/24 08:50 Multivitamins /C Lutein (Centrum Silver) Tablet *Bkc PO 1 tab DAILY MAGUE Administration Polyethylene Glycol 17 gm 07/28/24 08:44 07/29/24 13:30 Polyethylene Glycol 3350 17 Gm Powd.Pack PO 17 gm DAILY PRN Administration Constipation Quetiapine Fumarate 100 mg 07/28/24 18:00 07/30/24 16:57 Quetiapine Fumarate Xr 50 Mg Tab.Er.24h PO 100 mg QPM MAGUE Administration Risperidone 1 mg 07/28/24 09:00 07/31/24 08:54 Risperidone 1 Mg Tablet PO 1 mg TID MAGUE Administration Fluticasone/Salmeterol 2 puff 07/28/24 08:00 07/31/24 08:43 Fluticasone/Salmeterol 115-21 Mcg Inhaler 1 Puff INHALATION 2 puff Q12HRT MAGUE Administration Spironolactone 25 mg 07/28/24 09:00 07/31/24 08:50 Spironolactone 25 Mg Tablet PO 25 mg DAILY MAGUE Administration Valproic Acid 250 mg 07/28/24 09:00 07/31/24 08:50 Valproic Acid 250 Mg Capsule PO 250 mg TID MAGUE Administration Vitamin D 1,000 units 07/28/24 09:00 07/31/24 08:50 Cholecalciferol 1,000 Units Tablet PO 1,000 units DAILY MAGUE Administration Radiology Results: ITS Impressions Abdomen X-Ray 07/30/24 14:01 IMPRESSION: 1: No acute abdominal abnormality identified. Chest X-Ray 07/30/24 22:39 IMPRESSION: Small right-sided pleural effusion without focal infiltrate. Head CT 07/30/24 23:04 Impression: No acute intracranial hemorrhage or suspicious mass effect. Chest/Abdomen/Pelvis CT 07/31/24 12:08 Impression: No acute abnormality seen. Cholelithiasis. Mild L5 compression fracture, new from prior exam. Labs Labs: Laboratory Results - last 24 hr 07/30/24 07/30/24 07/30/24 16:30 16:32 20:45 WBC RBC Hgb Hct MCV MCH MCHC RDW Plt Count MPV ESR 85 H Puncture Site ABG pH ABG pCO2 ABG pO2 ABG PO2/FiO2 Ratio ABG HCO3 ABG O2 Saturation ABG O2 Content ABG Base Excess A-a Gradient Oxyhemoglobin Carboxyhemoglobin Methemoglobin Reduced Hemoglobin Total Hemoglobin O2 Delivery Device O2 Liters/Min FiO2 Sodium Potassium Chloride Carbon Dioxide Anion Gap BUN Creatinine Estim Creat Clear Calc Estimated GFR Glucose POC Capillary Glucose 101 146 H Calcium Magnesium Total Bilirubin AST ALT Alkaline Phosphatase C-Reactive Protein 4.8 H Total Protein Albumin Procalcitonin 0.1 07/30/24 07/31/24 07/31/24 22:14 05:39 08:01 WBC 5.9 RBC 3.41 L Hgb 10.8 L Hct 33.0 L MCV 96.8 MCH 31.7 MCHC 32.7 RDW 15.4 H Plt Count 113 L MPV 9.1 ESR Puncture Site Right radial ABG pH 7.521 H* ABG pCO2 39.7 ABG pO2 59.1 L ABG PO2/FiO2 Ratio 2.81 ABG HCO3 31.8 H ABG O2 Saturation 93.1 L ABG O2 Content 14.6 L ABG Base Excess 8.3 A-a Gradient 43.1 Oxyhemoglobin 90.1 Carboxyhemoglobin 0.9 Methemoglobin 0.1 Reduced Hemoglobin 8.9 H Total Hemoglobin 11.5 L O2 Delivery Device Room air O2 Liters/Min Not Reportable FiO2 21 Sodium 136 L Potassium 4.0 Chloride 95 L Carbon Dioxide 37 H Anion Gap 4 BUN 26 H Creatinine 1.22 H Estim Creat Clear Calc 44 Estimated GFR 43 L Glucose 117 H POC Capillary Glucose 110 H Calcium 8.7 Magnesium 1.9 Total Bilirubin 0.6 AST 26 ALT 23 Alkaline Phosphatase 73 C-Reactive Protein Total Protein 6.0 L Albumin 3.2 L Procalcitonin 07/31/24 11:19 WBC RBC Hgb Hct MCV MCH MCHC RDW Plt Count MPV ESR Puncture Site ABG pH ABG pCO2 ABG pO2 ABG PO2/FiO2 Ratio ABG HCO3 ABG O2 Saturation ABG O2 Content ABG Base Excess A-a Gradient Oxyhemoglobin Carboxyhemoglobin Methemoglobin Reduced Hemoglobin Total Hemoglobin O2 Delivery Device O2 Liters/Min FiO2 Sodium Potassium Chloride Carbon Dioxide Anion Gap BUN Creatinine Estim Creat Clear Calc Estimated GFR Glucose POC Capillary Glucose 165 H Calcium Magnesium Total Bilirubin AST ALT Alkaline Phosphatase C-Reactive Protein Total Protein Albumin Procalcitonin Quality VTE Prophylaxis VTE prophylaxis: pharmacologic ordered (on apixaban)
[2024-07-31 14:00] VITALS: BP 111/65; PULSE 73; RESP 18; TEMP 35.8; O2SAT 100
[2024-07-31 16:32] LABS: Glucose Point of Care 194 mg/dl (65-105)
[2024-07-31] MEDS: QUEtiapine FUMARATE XR 50 MG TAB.ER.24H 100 MG PO (17:49)
[2024-07-31] MEDS: DAPTOmycin 750 MG in SODIUM CHLORIDE 0.9% IV 50 ML 100 MG IVPB (17:52)
[2024-07-31 20:00] VITALS: O2SAT 100
[2024-07-31 21:05] LABS: Glucose Point of Care 170 mg/dl (65-105)
[2024-07-31 21:09] VITALS: BP 107/49; PULSE 66; RESP 16; TEMP 37.2; O2SAT 100
[2024-07-31] MEDS: MELATONIN 5 MG TABLET PO (21:36)
[2024-07-31 21:49] VITALS: PULSE 66; RESP 16; O2SAT 98
[2024-08-01 06:28] LABS: Hematocrit 32.6 % (37.0-47.0); Hemoglobin 10.3 g/dL (12.0-15.0); Mean Corpuscular HGB Conc 31.6 g/dl (32-36); Mean Corpuscular Hemoglobin 30.4 pg (26-34); Mean Corpuscular Volume 96.2 fl (80-100); Mean Platelet Volume 9.5 fl (7.4-10.4); Platelet Count Result 117 k/mm3 (150-375); Red Blood Count 3.39 M/mm3 (4.2-5.4); Red Cell Distribution Width 15.3 % (11.5-14.5); White Blood Count 7.2 K/mm3 (4.5-10.0)
[2024-08-01 06:47] LABS: Alanine Aminotransferase 21 U/L (6-35); Albumin Level 3.2 g/dL (3.5-5.1); Alkaline Phosphatase 63 U/L (38-126); Anion Gap 8 mmol/L (4-12); Aspartate Amino Transferase 25 U/L (14-36); Bilirubin,Total 0.5 mg/dL (0.2-1.3); Blood Urea Nitrogen 44 mg/dL (7-17); Calcium 8.2 mg/dL (8.4-10.2); Carbon Dioxide 34 mmol/L (22-30); Chloride 92 mmol/L (98-107); Estimated CRCL calculation 34 ml/min; Estimated Glomerular Filt Rate 32; Glucose 114 mg/dL (65-110); Magnesium 2.1 mg/dL (1.6-2.3); Potassium 4.3 mmol/L (3.4-5.0); Sodium 134 mmol/L (137-145)
[2024-08-01 08:08] LABS: Glucose Point of Care 153 mg/dl (65-105)
[2024-08-01] MEDS: FLUTICASONE/SALMETEROL 115-21 MCG INHALER 1 PUFF 2 PUFF INHALATION (08:32)
[2024-08-01 08:55] VITALS: O2SAT 94
[2024-08-01] MEDS: FAMOTIDINE 20 MG TABLET PO (08:58)
[2024-08-01] MEDS: ESCITALOPRAM OXALATE 10 MG TABLET 20 MG PO (08:58)
[2024-08-01 08:59] VITALS: PULSE 66
[2024-08-01] MEDS: GABAPENTIN 100 MG CAPSULE PO ×2 (08:59→17:23)
[2024-08-01] MEDS: carvediloL 6.25 MG TABLET PO (08:59)
[2024-08-01] MEDS: FUROSEMIDE 40 MG TABLET PO (08:59)
[2024-08-01] MEDS: DIVALPROEX SODIUM ER 500 MG TAB.24H PO ×2 (08:59→17:22)
[2024-08-01] MEDS: BACLOFEN 5 MG TABLET PO ×2 (08:59→17:23)
[2024-08-01] MEDS: CHOLECALCIFEROL 1,000 UNITS TABLET 1000 UNITS PO (08:59)
[2024-08-01] MEDS: risperiDONE 1 MG TABLET PO ×3 (08:59→17:23)
[2024-08-01] MEDS: VALPROIC ACID 250 MG CAPSULE PO ×3 (08:59→17:23)
[2024-08-01] MEDS: SPIRONOLACTONE 25 MG TABLET PO (08:59)
[2024-08-01] MEDS: METOPROLOL TARTRATE 12.5 MG TABLET PO (08:59)
[2024-08-01] MEDS: DOCUSATE SODIUM 100 MG CAPSULE PO ×2 (08:59→17:22)
[2024-08-01] MEDS: APIXABAN 5 MG TABLET PO ×2 (08:59→17:22)
[2024-08-01] MEDS: hydrALAZINE 10 MG TABLET PO (08:59)
[2024-08-01] MEDS: MULTIVITAMINS /C LUTEIN (CENTRUM SILVER) TABLET *BKC 1 TAB PO (08:59)
[2024-08-01] MEDS: DICLOFENAC SODIUM 1% 100 GM GEL (*BKC) 1 APPLIC TOPICAL ×2 (09:00→17:23)
[2024-08-01] MEDS: polyethylene glycoL 3350 17 GM POWD.PACK PO (09:00)
[2024-08-01 10:27] VITALS: O2SAT 98
--- NOTE | 2024-08-01 11:04 | P.CDI_ITS ---
CDI Query Clarification Request Given the positive blood cultures, please clarify if the following dx should be added to the record: - Bacteremia -Sepsis -Other, please specify -Undetermined/Unknown The medical record reflects the following: Risk Factors: 73-year-old female with history of schizophrenia, COPD, hypertension, diastolic dysfunction, dementia. Presents to the ED for repeat evaluation after being discharged yesterday. She had blood cultures drawn the ED which returned positive for Gram-positive cocci in clusters in the anaerobic bottle. She patient has no complaints. She is doing well on her home oxygen dose that was prescribed yesterday. Patient denies any symptoms at this time, EMS brings the patient from local facility. * / blood culture sets grew Enterococcus faecium 1 bottle and Vanco Res Enterococcus Faecium in 1 bottle. * / Blood cultures grew Enterococcus faecium. * Antibiotic switched to Daptomycin 750 mg q 24. * Abdomen chest pelvis CT ordered with contrast showed: Impression: No acute abnormality seen. Cholelithiasis. Mild L5 compression fracture, new from prior exam. * Repeated blood cultures today. * CRP, ESR, procalcitonin, and urine culture ordered. * Chest X-ray:IMPRESSION:1. Mild pulmonary edema. 2. Cardiomegaly. IV abx <Regina Carr RN - Last Filed: 08/01/24 11:14> Clarified Diagnosis Clarified Diagnosis: Bacteremia <KAR Siu - Last Filed: 08/01/24 13:44>
[2024-08-01 11:28] LABS: Glucose Point of Care 219 mg/dl (65-105)
[2024-08-01] MEDS: INSULIN ASPART (*BKC) 100 UNITS/ML SUB-Q (12:07)
[2024-08-01 13:10] VITALS: O2SAT 96
--- NOTE | 2024-08-01 13:44 | P.DS_ITS ---
DS: Admitting Diagnosis Discharge Date 08/01/2024 Admitting Diagnosis Bacteremia DS: Discharge Diagnosis Discharge Diagnosis (1) Positive blood culture: Code(s): R78.81 - Bacteremia Status: Acute Assessment and Plan: * 07/26 blood culture sets grew Enterococcus faecium 1 bottle and Vanco Res Enterococcus Faecium in 1 bottle. * 07/28 Blood cultures grew Enterococcus faecium. * Antibiotic switched to Daptomycin 750 mg q 24. * Abdomen chest pelvis CT ordered with contrast showed: Impression: No acute abnormality seen. Cholelithiasis. Mild L5 compression fracture, new from prior exam. * Repeated blood cultures today. * CRP, ESR, procalcitonin, and urine culture ordered. * Chest X-ray:IMPRESSION: 1. Mild pulmonary edema. 2. Cardiomegaly. * Abdomen KUB: FINDINGS: Bowel gas pattern is normal. Moderate colonic fecal loading. There is no evidence of free air, mass, organomegaly, ascites or obstruction. No abnormal calculi are seen. There is severe osteoarthritis of the right hip with remodeling of the acetabulum and femoral head. There is lower lumbar spondylosis. IMPRESSION: 1: No acute abdominal abnormality identified (2) Diastolic dysfunction: Code(s): I51.89 - Other ill-defined heart diseases Status: Acute Assessment and Plan: * Carvedilol 6.25 mg PO BID. * Hydralazine 10 mg PO BID. * Furosemide 40 mg PO daily. (3) Hypertension: Code(s): I10 - Essential (primary) hypertension Status: Acute Assessment and Plan: * Blood pressure 111/65. * Carvedilol 6.25 mg PO BID. * Hydralazine 10 mg PO BID. (4) Chronic anticoagulation: Code(s): Z79.01 - halfway (current) use of anticoagulants Status: Acute Assessment and Plan: * Apixaban 5 mg PO BID. (5) Chronic anemia: Code(s): D64.9 - Anemia, unspecified Status: Acute Assessment and Plan: * H&H 10.8/33.0. * Trend CBC. (6) Type 2 diabetes mellitus: Code(s): E11.9 - Type 2 diabetes mellitus without complications Status: Acute Assessment and Plan: * Diabetes was reported diet controlled. * HgbA1C 7.1% * Initiate sliding scale insulin, Accu-Checks, and hypoglycemic protocol. (7) Psychiatric illness: Code(s): F99 - Mental disorder, not otherwise specified Status: Acute Assessment and Plan: * Escitalopram 20 mg PO daily. * Quetiapine Fumarate XR 100 mg PO qpm. * Risperidone 1 mg PO TID. (8) Back pain: Code(s): M54.9 - Dorsalgia, unspecified Status: Acute Assessment and Plan: * Acetaminophen 650 mg PO q6 PRN. DS: Summary Hospital Course Hospital Course: Patient is 73-year-old female with past medical history of schizophrenia, diastolic heart failure, hypertension, COPD, DVT presented to the ED with complaints altered mental status. Patient was noted to be in the ED the day before admission however her blood cultures did grow Gram-positive cocci. Final results of the blood cultures came back as Enterococcus faecium. Patient was initiated originally on vancomycin which was changed to daptomycin. Patient will discharge home on linezolid for 2 26 doses. Currently patient is doing well she denies any chest pain, shortness a breath, nausea, vomiting, diarrhea constipation. At 1 time patient was placed on oxygen which has been turned off and patient has been satting in the mid 90s. Patient stable for discharge for labs and vital signs. Patient is agreeable l to discharge plan and verbalized understanding. Status at Discharge Functional status at discharge: wheelchair bound Overall status at discharge: patient is progressing back to baseline Time Spent with Patient Time attestation: Total time spent providing and/or coordinating discharge services: 48 minutes Time spent: Greater than 30 minutes Specific discharge activities: Diagnostic testing, chart review, developing a treatment plan, education, care coordination documentation, physical exam, result review Exam Narrative: General: Chronically ill-appearing female supine in bed in no distress. Weight: 109 kg. BMI: 38.8. HEENT: PERRL, EOMI. Sclerae anicteric. Oral mucosa is dry. Edentulous. Neck: Supple. Exam limited due to neck circumference. Respiratory: Respirations are nonlabored and lungs are clear to auscultation bilaterally. Cardiovascular: Regular rate and rhythm with S1-S2. Systolic murmur at the right upper sternal border. Gastrointestinal: Abdomen is soft, obese, and nondistended with positive bowel sounds. Skin: Warm and dry. Scattered bruising on the hands. Chronic skin changes of the lower legs. Extremities: No cyanosis or clubbing. Chronic, pitting edema of the lower limbs. She would not allow me to remove her socks for examination. Neurological: Alert to name and date of . She is aware that she is in the hospital. Cannot provide me with the current year or president. Cranial nerves 2-12 are grossly intact. No gross focal deficits casual conversation. Psychiatric: Pleasant and cooperative. Mild cognitive impairment. DS: Data Data Completed and Pending Labs on day of discharge: Labs from last 24 hours 08/01/24 08/01/24 08/01/24 11:19 07:58 05:59 WBC 7.2 RBC 3.39 L Hgb 10.3 L Hct 32.6 L MCV 96.2 MCH 30.4 MCHC 31.6 L RDW 15.3 H Plt Count 117 L MPV 9.5 Sodium 134 L Potassium 4.3 Chloride 92 L Carbon Dioxide 34 H Anion Gap 8 BUN 44 H D Creatinine 1.60 H Estim Creat Clear Calc 34 Estimated GFR 32 L Glucose 114 H POC Capillary Glucose 219 H 153 H Calcium 8.2 L Magnesium 2.1 Total Bilirubin 0.5 AST 25 ALT 21 Alkaline Phosphatase 63 Total Protein 6.0 L Albumin 3.2 L 07/31/24 07/31/24 20:49 16:19 WBC RBC Hgb Hct MCV MCH MCHC RDW Plt Count MPV Sodium Potassium Chloride Carbon Dioxide Anion Gap BUN Creatinine Estim Creat Clear Calc Estimated GFR Glucose POC Capillary Glucose 170 H 194 H Calcium Magnesium Total Bilirubin AST ALT Alkaline Phosphatase Total Protein Albumin Preliminary micro results at discharge 07/31/24 05:42 Blood Culture - Preliminary Blood 07/31/24 05:39 Blood Culture - Preliminary Blood Discharge Plan Discharge Attending physician on discharge: Steven Mccormick Discharging Clinician: Miki Hill Patient Disposition: [facility]illed Nursing/As[facility] Living Activity: may shower, unlimited and as tolerated Diet: heart healthy Discharge Instructions: * Take all medications as prescribed even if feeling better * Eat well balanced meals and stay hydrated * Keep active to remain strong * Continue the linezolid for 26 more doses * Trend urine output * If you should experience any chest pain, shortness of breath, temps >100.4 or any other worrisome symptoms please follow up with your PCP come back to the hospital * Follow up with your primary in 2-3 weeks * It has been a pleasure taking care of you thank you for using our services Patient Instructions: Antibiotic Form, Heart Failure (GEN), Blood Thinners (ED) Patient Language: Cymro Stand Alone Forms: General Discharge Information Follow-up/Referrals: Darion,Alejandro [Other] - 1 Week Discharge Medications: New linezolid 600 mg Tablet 600 mg PO Q12HR Qty: 26 0RF Continued spironolactone 25 mg tablet 25 mg PO DAILY baclofen 5 mg tablet 5 mg PO BID carvedilol 6.25 mg tablet 6.25 mg PO BID divalproex [Depakote ER] 500 mg tablet extended release 24 hr 500 mg PO BID escitalopram oxalate 20 mg tablet 20 mg PO DAILY hydralazine 10 mg tablet 10 mg PO BID ipratropium-albuterol 0.5 mg-3 mg(2.5 mg base)/3 mL solution for nebulization 3 ml inhalation BID PRN (Reason: shortness of breath) ondansetron HCl 4 mg tablet 4 mg PO Q6H PRN (Reason: nausea and vomiting) quetiapine 50 mg tablet extended release 24 hr 100 mg PO QPM budesonide-formoterol 160-4.5 mcg/actuation HFA aerosol inhaler 2 puff INHALATION BID acetaminophen 325 mg capsule 650 mg PO Q6H PRN (Reason: general discomfort) Blink Tears 0.25 % drops 2 drp ophthalmic (eye) QID PRN (Reason: dry eyes) Enema 19-7 gram/118 mL enema 118 ml RECTAL DAILY PRN (Reason: constipation) Cold and Hot (m.salic-menthol) 29-7.6 % ointment 1 applic topical TID PRN (Reason: muscle pain) prednisone 10 mg tablet 10 mg PO DAILY Qty: 20 0RF Rx Instructions: 4Tx2d, 3Tx2d 2Tx2d, 1Tx2d lisinopril 40 mg Tablet 40 mg PO DAILY Adults Multivitamin 18 mg iron-400 mcg-25 mcg Tablet 1 tablet PO DAILY polyethylene glycol 3350 [Miralax] 17 gram/dose Powder 17 g PO DAILY PRN (Reason: Constipation) Rx Instructions: GIVE IF NO BM IN 3 DAYS cholecalciferol (vitamin D3) 25 mcg (1,000 unit) Tablet 1,000 unit PO DAILY metoprolol tartrate 25 mg tablet 12.5 mg PO Q12HR Qty: 0 0RF atorvastatin 20 mg tablet 20 mg PO DAILY famotidine [Pepcid] 20 mg Tablet 20 mg PO BID docusate sodium 100 mg Tablet 100 mg PO BID Eliquis 5 mg tablet 5 mg PO BID furosemide 40 mg tablet 40 mg PO DAILY bisacodyl 10 mg Suppository 10 mg RECTAL DAILY PRN (Reason: Constipation) magnesium citrate [Citroma] Solution 300 ml PO DAILY PRN (Reason: Constipation) gabapentin 100 mg Capsule 100 mg PO BID melatonin 5 mg Tablet 5 mg PO HS albuterol sulfate 90 mcg/actuation Aerosol Powdr Breath Activated 2 inh INHALATION Q6H PRN (Reason: Shortness Of Breath) ibuprofen 200 mg Tablet 200 mg PO BID PRN (Reason: Pain) risperidone 1 mg tablet 1 mg PO TID diclofenac sodium 1 % Gel 2 g TOPICAL BID acetaminophen-codeine 300-30 mg tablet 2 tablet PO Q4H PRN (Reason: Pain) Saccharomyces boulardii [Florastor] 250 mg capsule 250 mg PO BID Qty: 14 0RF hydrocodone-acetaminophen 5-325 mg tablet 1 tablet PO Q8H PRN (Reason: pain) hydroxyzine pamoate 50 mg capsule 50 mg PO BID PRN (Reason: anxiety) magnesium hydroxide [Milk of Magnesia] 400 mg/5 mL suspension 2,400 mg PO DAILY PRN (Reason: constipation) valproic acid 250 mg capsule 250 mg PO TID doxycycline hyclate 100 mg capsule 100 mg PO BID 4 Days Qty: 8 0RF amoxicillin-pot clavulanate 875-125 mg tablet 1 tablet PO Q12H 4 Days Qty: 8 0RF Date of admission: 07/29/24 14:08 Primary Care Provider: DarionAlejandro Admitting Provider: Chacho Landa Attending physician on admission: Chacho Landa Condition: Stable Quality VTE Prophylaxis VTE prophylaxis: mechanical ordered and pharmacologic ordered Hospitalist MIPS Heart Failure (Exclusion) Patient has history of Heart Transplant or Left Ventricular Assistive Device?: No IF YES, STOP HERE Heart Failure (Qualifier) Patient has current or prior documentation of LVEF less than or equal to 40%, or mod/servere depressed LVSF?: No IF NO, STOP HERE
[2024-08-01 14:00] VITALS: BP 93/45; PULSE 62; RESP 16; TEMP 36.2; O2SAT 97
[2024-08-01 16:26] LABS: Glucose Point of Care 112 mg/dl (65-105)
[2024-08-01] MEDS: LINEZOLID 600 MG TABLET PO (17:22)
[2024-08-01] MEDS: QUEtiapine FUMARATE XR 50 MG TAB.ER.24H 100 MG PO (17:23)
--- NOTE | 2024-08-01 18:58 | PC.NURSE ---
Attempted to call Amber with report x3 times. Left name and number for nurse at facility to call us when available, and never received a call. Attempted to call one more time an hour and a half later. Left on hold with no one ever returning to the phone.
== END 2024-08-01 19:57 | DRG 872 ==
LOC: ANHED 13:45 → ANH3MEDSUR 14:47
PROVIDERS: Nurse Practitioner Family; Physician Assistant; Admitting Provider Internal Medicine; Emergency Provider Student in an Organized Health Care Education/Training Program; Visit Provider Nurse Practitioner
DX: R78.81 Bacteremia (principal); I50.32 Chronic diastolic (congestive) heart failure; B95.2 Enterococcus as the cause of diseases classified elsewhere; I11.0 Hypertensive heart disease with heart failure; I27.20 Pulmonary hypertension, unspecified; J44.9 Chronic obstructive pulmonary disease, unspecified; E11.9 Type 2 diabetes mellitus without complications; M19.90 Unspecified osteoarthritis, unspecified site; F32.A Depression, unspecified; F41.9 Anxiety disorder, unspecified; F20.9 Schizophrenia, unspecified; F03.90 Unspecified dementia, unspecified severity, without behavioral disturbance, psychotic disturbance, mood disturbance, and anxiety; Z20.822 Contact with and (suspected) exposure to COVID-19; Z86.718 Personal history of other venous thrombosis and embolism; Z79.01 Long term (current) use of anticoagulants; Z95.2 Presence of prosthetic heart valve
CPT/HCPCS: 36415; 36600; 70450; 71045; 71260; 74018; 74177; 80048; 80053; 82375; 82550; 82805; 82948; 83036; 83050; 83605; 83735; 84145; 85018; 85025; 85027; 85652; 86140; 87040; 87086; 87641; 94640; 96365; 96375; 96376; 99285; A9270; G0378; J0878; J1815; J1940; J3370; Q9967